=== PATIENT | female | born 1970 | race Caucasian/White ===

== ENCOUNTER → 2016-09-20 | Outpatient (CLI) | payer OTHER ==
[~2016-09-20] MED LIST: ALEV220T26 PO; MULTTAB24 PO; TYLE167L PO
--- NOTE | 2016-10-01 | ECWPNPC ---
PATIENT NAME: KEESHA OROURKE : 1970 GENDER: FEMALE VISIT DATE: 09/20/2016 DISCHARGE DATE: 09/20/16 1055 VISIT LOCKED DATE TIME: PHYSICIAN: YASIR COX RESOURCE: YASIR COX REASON FOR APPOINTMENT 1. FOLLOW UP HISTORY OF PRESENT ILLNESS HISTORY OF PRESENT ILLNESS: HERE FOR F/U.HAD TPI ON 05-12-16 TO BILAT. UPPER THORACIC PARASPINALS.WAS HAVING NO PAIN UNTIL 2 WEEKS AGO AND PAIN RETURNED ABRUPTLY.USING TENS UNIT PERIODICALLY WITH RELIEF.PAIN AGGREVATED BY LIFTING.RATING PAIN VAS 10/10. PAIN THE PATIENT DESCRIBES THE PAIN... THE PATIENT DESCRIBES THE PAIN... FALL RISK SCREENING: SCREENING :NO FALLS IN THE PAST YEAR CURRENT MEDICATIONS TAKING MULTIVITAMIN 1 TABLET 1 TAB(S) ORALLY DAILY, NOTES: 05-11-16 0800 TAKING ACETAMINOPHEN 500 MG CAPSULE 1 CAPSULE NEEDED ORALLY EVERY 6 HRS TAKING ALEVE 220 MG TABLET 1 TABLET NEEDED ORALLY EVERY 12 HRS, NOTES: NONE MEDICATION LIST REVIEWED AND RECONCILED WITH THE PATIENT PAST MEDICAL HISTORY SLEEP APNEA, USES CPAP ALLERGIES PREDNISONE: SHORT OF BREATH: ALLERGY SOCIAL HISTORY GENERAL: TOBACCO USE ARE YOU A:NONSMOKER LEARNING BARRIERS / SPECIAL NEEDS ORIENTED TO PLAN OF CARE: PATIENT, PAIN MANAGEMENT PATIENT, ORIENTED TO PLAN OF CARE: PATIENT, PAIN MANAGEMENT PATIENT. NEW PATIENT PAIN DIARY TODAY'S VISITNOTES FROM 0-10, WHAT LEVEL IS YOUR PAIN TODAY?0 PAIN CLINIC PFS, CLERGY, PUBLIC HEALTH REFERRALS PFS REFERRAL NEEDED?NO CLERGY REFERRAL NEEDED?NO PUBLIC HEALTH REFERRAL NEEDED?NO WAS THE PROVIDER NOTIFIED OF ANY PERTINENT INFO?NO PFS REFERRAL NEEDED?NO CLERGY REFERRAL NEEDED?NO PUBLIC HEALTH REFERRAL NEEDED?NO WAS THE PROVIDER NOTIFIED OF ANY PERTINENT INFO?NO REVIEW OF SYSTEMS CONSTITUTIONAL: ANY CHANGE IN YOUR MEDICAL CONDITION? NO . CHILLS NO . FEVER NO . INFECTION: DO YOU HAVE NEW INFECTIONS? NO . DO YOU HAVE HISTORY OF MRSA? NO . MUSCULOSKELETAL: ANY NEW PATTERNS OF PAIN OR NUMBNESS? YES PT HAD TPI 05/12/16, WHICH GAVE GOOD RELIEF UP UNTIL A FEW WEEKS AGO, NOW REPORTS PAIN IN CENTER OF BACK . GASTROENTEROLOGY: ANY NEW CHANGE IN BOWEL CONTROL? NO . GENITOURINARY: ANY NEW CHANGE IN BLADDER CONTROL? NO . IS THERE A CHANCE YOU COULD BE ? NO . HEMATOLOGY/LYMPH: DO YOU TAKE ANY BLOOD THINNERS? (FOR EXAMPLE- COUMADIN, PLAVIX, AGGRENOX, PLATEL, PRADAXA, OR XARELTO) NO . WHEN WAS YOUR LAST DOSE? DATE: TIME: . NEUROLOGY: HAVE YOU FALLEN IN THE PAST 6 MONTHS? YES PT REPORTS SHE SLIPPED ON ICE AND FELL ONTO KNEES. DENIES ANY INJURY FROM FALL, NO ED VISIT. . ANY NEW EXTREMITY NUMBNESS OR WEAKNESS? NO . CARDIOLOGY: DO YOU HAVE A PACEMAKER OR DEFIBRILLATOR? NO . RESPIRATORY: HAVE YOU BEEN SICK IN THE PAST WEEK? NO . FEVER NO . FLU LIKE SYMPTOMS? NO . COUGH NO . INTEGUMENTARY: DO YOU HAVE ANY RASHES OR OPEN SORES? NO . ALLERGIC/IMMUNO: ARE YOU ALLERGIC TO SHELLFISH OR IV DYE? NO . ANY NEW ALLERGIES? NO . PSYCHIATRIC: DO YOU HAVE THOUGHTS OF HURTING YOURSELF OR SOMEONE ELSE? NO . ARE YOU ABUSED, NEGLECTED, OR IN AN UNSAFE ENVIRONMENT? NO . ENDOCRINOLOGY: ARE YOU DIABETIC? NO . OTHER: DO YOU NEED ANY PRESCRIPTIONS? NO . IF YES, PLEASE LIST: ____ . ANY NEW PROBLEMS WITH YOUR MEDICATIONS? NO . WHEN DID YOU LAST EAT? ____ . WHEN DID YOU LAST DRINK? ____ . WHAT DID YOU LAST DRINK? ____ . NAME OF PERSON DRIVING YOU HOME? ____ . DO YOU HAVE ANY OTHER QUESTIONS OR CONCERNS NO . REVIEWED BY: PROVIDER: YASIR PETTY . VITAL SIGNS WT 165 LBS, HT 67", BMI 25.84 INDEX, BP 136/85 MM HG, HR 67 /MIN, RR 18 /MIN, TEMP 97.0 F, OXYGEN SAT % 99%, SAFE IN ENV? (Y/N) YES, REVIEWED BY: MYNOR. EXAMINATION GENERAL EXAMINATION: LUNGS:LUNG SOUNDS ARE CLEAR. HEART:HEART RATE REGULAR. MUSCULOSKELETAL:*, MUSCLE STRENGTH TESTING 5/5 BILATERAL UPPER EXTREMITIES., TRIGGER POINTS:, ELICITED WITH PALPATION OVER MID THORACIC MUSCLES WITH AGGREVATION OF PAIN IN THIS AREA W ROJM OF UPPER EXTREMITIES.. ASSESSMENTS CHRONIC BILATERAL THORACIC BACK PAIN - M54.6 (PRIMARY) MYOFASCIAL PAIN - M79.1 MYALGIA - M79.1 TREATMENT CHRONIC BILATERAL THORACIC BACK PAIN TRIGGER POINT 1-2 AREAS MYOFASCIAL PAIN TRIGGER POINT 1-2 AREAS PREVENTIVE MEDICINE PAIN CLINIC TEACHING: PROCEDURE TEACHING REVIEWED TEACHING FOR TRIGGER POINT INJECTIONS. PROCEDURE CODES FA211 ESTABILISHED PATIENT [facility] CHARGE FOLLOW UP 2WK POST (REASON: TPIMID THORACIC) ELECTRONICALLY SIGNED BY MALINDA MICHEL ON 09/30/2016 AT 09:16 AM EST DISCLAIMER : THIS IS A VISIT SUMMARY EXTRACTED FROM THE [employer] CHART. IT IS NOT A COPY OF THE [employer] PROGRESS NOTE. PATEL
== END ==
LOC: M PAIN 10:00
PROVIDERS: ATTEND Nurse Practitioner Family
DX: Z09 Encounter for follow-up examination after completed treatment for conditions other than malignant neoplasm (principal); G89.29 Other chronic pain; M54.6 Pain in thoracic spine; M79.1 Myalgia; G47.30 Sleep apnea, unspecified; Z79.1 Long term (current) use of non-steroidal anti-inflammatories (NSAID); Z79.899 Other long term (current) drug therapy

== ENCOUNTER → 2016-09-23 | Outpatient (CLI) | payer OTHER ==
[~2016-09-23] MED LIST changes: +BUPIVACAINE HCL 0.25% 10 ML VIAL As Ordered ONE; +BUPIVACAINE HCL 0.25% 30 ML VIAL As Ordered ONE; +TRIAMCINOLONE ACETONIDE SUSP 40 MG/ML VIAL (J3301) As Ordered ONE
--- NOTE | 2016-09-23 23:36 | ECWPNPC ---
PATIENT NAME: KEESHA OROURKE : 1970 GENDER: FEMALE VISIT DATE: 09/23/2016 DISCHARGE DATE: 09/23/16 0954 VISIT LOCKED DATE TIME: PHYSICIAN: FABIAN AGUIRRE RESOURCE: FABIAN AGUIRRE REASON FOR APPOINTMENT 1. TPI HISTORY OF PRESENT ILLNESS HISTORY OF PRESENT ILLNESS: PAIN THE PATIENT DESCRIBES THE PAIN... 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 NEW PATIENT PAIN DIARY TODAY'S VISITNOTES FROM 0-10, WHAT LEVEL IS YOUR PAIN TODAY?0 PAIN CLINIC PFS, CLERGY, PUBLIC HEALTH REFERRALS PFS REFERRAL NEEDED?NO CLERGY REFERRAL NEEDED?NO PUBLIC HEALTH REFERRAL NEEDED?NO WAS THE PROVIDER NOTIFIED OF ANY PERTINENT INFO?NO PFS REFERRAL NEEDED?NO CLERGY REFERRAL NEEDED?NO PUBLIC HEALTH REFERRAL NEEDED?NO WAS THE PROVIDER NOTIFIED OF ANY PERTINENT INFO?NO REVIEW OF SYSTEMS CONSTITUTIONAL: ANY CHANGE IN YOUR MEDICAL CONDITION? NO . CHILLS NO . FEVER NO . INFECTION: DO YOU HAVE NEW INFECTIONS? NO . DO YOU HAVE HISTORY OF MRSA? NO . MUSCULOSKELETAL: ANY NEW PATTERNS OF PAIN OR NUMBNESS? NO . GASTROENTEROLOGY: ANY NEW CHANGE IN BOWEL CONTROL? NO . GENITOURINARY: ANY NEW CHANGE IN BLADDER CONTROL? NO . IS THERE A CHANCE YOU COULD BE ? NO . HEMATOLOGY/LYMPH: DO YOU TAKE ANY BLOOD THINNERS? (FOR EXAMPLE- COUMADIN, PLAVIX, AGGRENOX, PLATEL, PRADAXA, OR XARELTO) NO . WHEN WAS YOUR LAST DOSE? DATE: TIME: . NEUROLOGY: HAVE YOU FALLEN IN THE PAST 6 MONTHS? NO . ANY NEW EXTREMITY NUMBNESS OR WEAKNESS? NO . CARDIOLOGY: DO YOU HAVE A PACEMAKER OR DEFIBRILLATOR? NO . RESPIRATORY: HAVE YOU BEEN SICK IN THE PAST WEEK? NO . FEVER NO . FLU LIKE SYMPTOMS? NO . COUGH NO . INTEGUMENTARY: DO YOU HAVE ANY RASHES OR OPEN SORES? NO . ALLERGIC/IMMUNO: ARE YOU ALLERGIC TO SHELLFISH OR IV DYE? NO . ANY NEW ALLERGIES? NO . PSYCHIATRIC: DO YOU HAVE THOUGHTS OF HURTING YOURSELF OR SOMEONE ELSE? NO . ARE YOU ABUSED, NEGLECTED, OR IN AN UNSAFE ENVIRONMENT? NO . ENDOCRINOLOGY: ARE YOU DIABETIC? NO . OTHER: DO YOU NEED ANY PRESCRIPTIONS? NO . IF YES, PLEASE LIST: ____ . ANY NEW PROBLEMS WITH YOUR MEDICATIONS? NO . WHEN DID YOU LAST EAT? [id number] . WHEN DID YOU LAST DRINK? [id number] . WHAT DID YOU LAST DRINK? JUICE . NAME OF PERSON DRIVING YOU HOME? TONYA . DO YOU HAVE ANY OTHER QUESTIONS OR CONCERNS NO . REVIEWED BY: PROVIDER: . VITAL SIGNS WT 165 LBS, HT 67", BMI 25.84 INDEX, BP 151/90 MM HG, HR 89 /MIN, RR 16 /MIN, TEMP 98.0 F, OXYGEN SAT % 98, NA INITIALS TL 0909, REVIEWED BY: CM. ASSESSMENTS MYALGIA - M79.1 (PRIMARY) PROCEDURES PN TRIGGER POINT INJECTION WITH STEROIDS PRE PROCEDURE DIAGNOSIS 1. MYALGIA 2. PAIN AT BILATERAL THORACIC AREA POST PROCEDURE DIAGNOSIS 1. MYALGIA 2. PAIN AT BILATERAL THORACIC AREA PROCEDURE TRIGGER POINT INJECTION AT BILATERAL THORACIC AREA SURGEON DR. FABIAN AGUIRRE ELECTRICIAN OUTSIDE NONE ANESTHESIA LOCAL PRE PROCEDURE NOTE THE PATIENT HAS A HISTORY OF CHRONIC PAIN AT THE RIGHT AND LEFT THORACIC AREA. I EVALUATE THE PATIENT AND REVIEWED THE CHART. THERE IS EVIDENCE OF BANDS OF TISSUE WITH RESTRICTION OF MOVEMENT AND PRESENCE OF TRIGGER POINT AT THE AFFECTED AREA. I WENT OVER THE RISKS, ALTERNATIVES, AND BENEFITS ASSOCIATED WITH THIS PROCEDURE. THE PATIENT WOULD LIKE TO PROCEED AND GIVE CONSENT TO PERFORMED THE PROCEDURE. THE PATIENT DENIES UNEXPLAINABLE WEIGHT LOSS, FEVER, CHILLS, OR NEW CHANGES IN URINARY OR BOWEL CONTROL DESCRIPTION OF PROCEDURE THE PATIENT WAS BROUGHT TO THE PROCEDURE ROOM AND PLACED IN THE SITTING POSITION. THE AREA WAS CLEANED WITH ALCOHOL. THE PROCEDURE WAS DONE USING ASEPTIC STERILE TECHNIQUE. I CHECKED LATERALITY AND THE LEVEL WHERE THE PROCEDURE WAS GOING TO BE PERFORMED WITH THE PATIENT AND THE SUPPORTING STAFF AT THE MOMENT OF THE TIME OUT IN THE PROCEDURE ROOM. USING A 25-GAUGE NEEDLE, TRIGGER POINTS WERE INJECTED AT THE RIGHT AND LEFT THORACIC AREA WITH A TOTAL OF 40 ML OF BUPIVACAINE 0.25% AND KENALOG 40 MG. THERE WAS NO EVIDENCE OF BLOOD, PARESTHESIA OR CEREBROSPINAL FLUID DURING THE PROCEDURE. THE PATIENT WAS SENT TO THE RECOVERY ROOM. THE PATIENT WAS MOVING THE EXTREMITIES AND DOING WELL. THERE WAS NO COMPLICATION DURING THE PROCEDURE POST PROCEDURE NOTE THE PATIENT WILL BE SEEN IN A FOLLOW UP IN THE NEXT FEW WEEKS. INSTRUCTIONS WERE GIVEN, QUESTIONS WERE ANSWERED, AND THE PATIENT EXPRESSED UNDERSTANDING AND AGREES WITH THE PLAN. I, MEGGAN DAWKINS, DOCUMENTED THE ABOVE INFORMATION ACTING A SCRIBE FOR DR. AGUIRRE. I, DR. AGUIRRE, HAVE REVIEWED THE ABOVE DOCUMENT, SCRIBED BY MEGGAN DAWKINS, AND I VERIFY THAT IT IS ACCURATE PROCEDURE CODES 81103 INJ TRIGGER POINT /2 [facility] [place] 3 WEEKS ELECTRONICALLY SIGNED BY FABIAN AGUIRER MD ON 09/23/2016 AT 06:12 PM EST DISCLAIMER : THIS IS A VISIT SUMMARY EXTRACTED FROM THE [employer] CHART. IT IS NOT A COPY OF THE [employer] PROGRESS NOTE. MTDLuann
== END ==
LOC: M PAIN 09:20
PROVIDERS: ATTEND Anesthesiology
DX: G89.29 Other chronic pain (principal); M79.1 Myalgia; M54.6 Pain in thoracic spine; G47.30 Sleep apnea, unspecified; Z88.8 Allergy status to other drugs, medicaments and biological substances; Z79.1 Long term (current) use of non-steroidal anti-inflammatories (NSAID)
CPT/HCPCS: 20552; J3301

== ENCOUNTER → 2016-10-14 | Outpatient (CLI) | payer OTHER ==
[~2016-10-14] MED LIST changes: -BUPIVACAINE HCL 0.25% 10 ML VIAL As Ordered ONE; -BUPIVACAINE HCL 0.25% 30 ML VIAL As Ordered ONE; -TRIAMCINOLONE ACETONIDE SUSP 40 MG/ML VIAL (J3301) As Ordered ONE
--- NOTE | 2016-10-15 00:46 | ECWPNPC ---
PATIENT NAME: KEESHA OROURKE : 1970 GENDER: FEMALE VISIT DATE: 10/14/2016 DISCHARGE DATE: 10/14/16 0000 VISIT LOCKED DATE TIME: PHYSICIAN: YASIR COX RESOURCE: YASIR COX REASON FOR APPOINTMENT 1. POST PROCEDURE, THORACIC HISTORY OF PRESENT ILLNESS HISTORY OF PRESENT ILLNESS: HERE FOR F/U.HAD TPI ON 09-23-16 TO BILAT. UPPER THORACIC PARASPINALS.REPORTS SIGNIFICANT REDUCTION IN PAIN.RATING PAIN VAS 1/10. USING TENS UNIT PERIODICALLY WITH RELIEF.PAIN AGGREVATED BY LIFTING. PAIN THE PATIENT DESCRIBES THE PAIN... THE PATIENT DESCRIBES THE PAIN... THE PATIENT DESCRIBES THE PAIN... FALL RISK SCREENING: SCREENING :NO FALLS IN THE PAST YEAR CURRENT MEDICATIONS TAKING MULTIVITAMIN 1 TABLET 1 TAB(S) ORALLY DAILY, NOTES: 09-22-16 TAKING ALEVE 220 MG TABLET 1 TABLET NEEDED ORALLY EVERY 12 HRS, NOTES: 2 DAYS AGO NOT-TAKING ACETAMINOPHEN 500 MG CAPSULE 1 CAPSULE NEEDED ORALLY EVERY 6 HRS, NOTES: NONE MEDICATION LIST REVIEWED AND RECONCILED WITH THE PATIENT PAST MEDICAL HISTORY SLEEP APNEA, USES CPAP ALLERGIES PREDNISONE: SHORT OF BREATH: ALLERGY SOCIAL HISTORY GENERAL: TOBACCO USE ARE YOU A:NONSMOKER LEARNING BARRIERS / SPECIAL NEEDS ORIENTED TO PLAN OF CARE: PATIENT, PAIN MANAGEMENT PATIENT, ORIENTED TO PLAN OF CARE: PATIENT, PAIN MANAGEMENT PATIENT. NEW PATIENT PAIN DIARY TODAY'S VISITNOTES FROM 0-10, WHAT LEVEL IS YOUR PAIN TODAY?0 PAIN CLINIC PFS, CLERGY, PUBLIC HEALTH REFERRALS PFS REFERRAL NEEDED?NO CLERGY REFERRAL NEEDED?NO PUBLIC HEALTH REFERRAL NEEDED?NO WAS THE PROVIDER NOTIFIED OF ANY PERTINENT INFO?NO PFS REFERRAL NEEDED?NO CLERGY REFERRAL NEEDED?NO PUBLIC HEALTH REFERRAL NEEDED?NO WAS THE PROVIDER NOTIFIED OF ANY PERTINENT INFO?NO REVIEW OF SYSTEMS CONSTITUTIONAL: ANY CHANGE IN YOUR MEDICAL CONDITION? NO . CHILLS NO . FEVER NO . INFECTION: DO YOU HAVE NEW INFECTIONS? NO . DO YOU HAVE HISTORY OF MRSA? NO . MUSCULOSKELETAL: ANY NEW PATTERNS OF PAIN OR NUMBNESS? NO . GASTROENTEROLOGY: ANY NEW CHANGE IN BOWEL CONTROL? NO . GENITOURINARY: ANY NEW CHANGE IN BLADDER CONTROL? NO . IS THERE A CHANCE YOU COULD BE ? NO . HEMATOLOGY/LYMPH: DO YOU TAKE ANY BLOOD THINNERS? (FOR EXAMPLE- COUMADIN, PLAVIX, AGGRENOX, PLATEL, PRADAXA, OR XARELTO) NO . WHEN WAS YOUR LAST DOSE? DATE: TIME: . NEUROLOGY: HAVE YOU FALLEN IN THE PAST 6 MONTHS? NO . ANY NEW EXTREMITY NUMBNESS OR WEAKNESS? NO . CARDIOLOGY: DO YOU HAVE A PACEMAKER OR DEFIBRILLATOR? NO . RESPIRATORY: HAVE YOU BEEN SICK IN THE PAST WEEK? NO . FEVER NO . FLU LIKE SYMPTOMS? NO . COUGH NO . INTEGUMENTARY: DO YOU HAVE ANY RASHES OR OPEN SORES? NO . ALLERGIC/IMMUNO: ARE YOU ALLERGIC TO SHELLFISH OR IV DYE? NO . ANY NEW ALLERGIES? NO . PSYCHIATRIC: DO YOU HAVE THOUGHTS OF HURTING YOURSELF OR SOMEONE ELSE? NO . ARE YOU ABUSED, NEGLECTED, OR IN AN UNSAFE ENVIRONMENT? NO . ENDOCRINOLOGY: ARE YOU DIABETIC? NO . OTHER: DO YOU NEED ANY PRESCRIPTIONS? NO . IF YES, PLEASE LIST: ____ . ANY NEW PROBLEMS WITH YOUR MEDICATIONS? NO . WHEN DID YOU LAST EAT? ____ . WHEN DID YOU LAST DRINK? ____ . WHAT DID YOU LAST DRINK? ____ . NAME OF PERSON DRIVING YOU HOME? ____ . DO YOU HAVE ANY OTHER QUESTIONS OR CONCERNS NO . REVIEWED BY: PROVIDER: YASIR PETTY . VITAL SIGNS WT 176 LBS, HT 67", BMI 27.56 INDEX, BP 140/85 MM HG, HR 92 /MIN, RR 16 /MIN, TEMP 97.8 F, OXYGEN SAT % 98%, NA INITIALS SC14:28, REVIEWED BY: MLF. EXAMINATION GENERAL EXAMINATION: LUNGS:LUNG SOUNDS ARE CLEAR. HEART:HEART RATE REGULAR. MUSCULOSKELETAL:*, MUSCLE STRENGTH TESTING 5/5 BILATERAL UPPER EXTREMITIES., TRIGGER POINTS:, ELICITED WITH PALPATION OVER MID THORACIC MUSCLES WITH AGGREVATION OF PAIN IN THIS AREA W ROJM OF UPPER EXTREMITIES.. ASSESSMENTS CHRONIC BILATERAL THORACIC BACK PAIN - M54.6 (PRIMARY) MYOFASCIAL PAIN - M79.1 MYALGIA - M79.1 TREATMENT CHRONIC BILATERAL THORACIC BACK PAIN REFERRAL TO:PHYSICAL THERAPY INNOVATIVEPHYSICAL THERAPIST REASON:MYOFASCIAL PAIN UPPER/MID THORACIC-MYOFASCIAL RELEASE PROCEDURE CODES FA211 ESTABILISHED PATIENT [facility] CHARGE FOLLOW UP 2 MONTHS ELECTRONICALLY SIGNED BY MALINDA IMCHEL ON 10/14/2016 AT 04:34 PM EST DISCLAIMER : THIS IS A VISIT SUMMARY EXTRACTED FROM THE [employer] CHART. IT IS NOT A COPY OF THE [employer] PROGRESS NOTE. PATEL
== END ==
LOC: M PAIN 14:40
PROVIDERS: ATTEND Nurse Practitioner Family
DX: Z09 Encounter for follow-up examination after completed treatment for conditions other than malignant neoplasm (principal); G89.29 Other chronic pain; M54.6 Pain in thoracic spine; M79.1 Myalgia; G47.30 Sleep apnea, unspecified; Z88.8 Allergy status to other drugs, medicaments and biological substances; Z79.1 Long term (current) use of non-steroidal anti-inflammatories (NSAID); Z79.899 Other long term (current) drug therapy

== ENCOUNTER → 2017-01-27 | Outpatient (CLI) | payer OTHER ==
--- NOTE | 2017-01-27 15:29 | ECGEPIP ---
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
== END ==
LOC: M EKG 14:39
PROVIDERS: ATTEND Anesthesiology
DX: E04.1 Nontoxic single thyroid nodule (principal)

== ENCOUNTER → 2017-02-02 | Day surgery (SDC) | payer OTHER ==
[~2017-02-02] VITALS: Ht 170.2 cm; Wt 77.1 kg
[~2017-02-02] MED LIST changes: +GLYCOPYRROLATE INJ 0.2 MG/ML 2 ML VIAL As Ordered ONE; +IBUPROFEN 600 MG TAB PO PRN; +KETOROLAC 60 MG/2 ML VIAL (J1885) As Ordered ONE; +LR 1,000 ML IV SCH; +MIDAZOLAM INJ 2 MG/2 ML VIAL (J2250) As Ordered ONE; +NEOSTIGMINE 1MG/ML 5 ML SYRINGE (J2710) As Ordered ONE; +NORCO, ANEXSIA 5/325MG TABLET (HYDROcodone/ACETAMINOPHEN) PO PRN; +ONDANSETRON 4MG/2ML VIAL (J2405) As Ordered ONE; +ONDANSETRON 4MG/2ML VIAL (J2405) IV PRN; +PERCOCET 5MG/325MG TAB PO PRN; +ROCURONIUM BROMIDE 50 MG/5 ML VIAL As Ordered ONE; +dexameTHASONE 4 MG/ML 1ML VIAL (J1100) As Ordered ONE; +fentaNYL 100 MCG/2 ML INJECTION (J3010) As Ordered ONE; +fentaNYL 100 MCG/2 ML INJECTION (J3010) IV PRN
[2017-02-02 12:23] LABS: CONTROL LINE UCG INT CTR LINE PRESENT
[2017-02-02 18:55] VITALS: BP 160/87
--- NOTE | 2017-02-03 11:42 | RO ---
DATE OF PROCEDURE: 02/02/2017 PREOPERATIVE DIAGNOSIS: Desire for permanent sterilization. POSTOPERATIVE DIAGNOSIS: Desire for permanent sterilization. OPERATIVE PROCEDURE: Awake intubation with effort for the intubation as expected based on the patient's history and subsequent laparoscopy with lyses of adhesions necessary to get to the uterus and tubes and then bilateral tubal ligation by bipolar cautery. SURGEON: Vanessa Francis MD WELDER PIPE MAKING: none ANESTHESIOLOGIST: Dr. Duffy. BRIEF DESCRIPTION OF PROCEDURE AND FINDINGS: Crys was brought to the operating room where sufficient general endotracheal anesthesia was induced as already noted and as noted in the anesthesia record, this patient has a difficult intubation. She had an awake intubation because of her airway findings and with effort though the intubation did go smoothly. Following intubation she was prepped, draped and positioned in the usual sterile fashion with the uterine manipulator placed after the uterus had been sounded to 9. The bladder was also empty. Attention was then turned to the abdomen. Transverse semilunar incision was made below the umbilicus and sharp blunt dissection were continued to the subcutaneous tissues to the level of the rectus fascia which was grasped with Matthew clamps, secured with #0 Vicryl tension suture and of course transected using the scalpel. The peritoneum was then entered under direct visualization in an open laparoscopic technique and using the S-retractors we were able to visualize our progress and subsequently place the Alonzo cannula which was secured in place with #0 Vicryl retention sutures. CO2 insufflation was then begun. After adequate CO2 insufflation the peritoneal cavity was visualized. Superiorly , there was a normal appearing liver and normal appearing diaphragm and you could see normally the pulsatile activity of the heart and the normal stomach, but inferiorly, there were omental adhesions that were obscuring the view entirely in the midline and along the patient's right side and some adhesions of the bowel to the anterior abdominal wall. Some of these were filmy and avascular and using the scissors through the operative port, we were able to bring some of these down so we could more readily visualize. We then used the 45 EndSeal to take down the omental mid anterior abdominal adhesions using care not to injure the bowel or the bladder which is tacked up a little bit anteriorly against the abdominal wall and we did not take down all of the adhesions under the patient's previous appendectomy scar. These were bowel direct to anterior abdominal wall and the risk of injury was beyond the expected benefit since the patient requested a tubal and did not have chronic bowel symptoms from those adhesions nor was there any risk of volvulus due to the dense nature of the adhesions. Therefore, after taking down the omentum which did post some volvulus risk and obscure access. We were able to use the uterine manipulator to elevate the uterus and visualize the tubes to the fimbriated ends and then using the bipolar cautery through the operative scope port, we cauterized the tubes in three separate locations on each tube. We were able to keep the tubes well away from the bowel during this. There are some minor adhesions, certainly less aggressive than the ones on the right side, of the descending colon to the left lateral abdomen and since these were not distorting the bowel, these two were left in place. Then, after completing the bipolar cauterization of both tubes, photographed both the cauterization and the normal ovaries and a general view of the abdomen, and then a final view of those intestinal adhesions that were left in place. That ended the procedure with the instruments removed. The CO2 was allowed to escape the abdomen. The #0 Vicryl retention sutures used to close the fascial wound at the umbilicus and then the skin closed with a #3-0 subcuticular stitch of Vicryl. Dry sterile dressing then applied. Estimated blood loss for the procedure about 5 mL. Fluids replaced was crystalloid. COMPLICATIONS: None. CONDITION AND DISPOSITION: Fortunately, Crys tolerated the procedure well and was recovering in the recovery room in good condition. PATEL
== END | disposition home or self-care (01) ==
LOC: M SDC 11:00
PROVIDERS: ATTEND Obstetrics & Gynecology
DX: Z30.2 Encounter for sterilization (principal); G47.33 Obstructive sleep apnea (adult) (pediatric); E04.1 Nontoxic single thyroid nodule; T88.4XXD Failed or difficult intubation, subsequent encounter; F17.210 Nicotine dependence, cigarettes, uncomplicated; Z88.8 Allergy status to other drugs, medicaments and biological substances
CPT/HCPCS: 58670; 84703; J1100; J1885; J2250; J2405; J2710; J3010

== ENCOUNTER 2019-06-20 08:23 | Emergency (ER) | payer OTHER ==
[~2019-06-20] VITALS: Ht 170.2 cm; Wt 76.1 kg
[~2019-06-20 08:23] MED LIST changes: -GLYCOPYRROLATE INJ 0.2 MG/ML 2 ML VIAL As Ordered ONE; -IBUPROFEN 600 MG TAB PO PRN; -KETOROLAC 60 MG/2 ML VIAL (J1885) As Ordered ONE; -LR 1,000 ML IV SCH; -MIDAZOLAM INJ 2 MG/2 ML VIAL (J2250) As Ordered ONE; -NEOSTIGMINE 1MG/ML 5 ML SYRINGE (J2710) As Ordered ONE; -NORCO, ANEXSIA 5/325MG TABLET (HYDROcodone/ACETAMINOPHEN) PO PRN; -ONDANSETRON 4MG/2ML VIAL (J2405) As Ordered ONE; -ONDANSETRON 4MG/2ML VIAL (J2405) IV PRN; -PERCOCET 5MG/325MG TAB PO PRN; -ROCURONIUM BROMIDE 50 MG/5 ML VIAL As Ordered ONE; -dexameTHASONE 4 MG/ML 1ML VIAL (J1100) As Ordered ONE; -fentaNYL 100 MCG/2 ML INJECTION (J3010) As Ordered ONE; -fentaNYL 100 MCG/2 ML INJECTION (J3010) IV PRN
[2019-06-20] MEDS ORDERED: POLY2.5S (08:36)
[2019-06-20] MEDS ORDERED: AMOX875T2 (08:36)
[2019-06-20] MEDS ORDERED: CLINDAMYCIN 900 MG in IV 1 EA IV ONE (09:45)
[2019-06-20 10:11] LABS: BASO # 0.1 10^3/uL (0.0-0.2); BASO % 0.5 % (0.0-1.0); EOS # 0.3 10^3/uL (0.0-0.5); EOS % 2.7 % (0.0-3.0); HEMATOCRIT 42.9 % (36.0-47.0); HEMOGLOBIN 14.3 g/dl (12.0-15.5); LYMPH # 3.7 10^3/uL (1.5-5.0); LYMPH % 31.7 % (24.0-44.0); MEAN CORPUSCULAR HEMOGLOBIN 32.1 pg (27.0-33.0); MEAN CORPUSCULAR HGB CONC 33.3 g/dl (32.0-36.5); MEAN CORPUSCULAR VOLUME 96.4 fl (80.0-96.0); MONO # 0.8 10^3/uL (0.0-0.8); MONO % 7.1 % (0.0-5.0); NEUTROPHILS # 6.6 10^3/uL (1.5-8.5); NEUTROPHILS % 57.6 % (36.0-66.0); PLATELET COUNT, AUTOMATED 281 10^3/uL (150-450); RED BLOOD COUNT 4.45 10^6/uL (4.00-5.40); WHITE BLOOD COUNT 11.5 10^3/uL (4.0-10.0)
[2019-06-20] MEDS ORDERED: NS 1,000 ML IV ONE (10:15)
[2019-06-20 10:34] LABS: BLOOD UREA NITROGEN 8 MG/DL (7-18); C REACTIVE PROTEIN QUANTITATIV 1.57 MG/DL (0.00-0.30); CALCIUM LEVEL 9.5 MG/DL (8.5-10.1); CARBON DIOXIDE LEVEL 28 MEQ/L (21-32); CHLORIDE LEVEL 109 MEQ/L (98-107); CREATININE FOR GFR 0.73 MG/DL (0.55-1.30); GLOMERULAR FILTRATION RATE > 60.0 (>51); GLUCOSE, FASTING 87 MG/DL (70-100); POTASSIUM SERUM 3.9 MEQ/L (3.5-5.1); SODIUM LEVEL 142 MEQ/L (136-145)
[2019-06-20 10:46] LABS: ERYTHROCYTE SEDIMENTATION RATE 27 mm/hr (0-30)
[2019-06-20] MEDS ORDERED: ISOVUE-370 76% 100ML VIAL (Q9967) As Ordered ONE (10:56)
[2019-06-20] MEDS ORDERED: KETOROLAC 30 MG/ML VIAL (J1885) IV ONE (11:30)
--- NOTE | 2019-06-20 11:33 | REP ---
ORBITAL CT STUDY WITH IV CONTRAST: HISTORY: Left eye redness and swelling. Pre-orbital versus orbital cellulitis. CT CONTRAST DOSE: 75 mL of intravenous Isovue [address] FINDINGS: The right parotid gland appears to be surgically absent although the parotid beds are not completely included in the imaging field of view. The left parotid gland is normal as visualized. There is no intraorbital mass, edema, or fluid collection. There is preseptal soft tissue edema about the left orbit. No abscess is seen. There is partial opacification of ethmoid sinuses bilaterally, left more so than right. Frontal sinuses are clear. Sphenoid aeration is normal. Mastoid aeration is normal. There is a small air-fluid level in the left maxillary sinus. A mucous retention cyst is noted in the right maxillary sinus measuring 2.1 cm in greatest diameter. There is minimal maxillary sinus mucosal thickening bilaterally. Ostiomeatal complexes shows some mild mucosal thickening as well. The bony nasal septum deviates somewhat to the right with a tiny peak. Nasal turbinate and soft tissues are unremarkable. IMPRESSION: 1. Small air fluid level left maxillary sinus. Mucous retention cyst right maxillary sinus. 2. Mucosal thickening and partial opacification bilateral ethmoid sinuses. 3. Preseptal periorbital edema on the left. No abscess seen. No intra orbital abnormality. Electronically Signed by Wm Herzog MD 06/20/2019 12:16 P
[2019-06-20 11:34] VITALS: BP 143/85
[2019-06-20] MEDS ORDERED: CLEO300C2 PO (11:35)
== END 2019-06-20 12:06 | disposition home or self-care (01) ==
LOC: M ED 08:23
DX: H05.012 Cellulitis of left orbit (principal); G47.30 Sleep apnea, unspecified; F17.200 Nicotine dependence, unspecified, uncomplicated; Z79.899 Other long term (current) drug therapy; Z88.8 Allergy status to other drugs, medicaments and biological substances
CPT/HCPCS: 70481; 80048; 85025; 85652; 86140; 87040; 87070; 87077; 87186; 87205; 96365; 96375; 99284; J1885; Q9967

== ENCOUNTER 2020-10-12 05:42 | Emergency (ER) | payer OTHER ==
[~2020-10-12] VITALS: Ht 170.2 cm; Wt 83.1 kg
[~2020-10-12 05:42] MED LIST changes: +AMOX875T2; +CLEO300C2 PO; +POLY2.5S
--- OUTSIDE RECORDS SUMMARY | 2020-10-12 05:49 | CCD | Continuity of Care Document ---
Author Author Crys INTERIANO M.D. Organization Unknown Address [address] [place] [address] Phone [phone] Care Team Providers Care Facility Operations Manager Name Role Phone Chinmay Interiano M.D. AUTM [phone] [facility] Nurse Practitioners AUTM [phone] [facility] Rheumatology AUTM [phone] [facility] AUTM [phone] [facility] AUTM [phone] Problems Active Problems Provider Date Gastroesophageal reflux disease Onset: 0 Obstructive sleep apnea of adult Nelda Mast M.D. Onset: 08/08/2017 Parotidectomy Onset: Radial styloid tenosynovitis LILIA Francois Onse t: 2017 Essential hypertension Onset: 04/23/2020 Social History Type Date Description Comments Sex Unknown Tobacco Use Start: Unknown Light tobacco smoker (10 or fewe r cigarettes/day) Tobacco Use Start: Unknown Never Smoked Cigars Tobacco Use Start: Unknown Never Smoked A Pipe Tobacco Use Start: Unknown Never Used Smokeless Tobacco ETOH Use Occasionally consumes alcohol Tobacco Use Start: Unknown Patient is a current smoker, smo kes every day less than 1/2 PPD, "trying to quit" Recreational Drug Use Denies Drug Use Allergies, Adverse Reactions, Alerts Active Allergies Reaction Severity Comments Date Prednisone LABORED BREATHING 2017 NKFA 09/12/2017 NKEA 06/17/2019 Medications Active Medications SIG Qnty Indications Ordering Provide r Date Atorvastatin Calcium 40mg Tablets 1 tab by mouth every day 90tabs E78.5 Chinmay Interiano MD 09/28/2020 Melatonin 5mg Capsules 1 cap by mouth every night Unknown Aleve 220mg Capsules 2 by mouth twice a day as needed or as needed Unknown History Medications No Active Medications Unknown - 08/05/2020 Atorvastatin Calcium 10mg Tablets 1 tab by mouth every day 90tabs E78.5 Chinmay Interiano MD 08/05/2020 - 09/28/[address] see preprocedure instructions 4tabs Daljit Maravilla MD 04/23/2020 - Miralax 17GM/Scoop Powder see preprocedure instructions. 238gm Daljit Maravilla MD 04/23/2020 - Medications Administered in Office Medication SIG Qnty Indications Ordering Provider Date Dexamethasone SDV 10MG/ML Injection LILIA Francois 2017 Inject Tendon/Ligament Injection LILIA Francois 2017 Immunizations Description No Information Available Vital Signs Date Vital Result Comment 09/28/2020 1:27pm BP Systolic 116 mmHg BP Diastolic 76 mmHg Heart Rate 76 /min Body Temperature 97.4 F Respiratory Rate 18 /min O2 % BldC Oximetry 97 % Weight 178.00 lb Weight 80.741 kg Height 67 inches 5'7" BMI (Body Mass Index) 27.9 kg/m2 BSA (Body Surface Area) 1.92 m2 08/05/2020 1:16pm BP Systolic 136 mmHg BP Diastolic 76 mmHg Body Temperature 97.6 F Respiratory Rate 18 /min O2 % BldC Oximetry 18 % Weight 171.00 lb Weight 77.566 kg Height 67 inches 5'7" BMI (Body Mass Index) 26.8 kg/m2 BSA (Body Surface Area) 1.89 m2 Results Test Acquired Date Facility Test Result H/L Range Note Comprehensive Metabolic Panel 08/28/2020 [facility] Comprehensive Metabo (SEE NOTE) 1, 2 Sodium 137 mEq/L 134 - 153 Potassium 3.9 mEq/L 3.6 - 5.0 Chloride 101 mEq/L 98 - 107 Co2 27 mEq/L 22 - 30 Glucose 94 mg/dL 65 - 110 BUN 7 mg/dL 7 - 21 Creatinine 0.7 mg/dL 0.7 - 1.5 BUN/Creat 10 8 - 27 Total Protein 7.0 g/dL 6.3 - 8.2 Albumin 4.5 g/dL 3.9 - 5.0 Globulin 2.5 GM/DL 2.4 - 3.2 A/G Ratio 1.8 0.8 - 2.0 Calcium 9.8 mg/dL 8.4 - 10.2 Total Bili <0.7 mg/dL 0.2 - 1.3 Alkaline Phos 93 U/L 38 - 126 Sgot/Ast 19 U/L 5 - 40 SGPT/Alt 22 U/L 7 - 56 Anion Gap 9.0 mmol/L 8.0 - 16.0 Age 50 yrs Non-Aa GFR >60 mL/min Afr Amer GFR >60 mL/min 3 Laboratory test finding 08/28/2020 [facility] CRP (High Sensitivity) 10.57 mg/L High 1.00 - 3.00 4 Sedimentation Rate 08/28/2020 [facility] Sed Rate 17 mm/hr 0 - 30 Sed Rate Reenter 17 Laboratory test finding 08/28/2020 [facility] T4 - Free 0.91 ng/dL Low 0.93 - 1.70 TSH Highly Sensitive 1.77 uIU/mL 0.47 - 5.01 CBC W/Automated Diff 08/28/2020 [facility] CBC W/Automated Diff (SEE NOTE) 5 WBC 8.2 10^3/uL 4.2 - 11.0 RBC 4.10 10^6/uL Low 4.20 - 5.40 Hemoglobin 13.0 g/dL 12.0 - 16.0 Hematocrit 38.7 % 37.0 - 47.0 MCV 94.4 fL 81.0 - 101 MCH 31.7 pg 27.0 - 34.0 MCHC 33.6 g/dL 31.0 - 36.0 RDW 12.3 % 11.5 - 14.5 Platelets 296 10^3/uL 150 - 450 MPV 9.8 fL 7.4 - 10.4 Neut 51.3 % 37.0 - 80.0 Lymph 37.8 % 25.0 - 40.0 Raw[place]ins 6.6 % 3.0 - 8.0 Eos 3.3 % 0.0 - 7.0 Baso 0.6 % 0.0 - 2.5 %Ig 0.4 % High 0.0 - 0.0 %NRBC 0.0 % 0.0 - 0.0 #Neut 4.18 10^3/uL 2.00 - 6.90 #Lymph 3.08 10^3/uL 0.60 - 3.40 #Rawlins 0.54 10^3/uL 0.00 - 0.90 #Eos 0.27 10^3/uL 0.00 - 0.70 #Baso 0.05 10^3/uL 0.00 - 0.20 #Ig 0.03 10^3/uL 0.00 - 0.10 #NRBC 0.00 10^3/uL 0.00 - 0.00 Manual Diff NOT INDICATED RBC Morph NOT INDICATED Cve Panel 08/28/2020 [facility] Cve Panel (SEE NOTE) 6 Cholesterol 262 mg/dL High 131 - 200 Triglycerides 362 mg/dL High 35 - 160 HDL 43 mg/dL 29 - 86 LDL 173 mg/dL 65 - 175 Risk Factor 6.1 High 3.2 - 4.4 LDL/HDL 4.02 High 1.47 - 3.22 7 Urinalysis 08/28/2020 [facility] Urinalysis (SEE NOTE) 8 Source R Color yellow Normal: Yellow Clarity clear Normal: Clear Spec [place] 1.030 1.001 - 1.030 pH 5 5 - 9 Glucose NORM Normal: Negative Bilirubin NEG Normal: Negative Ketone NEG Normal: Negative Protein NEG Normal: Negative Nitrite NEG Normal: Negative Blood NEG Normal: Negative Leuk Est NEG Normal: Negative Urobilinogen NOR less than 1.0 mg/dL Microscopic Not Indicate Laboratory test finding 08/28/2020 [facility] Hgba1c 5.5 % 4.4 - 6.1 9 Xray 08/05/2020 [facility] [address] [facility] [address] [place], [place] [id number] [phone] Mammo Diagnostic CAD Bilateral <pending> Influenza A And B Rna Probe 07/25/2020 [facility] pital Influenza A NEGATIVE Normal: Negative Influenza B NEGATIVE Normal: Negative Influenza A Reenter NEGATIVE Normal: Negative Influenza B [place]enter NEGATIVE Normal: Negative 10 Laboratory test finding 07/25/2020 [facility] Coronavirus Covid-19 Not Detected Not Detected 11 Strep A Dna Probe 07/25/2020 [facility] Rapid Strep NEGATIVE Normal: Negative Rapid Strep [place]enter NEGATIVE Normal: Negative 12 Laboratory test finding 07/23/2020 [facility] Coronavirus Covid-19 Not Detected Not Detected 13, 14 Laboratory test finding 05/15/2020 [facility] Coronavirus Covid-19 Not Detected Not Detected 15 Laboratory test finding 05/01/2020 [facility] Coronavirus Covid-19 Not Detected Not Detected 16 Laboratory test finding 04/16/2020 [facility] Troponin T <0.01 NG/ML 0.00 - 0.10 17 Urinalysis 04/16/2020 [facility] Urinalysis (SEE NOTE) 18, 19 Source R Color yellow Normal: Yellow Clarity clear Normal: Clear Spec [place] 1.025 1.001 - 1.030 pH 5 5 - 9 Glucose NORM Normal: Negative Bilirubin NEG Normal: Negative Ketone NEG Normal: Negative Protein NEG Normal: Negative Nitrite NEG Normal: Negative Blood NEG Normal: Negative Leuk Est NEG Normal: Negative Urobilinogen NOR less than 1.0 mg/dL Microscopic Not Indicate CBC W/Automated Diff 04/16/2020 [facility] CBC W/Automated Diff (SEE NOTE) 20 WBC 8.2 10^3/uL 4.2 - 11.0 RBC 3.97 10^6/uL Low 4.20 - 5.40 Hemoglobin 12.5 g/dL 12.0 - 16.0 Hematocrit 37.6 % 37.0 - 47.0 MCV 94.7 fL 81.0 - 101 MCH 31.5 pg 27.0 - 34.0 MCHC 33.2 g/dL 31.0 - 36.0 RDW 12.6 % 11.5 - 14.5 Platelets 274 10^3/uL 150 - 450 MPV 10.2 fL 7.4 - 10.4 Neut 52.1 % 37.0 - 80.0 Lymph 37.6 % 25.0 - 40.0 Raw[place]ins 6.1 % 3.0 - 8.0 Eos 3.3 % 0.0 - 7.0 Baso 0.5 % 0.0 - 2.5 %Ig 0.4 % High 0.0 - 0.0 %NRBC 0.0 % 0.0 - 0.0 #Neut 4.25 10^3/uL 2.00 - 6.90 #Lymph 3.07 10^3/uL 0.60 - 3.40 #[place] 0.50 10^3/uL 0.00 - 0.90 #Eos 0.27 10^3/uL 0.00 - 0.70 #Baso 0.04 10^3/uL 0.00 - 0.20 #Ig 0.03 10^3/uL 0.00 - 0.10 #NRBC 0.00 10^3/uL 0.00 - 0.00 Manual Diff NOT INDICATED RBC Morph NOT INDICATED Laboratory test finding 04/16/2020 [facility] D-Dimer <0.27 ug/mL 0.27 - 0.50 Troponin T <0.01 NG/ML 0.00 - 0.10 21 TSH Highly Sensitive 1.26 uIU/mL 0.47 - 5.01 Lipase Serum 37 U/L 13 - 60 Pro-BNP 53 pg/mL 0 - 125 Comprehensive Metabolic Panel 04/16/2020 [facility] Comprehensive Metabo (SEE NOTE) 22 Sodium 140 mEq/L 134 - 153 Potassium 4.3 mEq/L 3.6 - 5.0 Chloride 107 mEq/L 98 - 107 Co2 26 mEq/L 22 - 30 Glucose 102 mg/dL 65 - 110 BUN 10 mg/dL 7 - 21 Creatinine 0.6 mg/dL Low 0.7 - 1.5 BUN/Creat 17 8 - 27 Total Protein 6.8 g/dL 6.3 - 8.2 Albumin 4.5 g/dL 3.9 - 5.0 Globulin 2.3 GM/DL Low 2.4 - 3.2 A/G Ratio 2.0 0.8 - 2.0 Calcium 9.5 mg/dL 8.4 - 10.2 Total Bili <0.7 mg/dL 0.2 - 1.3 Alkaline Phos 83 U/L 38 - 126 Sgot/Ast 23 U/L 5 - 40 SGPT/Alt 25 U/L 7 - 56 Anion Gap 7.0 mmol/L Low 8.0 - 16.0 Age 49 yrs Non-Aa GFR >60 mL/min Afr Amer GFR >60 mL/min 23 Laboratory test finding 04/16/2020 [facility] T4 5.7 g/dL 4.5 - 12.5 1 FASTING~.~.~<DG1.3.1>R03.0</DG1.3.1><DG1.3.1>R21</DG1.3.1><DG1.3.1>R21</DG1.3.1> <DG1.3.1>R21 2 COMPREHENSIVE METABOLIC PANE L 3 Male GFR Interprentation 20-49 yrs >60 mL/min Normal 50-59 yrs >56 mL/min Normal 60-69 yrs >49 mL/min Normal 70-79yrs >42 mL/min Normal 80 and above >35 mL/min Normal Female GFR Interpretation 20-39 yrs >60 mL/min Normal 40-49 yrs >58 mL/min Normal 50-59 yrs >51 mL/min Normal 60-69 yrs >45 mL/min Normal 70-79 yrs >39 mL/min Normal 80 and above >32 mL/min Normal 4 CDC/S HS-CRP CUT-OFF: RELATIVE RISK: <1.0 mg/L Low 1.0 - 3.0 mg/L A verage >3.0 mg/L High Optimally, the average of HS-CRP results repeated two weeks apart should be used for risk assessment. 5 COMPLETE BLOOD COUNT 6 LIPID PANEL 7 CVE RISK CHOL/HDL LDL/HDL MEN: 1/2 AVERAGE 3.43 1.00 AVERAGE 4.97 3.55 2X AVERAGE 9.55 6.25 3X AVERAGE 23.99 7.99 WOMEN: 1/2 AVERAGE 3.27 1.47 AVERAGE 4.44 3.22 2X AVERAGE 7.05 5.03 3X AVERAGE 11.04 6.14 8 URINALYSIS 9 {A1] {HB] 10 PROCEDURAL CONTROL VALID KIT LOT # [id number] 07/25/20. . KIT EXP DATE _11.27.20 07/25/20. . The Influenza A & B assay is a rapid molecular in vitro diagnostic test utilizing an isothermal nucleic acid amplification technology for the qualitative detection of influenza A and B viral RNA. Negative results do not preclude influenza virus infection and should not be used as the sole basis for diagnosis, treatment or other patient management decisions. 11 This nucleic acid amplificat ion test was developed and its performance characteristics determined by [employer]. Nucleic acid amplification tests include PCR and TMA. This test has not been FDA cleared or approved. This test has been authorized by FDA under an Emergency Use Authorization (EUA). This test is only authorized for the duration of time the declaration that circumstances exist justifying the authorization of the emergency use of in vitro diagnostic tests for detection of SARS-CoV-2 virus and/or diagnosis of COVID-19 infection under section 564(b)(1) of the Act, 21 U.S.C. 360bbb-3(b) (1), unless the authorizatio n is terminated or revoked sooner. When diagnostic testing is negative, the possibility of a false negative result should be considered in the context of a patient's recent exposures and the presence of clinical signs and symptoms consistent with COVID-19. An individual without symptoms of COVID-19 and who is not shedding SARS-CoV-2 virus would expect to have a negative (not detected) result in this assay. 12 { PROCEDURAL CONTROL VALID ) { KIT LOT # [id number] ) { KIT EXP DATE 12.13.21 ) The Strep A 2 assay utilizes isothermal nucleic acid amplification technology fo the qualitative detection of Group A Strep bacterial nucleic acid in throat swab specimens. All negative test results no longer need to be confirmed with a culture. Follow- up testing requiring a culture is necessary if clinical symptoms persist, or in the event of an acute rheumatic fever outbreak. A culture will need to be ordered by the Qualified Medical Provider. Negative results do not preclude infection with Group A Strep and should not be used as the sole basis for treatment. 13 .~.~Z11.59 14 This nucleic acid amplificat ion test was developed and its performance characteristics determined by [employer]. Nucleic acid amplification tests include PCR and TMA. This test has not been FDA cleared or approved. This test has been authorized by FDA under an Emergency Use Authorization (EUA). This test is only authorized for the duration of time the declaration that circumstances exist justifying the authorization of the emergency use of in vitro diagnostic tests for detection of SARS-CoV-2 virus and/or diagnosis of COVID-19 infection under section 564(b)(1) of the Act, 21 U.S.C. 360bbb-3(b) (1), unless the authorizatio n is terminated or revoked sooner. When diagnostic testing is negative, the possibility of a false negative result should be considered in the context of a patient's recent exposures and the presence of clinical signs and symptoms consistent with COVID-19. An individual without symptoms of COVID-19 and who is not shedding SARS-CoV-2 virus would expect to have a negative (not detected) result in this assay. 15 This nucleic acid amplificat ion test was developed and its performance characteristics determined by [employer]. Nucleic acid amplification tests include PCR and TMA. This test has not been FDA cleared or approved. This test has been authorized by FDA under an Emergency Use Authorization (EUA). This test is only authorized for the duration of time the declaration that circumstances exist justifying the authorization of the emergency use of in vitro diagnostic tests for detection of SARS-CoV-2 virus and/or diagnosis of COVID-19 infection under section 564(b)(1) of the Act, 21 U.S.C. 360bbb-3(b) (1), unless the authorizatio n is terminated or revoked sooner. When diagnostic testing is negative, the possibility of a false negative result should be considered in the context of a patient's recent exposures and the presence of clinical signs and symptoms consistent with COVID-19. An individual without symptoms of COVID-19 and who is not shedding SARS-CoV-2 virus would expect to have a negative (not detected) result in this assay. 16 This test was developed and its performance characteristics determined by [employer]. This test has not been FDA cleared or approved. This test has been authorized by FDA under an Emergency Use Authorization (EUA). This test is only authorized for the duration of time the declaration that circumstances exist justifying the authorization of the emergency use of in vitro diagnostic tests for detection of SARS-CoV-2 virus and/or diagnosis of COVID-19 infection under section 564(b)(1) of the Act, 21 U.S.C. 360bbb-3(b)(1), unless the authorization is terminated or revoked sooner. When diagnostic testing is negative, the possibility of a false negative result should be considered in the context of a patient's recent exposures and the presence of clinical signs and symptoms consistent with COVID-19. An individual without symptoms of COVID-19 and who is not shedding SARS-CoV-2 virus would expect to have a negative (not detected) result in this assay. 17 TROPONIN T 0.1 ng/ml Recommended as the clinical th reshold value for Troponin T. 18 SOURCE: Clean Catch 19 URINALYSIS 20 COMPLETE BLOOD COUNT 21 TROPONIN T 0.1 ng/ml Recommended as the clinical th reshold value for Troponin T. 22 COMPREHENSIVE METABOLIC PANE L 23 Male GFR Interprentation 20-49 yrs >60 mL/min Normal 50-59 yrs >56 mL/min Normal 60-69 yrs >49 mL/min Normal 70-79yrs >42 mL/min Normal 80 and above >35 mL/min Normal Female GFR Interpretation 20-39 yrs >60 mL/min Normal 40-49 yrs >58 mL/min Normal 50-59 yrs >51 mL/min Normal 60-69 yrs >45 mL/min Normal 70-79 yrs >39 mL/min Normal 80 and above >32 mL/min Normal Procedures Description No Information Available Medical Devices Description No Information Available Encounters Type Date Location Provider Dx Diagnosis Office Visit 09/28/2020 1:20p [facility] Chinmay Interiano MD R1 0.10 Upper abdominal pain, unspecified E78.5 Hyperlipidemia, unspecified Assessments Date Code Description Provider 09/28/2020 R10.10 Upper abdominal pain, unspecifie d Chinmay Interiano MD 09/28/2020 E78.5 Hyperlipidemia, unspecified Madan Interiano MD 08/05/2020 E78.5 Hyperlipidemia, unspecified Madan Interiano MD 08/05/2020 D12.2 Benign neoplasm of ascending col on Chinmay Interiano MD 05/13/2020 B07.8 Other viral warts Daljit Maravilla MD 05/13/2020 K62.0 Anal polyp Daljit Maravlila MD 05/13/2020 D12.2 Benign neoplasm of ascending col on Daljit Maravilla MD 04/23/2020 Z12.11 Encounter for screening for morgan gnant neoplasm of colon Daljit Maravilla MD Plan of Treatment 09/28/2020 - Chinmay Interiano MD* R10.10 Upper abdominal pain, unspecified* New Xrays:* CT Abd & Pelv W/O Oral W/O IV, Ordered: 09/28/20 * Follow up:* 3 months * E78.5 Hyperlipidemia, unspecified* New Medication:* Atorvastatin Calcium 40 mg - 1 tab by mouth every day Functional Status Functional Condition Comment Date Status Glasses Active Mental Status Description No Information Available Referrals Refer to Reason for Referral Status Appt Date [facility] 49 y/o F referred for shonda chavez [employer] care and Pap smear. Sent [address] [place] [address] [phone] Daljit Maravilla MD 49 y/o female who never had screening colonoscopy, opted to have Cologuard which came back positive. Need screening/diagnostic colonoscopy. Eval and treat. 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 ESR normal. Eval and treat. Sent [address] [address] [phone]
--- OUTSIDE RECORDS SUMMARY | 2020-10-12 05:49 | CCD ---
Author Author [facility] Organization [facility] Address Unknown Phone Unavailable Care Team Providers Care Favor Maker Name Role Phone Yanna Jasso Unavailable PROBLEMS Type Condition ICD9-CM Code [id number] Code Onset Dates Condition S tatus SNOMED Code Notes Problem Myofascial pain M79.1 Active 699374023 Problem Myalgia M79.1 Active 27312110 Problem Chronic bilateral thoracic back pain M54.6 Act aster [id number] ALLERGIES Allergen (clinical drug ingredient) Drug/Non Drug Allergy do cumented on EMR Reaction Allergy Type Onset Date Status prednisone Prednisone short of breath Drug Allergy Active ENCOUNTERS from 1968 to 2020-08-26 Encounter Location Date Provider Diagnosis [address] [address] Aug, Yanna Jasso IMMUNIZATIONS No Information SOCIAL HISTORY Sex Assigned At : Social History Observation Description Sex Assigned At Unknown REASON FOR REFERRAL No Information VITAL SIGNS No information MEDICATIONS Medication SIG (Take, Route, Frequency, Duration) Notes Start Da te End Date Status Aleve 220 MG 1 tablet as needed Orally every 12 hrs Active Acetaminophen 500 MG 1 capsule as needed Orally every 6 hrs Not-Taking Multivitamin 1 1 tab(s) Orally daily Active PROCEDURES No Information RESULTS No Results REASON FOR VISIT PA hydroxychloroquine 200mg tab MEDICAL (GENERAL) HISTORY Type Description Date Medical History sleep apnea, uses CPAP Surgical History Cervical Discectomy Surgical History Parotidectomy Goals Section No Information Health Concerns No Information MEDICAL EQUIPMENT No Information MENTAL STATUS No Information FUNCTIONAL STATUS No Information ASSESSMENTS No Information PLAN OF TREATMENT No Information Insurance Providers Payer Name Payer Address Payer Phone Insured Name Patient Relati onship to Insured Coverage Start Date Coverage End Date [employer] [address] [facility] [address] [facility] [id number] [place] self
--- OUTSIDE RECORDS SUMMARY | 2020-10-12 05:49 | CCD | Continuity of Care Document ---
Author Author Crys INETRIANO M.D. Organization Unknown Address [address] [place] [id number] Phone [phone] Care Team Providers Care Electrolog Operator Name Role Phone Juju Randall SENIOR SUPPORT ANALYST AUTM [phone] Chinmay Interiano M.D. AUTM [phone] [facility] Nurse Practitioners AUTM [facility] Rheumatology AUTM [phone] [facility] AUTM [phone] Problems Active Problems Provider Date Gastroesophageal reflux [...] Indications Ordering Provide r Date Atorvastatin Calcium 10mg Tablets 1 tab by mouth every day 90tabs E78.5 Chinmay Interiano MD 08/05/2020 History Medications No Active Medications Unknown - 08/05/[address] see preprocedure instructions 4tabs Daljit Maravilla MD 04/23/2020 - Miralax 17GM/Scoop Powder see preprocedure instructions. 238gm Daljit Maravilla MD 04/23/2020 - Gabapentin 100mg Capsules 1 tab by mouth up to three times a day for pain 90caps Chinmay Interiano MD 03/16/2020 - 08/05/2020 Atorvastatin Calcium 10mg Tablets 1 tab by mouth every day 90tabs E78.5 Chinmay Interiano MD 03/10/2020 - 08/05/2020 Lisinopril 10mg Tablets 1 tab by mouth every day 90tabs I10 Chinmay Interiano MD 03/10/2020 - 08/05/2020 Medications Administered in Office Medication SIG Qnty Indications Ordering Provider Date Dexamethasone SDV 10MG/ML Injection LILIA Francois 2017 Inject Tendon/Ligament Injection LILIA Francois 2017 Immunizations Description No Information Available Vital Signs Date Vital Result Comment 08/05/2020 1:16pm BP Systolic 136 mmHg BP Diastolic 76 mmHg Body Temperature 97.6 F Respiratory Rate 18 /min O2 % BldC Oximetry 18 % Weight 171.00 lb Weight 77.566 kg Height 67 inches 5'7" BMI (Body Mass Index) 26.8 kg/m2 BSA (Body Surface Area) 1.89 m2 07/23/2020 10:50am Heart Rate 96 /min Body Temperature 97.4 F O2 % BldC Oximetry 96 % Results Test Acquired Date Facility Test Result H/L Range Note Xray 08/05/2020 [facility] [address] [place] [address] [phone] Mammo Diagnostic CAD Bilateral <pending> Laboratory test finding 07/25/2020 [facility] Coronavirus Covid-19 Not Detected Not Detected 1 Strep A Dna Probe 07/25/2020 [facility] Rapid Strep NEGATIVE Normal: Negative Rapid Strep Reenter NEGATIVE Normal: Negative 2 Influenza A And B Rna Probe 07/25/2020 [facility] Influenza A NEGATIVE Normal: Negative Influenza B NEGATIVE Normal: Negative Influenza A Reenter NEGATIVE Normal: Negative Influenza B Reenter NEGATIVE Normal: Negative 3 Laboratory test finding 07/23/2020 [facility] Coronavirus Covid-19 Not Detected Not Detected 4, 5 Laboratory test finding 05/15/2020 [facility] Coronavirus Covid-19 Not Detected Not Detected 6 Laboratory test finding 05/01/2020 [facility] Coronavirus Covid-19 Not Detected Not Detected 7 Laboratory test finding 04/16/2020 [facility] T4 5.7 g/dL 4.5 - 12.5 Comprehensive Metabolic Panel 04/16/2020 [facility] ospital Comprehensive Metabo (SEE NOTE) 8 Sodium 140 mEq/L 134 - 153 Potassium [...] >60 mL/min Afr Amer GFR >60 mL/min 9 Laboratory test finding 04/16/2020 [facility] Troponin T <0.01 NG/ML 0.00 - 0.10 10 Urinalysis 04/16/2020 [facility] Urinalysis (SEE NOTE) 11, 12 Source R Color yellow Normal: Yellow Clarity clear Normal: Clear Spec [place] 1.025 1.001 - 1.030 pH 5 5 - 9 Glucose NORM Normal: Negative Bilirubin NEG Normal: Negative Ketone NEG Normal: Negative Protein NEG Normal: Negative Nitrite NEG Normal: Negative Blood NEG Normal: Negative Leuk Est NEG Normal: Negative Urobilinogen NOR less than 1.0 mg/dL Microscopic Not Indicate CBC W/Automated Diff 04/16/2020 [facility] CBC W/Automated Diff (SEE NOTE) 13 WBC 8.2 10^3/uL 4.2 - 11.0 RBC [...] 80.0 Lymph 37.6 % 25.0 - 40.0 [place] 6.1 % 3.0 - 8.0 Eos 3.3 % 0.0 - 7.0 Baso 0.5 % 0.0 - 2.5 %Ig 0.4 % High 0.0 - 0.0 %NRBC 0.0 % 0.0 - 0.0 #Neut 4.25 10^3/uL 2.00 - 6.90 #Lymph 3.07 10^3/uL 0.60 - 3.40 #[place] 0.50 10^3/uL 0.00 - 0.90 #Eos 0.27 10^3/uL 0.00 - 0.70 #Baso 0.04 10^3/uL 0.00 - 0.20 #Ig 0.03 10^3/uL 0.00 - 0.10 #NRBC 0.00 10^3/uL 0.00 - 0.00 Manual Diff NOT INDICATED RBC Morph NOT INDICATED Laboratory test finding 04/16/2020 [facility] l D-Dimer <0.27 ug/mL 0.27 - 0.50 Troponin T <0.01 NG/ML 0.00 - 0.10 14 TSH Highly Sensitive 1.26 uIU/mL 0.47 - 5.01 Lipase Serum 37 U/L 13 - 60 Pro-BNP 53 pg/mL 0 - 125 Laboratory test finding 03/23/2020 [facility] Cyclic Citrullinate Peptide Ig 21 units High 0-19 15 Laboratory test finding 03/10/2020 [facility] CRP (High Sensitivity) 12.51 mg/L High 1.00 - 3.00 16 Sedimentation Rate 03/10/2020 [facility] Sed Rate 23 mm/hr 0 - 30 Sed Rate Reenter 23 Lyme Disease Antibodies 03/10/2020 [facility] Lyme IgG/IgM Ab <0.91 ISR 0.00-0.90 17 Lyme Disease Ab, Quant,IgM <0.80 index 0.00-0.79 1 8 SLE Profile C 03/10/2020 [facility] Sjogren's Anti-SS-A <0.2 AI 0.0-0.9 Sjogren's Anti-SS-B <0.2 AI 0.0-0.9 SCREEN ROOM OPERATOR Antibodies 0.3 AI 0.0-0.9 Frank Antibodies <0.2 AI 0.0-0.9 Anti-Dna (DS) Ab Qn 1 IU/mL 0-9 19 Laboratory test finding 03/10/2020 [facility] Ra Quant 12 IU/mL 0 - 14 Uric Acid 3.8 mg/dL 2.5 - 8.5 Vitamin D (25-Hydroxy) 31 NG/ML 20 TSH Highly Sensitive 1.23 uIU/mL 0.47 - 5.01 Aracelis Ifa Negative 21 Comprehensive Metabolic Panel 02/26/2020 [facility] Comprehensive Metabo (SEE NOTE) 22, 23 Sodium 137 mEq/L 134 - 153 Potassium 4.5 mEq/L 3.6 - 5.0 Chloride 102 mEq/L 98 - 107 Co2 25 mEq/L 22 - 30 Glucose 89 mg/dL 65 - 110 BUN 12 mg/dL 7 - 21 Creatinine 0.7 mg/dL 0.7 - 1.5 BUN/Creat 17 8 - 27 Total Protein 7.3 g/dL 6.3 - 8.2 Albumin 4.3 g/dL 3.9 - 5.0 Globulin 3.0 GM/DL 2.4 - 3.2 A/G Ratio 1.4 0.8 - 2.0 Calcium 10.4 mg/dL High 8.4 - 10.2 Total Bili <0.7 mg/dL 0.2 - 1.3 Alkaline Phos 98 U/L 38 - 126 Sgot/Ast 26 U/L 5 - 40 SGPT/Alt 31 U/L 7 - 56 Anion Gap 10.0 mmol/L 8.0 - 16.0 Age 49 yrs Non-Aa GFR >60 mL/min Afr Amer GFR >60 mL/min 24 Laboratory test finding 02/26/2020 [facility] CRP (High Sensitivity) 13.64 mg/L High 1.00 - 3.00 25 Sedimentation Rate 02/26/2020 [facility] Sed Rate 22 mm/hr 0 - 30 Sed Rate Reenter 22 Laboratory test finding 02/26/2020 [facility] T4 - Free 0.92 ng/dL Low 0.93 - 1.70 TSH Highly Sensitive 2.10 uIU/mL 0.47 - 5.01 CBC W/Automated Diff 02/26/2020 [facility] CBC W/Automated Diff (SEE NOTE) 26 WBC 8.6 10^3/uL 4.2 - 11.0 RBC 4.24 10^6/uL 4.20 - 5.40 Hemoglobin 13.3 g/dL 12.0 - 16.0 Hematocrit 39.6 % 37.0 - 47.0 MCV 93.4 fL 81.0 - 101 MCH 31.4 pg 27.0 - 34.0 MCHC 33.6 g/dL 31.0 - 36.0 RDW 12.4 % 11.5 - 14.5 Platelets 287 10^3/uL 150 - 450 MPV 9.4 fL 7.4 - 10.4 Neut 53.5 % 37.0 - 80.0 Lymph 33.7 % 25.0 - 40.0 [place]by 8.1 % High 3.0 - 8.0 Eos 3.4 % 0.0 - 7.0 Baso 1.0 % 0.0 - 2.5 %Ig 0.3 % High 0.0 - 0.0 %NRBC 0.0 % 0.0 - 0.0 #Neut 4.60 10^3/uL 2.00 - 6.90 #Lymph 2.90 10^3/uL 0.60 - 3.40 #[place] 0.70 10^3/uL 0.00 - 0.90 #Eos 0.29 10^3/uL 0.00 - 0.70 #Baso 0.09 10^3/uL 0.00 - 0.20 #Ig 0.03 10^3/uL 0.00 - 0.10 #NRBC 0.00 10^3/uL 0.00 - 0.00 Manual Diff NOT INDICATED RBC Morph NOT INDICATED Cve Panel 02/26/2020 [facility] Cve Panel (SEE NOTE) 27 Cholesterol 266 mg/dL High 131 - 200 Triglycerides 525 mg/dL High 35 - 160 HDL 41 mg/dL 29 - 86 LDL 168 mg/dL 65 - 175 Risk Factor 6.5 High 3.2 - 4.4 LDL/HDL 4.10 High 1.47 - 3.22 28 Urinalysis 02/26/2020 [facility] Urinalysis (SEE NOTE) 29 Source R Color Yellow Normal: Yellow Clarity Clear Normal: Clear Spec [place] 1.015 1.001 - 1.030 pH 8 5 - 9 Glucose Negative Normal: Negative Bilirubin Negative Normal: Negative Ketone Negative Normal: Negative Protein Negative Normal: Negative Nitrite Negative Normal: Negative Blood Negative Normal: Negative Leuk Est Negative Normal: Negative Urobilinogen NOR less than 1.0 mg/dL Microscopic Not Indicate Laboratory test finding 02/26/2020 [facility] l Hgba1c (SEE NOTE) 30 1 This nucleic acid amplificat ion test was developed and its performance characteristics determined by [employer]. Nucleic acid amplification tests include PCR and [...] negative (not detected) result in this assay. 2 { PROCEDURAL CONTROL VALID ) { KIT LOT # [id number] ) { KIT EXP DATE 12.13.21 ) [...] used as the sole basis for treatment. 3 PROCEDURAL CONTROL VALID KIT LOT # [id number] 07/25/20.MD . KIT EXP DATE _11.27.20 07/25/20.MD . The Influenza A & B assay is a rapid molecular in vitro diagnostic test utilizing an isothermal nucleic acid amplification technology for the qualitative detection of influenza A and B viral RNA. Negative results do not preclude influenza virus infection and should not be used as the sole basis for diagnosis, treatment or other patient management decisions. 4 .~.~Z11.59 5 This nucleic acid amplificat ion test was developed and its performance characteristics determined by [employer]. Nucleic acid amplification tests include PCR and [...] negative (not detected) result in this assay. 6 This nucleic acid amplificat ion test was developed and its performance characteristics determined by [employer]. Nucleic acid amplification tests include PCR and [...] negative (not detected) result in this assay. 7 This test was developed and its performance characteristics determined by [employer]. This test has not been FDA cleared [...] negative (not detected) result in this assay. 8 COMPREHENSIVE METABOLIC PANE L 9 Male GFR Interprentation 20-49 yrs >60 mL/min Normal 50-59 yrs >56 mL/min Normal 60-69 yrs >49 mL/min Normal 70-79yrs >42 mL/min Normal 80 and above >35 mL/min Normal Female GFR Interpretation 20-39 yrs >60 mL/min Normal 40-49 yrs >58 mL/min Normal 50-59 yrs >51 mL/min Normal 60-69 yrs >45 mL/min Normal 70-79 yrs >39 mL/min Normal 80 and above >32 mL/min Normal 10 TROPONIN T 0.1 ng/ml Recommended as the clinical th reshold value for Troponin T. 11 SOURCE: Clean Catch 12 URINALYSIS 13 COMPLETE BLOOD COUNT 14 TROPONIN T 0.1 ng/ml Recommended as the clinical th reshold value for Troponin T. 15 Negative <20 Weak positive 20 - 39 Moderate positive 40 - 59 Strong positive >59 16 CDC/AHS HS-CRP CUT-OFF: RELATIVE RISK: <1.0 mg/L Low 1.0 - 3.0 mg/L A verage >3.0 mg/L High Optimally, the average of HS-CRP results repeated two weeks apart should be used for risk assessment. 17 Negative <0.91 Equivocal 0.91 - 1.09 Positive >1.09 18 Negative <0.80 Equivocal 0.80 - 1.19 Positive >1.19 IgM levels may peak at 3-6 weeks post infection, then gradually decline. 19 Negative <5 Equivocal 5 - 9 Positive >9 20 VITAMIN-D(25HYDROXY) Deficiency: <=20 ng/ml Insufficiency: 21-29 ng/ml Preferred level: => 30 ng/ml 21 Negative <1:80 Borderline 1:80 Positive >1:80 22 FASTING~.~.~<DG1.3.1>R03.0</DG1.3.1><DG1.3.1>R21</DG1.3.1><DG1.3.1>R21</DG1.3.1> <DG1.3.1>R21 23 COMPREHENSIVE METABOLIC PANE L 24 Male GFR Interprentation 20-49 yrs >60 mL/min Normal 50-59 yrs >56 mL/min Normal 60-69 yrs >49 mL/min Normal 70-79yrs >42 mL/min Normal 80 and above >35 mL/min Normal Female GFR Interpretation 20-39 yrs >60 mL/min Normal 40-49 yrs >58 mL/min Normal 50-59 yrs >51 mL/min Normal 60-69 yrs >45 mL/min Normal 70-79 yrs >39 mL/min Normal 80 and above >32 mL/min Normal 25 CDC/AHS HS-CRP CUT-OFF: RELATIVE RISK: <1.0 mg/L Low 1.0 - 3.0 mg/L A verage >3.0 mg/L High Optimally, the average of HS-CRP results repeated two weeks apart should be used for risk assessment. 26 COMPLETE BLOOD COUNT 27 LIPID PANEL 28 CVE RISK CHOL/HDL LDL/HDL MEN: 1/2 AVERAGE 3.43 1.00 AVERAGE 4.97 3.55 2X AVERAGE 9.55 6.25 3X AVERAGE 23.99 7.99 WOMEN: 1/2 AVERAGE 3.27 1.47 AVERAGE 4.44 3.22 2X AVERAGE 7.05 5.03 3X AVERAGE 11.04 6.14 29 URINALYSIS 30 {A1] {HB] Procedures Description No Information Available Medical Devices Description No Information Available Encounters Type Date Location Provider Dx Diagnosis Office Visit 08/05/2020 1:20p [facility] Chinmay Interiano MD E7 8.5 Hyperlipidemia, unspecified D12.2 Benign neoplasm of ascending colon Assessments Date Code Description Provider 08/05/2020 E78.5 Hyperlipidemia, unspecified Madan Interiano MD 08/05/2020 D12.2 Benign neoplasm of ascending col on Chinmay Interiano MD 05/13/2020 B07.8 Other viral warts Daljit Maravilla MD 05/13/2020 K62.0 Anal polyp Daljit Maravilla MD 05/13/2020 D12.2 Benign neoplasm of ascending col on Daljit Maravilla MD 04/23/2020 Z12.11 Encounter for screening for morgan gnant neoplasm of colon Daljit Maravilla MD 03/23/2020 I10 Essential (primary) hypertension Chinmay Interiano MD 03/23/2020 M13.0 Polyarthritis, unspecified Tesfaye Interiano MD 03/23/2020 B02.9 Zoster without complications Jc negin Interiano MD 03/16/2020 B02.9 Zoster without complications Ирина Paz PA-C 03/16/2020 R51 Headache LILIA Mari 03/10/2020 I10 Essential (primary) hypertension Chinmay Interiano MD 03/10/2020 E78.5 Hyperlipidemia, unspecified Madan Interiano MD 03/10/2020 M13.0 Polyarthritis, unspecified Tesfaye Interiano MD 03/10/2020 F17.210 Nicotine dependence, cigarettes, uncomplicated Chinmay Interiano MD 03/10/2020 R91.1 Solitary pulmonary nodule Chinmay Interiano MD 03/10/2020 G47.33 Obstructive sleep apnea (adult) (pediatric) Chinmay Interiano MD Plan of Treatment 08/05/2020 - Chinmay Interiano MD* E78.5 Hyperlipidemia, unspecified* New Medication:* Atorvastatin Calcium 10 mg - 1 tab by mouth every day * D12.2 Benign neoplasm of ascending colon * All * Follow up:* 3 months Functional Status Functional Condition Comment Date Status Glasses Active Mental Status Description No Information Available Referrals Refer to Dr Reason for Referral Status Appt Date Daljit Maravilla MD 49 y/o female who never had screening colonoscopy, opted to have Cologuard which came back positive. Need screening/diagnostic colonoscopy. Eval and treat. Closed [address] [place] [address] [phone] [facility] Rheumatology 49 y/o female with multi-gilma nt arthritis with elevated CRP and mild elevated anti-CCP. ESR normal. Eval and treat. Sent [address] [facility] [place] [address] [place] [address] [phone]
--- OUTSIDE RECORDS SUMMARY | 2020-10-12 05:49 | CCD | Continuity of Care Document ---
Author Author Crys INTERIANO M.D. Organization Unknown Address [address] [place] [address] Phone [phone] Care Team Providers Care Military Technology Specialist Name Role Phone Chinmay Interiano M.D. AUTM [phone] [facility] Nurse Practitioners [facility] Rheumatology AUTM [phone] [facility] AUTM [phone] [facility] [facility] AUTM Problems Active Problems Provider Date Gastroesophageal reflux [...] H/L Range Note Comprehensive Metabolic Panel 08/28/2020 [facility] Comprehensive Metabo (SEE NOTE) 1, [...] >60 mL/min 3 Laboratory test finding 08/28/2020 [facility] CRP (High Sensitivity) 10.57 mg/L High 1.00 - 3.00 4 Sedimentation Rate 08/28/2020 [facility] Sed Rate 17 mm/hr 0 - 30 Sed Rate Reenter 17 Laboratory test finding 08/28/2020 [facility] T4 - Free 0.91 ng/dL Low 0.93 - 1.70 TSH Highly Sensitive 1.77 uIU/mL 0.47 - 5.01 CBC W/Automated Diff 08/28/2020 [facility] CBC W/Automated Diff (SEE NOTE) 5 WBC [...] 80.0 Lymph 37.8 % 25.0 - 40.0 [place] 6.6 % 3.0 - 8.0 Eos 3.3 % 0.0 - 7.0 Baso 0.6 % 0.0 - 2.5 %Ig 0.4 % High 0.0 - 0.0 %NRBC 0.0 % 0.0 - 0.0 #Neut 4.18 10^3/uL 2.00 - 6.90 #Lymph 3.08 10^3/uL 0.60 - 3.40 #[place] 0.54 10^3/uL 0.00 - 0.90 #Eos 0.27 10^3/uL 0.00 - 0.70 #Baso 0.05 10^3/uL 0.00 - 0.20 #Ig 0.03 10^3/uL 0.00 - 0.10 #NRBC 0.00 10^3/uL 0.00 - 0.00 Manual Diff NOT INDICATED RBC Morph NOT INDICATED Cve Panel 08/28/2020 [facility] Cve Panel (SEE NOTE) 6 Cholesterol 262 mg/dL High 131 - 200 Triglycerides 362 mg/dL High 35 - 160 HDL 43 mg/dL 29 - 86 LDL 173 mg/dL 65 - 175 Risk Factor 6.1 High 3.2 - 4.4 LDL/HDL 4.02 High 1.47 - 3.22 7 Urinalysis 08/28/2020 [facility] Urinalysis (SEE NOTE) 8 Source R Color yellow Normal: Yellow Clarity clear Normal: Clear Spec [place] 1.030 1.001 - 1.030 pH 5 5 - 9 Glucose NORM Normal: Negative Bilirubin NEG Normal: Negative Ketone NEG Normal: Negative Protein NEG Normal: Negative Nitrite NEG Normal: Negative Blood NEG Normal: Negative Leuk Est NEG Normal: Negative Urobilinogen NOR less than 1.0 mg/dL Microscopic Not Indicate Laboratory test finding 08/28/2020 [facility] Hgba1c 5.5 % 4.4 - 6.1 9 Xray 08/05/2020 [place] [id number] [phone] Mammo Diagnostic CAD Bilateral <pending> Strep A Dna Probe 07/25/2020 [facility] Rapid Strep NEGATIVE Normal: Negative Rapid Strep Reenter NEGATIVE Normal: Negative 10 Influenza A And B Rna Probe 07/25/2020 [facility] pital Influenza A NEGATIVE Normal: Negative Influenza B NEGATIVE Normal: Negative Influenza A Reenter NEGATIVE Normal: Negative Influenza B Reenter NEGATIVE Normal: Negative 11 Laboratory test finding 07/25/2020 [facility] Coronavirus Covid-19 Not Detected Not Detected 12 Laboratory test finding 07/23/2020 [facility] Coronavirus Covid-19 Not Detected Not Detected 13, 14 Laboratory test finding 05/15/2020 [facility] Coronavirus Covid-19 Not Detected Not Detected 15 Laboratory test finding 05/01/2020 [facility] Coronavirus Covid-19 Not Detected Not Detected 16 Laboratory test finding 04/16/2020 [facility] Troponin T <0.01 NG/ML 0.00 - 0.10 17 Urinalysis 04/16/2020 [facility] Urinalysis (SEE NOTE) 18, 19 Source R Color yellow Normal: Yellow Clarity clear Normal: Clear Spec [place] 1.025 1.001 - 1.030 pH 5 5 - 9 Glucose NORM Normal: Negative Bilirubin NEG Normal: Negative Ketone NEG Normal: Negative Protein NEG Normal: Negative Nitrite NEG Normal: Negative Blood NEG Normal: Negative Leuk Est NEG Normal: Negative Urobilinogen NOR less than 1.0 mg/dL Microscopic Not Indicate CBC W/Automated Diff 04/16/2020 [facility] CBC W/Automated Diff (SEE NOTE) 20 WBC [...] 80.0 Lymph 37.6 % 25.0 - 40.0 [place] 6.1 % 3.0 - 8.0 Eos 3.3 % 0.0 - 7.0 Baso 0.5 % 0.0 - 2.5 %Ig 0.4 % High 0.0 - 0.0 %NRBC 0.0 % 0.0 - 0.0 #Neut 4.25 10^3/uL 2.00 - 6.90 #Lymph 3.07 10^3/uL 0.60 - 3.40 #[place] 0.50 10^3/uL 0.00 - 0.90 #Eos 0.27 10^3/uL 0.00 - 0.70 #Baso 0.04 10^3/uL 0.00 - 0.20 #Ig 0.03 10^3/uL 0.00 - 0.10 #NRBC 0.00 10^3/uL 0.00 - 0.00 Manual Diff NOT INDICATED RBC Morph NOT INDICATED Laboratory test finding 04/16/2020 [facility] D-Dimer <0.27 ug/mL 0.27 - 0.50 Troponin T <0.01 NG/ML 0.00 - 0.10 21 TSH Highly Sensitive 1.26 uIU/mL 0.47 - 5.01 Lipase Serum 37 U/L 13 - 60 Pro-BNP 53 pg/mL 0 - 125 Comprehensive Metabolic Panel 04/16/2020 [facility] Comprehensive Metabo (SEE NOTE) 22 Sodium [...] >60 mL/min 23 Laboratory test finding 04/16/2020 [facility] T4 5.7 g/dL 4.5 - 12.5 Laboratory test finding 03/23/2020 [facility] Cyclic Citrullinate Peptide Ig 21 units High 0-19 24 Laboratory test finding 03/10/2020 [facility] CRP (High Sensitivity) 12.51 mg/L High 1.00 - 3.00 25 Sedimentation Rate 03/10/2020 [facility] Sed Rate 23 mm/hr 0 - 30 Sed Rate Reenter 23 Lyme Disease Antibodies 03/10/2020 [facility] Lyme IgG/IgM Ab <0.91 ISR 0.00-0.90 26 Lyme Disease Ab, Quant,IgM <0.80 index 0.00-0.79 2 7 SLE Profile C 03/10/2020 [facility] Sjogren's Anti-SS-A <0.2 AI 0.0-0.9 Sjogren's Anti-SS-B <0.2 AI 0.0-0.9 DIVERSITY INTERN Antibodies 0.3 AI 0.0-0.9 Frank Antibodies <0.2 AI 0.0-0.9 Anti-Dna (DS) Ab Qn 1 IU/mL 0-9 28 Laboratory test finding 03/10/2020 [facility] Ra Quant 12 IU/mL 0 - 14 Uric Acid 3.8 mg/dL 2.5 - 8.5 Vitamin D (25-Hydroxy) 31 NG/ML 29 TSH Highly Sensitive 1.23 uIU/mL 0.47 - 5.01 Aracelis Ifa Negative 30 1 FASTING~.~.~<DG1.3.1>R03.0</DG1.3.1><DG1.3.1>R21</DG1.3.1><DG1.3.1>R21</DG1.3.1> <DG1.3.1>R21 2 COMPREHENSIVE METABOLIC PANE [...] 6.14 8 URINALYSIS 9 {A1] {HB] 10 { PROCEDURAL CONTROL VALID ) { KIT LOT # [id number] ) { KIT EXP DATE 12.13.21 ) [...] used as the sole basis for treatment. 11 PROCEDURAL CONTROL VALID KIT LOT # [id number] 07/25/201548.MD . KIT EXP DATE _11.27.20 07/25/20. . [...] diagnosis, treatment or other patient management decisions. 12 This nucleic acid amplificat ion test was developed and its performance characteristics determined by [employer]. Nucleic acid amplification tests include PCR and [...] negative (not detected) result in this assay. 13 .~.~Z11.59 14 This nucleic acid amplificat ion test was developed and its performance characteristics determined by [employer]. Nucleic acid amplification tests include PCR and [...] developed and its performance characteristics determined by [employer]. Nucleic acid amplification tests include PCR and [...] developed and its performance characteristics determined by [employer]. This test has not been FDA cleared [...] Normal 80 and above >32 mL/min Normal 24 Negative <20 Weak positive 20 - 39 Moderate positive 40 - 59 Strong positive >59 25 CDC/S HS-CRP CUT-OFF: RELATIVE RISK: <1.0 mg/L Low 1.0 - 3.0 mg/L A verage >3.0 mg/L High Optimally, the average of HS-CRP results repeated two weeks apart should be used for risk assessment. 26 Negative <0.91 Equivocal 0.91 - 1.09 Positive >1.09 27 Negative <0.80 Equivocal 0.80 - 1.19 Positive >1.19 IgM levels may peak at 3-6 weeks post infection, then gradually decline. 28 Negative <5 Equivocal 5 - 9 Positive >9 29 VITAMIN-D(25HYDROXY) Deficiency: <=20 ng/ml Insufficiency: 21-29 ng/ml Preferred level: => 30 ng/ml 30 Negative <1:80 Borderline 1:80 Positive >1:80 Procedures Description No Information Available Medical Devices Description No Information Available Encounters Description No Information Available Assessments Date Code Description Provider 08/05/2020 E78.5 [...] (pediatric) Chinmay Interiano MD Plan of Treatment Future Appointment(s):* 11/05/2020 2:00 pm - Chinmay Interiano MD at [facility] 08/05/2020 - Chinmay Interiano MD* E78.5 Hyperlipidemia, unspecified* New Medication:* Atorvastatin Calcium 10 mg - 1 tab by mouth every day * Comments:* Restart Atorvastatin 10 mg once daily. Recheck her cholesterol in 3 months. She was encouraged to maintain a low-cholesterol diet. Include more whole grains, fruits and vegetables in diet. Avoid red meat and include lean meat in diet. Advised the patient about the importance of regular exercise regimen to help control her cholesterol. She is aware of the cardiac risks associated with elevated cholesterol. We will continue to monitor * D12.2 Benign neoplasm of ascending colon* Comments:* Repeat colonoscopy in 3 years recommended. * All * Comments:* She was advised to watch her blood pressure. 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 Sent [address] [place] [address] [phone] Daljit Maravilla MD 49 y/o female who never had screening colonoscopy, opted to have Cologuard which came back positive. Need screening/diagnostic colonoscopy. Eval and treat. 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 ESR normal. Eval and treat. Sent [address] [address] [phone]
[2020-10-12] MEDS ORDERED: ATOR1TAB19 (05:51)
--- OUTSIDE RECORDS SUMMARY | 2020-10-12 05:51 | CCD ---
Author Author [facility] Organization [facility] Address Unknown Phone Unavailable Care Team Providers Care Insurance Special Agent Name Role Phone Rick HOBBS MD Unavailable Unavailable Rick HOBBS MD Unavailable Unavailable Rick HOBBS MD Unavailable Unavailable Rick HOBBS MD Unavailable Unavailable Rick HOBBS MD Unavailable Unavailable Rick HOBBS MD Unavailable Unavailable Rick HOBBS MD Unavailable Unavailable Rick HOBBS MD Unavailable Unavailable Rick HOBBS MD Unavailable Unavailable Rick HOBBS MD Unavailable Unavailable Rick HOBBS MD Unavailable Unavailable Rick HOBBS MD Unavailable Unavailable Rick HOBBS MD Unavailable Unavailable RAHEL ORELLANA MD Unavailable Unavailable RAHEL ORELLANA MD Unavailable Unavailable PREETI, MAQBOOL CHACORTA MD Unavailable Unavailable PREETI, MAQBOOL CHACORTA MD Unavailable Unavailable PREETI, MAQBOOL CHACORTA MD Unavailable Unavailable PREETI, MAQBOOL CHACORTA MD Unavailable Unavailable PREETI, MAQBOOL CHACORTA MD Unavailable Unavailable PREETI, MAQBOOL CHACORTA MD Unavailable Unavailable PREETI, MAQBOOL CHACORTA MD Unavailable Unavailable PREETI, MAQBOOL CHACORTA MD Unavailable Unavailable PREETI, MAQBOOL CHACORTA MD Unavailable Unavailable PREETI, MAQBOOL CHACORTA MD Unavailable Unavailable PREETI, MAQBOOL CHACORTA MD Unavailable Unavailable PREETI, MAQBOOL CHACORTA MD Unavailable Unavailable PREETI, MAQBOOL CHACORTA MD Unavailable Unavailable PREETI, MAQBOOL CHACORTA MD Unavailable Unavailable PREETI, MAQBOOL CHACORTA MD Unavailable Unavailable PREETI, MAQBOOL CHACORTA MD Unavailable Unavailable PREETI, MAQBOOL CHACORTA MD Unavailable Unavailable PREETI, MAQBOOL CHACORTA MD Unavailable Unavailable PREETI, MAQBOOL CHACORTA MD Unavailable Unavailable PREETI, MAQBOOL CHACORTA MD Unavailable Unavailable PREETI, MAQBOOL CHACORTA MD Unavailable Unavailable PREETI, MAQBOOL CHACORTA MD Unavailable Unavailable PREETI, MAQBOOL CHACORTA MD Unavailable Unavailable PREETI, MAQBOOL CHACORTA MD Unavailable Unavailable PREETI, MAQBOOL CHACORTA MD Unavailable Unavailable PREETI, MAQBOOL CHACORTA MD Unavailable Unavailable PREETI, MAQBOOL CHACORTA MD Unavailable Unavailable PREETI, MAQBOOL CHACORTA MD Unavailable Unavailable PREETI, MAQBOOL CHACORTA MD Unavailable Unavailable PREETI, MAQBOOL CHACORTA MD Unavailable Unavailable PREETI, MAQBOOL CHACORTA MD Unavailable Unavailable PREETI, MAQBOOL CHACORTA MD Unavailable Unavailable PREETI, MAQBOOL CHACORTA MD Unavailable Unavailable PREETI, MAQBOOL CHACORTA MD Unavailable Unavailable PREETI, MAQBOOL CHACORTA MD Unavailable Unavailable PREETI, MAQBOOL CHACORTA MD Unavailable Unavailable PREETI, MAQBOOL CHACORTA MD Unavailable Unavailable PREETI, MAQBOOL CHACORTA MD Unavailable Unavailable PREETI, MAQBOOL CHACORTA MD Unavailable Unavailable PREETI, MAQBOOL CHACORTA MD Unavailable Unavailable PREETI, MAQBOOL CHACORTA MD Unavailable Unavailable PREETI, MAQBOOL CHACORTA MD Unavailable Unavailable PREETI, MAQBOOL CHACORTA MD Unavailable Unavailable PREETI, MAQBOOL CHACORTA MD Unavailable Unavailable PREETI, MAQBOOL CHACORTA MD Unavailable Unavailable PREETI, MAQBOOL CHACORTA MD Unavailable Unavailable PREETI, MAQBOOL CHACORTA MD Unavailable Unavailable PREETI, MAQBOOL CHACORTA MD Unavailable Unavailable PREETI, MAQBOOL CHACORTA MD Unavailable Unavailable PREETI, MAQBOOL CHACORTA MD Unavailable Unavailable PREETI, MAQBOOL CHACORTA MD Unavailable Unavailable PREETI, MAQBOOL CHACORTA MD Unavailable Unavailable PREETI, MAQBOOL CHACORTA MD Unavailable Unavailable PREETI, MAQBOOL CHACORTA MD Unavailable Unavailable PREETI, MAQBOOL CHACORTA MD Unavailable Unavailable PREETI, MAQBOOL CHACORTA MD Unavailable Unavailable PREETI, MAQBOOL CHACORTA MD Unavailable Unavailable PREETI, MAQBOOL CHACORTA MD Unavailable Unavailable PREETI, MAQBOOL CHACORTA MD Unavailable Unavailable PREETI, MAQBOOL CHACORTA MD Unavailable Unavailable PREETI, MAQBOOL CHACORTA MD Unavailable Unavailable PREETI, MAQBOOL CHACORTA MD Unavailable Unavailable PREETI, MAQBOOL CHACORTA MD Unavailable Unavailable PREETI, MAQBOOL CHACORTA MD Unavailable Unavailable PREETI, MAQBOOL CHACORTA MD Unavailable Unavailable PREETI, MAQBOOL CHACORTA MD Unavailable Unavailable PREETI, MAQBOOL CHACORTA MD Unavailable Unavailable PREETI, MAQBOOL CHACORTA MD Unavailable Unavailable PREETI, MAQBOOL CHACORTA MD Unavailable Unavailable PREETI, MAQBOOL CHACORTA MD Unavailable Unavailable PREETI, MAQBOOL CHACORTA MD Unavailable Unavailable PREETI, MAQBOOL CHACORTA MD Unavailable Unavailable PREETI, MAQBOOL CHACORTA MD Unavailable Unavailable CARPENTER, R ABBY CONSOLE OPERATOR Unavailable Unavailable CARPENTER, R ABBY CONSOLE OPERATOR Unavailable Unavailable CARPENTER, R ABBY CONSOLE OPERATOR Unavailable Unavailable CARPENTER, R ABBY CONSOLE OPERATOR Unavailable Unavailable CARPENTER, R ABBY CONSOLE OPERATOR Unavailable Unavailable CARPENTER, R ABBY CONSOLE OPERATOR Unavailable Unavailable CARPENTER, R ABBY CONSOLE OPERATOR Unavailable Unavailable CARPENTER, R ABBY CONSOLE OPERATOR Unavailable Unavailable CARPENTER, R ABBY CONSOLE OPERATOR Unavailable Unavailable CARPENTER, R ABBY CONSOLE OPERATOR Unavailable Unavailable CARPENTER, R ABBY CONSOLE OPERATOR Unavailable Unavailable CARPENTER, R ABBY CONSOLE OPERATOR Unavailable Unavailable CARPENTER, R ABBY CONSOLE OPERATOR Unavailable Unavailable CARPENTER, R ABBY CONSOLE OPERATOR Unavailable Unavailable CARPENTER, R ABBY CONSOLE OPERATOR Unavailable Unavailable CARPENTER, R ABBY CONSOLE OPERATOR Unavailable Unavailable CARPENTER, R ABBY CONSOLE OPERATOR Unavailable Unavailable CARPENTER, R ABBY CONSOLE OPERATOR Unavailable Unavailable CARPENTER, R ABBY CONSOLE OPERATOR Unavailable Unavailable CARPENTER, R ABBY CONSOLE OPERATOR Unavailable Unavailable CARPENTER, R ABBY CONSOLE OPERATOR Unavailable Unavailable CARPENTER, R ABBY CONSOLE OPERATOR Unavailable Unavailable CARPENTER, R ABBY CONSOLE OPERATOR Unavailable Unavailable CARPENTER, R ABBY CONSOLE OPERATOR Unavailable Unavailable CARPENTER, R ABBY CONSOLE OPERATOR Unavailable Unavailable CARPENTER, R ABBY CONSOLE OPERATOR Unavailable Unavailable CARPENTER, R ABBY CONSOLE OPERATOR Unavailable Unavailable CARPENTER, R ABBY CONSOLE OPERATOR Unavailable Unavailable CARPENTER, R ABBY CONSOLE OPERATOR Unavailable Unavailable CARPENTER, R ABBY CONSOLE OPERATOR Unavailable Unavailable CARPENTER, R ABBY CONSOLE OPERATOR Unavailable Unavailable CARPENTER, R ABBY CONSOLE OPERATOR Unavailable Unavailable CARPENTER, R ABBY CONSOLE OPERATOR Unavailable Unavailable CARPENTER, R ABBY CONSOLE OPERATOR Unavailable Unavailable CARPENTER, R ABBY CONSOLE OPERATOR Unavailable Unavailable CARPENTER, R ABBY CONSOLE OPERATOR Unavailable Unavailable CARPENTER, R ABBY CONSOLE OPERATOR Unavailable Unavailable CARPENTER, R ABBY CONSOLE OPERATOR Unavailable Unavailable CARPENTER, R ABBY CONSOLE OPERATOR Unavailable Unavailable CARPENTER, R ABBY CONSOLE OPERATOR Unavailable Unavailable CARPENTER, R ABBY CONSOLE OPERATOR Unavailable Unavailable Shen Galindo MD Unavailable Unavailable Shen Galindo MD Unavailable Unavailable Shen Galindo MD Unavailable Unavailable Shen Galindo MD Unavailable Unavailable Shen Galindo MD Unavailable Unavailable Shen Galindo MD Unavailable Unavailable Shen Galindo MD Unavailable Unavailable Shen Galindo MD Unavailable Unavailable Shen Galindo MD Unavailable Unavailable Shen Galindo MD Unavailable Unavailable Shen Galindo MD Unavailable Unavailable Shen Galindo MD Unavailable Unavailable Shen Galindo MD Unavailable Unavailable Shen Galindo MD Unavailable Unavailable Shen Galindo MD Unavailable Unavailable Shen Galindo MD Unavailable Unavailable Shen Galindo MD Unavailable Unavailable Shen aGlindo MD Unavailable Unavailable Shen Galindo MD Unavailable Unavailable Shen Galindo MD Unavailable Unavailable Mateo, A Ly GORDON Unavailable Unavailable Mateo, A Ly GORDON Unavailable Unavailable Mateo, A Ly GORDON Unavailable Unavailable Mateo, A Ly GORDON Unavailable Unavailable Mateo, A Ly GORDON Unavailable Unavailable Mateo, A Ly GORDON Unavailable Unavailable Mateo, A Ly GORDON Unavailable Unavailable Mateo, A Ly GORDON Unavailable Unavailable Mateo, A Ly GORDON Unavailable Unavailable Mateo, A Ly GORDON Unavailable Unavailable Mateo, A Ly GORDON Unavailable Unavailable Mateo, A Ly GORDON Unavailable Unavailable Mateo, A Ly GORDON Unavailable Unavailable Mateo, A Ly GORDON Unavailable Unavailable Mateo, A Ly GORDON Unavailable Unavailable Mateo, A Ly GORDON Unavailable Unavailable Mateo, A Ly GORDON Unavailable Unavailable Mateo, A Ly GORDON Unavailable Unavailable Mateo, A Ly GORDON Unavailable Unavailable Mateo, A Ly GORDON Unavailable Unavailable Mateo, A Ly GORDON Unavailable Unavailable Mateo, A Ly GORDON Unavailable Unavailable Mateo, A Ly GORDON Unavailable Unavailable Mateo, A Ly GORDON Unavailable Unavailable Mateo, A Ly GORDON Unavailable Unavailable Mateo, A Ly GORDON Unavailable Unavailable Mateo, A Ly GORDON Unavailable Unavailable Mateo, A Ly GORDON Unavailable Unavailable Mateo, A Ly GORDON Unavailable Unavailable Mateo, A Ly GORDON Unavailable Unavailable Mateo, A Ly GORDON Unavailable Unavailable Mateo, A Ly GORDON Unavailable Unavailable Mateo, A Ly GORDON Unavailable Unavailable Mateo, A Ly GORDON Unavailable Unavailable Mateo, A Ly GORDON Unavailable Unavailable Mateo, A Ly GORDON Unavailable Unavailable Mateo, A Ly GORDON Unavailable Unavailable Mateo, A Ly GORDON Unavailable Unavailable Mateo, A Ly GORDON Unavailable Unavailable Mateo, A Ly GORDON Unavailable Unavailable Mateo, A Ly GORDON Unavailable Unavailable Mateo, A Ly GORDON Unavailable Unavailable Mateo, A Ly GORDON Unavailable Unavailable Mateo, A Ly GORDON Unavailable Unavailable Mateo, A Ly GORDON Unavailable Unavailable Mateo, A Ly GORDON Unavailable Unavailable Mateo, A Ly GORDON Unavailable Unavailable Mateo, A Ly GORDON Unavailable Unavailable Mateo, A Ly GORDON Unavailable Unavailable Mateo, A Ly GORDON Unavailable Unavailable Mateo, A Ly GORDON Unavailable Unavailable Mateo, A Ly GORDON Unavailable Unavailable Mateo, A Ly GORDON Unavailable Unavailable Mateo, A Ly GORDON Unavailable Unavailable Mateo, A Ly GORDON Unavailable Unavailable DANNIE, ANJA WAREDRESSER-C Unavailable Unavailable DANNIE, ANJA WAREDRESSER-C Unavailable Unavailable DANNIE, ANJA WAREDRESSER-C Unavailable Unavailable DANNIE, ANJA WAREDRESSER-C Unavailable Unavailable DANNIE, ANJA WAREDRESSER-C Unavailable Unavailable DANNIE, ANJA WAREDRESSER-C Unavailable Unavailable DANNIE, ANJA WAREDRESSER-C Unavailable Unavailable DANNIE, ANJA WAREDRESSER-C Unavailable Unavailable DANNIE, ANJA WAREDRESSER-C Unavailable Unavailable DANNIE, ANJA WAREDRESSER-C Unavailable Unavailable DANNIE, ANJA WAREDRESSER-C Unavailable Unavailable Devin, Tuluksak WAREDRESSER Unavailable Unavailable Devin, Tuluksak WAREDRESSER Unavailable Unavailable Devin, Tuluksak WAREDRESSER Unavailable Unavailable Devin, Tuluksak WAREDRESSER Unavailable Unavailable Devin, Tuluksak WAREDRESSER Unavailable Unavailable Mis THEODORE Unavailable Unavailable Mis THEODORE Unavailable Unavailable Mis THEODORE Unavailable Unavailable ARBENMis Unavailable Unavailable KIRSCHMAN, L NACHO CONSOLE OPERATOR Unavailable Unavailable KIRSCHMAN, L NACHO CONSOLE OPERATOR Unavailable Unavailable KIRSCHMAN, L NACHO CONSOLE OPERATOR Unavailable Unavailable KIRSCHMAN, L NACHO CONSOLE OPERATOR Unavailable Unavailable KIRSCHMAN, L NACHO CONSOLE OPERATOR Unavailable Unavailable KIRSCHMAN, L NACHO CONSOLE OPERATOR Unavailable Unavailable KIRSCHMAN, L NACHO CONSOLE OPERATOR Unavailable Unavailable KIRSCHMAN, L NACHO CONSOLE OPERATOR Unavailable Unavailable KIRSCHMAN, L NACHO CONSOLE OPERATOR Unavailable Unavailable KIRSCHMAN, L NACHO CONSOLE OPERATOR Unavailable Unavailable KIRSCHMAN, L NACHO CONSOLE OPERATOR Unavailable Unavailable KIRSCHMAN, L NACHO CONSOLE OPERATOR Unavailable Unavailable KIRSCHMAN, L NACHO CONSOLE OPERATOR Unavailable Unavailable KIRSCHMAN, L NACHO CONSOLE OPERATOR Unavailable Unavailable KIRSCHMAN, L NACHO CONSOLE OPERATOR Unavailable Unavailable KIRSCHMAN, L NACHO CONSOLE OPERATOR Unavailable Unavailable KIRSCHMAN, L NACHO CONSOLE OPERATOR Unavailable Unavailable KIRSCHMAN, L NACHO CONSOLE OPERATOR Unavailable Unavailable KIRSCHMAN, L NACHO CONSOLE OPERATOR Unavailable Unavailable KIRSCHMAN, L NACHO CONSOLE OPERATOR Unavailable Unavailable KIRSCHMAN, L NACHO CONSOLE OPERATOR Unavailable Unavailable KIRSCHMAN, L NACHO CONSOLE OPERATOR Unavailable Unavailable KIRSCHMAN, L NACHO CONSOLE OPERATOR Unavailable Unavailable KIRSCHMAN, L NACHO CONSOLE OPERATOR Unavailable Unavailable KIRSCHMAN, L NACHO CONSOLE OPERATOR Unavailable Unavailable KIRSCHMAN, L NACHO CONSOLE OPERATOR Unavailable Unavailable KIRSCHMAN, L NACHO CONSOLE OPERATOR Unavailable Unavailable KIRSCHMAN, L NACHO CONSOLE OPERATOR Unavailable Unavailable KIRSCHMAN, L NACHO CONSOLE OPERATOR Unavailable Unavailable KIRSCHMAN, L NACHO CONSOLE OPERATOR Unavailable Unavailable KIRSCHMAN, L NACHO CONSOLE OPERATOR Unavailable Unavailable KIRSCHMAN, L NACHO CONSOLE OPERATOR Unavailable Unavailable KIRSCHMAN, L NACHO CONSOLE OPERATOR Unavailable Unavailable KIRSCHMAN, L NACHO CONSOLE OPERATOR Unavailable Unavailable KIRSCHMAN, L NACHO CONSOLE OPERATOR Unavailable Unavailable KIRSCHMAN, L NACHO CONSOLE OPERATOR Unavailable Unavailable KIRSCHMAN, L NACHO CONSOLE OPERATOR Unavailable Unavailable KIRSCHMAN, L NACHO CONSOLE OPERATOR Unavailable Unavailable KIRSCHMAN, L NACHO CONSOLE OPERATOR Unavailable Unavailable KIRSCHMAN, L NACHO CONSOLE OPERATOR Unavailable Unavailable KIRSCHMAN, L NACHO CONSOLE OPERATOR Unavailable Unavailable KIRSCHMAN, L NACHO CONSOLE OPERATOR Unavailable Unavailable KIRSCHMAN, L NACHO CONSOLE OPERATOR Unavailable Unavailable KIRSCHMAN, L NACHO CONSOLE OPERATOR Unavailable Unavailable KIRSCHMAN, L NACHO CONSOLE OPERATOR Unavailable Unavailable KIRSCHMAN, L NACHO CONSOLE OPERATOR Unavailable Unavailable KIRSCHMAN, L NACHO CONSOLE OPERATOR Unavailable Unavailable KIRSCHMAN, L NACHO CONSOLE OPERATOR Unavailable Unavailable KIRSCHMAN, L NACHO CONSOLE OPERATOR Unavailable Unavailable KIRSCHMAN, L NACHO CONSOLE OPERATOR Unavailable Unavailable KIRSCHMAN, L NACHO CONSOLE OPERATOR Unavailable Unavailable Mis THEODORE [id number] Unavailable Unavailable TURRIN, WALTER Unavailable Unavailable TURRIN, WALTER Unavailable Unavailable TURRIN, WALTER Unavailable Unavailable TURRIN, WALTER Unavailable Unavailable Kristen, J Luis PA-C Unavailable Unavailable Kristen, J Luis PA-C Unavailable Unavailable Kristen, J Luis PA-C Unavailable Unavailable Kristen, J Luis PA-C Unavailable Unavailable Kristen, J Luis PA-C Unavailable Unavailable Kristen, J Luis PA-C Unavailable Unavailable Kristen, J Luis PA-C Unavailable Unavailable Kristen, J Luis PA-C Unavailable Unavailable Kristen, J Luis PA-C Unavailable Unavailable Kristen, J Luis PA-C Unavailable Unavailable Kristen, J Luis PA-C Unavailable Unavailable MYESHA MARRERO MD Unavailable Unavailable MYESHA MARRERO MD Unavailable Unavailable MYESHA MARRERO MD Unavailable Unavailable MYESHA MARRERO MD Unavailable Unavailable MYESHA MARRERO MD Unavailable Unavailable MYESHA MARRERO MD Unavailable Unavailable MYESHA MARRERO MD Unavailable Unavailable MYESHA MARRERO MD Unavailable Unavailable MYESHA MARRERO MD Unavailable Unavailable MYESHA MARRERO MD Unavailable Unavailable MYESHA MARRERO MD Unavailable Unavailable MYESHA MARRERO MD Unavailable Unavailable MYESHA MARRERO MD Unavailable Unavailable MYESHA MARRERO MD Unavailable Unavailable MYESHA MARRERO MD Unavailable Unavailable MYESHA MARRERO MD Unavailable Unavailable MYESHA MARRERO MD Unavailable Unavailable MYESHA MARRERO MD Unavailable Unavailable MYESHA MARRERO MD Unavailable Unavailable MARRERO, MYESHA MD Unavailable Unavailable MARRERO, MYESHA MD Unavailable Unavailable MARRERO, MYESHA MD Unavailable Unavailable MARRERO, MYESHA MD Unavailable Unavailable MARRERO, MYESHA MD Unavailable Unavailable MARRERO, MYESHA MD Unavailable Unavailable MARRERO, MYESHA MD Unavailable Unavailable MARRERO, MYESHA MD Unavailable Unavailable MARRERO, MYESHA MD Unavailable Unavailable MARRERO, MYESHA MD Unavailable Unavailable MARRERO, MYESHA MD Unavailable Unavailable MARRERO, MYESHA MD Unavailable Unavailable MARRERO, MYESHA MD Unavailable Unavailable MARRERO, MYESHA MD Unavailable Unavailable MARRERO, MYESHA MD Unavailable Unavailable MARRERO, MYESHA MD Unavailable Unavailable MARRERO, MYESHA MD Unavailable Unavailable MARRERO, MYESHA MD Unavailable Unavailable MARRERO, MYESHA MD Unavailable Unavailable MARRERO, MYESHA MD Unavailable Unavailable MARRERO, MYESHA MD Unavailable Unavailable MARRERO, MYESHA MD Unavailable Unavailable MARRERO, MYESHA MD Unavailable Unavailable MARRERO, MYESHA MD Unavailable Unavailable MARRERO, MYESHA MD Unavailable Unavailable MARRERO, MYESHA MD Unavailable Unavailable MARRERO, MYESHA MD Unavailable Unavailable MARRERO, MYESHA MD Unavailable Unavailable MARRERO, MYESHA MD Unavailable Unavailable MARRERO, MYESHA MD Unavailable Unavailable MARRERO, MYESHA MD Unavailable Unavailable MARRERO, MYESHA MD Unavailable Unavailable MARRERO, MYESHA MD Unavailable Unavailable MARRERO, MYESHA MD Unavailable Unavailable MARRERO, MYESHA MD Unavailable Unavailable MARRERO, MYESHA MD Unavailable Unavailable MARRERO, MYESHA MD Unavailable Unavailable MARRERO, MYESHA MD Unavailable Unavailable MARRERO, MYESHA MD Unavailable Unavailable MARRERO, MYESHA MD Unavailable Unavailable MRARERO, MYESHA MD Unavailable Unavailable MARRERO, MYESHA MD Unavailable Unavailable MARRERO, MYESHA MD Unavailable Unavailable MARRERO, MYESHA MD Unavailable Unavailable MARRERO, MYESHA MD Unavailable Unavailable MARRERO, MYESHA MD Unavailable Unavailable MARRERO, MYESHA MD Unavailable Unavailable MARRERO, MYESHA MD Unavailable Unavailable MARRERO, MYESHA MD Unavailable Unavailable MARRERO, MYESHA MD Unavailable Unavailable Paz, M Alesia PA-C Unavailable Unavailable Paz, M Alesia PA-C Unavailable Unavailable Paz, M Alesia PA-C Unavailable Unavailable Paz, M Alesia PA-C Unavailable Unavailable Paz, M Alesia PA-C Unavailable Unavailable Paz, M Alesia PA-C Unavailable Unavailable Paz, M Alesia PA-C Unavailable Unavailable Paz, M Alesia PA-C Unavailable Unavailable Paz, M Alesia PA-C Unavailable Unavailable Paz, M Alesia PA-C Unavailable Unavailable Paz, M Alesia PA-C Unavailable Unavailable Paz, M Alesia PA-C Unavailable Unavailable Paz, M Alesia PA-C Unavailable Unavailable Paz, M Alesia PA-C Unavailable Unavailable Paz, M Alesia PA-C Unavailable Unavailable Paz, M Alesia PA-C Unavailable Unavailable Paz, M Alesia PA-C Unavailable Unavailable Paz, M Alesia PA-C Unavailable Unavailable Paz, M Alesia PA-C Unavailable Unavailable Paz, M Alesia PA-C Unavailable Unavailable Paz, M Alesia PA-C Unavailable Unavailable Paz, M Alesia PA-C Unavailable Unavailable Paz, M Alesia PA-C Unavailable Unavailable Paz, M Alesia PA-C Unavailable Unavailable Paz, M Alesia PA-C Unavailable Unavailable Paz, M Alesia PA-C Unavailable Unavailable Paz, M Alesia PA-C Unavailable Unavailable Paz, M Alesia PA-C Unavailable Unavailable Paz, M Alesia PA-C Unavailable Unavailable Paz, M Alesia PA-C Unavailable Unavailable Paz, M Alesia PA-C Unavailable Unavailable Paz, M Alesia PA-C Unavailable Unavailable DYLAN, Nader TENORIO MD Unavailable Unavailable DYLAN, Nader TENORIO MD Unavailable Unavailable DYLAN, Nader TENORIO MD Unavailable Unavailable DYLAN, Nader TENORIO MD Unavailable Unavailable DYLAN, Nader TENORIO MD Unavailable Unavailable DYLAN, Nader TENORIO MD Unavailable Unavailable DYLAN, Nader TENORIO MD Unavailable Unavailable DYLAN, Nader TENORIO MD Unavailable Unavailable DYLAN, Nader TENORIO MD Unavailable Unavailable DYLAN, Nader TENORIO MD Unavailable Unavailable DYLAN, Nader TENORIO MD Unavailable Unavailable DYLAN, Nader TENORIO MD Unavailable Unavailable DYLANNader ANDERSON MD Unavailable Unavailable DYLANNader ANDERSON MD Unavailable Unavailable DYLAN, Nader TENORIO MD Unavailable Unavailable DYLANNader ANDERSON MD Unavailable Unavailable DYLANNader ANDERSON MD Unavailable Unavailable DYLAN, aNder TENORIO MD Unavailable Unavailable DYLAN, Nader TENORIO MD Unavailable Unavailable DYLAN, Nader TENORIO MD Unavailable Unavailable DYLAN, Nader TENORIO MD Unavailable Unavailable DYLAN, Nader TENORIO MD Unavailable Unavailable DYLAN, Nader TENORIO MD Unavailable Unavailable DYLAN, Nader TENORIO MD Unavailable Unavailable DYLAN, Nader TENORIO MD Unavailable Unavailable DYLAN, Nader TENORIO MD Unavailable Unavailable DYLAN, Nader TENORIO MD Unavailable Unavailable DYLAN, Nader TENORIO MD Unavailable Unavailable DYLAN, Nader TENORIO MD Unavailable Unavailable DYLAN, Nader TENORIO MD Unavailable Unavailable DYLAN, Nader TENORIO MD Unavailable Unavailable DYLAN, Nader TENORIO MD Unavailable Unavailable DYLAN, Nader TENORIO MD Unavailable Unavailable DYLAN, E ROB GORDON Unavailable Unavailable DYLAN, Nader TENORIO MD Unavailable Unavailable DYLAN, E ROB GORDON Unavailable Unavailable DYLAN, Nader TENORIO MD Unavailable Unavailable DYLAN, Nader TENORIO MD Unavailable Unavailable DYLAN, Nader TENORIO MD Unavailable Unavailable DYLAN, E ROB GORDON Unavailable Unavailable DYLAN, E ROB GORDON Unavailable Unavailable DYLAN, E ROB GORDON Unavailable Unavailable DYLAN, Nader TENORIO MD Unavailable Unavailable DYLAN, Nader TENORIO MD Unavailable Unavailable DYLAN, Nader TENORIO MD Unavailable Unavailable DYLAN, Nader TENORIO MD Unavailable Unavailable DYLAN, Nader TENORIO MD Unavailable Unavailable DYLAN, Nader TENORIO MD Unavailable Unavailable DYLAN, Nader TENORIO MD Unavailable Unavailable DYLAN, Nader TENORIO MD Unavailable Unavailable DYLAN, Nader TENORIO MD Unavailable Unavailable DYLAN, Nader TENORIO MD Unavailable Unavailable DYLAN, Nader TENORIO MD Unavailable Unavailable DYLAN, Nader TENORIO MD Unavailable Unavailable DYLAN, Nader TENORIO MD Unavailable Unavailable DYLAN, Nader TENORIO MD Unavailable Unavailable DYLAN, Nader TENORIO MD Unavailable Unavailable DYLAN, Nader TENORIO MD Unavailable Unavailable DYLAN, Nader TENORIO MD Unavailable Unavailable DYLAN, Nader TENORIO MD Unavailable Unavailable DYLAN, Nader TENORIO MD Unavailable Unavailable DYLAN, Nader TENORIO MD Unavailable Unavailable DYLAN, Nader TENORIO MD Unavailable Unavailable DYLAN, Nader TENORIO MD Unavailable Unavailable DYLAN, Nader TENORIO MD Unavailable Unavailable DYLAN, Nader TENORIO MD Unavailable Unavailable DYLAN, Nader TENORIO MD Unavailable Unavailable DYLAN, Nader TENORIO MD Unavailable Unavailable DYLAN, Nader TENORIO MD Unavailable Unavailable DYLAN, Nader TENORIO MD Unavailable Unavailable DYLAN, Nader TENORIO MD Unavailable Unavailable DYLAN, Nader TENORIO MD Unavailable Unavailable DYLAN, Nader TENORIO MD Unavailable Unavailable DYLAN, Nader TENORIO MD Unavailable Unavailable DYLAN, Nader TENORIO MD Unavailable Unavailable DYLAN, Nader HANDEN MD Unavailable Unavailable Nader RICHARDSON MD Unavailable Unavailable Nader RICHARDSON MD Unavailable Unavailable Nader RICHARDSON MD Unavailable Unavailable Nader RICHARDSON MD Unavailable Unavailable Nader RICHARDSON MD Unavailable Unavailable Nader RICHARDSON MD Unavailable Unavailable Nader RICHARDSON MD Unavailable Unavailable Nader RICHARDSON MD Unavailable Unavailable Nader RICHARDSON MD Unavailable Unavailable Nader RICHARDSON MD Unavailable Unavailable Nader RICHARDSON MD Unavailable Unavailable Nader RICHARDSON MD Unavailable Unavailable Nader RICHARDSON MD Unavailable Unavailable Nader RICHARDSON MD Unavailable Unavailable Nader RICHARDSON MD Unavailable Unavailable Nader RICHARDSON MD Unavailable Unavailable Nader RICHARDSON MD Unavailable Unavailable Nader RICHARDSON MD Unavailable Unavailable Nader RICHARDSON MD Unavailable Unavailable Michell GRANDE MD Unavailable Unavailable Michell GRANDE MD Unavailable Unavailable Michell GRANDE MD Unavailable Unavailable Michell GRANDE MD Unavailable Unavailable Michell GRANDE MD Unavailable Unavailable CHRISTIANEMichell LIMA MD Unavailable Unavailable Michell GRANDE MD Unavailable Unavailable Michell GRANDE MD Unavailable Unavailable Michell GRANDE MD Unavailable Unavailable Michell GRANDE MD Unavailable Unavailable Michell GRANDE MD Unavailable Unavailable Michell GRANDE MD Unavailable Unavailable CHRISTIANEMichell LIMA MD Unavailable Unavailable Michell GRANDE MD Unavailable Unavailable Michell GRANDE MD Unavailable Unavailable Michell GRANDE MD Unavailable Unavailable Michell GRANDE MD Unavailable Unavailable Michell GRANDE MD Unavailable Unavailable Michell GRANDE MD Unavailable Unavailable CHRISTIANEMichell LIMA MD Unavailable Unavailable Michell GRANDE MD Unavailable Unavailable Michell GRANDE MD Unavailable Unavailable Michell GRANDE MD Unavailable Unavailable Michelle Camacho MD Unavailable Unavailable Michelle Camacho MD Unavailable Unavailable Michelle Camacho MD Unavailable Unavailable Michelle Camacho MD Unavailable Unavailable Michelle Camacho MD Unavailable Unavailable Michelle Camacho MD Unavailable Unavailable Michelle Camacho MD Unavailable Unavailable Michelle Camacho MD Unavailable Unavailable Michelle Camacho MD Unavailable Unavailable Michelle Camacho MD Unavailable Unavailable Camacho, Michelle GORDON Unavailable Unavailable Camacho, Michelle GORDON Unavailable Unavailable Camacho, Michelle GORDON Unavailable Unavailable Camacho, Michelle GORDON Unavailable Unavailable Camacho, Michelle GORDON Unavailable Unavailable Camacho, Michelle GORDON Unavailable Unavailable Camacho, Michelle GORDON Unavailable Unavailable Camacho, Michelle GORDON Unavailable Unavailable Camacho, Michelle GORDON Unavailable Unavailable Camacho, Michelle GORDON Unavailable Unavailable Camacho, Michelle GORDON Unavailable Unavailable Camacho, Michelle GORDON Unavailable Unavailable Camacho, Michelle GORDON Unavailable Unavailable Camacho, Michelle GORDON Unavailable Unavailable Camacho, Michelle GORDON Unavailable Unavailable Camacho, Michelle GORDON Unavailable Unavailable Camacho, Michelle GORDON Unavailable Unavailable Camacho, Michelle GORDON Unavailable Unavailable Camacho, Michelle GORDON Unavailable Unavailable Camacho, Michelle GORDON Unavailable Unavailable Camacho, Michelle GORDON Unavailable Unavailable Camacho, Michelle GORDON Unavailable Unavailable Camacho, Michelle GORDON Unavailable Unavailable Camacho, Michelle GORDON Unavailable Unavailable Camacho, Michelle GORDON Unavailable Unavailable Camacho, Michelle GORDON Unavailable Unavailable Camacho, Michelle GORDON Unavailable Unavailable Camacho, Michelle GORDON Unavailable Unavailable Camacho, Michelle GORDON Unavailable Unavailable Camacho, Michelle GORDON Unavailable Unavailable Camacho, Michelle GORDON Unavailable Unavailable Camacho, Michelle GORDON Unavailable Unavailable Camacho, Michelle GORDON Unavailable Unavailable Camacho, Michelle GORDON Unavailable Unavailable Camacho, Michelle GORDON Unavailable Unavailable Camacho, Michelle GORDON Unavailable Unavailable Camacho, Michelle GORDON Unavailable Unavailable Camacho, Michelle GORDON Unavailable Unavailable Camacho, Michelle GORDON Unavailable Unavailable Camacho, Michelle GORDON Unavailable Unavailable Camacho, Michelle GORDON Unavailable Unavailable Camacho, Michelle GORDON Unavailable Unavailable Camacho, Michelle GORDON Unavailable Unavailable Camacho, Michelle GORDON Unavailable Unavailable Camacho, Michelle GORDON Unavailable Unavailable Camacho, Michelle GORDON Unavailable Unavailable Camacho, Michelle GORDON Unavailable Unavailable Mis GRAHAM MD Unavailable Unavailable Mis GRAHAM MD Unavailable Unavailable Mis GRAHAM MD Unavailable Unavailable VENERUS, Mis SANCHEZ MD Unavailable Unavailable VENERUS, Mis SANCHEZ MD Unavailable Unavailable VENERUS, Mis SANCHEZ MD Unavailable Unavailable VENERUS, Mis SANCHEZ MD Unavailable Unavailable VENERUS, Mis SANCHEZ MD Unavailable Unavailable VENERUS, Mis SANCHEZ MD Unavailable Unavailable Re-disclosure Warning The records that you are about to access may contain information from federally-assisted alcohol or drug abuse programs. If such information is present, then the following federally mandated warning applies: This information has been disclosed to you from records protected by federal confidentiality rules (42 CFR part 2). The federal rules prohibit you from making any further disclosure of this information unless further disclosure is expressly permitted by the written consent of the person to whom it pertains or as otherwise permitted by 42 CFR part 2. A general authorization for the release of medical or other information is NOT sufficient for this purpose. The Federal rules restrict any use of the information to criminally investigate or prosecute any alcohol or drug abuse patient.The records that you are about to access may contain highly sensitive health information, the redisclosure of which is protected by Article 27-F of the [facility] Public Health law. If you continue you may have access to information: Regarding HIV / AIDS; Provided by facilities licensed or operated by the [facility] Office of Mental Health; or Provided by the [facility] Office for People With Developmental Disabilities. If such information is present, then the following [facility] mandated warning applies: This information has been disclosed to you from confidential records which are protected by state law. State law prohibits you from making any further disclosure of this information without the specific written consent of the person to whom it pertains, or as otherwise permitted by law. Any unauthorized further disclosure in violation of state law may result in a fine or mcc sentence or both. A general authorization for the release of medical or other information is NOT sufficient authorization for further disc losure. Allergies and Adverse Reactions Type Description Substance Reaction Status Data Source(s ) No Known Environmental Allergies No Known Environmental Al lergies [facility] No Known Food Allergies No Known Food Allergies [facility] BRANDNAME CIPRO CIPRO ANAPHYLAXIS [facility] CLASS SULFA (sulfonamide) SULFA (sulfonamide) DYSPNEA [facility] Drug Class NO KNOWN ALLERGIES NO KNOWN ALLERGIES [facility] Family History Family Member Name Family Member Gender Family Member Status Date o f Status Description Data Source(s) Unknown Unknown Problem [facility] ([facility]) Unknown Unknown Problem [facility] ([facility]) Unknown Male Problem [facility] ([facility]) Unknown Female Encounters Encounter Providers Location Date Indications Data Source(s ) Emergency Attender: Luis STEELECConsultant: MYESHA HERNANDEZ MD 10/08/2020 02:18:00 PM EST - 10/08/2020 03:28:00 PM [facility] Patient discharged. Outpatient Attender: MYESHA MARRERO MDConsultant: MYESHA Galarza MD 10/02/2020 10:59:00 AM EST - 10/02/2020 11:59:00 AM EST [facility] Patient discharged. Outpatient Attender: MYESHA MARRERO MDConsultant: MYESHA Galarza MD 09/28/2020 01:05:00 PM EST - 09/28/2020 01:05:00 PM [facility] Outpatient Attender: MYESHA MARRERO MD Family Practice 09/28/2020 1 2:20:00 PM EST [facility] ([facility]) Outpatient Attender: MYESHA MARRERO MDConsultant: MYESHA Galarza MD 08/28/2020 12:24:00 PM EST - 08/28/2020 01:24:00 PM [facility] Patient discharged. Unknown [id number] [facility] [facility] [place] [address] 08/25/2020 12:00:00 AM EST eCW1 ([facility]) Outpatient Attender: MYESHA MARRERO MDConsultant: MYESHA Galarza MD 08/18/2020 02:12:00 PM EST - 08/18/2020 03:12:00 PM [facility] Patient discharged. Outpatient Attender: MYESHA MARRERO MDConsultant: MYESHA Galarza MD 08/05/2020 01:00:00 PM EST - 08/05/2020 01:00:00 PM [facility] Outpatient Attender: MYESHA MARRERO MD Family Practice 08/05/2020 1 2:20:00 PM EST [facility] ([facility]) Emergency Attender: GABRIELLA GRANDE MDConsultant: MYESHA Galarza MD 07/25/2020 02:23:00 PM EST - 07/25/2020 04:23:00 PM [facility] Patient discharged. Outpatient Attender: Kun Beltran FNPConsultant: MYESHA MARRERO MD 07/23/2020 10:09:00 AM EST - 07/23/2020 10:09:00 AM [facility] Outpatient Attender: SOPHIE HOBBS MDConsultant: MYESHA Galarza MD 05/15/2020 09:15:00 AM EDT - 05/15/2020 09:25:00 AM EDT [facility] Outpatient Attender: SOPHIE HOBBS MDConsultant: MYESHA Galarza MD 05/15/2020 07:54:02 AM EDT - 05/19/2020 12:18:00 PM EDT [facility] Patient discharged. Outpatient Attender: SOPHIE HOBBS MDConsultant: MYESHA Galarza MD 05/04/2020 07:22:43 AM EDT - 05/05/2020 08:24:00 AM EDT [facility] Patient discharged. Outpatient Attender: SOPHIE HOBBS MDConsultant: MYESHA Galarza MD 05/01/2020 11:57:00 AM EDT - 05/01/2020 12:57:00 PM EDT [facility] Patient discharged. Outpatient Attender: SOPHIE HOBBS MDConsultant: MYESHA Galarza MD 04/28/2020 07:35:10 AM EDT - 04/29/2020 04:00:00 PM EDT [facility] Patient discharged. Outpatient Attender: SOPHIE HOBBS MDConsultant: MYESHA Galarza MD 04/23/2020 10:06:00 AM EDT - 04/23/2020 10:06:00 AM EDT [facility] Emergency Attender: WIN GRAHAM MDConsultant: MYESHA TORRES MD 04/16/2020 08:54:00 AM EDT - 04/16/2020 12:47:00 PM EDT [facility] Patient discharged. Outpatient Attender: MYESHA MARRERO MD Family [facility] 03/23/2020 1 1:00:00 AM EDT [facility] ([facility]) Outpatient Attender: MYESHA MARRERO MDConsultant: MYESHA Galarza MD 03/23/2020 10:35:00 AM EDT - 03/23/2020 10:35:00 AM EDT [facility] Outpatient Attender: MYESHA MARRERO MDConsultant: MYESHA Galarza MD 03/19/2020 06:42:00 AM EDT - 03/19/2020 07:42:00 AM EDT [facility] Outpatient Attender: Alesia STEELECConsultant: MYESHA BUTLER MD 03/16/2020 01:41:00 PM EDT - 03/16/2020 01:41:00 PM EDT [facility] Emergency Attender: GABRIELLA GRANDE MDConsultant: MYESHA Galarza MD 03/12/2020 07:30:00 AM EDT - 03/12/2020 08:31:00 AM EDT [facility] Patient discharged. Outpatient Attender: MYESHA MARRERO MD Family Practice 03/10/2020 0 2:00:00 PM EDT [facility] ([facility]) Outpatient Attender: MYESHA MARRERO MDConsultant: MYESHA Galarza MD 03/10/2020 01:34:00 PM EDT - 03/10/2020 01:34:00 PM EDT [facility] Outpatient Attender: MYESHA MARRERO MDConsultant: MYESHA Galarza MD 02/26/2020 08:34:00 AM EDT - 02/26/2020 09:34:00 AM EDT [facility] [address] [place] [id number] 02/10/2020 12:00:00 AM EDT eCW1 ([facility]) Emergency Attender: SUSANNA PANDEY WAREDRESSER-C Attender: Ly Galindo MDConsultant: NACHO GOLD NP 12/16/2019 04:32:00 PM EDT - 12/16/2019 05:55 :00 PM EDT [facility] Patient discharged. Outpatient Attender: MYESHA MARRERO MD Family Practice 12/09/2019 0 2:00:00 PM EDT [facility] ([facility]) Outpatient Attender: MYESHA PECKonsultant: NACHO SOLORZANO CONSOLE OPERATOR 12/09/2019 01:32:00 PM EDT - 12/09/2019 01:32:00 PM EDT [facility] Outpatient Attender: SIRI THEODORE [id number] 11/05/2019 12:00:00 AM EST Radial styloid tenosynovitis (de quervain) [facility] Radial styloid tenosynovitis (de quervai n) Outpatient Attender: SIRI THEODORE [id number] : SIRI THEODORE [id number] [facility] 10/21/2019 12:00:00 AM EST - 10/21/2019 12:30:00 PM ES T De Quervain's tenosynovitis [M65.4] [facility] De Quervain's tenosynovitis [M65.4] Patient discharged. Outpatient Attender: SIRI STONEonsultant: NACHO SOLORZAON NP 10/07/2019 02:07:00 PM EST - 10/07/2019 03:07:00 PM EST [facility] Outpatient Attender: SIRI THEODORE [id number] : CHACORAT ORELLANA MD [id number] 10/02/2019 12:00:00 AM EST Radial styloid tenosynovitis (de quervain) [facility] Radial styloid tenosynovitis (de quervai n) Recurring Patient Attender: ROB RICHARDSON MDReferrer: ROB Tahpa MD 09/13/2019 08:26:07 AM EST [facility] Outpatient Attender: ROB RICHARDSON MDReferrer: ROB RICHARDSON MD 08/27/2019 02:20:58 PM EST [facility] Recurring Patient Attender: ROB RICHARDSON MDReferrer: ROB Thapa MD 08/27/2019 01:53:18 PM EST [facility] Recurring Patient Attender: ROB RICHARDSON MDReferrer: ROB Thapa MD 08/27/2019 01:51:39 PM EST [facility] Recurring Patient Attender: ROB RICHARDSON MDReferrer: ROB Thapa MD 08/23/2019 12:18:03 PM EST [facility] Outpatient Attender: ABBY CARPENTER CONSOLE OPERATOR [id number] 08/22/2019 1 2:00:00 AM EST Radial styloid tenosynovitis (de quervain) [facility] Radial styloid tenosynovitis (de quervai n) Outpatient Attender: Michelle Camacho MDReferrer: Naomy BURGESSRECK [id number] 08/22/2019 12:00:00 AM EST - 08/22/2019 09:19:17 AM ES T Anesthesia of skin [facility] Anesthesia of skin Outpatient 08/22/2019 12:00:00 AM EST [facility] Emergency Attender: WALTER MAIConsultant: NACHO SOLORZANO NP 08/21/2019 06:42:00 AM EST - 08/21/2019 07:28:00 AM EST [facility] Patient discharged. Medications Medication Brand Name Start Date Product Form Dose Route Admi nistrative Instructions Pharmacy Instructions Status Indications Reaction Description Data Source(s) atorvastatin 40 MG Oral Tablet Atorvastatin Calcium 09/28/2020 1 2:00:00 AM EST ORAL active [facility] ( [facility]) atorvastatin 10 MG Oral Tablet ATORVASTATIN CALCIUM 08/07/2020 1 2:00:00 AM EST tablet 90 TAKE ONE TABLET BY MOUTH EVERY D AY TAKE ONE TABLET BY MOUTH EVERY DAY SOLD: 08/11/2020 [facility] atorvastatin 10 MG Oral Tablet Atorvastatin Calcium 08/05/2020 1 2:00:00 AM EST ORAL completed [facility] ([facility]) No Active Medications 08/05/2020 12:00:00 AM EST completed [facility] ([facility]) 600 mg 07/25/2020 12:00:00 AM EST tablet extended release 12hr 14 TAKE ONE TABLET BY MOUTH TWICE A DAY TAKE ONE TABLET BY MOUTH TWICE A DAY SOLD: 07/26/2020 [facility] 875-125 mg 07/25/2020 12:00:00 AM EST tablet 14 TAKE ONE TABLET BY MOUTH TWICE A DAY TAKE ONE TABLET BY MOUTH TWICE A DAY SOLD: 07/26/2020 [facility] Hydroxychloroquine Sulfate 200 MG Oral Tablet HYDROXYCHLOROQ UINE SULFATE 05/20/2020 12:00:00 AM EDT tablet 60 TAKE ONE TABLET BY MOUTH TWICE A DAY FOR RHEUMATOID ARTHRITIS TAKE ONE TABLET BY MOUTH TWICE A DAY FOR RHEUMATOID ARTHRITIS SOLD: 05/23/2020 [facility] Bisacodyl 5 MG Delayed Release Oral Tablet [Dulcolax] Dulcol ax 04/23/2020 12:00:00 AM EDT completed [facility] ([facility]) POLYETHYLENE GLYCOL 3350 142 MG/ML Oral Solution [Miralax] M iralax 04/23/2020 12:00:00 AM EDT completed [facility] ([facility]) 5 mg 04/23/2020 12:00:00 AM EDT tablet,delayed release (DR/EC) 4 SEE PREPROCEDURE INSTRUCTIONS SEE PREPROCEDURE INSTRUCTIONS SOLD: 04/26/2020 [facility] 17 gram/dose 04/23/2020 12:00:00 AM EDT powder 238 SEE PRE PROCEDURE INSTRUCTIONS SEE PRE PROCEDURE INSTRUCTIONS SOLD: 04/26/2020 [facility] 100 mg 03/16/2020 12:00:00 AM EDT capsule 90 TAKE ONE CAPSULE BY MOUTH THREE TIMES A DAY NEEDED FOR PAIN TAKE ONE CAPSULE BY MOUTH THREE TIMES A DAY NEEDED FOR PAIN SOLD: 03/17/2020 [facility] gabapentin 100 MG Oral Capsule Gabapentin 03/16/2020 12:00:00 AM EDT ORAL completed [facility] ([facility]) 800 mg 03/12/2020 12:00:00 AM EDT tablet 50 TAKE ONE TABLET BY MOUTH FIVE TIMES DAILY FOR 10 DAYS TAKE ONE TABLET BY MOUTH FIVE TIMES DAILY FOR 10 DAYS SOLD: 03/12/2020 [facility] atorvastatin 10 MG Oral Tablet Atorvastatin Calcium 03/10/2020 1 2:00:00 AM EDT ORAL completed [facility] ([facility]) Lisinopril 10 MG Oral Tablet Lisinopril 03/10/2020 12:00:00 AM EDT ORAL completed [facility] ([facility]) 10 mg 03/10/2020 12:00:00 AM EDT tablet 90 TAKE ONE TABLET BY MOUTH EVERY DAY TAKE ONE TABLET BY MOUTH EVERY DAY SOLD: 03/12/2020 [facility] 10 mg 03/10/2020 12:00:00 AM EDT tablet 90 TAKE ONE TABLET BY MOUTH EVERY DAY TAKE ONE TABLET BY MOUTH EVERY DAY SOLD: 03/12/2020 [facility] 3 mg 12/26/2019 12:00:00 AM EDT tablet 4 TAKE FOUR TABLETS BY MOUTH TODAY TAKE FOUR TABLETS BY MOUTH TODAY SOLD: 12/26/2019 [facility] 0.1 % 12/25/2019 12:00:00 AM EDT cream 80 APPLY TO EXTREMITIES SPARINGLY TWO TIMES A DAY FOR 2 WEEKS THEN NEEDED APPLY TO EXTREMITIES SPARINGLY TWO TIMES A DAY FOR 2 WEEKS THEN NEEDED SOLD: 12/25/2019 [facility] 10 mg 12/25/2019 12:00:00 AM EDT tablet 30 TAKE 1-2 TABLETS BY MOUTH PRIOR TO BED TAKE 1-2 TABLETS BY MOUTH PRIOR TO BED SOLD: 12/25/2019 [facility] 2 % 12/09/2019 12:00:00 AM EDT ointment 22 APPLY A THIN LAYER TWO TIMES A DAY FOR 4 WEEKS APPLY A THIN LAYER TWO TIMES A DAY FOR 4 WEEKS SOLD: [facility] Diphenhydramine Hydrochloride 0.02 MG/MG Topical Gel [ Benadryl] Benadryl Itch Stopping 12/09/2019 12:00:00 AM EDT completed [facility] ([facility]) Mupirocin 0.02 MG/MG Topical Ointment Mupirocin 12/09/2019 12:00:00 AM EDT completed [facility] ([facility]) 2 % 12/09/2019 12:00:00 AM EDT ointment 22 APPLY A THIN LAYER TWO TIMES A DAY FOR 4 WEEKS APPLY A THIN LAYER TWO TIMES A DAY FOR 4 WEEKS SOLD: [facility] HYDROmorphone (DILAUDID) injection 0.5 mg [id number] 10/21/2019 11:11:11 AM EST 0.5 mg Intravenous active 0.5 mg, Intravenous, Every 5 min PRN, Severe Pain (Pain Scale Score 7-10), Starting Mon10/21/19 at 1111, For 4 doses, [facility] Medication administered onsite ondansetron (ZOFRAN) injection 4 mg [id number] 10/21/2019 11:11:1 1 AM EST 4 mg Intravenous active 4 mg, In travenous, Once PRN, Nausea, Vomiting, Starting Mon10/21/19 at 1111, For 1 dose, [facility] Medication administered onsite fentaNYL (SUBLIMAZE) (PF) injection 25 mcg [id number] 10/21/2019 11:11:11 AM EST 25 ug Intravenous active 25 m cg, Intravenous, Every 5 min PRN, Moderate Pain (Pain Scale Score 4-6), Starting Mon10/21/19 at 1111, For 10 doses, [facility] Medication administered onsite oxyCODONE (ROXICODONE) immediate release tablet 5 mg 10/21/2019 10:09:12 AM EST 5 mg Oral active [Order 1 Start] Name: oxyCODONE (ROXICODONE) immediate release tablet 5 mg Signed Summary: 5 mg, Oral, Every 4 hours PRN, Moderate Pain (Pain Scale Score 4-6), Starting Mon10/21/19 at 1009, For 3 d ays
Oxycodone immediate release is limited to 10 mg per dose. Higher doses ([facility] only) require Pain Service consultation and approval.
[Order 1 End] [Order 2 Start] Name: oxyCODONE (ROXICODONE) immediate release tablet 10 mg Signed Summary: 10 mg, Oral, Every 4 hours PRN, Severe Pain (Pain Scale Score 7-10), Starting Mon10/21/19 at 1009, For 3 days
Oxycodone immediate release is limited to 10 mg per dose. Higher doses ([facility] only) require Pain Service consultation and approval.
[Order 2 End] [facility] Medication administered onsite Calcium Chloride 0.0014 MEQ/ML / Potassi um Chloride 0.004 MEQ/ML / Sodium Chloride 0.103 MEQ/ML / Sodium Lactate 0.028 MEQ/ML Injectable Solution lactated ringers infusion lactated ringers infusion 10/21/2019 08:15:00 AM EST Intravenous active at 100 mL/hr, Intravenous, Continuous, Starting Mon10/21/19 at 0815, For 30 days
Keep Vein Open. Use Wide Tubing.
Pre-op [facility] Medication administered onsite lidocaine (XYLOCAINE) 1 % injection 1 mL [id number] 10/21/2019 08:11:37 AM EST 1 mL Infiltration active 1 m L, Infiltration, Once PRN, Patient request, Starting Mon10/21/19 at 0811, For 1 dose, Pre-op
For IV Insertion.
[facility] Medication administered onsite Ondansetron 8 MG Oral Tablet Ondansetron HCl 8 MG Oral Tablet (ZOFRAN) Ondansetron HCl 8 MG Oral Tablet (ZOFRAN) 10/21/2019 12:00:00 AM EST 8 mg Oral active Take 1 tablet by mouth every 8 (eight) hours as needed for Nausea or Vomiting for up to 7 days [facility] Ibuprofen 600 MG Oral Tablet Ibuprofen 600 MG Oral Tab let (ADVIL,MOTRIN) Ibuprofen 600 MG Oral Tablet (ADVIL,MOTRIN) 10/21/2019 12:00:00 AM EST 600 mg Oral active Take 1 tablet by mouth every 6 (six) hours as needed for Pain for up to 10 days [facility] 8 HR Acetaminophen 650 MG Extended Relea se Oral Tablet Acetaminophen ER 650 MG Oral Tablet Extended Release (TYLENOL 8 HOUR) Acetaminophen ER 650 MG Oral Tablet Extended Release (TYLENOL 8 HOUR) 10/21/2019 12:00:00 AM EST 650 mg Oral active Take 1 tablet by mouth every 8 (eight) hours as needed for Pain for up to 10 days [facility] Oxycodone Hydrochloride 5 MG Oral Tablet oxyCODONE HCl 5 MG Oral Tablet (ROXICODONE) oxyCODONE HCl 5 MG Oral Tablet (ROXICODONE) 10/21/2019 12:00:00 AM EST 5 mg Oral active Take 1 t ablet by mouth every 4 (four) hours as needed for up to 3 days, Max Daily Dose: 30 mg [facility] 5 mg/gram (0.5 %) 09/13/2019 12:00:00 AM EST ointment 3 APPLY SMALL AMOUNT TOPICALLY TO EYELID TWO TIMES A DAY DIRECTED FOR 14 DAYS APPLY SMALL AMOUNT TOPICALLY TO EYELID TWO TIMES A DAY DIRECTED FOR 14 DAYS SOLD: 09/14/2019 [facility] methylPREDNISolone acetate (DEPO-MEDROL) injection 40 mg [id number] 08/22/2019 01:00:00 PM EST 40 mg Intra-articular completed 40 mg, Intra- articular, Once, Tiffanie 08/22/19 at 1300, For 1 dose
Depo-medrol 1 cc - [id number]
[facility] Medication administered onsite 50 mg 08/21/2019 12:00:00 AM EST tablet 5 TAKE ONE TABLET BY MOUTH EVERY DAY TAKE ONE TABLET BY MOUTH EVERY DAY SOLD: 08/23/2019 [facility] 3.5 mg/g-10,000 unit/g-0.1 % 08/14/2019 12:00:00 AM EST oint ment 3 APPLY SMALL AMOUNT TOPICALLY ON UPPER AND LOWER EYELID TWO TIMES A DAY OF BOTH EYES DIRECTED APPLY SMALL AMOUNT TOPICALLY ON UPPER AN D LOWER EYELID TWO TIMES A DAY OF BOTH EYES DIRECTED SOLD: 08/16/2019 [facility] No Active Medications 06/22/2019 12:00:00 AM EDT completed [facility] ([facility]) Insurance Providers Payer name Policy type / Coverage type Policy ID Covered republican ID Covered republican's relationship to mares Policy Mares Plan Information [facility] [id number] [id number] UMR -O/P [id number] 01 [id number] UMR CO [id number] 01 [id number] UMR CO [id number] 01 [id number] UMR -PHYSICIAN [id number] UMR CO [id number] 01 [id number] UMR CO [id number] 01 [id number] UMR U [id number] Spouse [id number] UMR F [id number] SPOUSE [id number] UMR F [id number] SPOUSE [id number] UMR F [id number] SPOUSE [id number] UMR F [id number] SPOUSE [id number] UMR O [id number] S [id number] POMCO [id number] HU2 [id number] [place] Medigap Part B [id number] Family Dependent [id number] [place] Medigap Part B [id number] Family Dependent [id number] Umr Commercial [id number] Family Dependent [id number] UMR -O/P [id number] 01 [id number] POMCO U [id number] Self [id number] POM[employer]-RECURRING [id number] 01 [id number] POMCO U [id number] Self [id number] POMCO BC [id number] 01 [id number] [employer] Commercial [id number] Family Dependent [id number] [employer] Commercial [id number] Family Dependent [id number] POMCO-O/P [id number] 01 [id number] [employer] (pr) Commercial [id number] Family Dependent [id number] [place] (pr) Commercial [id number] Family Dependent [id number] [place] (pr) Commercial [id number] Family Dependent 8 [id number] POMCO [id number] SP [id number] POMCO [id number] SP [id number] [place] F [id number] SPOUSE [id number] [place] Pos Commercial Family Dependent [place] Pos Commercial Family Dependent POMCO [id number] Spo [id number] POM[employer]-CLINIC [id number] 01 [id number] [employer] PPO P [id number] P [id number] Problems, Conditions, and Diagnoses Code Display Name Description Problem Type Effective Dates Data Source(s) 71985500 Essential hypertension Essential hypertension Problem 04/23/2020 12:00:00 AM EDT [facility] ([facility]) R1010 Upper abdominal pain, unspecified Upper abdomina l pain, unspecified Diagnosis 10/02/2020 10:59:00 AM [facility] E785 Hyperlipidemia, unspecified Hyperlipidemia, unspecifie d Diagnosis 09/28/2020 01:05:00 PM [facility] R911 Solitary pulmonary nodule Solitary pulmonary nodule Di agnosis 08/28/2020 12:24:00 PM [facility] R0789 Other chest pain Other chest pain Diagnosis 08/18/2020 02 :12:00 PM [facility] R05 Cough Cough Diagnosis 08/18/2020 02:12:00 PM [facility] 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 Benign neopla sm of ascending colon Diagnosis 08/05/2020 01:00:00 PM [facility] [id number] Contact with and (suspected) exposure to other viral communicable diseases Contact with and (suspected) exposure to other viral communicable diseases Diagnosis 07/25/2020 02:23:00 PM [facility] [id number] Nicotine dependence, cigarettes, uncompl icated Nicotine dependence, cigarettes, uncomplicated Diagnosis 07/25/2020 02:23:00 PM [facility] I10 Essential (primary) hypertension Essential (primary) h ypertension Diagnosis 07/25/2020 02:23:00 PM [facility] J0110 Acute frontal sinusitis, unspecified Acute front al sinusitis, unspecified Diagnosis 07/25/2020 02:23:00 PM [facility] J0100 Acute maxillary sinusitis, unspecified A cute maxillary sinusitis, unspecified Diagnosis 07/25/2020 02:23:00 PM [facility] R509 Fever, unspecified Fever, unspecified Diagnosis 0 02:23:00 PM [facility] Z1159 Encounter for screening for other viral diseases Encounter for screening for other viral diseases Diagnosis 07/23/2020 10:09:00 AM [facility] A630 Anogenital (venereal) warts Anogenital (venereal) wart s Diagnosis 05/19/2020 10:00:00 AM EDT [facility] [id number] Encounter for other preprocedural examin ation Encounter for other preprocedural examination Diagnosis 05/15/2020 09:15:00 AM EDT [facility] 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 Diagnosis 05/05/2020 06:30:00 AM EDT [facility] R194 Change in bowel habit Change in bowel habit Diagnosis 05/05/2020 06:30:00 AM EDT [facility] Z1211 Encounter for screening for malignant ne oplasm of colon Encounter for screening for malignant neoplasm of colon Diagnosis 04/23/2020 10:06:0 0 AM EDT [facility] R072 Precordial pain Precordial pain Diagnosis 04/16/2020 08:5 4:00 AM EDT [facility] B029 Zoster without complications Zoster without complicati ons Diagnosis 03/23/2020 10:35:00 AM EDT [facility] M130 Polyarthritis, unspecified Polyarthritis, unspecified Diagnosis 03/23/2020 10:35:00 AM EDT [facility] R936 Abnormal findings on diagnostic imaging of limbs Abnormal findings on diagnostic imaging of limbs Diagnosis 03/19/2020 06:42:00 AM EDT [facility] R51 Headache Headache Diagnosis 03/16/2020 01:41:00 PM ED T [facility] R21 Rash and other nonspecific skin eruption Rash and other nonspecific skin eruption Diagnosis 03/12/2020 07:30:00 AM EDT [facility] G4733 Obstructive sleep apnea (adult) (pediatr ic) Obstructive sleep apnea (adult) (pediatric) Diagnosis 03/10/2020 01:34:00 PM EDT [facility] R030 Elevated blood-pressure reading, without diagnosis of hypertension Elevated blood-pressure reading, without diagnosis of hypertension Diagnosis 02/26/2020 08:34:00 AM EDT [facility] B349 Viral infection, unspecified Viral infection, unspecif ied Diagnosis 12/16/2019 04:32:00 PM EDT [facility] J069 Acute upper respiratory infection, unspe cified Acute upper respiratory infection, unspecified Diagnosis 12/16/2019 04:32:00 PM EDT [facility] Z1331 Encounter for screening for depression E ncounter for screening for depression Diagnosis 12/09/2019 01:32:00 PM EDT [facility] R300 Dysuria Dysuria Diagnosis 12/09/2019 01:32:00 PM ED T [facility] M65.4 Radial styloid tenosynovitis [de Quervai n] Radial styloid tenosynovitis (de quervain) Diagnosis 10/21/2019 10:02:59 AM [facility] De Quervain's tenosynovitis [M65.4] De Quervain' s tenosynovitis [M65.4] Diagnosis 10/21/2019 07:44:00 AM [facility] M654 Radial styloid tenosynovitis [de Quervai n] Radial styloid tenosynovitis [de Quervain] Diagnosis 10/07/2019 02:07:00 PM [facility] R20.2 Paresthesia of skin Paresthesia of skin Diagnosis 1 10/23/2018 09:39:40 AM [facility] R20.0 Anesthesia of skin Anesthesia of skin Diagnosis 08/2019 09:39:40 AM [facility] Surgeries/Procedures Procedure Description Date Indications Data Source(s) Brief Emotional/Behav Assessment W/ Scoring Doc Per Standard Inst 12/09/2019 12:00:00 AM EDT [facility] BETA HCG, QUANT BETA HCG, QUANT STAT 10/21/2019 8:12 AM EST 10/21/2019 01:12:00 PM EST [facility] SURGERY CASE REQUEST OUTSIDE FACILITY ONLY SURGERY CA SE REQUEST OUTSIDE FACILITY ONLY Routine 10/02/2019 10:59 AM EST De Quervain's Disease (Radial Styloid Tenosynovitis) 0 10/02/2019 03:59:55 PM EST De Quervain's Disease (Radial Styloid Tenosynovitis) [facility] De Quervain's Disease (Radial Styloid Te nosynovitis) Results ID Date Data Source [id number] 10/08/2020 02:18:00 PM [place] [address] Medication Reconciliation Report [facility] Emergency Department [address] [place] [address] Phone #: ext- [phone] 10/08/2020 13:19 Patient: CRYS FRANK Sex: F : 1970 Age: 50yWeight: 77.5 kgHeight/Length: 67 in.BMI: 26.8ALLERGIES: Cipro, predniSONEThe patient's Home Medications are listed below:THE FOLLOWING MEDICATIONS NEED TO BE RECONCILED: Atorvastatin Calcium Oral (10 mg), daily Lisinopril Oral (10 mg) 1 tablet, dailyThe source(s) of the original Home Medication information:patientThe following Medications were given to the patient in the Emergency Department:None.The following Medications were prescribed to the patient:None. Name Value Range Interpretation Code Description Data Esthela rce(s) Supporting Document(s) ID Date Data Source [id number] 10/08/2020 02:18:00 PM [place] [address] Medication Administration Record [facility] Emergency Department [address] [place] [address] Phone #: ext- [phone] 10/08/2020 13:19 Patient: CRYS FRANK Sex: F : 1970 Age: 50yWeight: 77.5 kgHeight/Length: 67 inBMI: 26.8ALLERGIES: Cipro, predniSONEDate/Time Medication Administered Medication Ordered Name Value Range Interpretation Code Description Data Esthela rce(s) Supporting Document(s) ID Date Data Source [id number] 10/08/2020 02:18:00 PM EST [facility] 1 Clinical Report - Nurses [facility] Emergency Department [address] [place] [address] Phone #: ext- [phone] 10/08/2020 13:19 Patient: CRYS FRANK Sex: F : 1970 Age: 50yTRIAGEArrived by private vehicle. Historian: patient. ( presents with lower right abdominal pain).Triage time: 14:09 10/08/2020. Acuity: LEVEL 3.Chief Complaint: ABDOMINAL PAIN.Alert. No acute distress.Onset. (2.5 months). The patient has had abdominal pain. The pain is described as located in the RLQ.Treatment [employer]:Seen within the last 30 days in a medical facility; seen for similar symptoms; CT done. (brenda).SEPSIS SCREEN: SEPSIS SCREEN NEGATIVE. No suspected or confirmed signs of infection present.--14:16 10/08/20 Reuben Bello R.N.14:08 10/08/20. BP: 120/70 (regular adult cuff) taken on the right arm, manually, while sitting. MAP: 86.HR: 94. RR: 16. O2 saturation: 97%. Temp: 98.3 F. Pain level now: 05/21. --14:16 10/08/20 Reuben Bello R.N.Weight: 77.5 kg. Height/Length: 67 inches. BMI: 26.8. --14:08 10/08/20 Reuben Bello R.N.MedicationsAtorvastatin Calcium Oral (Tablet 10 mg), daily. Lisinopril Oral (Tablet 10 mg) 1 tablet, daily. --14:30 10/08/20 Reuben Bello R.N.AllergiesCipro.predniSONE. (breathing problem) --14:30 10/08/20 Reuben Bello R.N.The following entry was struck by Reuben Bello R.N., 14:30 (10/08/20) Reason - other. None. --14:11 10/08/20 Reuben Bello R.N.The following entry was struck by Reuben Bello R.N., 14:30 (10/08/20) Reason - wrong value. No Known Drug Allergy. --14:11 10/08/20 Reuben Bello R.N. .PROBLEMS:Chest Pain.Carpal Tunnel Syndrome.Arthritis.Anxiety Reaction.COVID-19. 2 Clinical Report - Nurses [facility] Emergency Department [address] [place] [address] Phone #: ext- [phone] 10/08/2020 13:19 Patient: CRYS [facility] [id number] Sex: F : 1970 Age: 50ySinusitis.Hypertension.Myofascial Strain. --14:31 10/08/20 Reuben Bello R.N.Herpes Zoster: Resolved. --14:31 10/08/20 Reuben Bello R. N.Medication/allergy information source: the patient. --14:16 10/08/20 Reuben Bello R.N.ADDITIONAL SURGERIES:Neck Surgery.Parotidectomy.Tubal Ligation.Wrist surgery LEFT. --14:31 10/08/20 Reuben Bello R.N.HistorySOCIAL HX: Current every day light tobacco smoker (cigarette)- less than 1/2 a pack per day. No alcoholuse or drug use. No recent travel. No known contact with a sick individual. The patient was offered HIVtesting but declined and hepatitis C testing but declined. The patient has not traveled outside the [place]Infectious disease exposure: No infectious disease exposure. The patient was not exposed to Coronavirus.Patient is not a known carrier of tuberculosis, hepatitis, HIV, MRSA or VRE. Patient is not a known carrierof CRE.SELF HARM ASSESSMENT: Self harm assessment was performed. The patient answered "no" to thequestion(s) "Have you recently felt down, depressed, or hopeless?", "Do you have thoughts of harming orkilling yourself?", "Do you have a plan for harming or killing yourself?" and "Have you recently had thoughtsabout harming or killing others?".ABUSE ASSESSMENT: No report of abuse.NUTRITIONAL RISK ASSESSMENT: The nutritional risk assessment revealed no deficiencies.FUNCTIONAL ASSESSMENT: Functional assessment: no impairments noted.LEARNING NEEDS ASSESSMENT: The learning needs assessment revealed no barriers.FALL RISK ASSESSMENT: Fall risk assessment completed. No risk factors identified. --14:16 10/08/20Reuben Bello R.N.AssessmentThe patient states feels the same. --14:16 10/08/20 Reuben Bello R.N.InterventionsIdentification band on patient. To treatment room. --14:16 10/08/20 Reuben Bello R.N.DISPOSITION / DISCHARGE 3 Clinical Report - Nurses [facility] Emergency Department [address] [place] [address] Phone #: ext- [phone] 10/08/2020 13:19 Patient: CRYS FRANK Sex: F : 1970 Age: 50y 15:27 10/08/20. Departure time: 15:27 10/08/2020. The patient left the Emergency Department without being seen by a physician; patient was unaccompanied. (did not see patient leave). --15:38 10/08/20 Reuben Bello R.N.Locked/Released at 10/08/2020 15:38 by Reuben Bello R.N. Name Value Range Interpretation Code Description Data Esthela rce(s) Supporting Document(s) ID Date Data Source [id number] 10/05/2020 12:47:00 [place] [address] PHONE: [phone] FAX: [phone] Name .................. : HAVEN Galarza Acct Number.................. : [id number] ROOM. ................. : Number ................... : [id number] Stay type ............. : O/P Discharge Date......... ... : 10/02/20 Admit Date .... ..... : 10/02/20 Admit Phys .................... : [employer] [facility] Date of ....... : 1970 Family Phys ................... : [employer] Phone .................. : [phone] Age ................................ : 50 Film# .................. .:[id number] Sex ................................. : F Unsigned transcriptions are preliminary reports and do not represent a medical or legal document CT ABD & PELV W/O ORAL W/[place] [id number] COMPLETE:10/02/20 14:55 RLB 2718 (REASON FOR ABDOMEN: ABDOMINAL PAIN CT OF THE ABDOMEN AND PELVIS WITHOUT CONTRAST: INDICATION: Abdominal pain. TECHNIQUE: Axial, coronal and sagittal images are evaluated. FINDINGS: The visualized lower lungs are clear. Nonenhanced images of the liver are unremarkable. The gallbladder, pancreas and spleen are within normal limits. The bilateral adrenal glands are unremarkable. No renal stones or hydronephrosis. The ureters are unremarkable. No aneurysmal dilatation to the aorta. No retroperitoneal adenopathy. Normal appendix. The bowels are unremarkable. No obstruction. The visualized reproductive organs are unrema rkable. No adnexal mass. The urinary bladder is within normal limits. No free air or free fluid. The osseous structures are unremarkable. IMPRESSION: No acute abdominal or pelvic findings. No obstruction. Normal appendix. The bowels are unremarkable. No free air or free fluid. Page 1 of 2 [place] [address] PHONE: [phone] FAX: [phone] Name .................. : HAVEN Galarza Acct Number.................. : [id number] ROOM. ................. : MR Number ................... : [id number] Stay type ............. : O/P Discharge Date......... ... : 10/02/20 Admit Date ......... : 10/02/20 Admit Phys .................... : [facility] HARD Date of ....... : 1970 Family Phys ................... : [employer] HARD Phone .................. : [phone] Age ................................ : 50 Film# .................. .:[id number] Sex ................................. : F Unsigned transcriptions are preliminary reports and do not represent a medical or legal document CT ABD & PELV W/[place] ORAL W/[place] [id number] COMPLETE:10/02/20 14:55 RLB 2718 (REASON FOR ABDOMEN: ABDOMINAL PAIN While performing the above CT examination, radiation dose reduction was accomplished utilizing automated exposure control, adjusting of the mA and kV based on the patient's body size and/or the use of imperative reconstructive techniques. CT dose: 730 mGycm Electronically Reviewed and Signed By Ralf Fleming MD , 10/05/20 12:47, FROY Transcribe Initials: DZ , Transcribe Date: 10/03/20 01:34, Dictation Date: Copy for: [address] [place] [address] Page 2 of 2 Name Value Range Interpretation Code Description Data Esthela rce(s) Supporting Document(s) ID Date Data Source [id number] 08/31/2020 10:07:00 AM [facility] [address] [place] [address] PHONE: [phone] FAX: [phone] Name .................. : HAVEN Galarza Acct Number.................. : [id number] ROOM. ................. : MR Number ................... : [id number] Stay type ............. : O/P Discharge Date......... ... : 08/28/20 Admit Date .... ..... : 08/28/20 Admit Phys .................... : [facility] Date of ....... : 1970 Family Phys ................... : [facility] HARD Phone .................. : [phone] Age ................................ : 50 Film# .................. .:[id number] Sex ................................. : F Unsigned transcriptions are preliminary reports and do not represent a medical or legal document CT THORAX W/CONTRAST [id number] COMPLETE:08/28/20 13:53 FRANKLIN 488 (REASON FOR CHEST: SINGLE PULMONARY NODULE CT OF THE CHEST WITH CONTRAST: CLINICAL HISTORY: Single pulmonary nodule. FINDINGS: The visualized portions of the thoracic inlet appear unremarkable. Atherosclerotic disease is identified in the aorta. The heart appears unremarkable. The liver, spleen, adrenal glands, pancreas, gallbladder and bilateral kidneys all appear unremarkable in their visualized portions. Lung langston demonstrate calcified and noncalcified nodules bilaterally. These do not appear significantly changed in size. The largest measures approximately 4 mm. A repeat examination in one year is recommended. IMPRESSION: Bilateral calcified and noncalcified nodules. These remain stable as compared to the previous study. The largest measures 4 mm. Repeat examination in one year is recommended. Atherosclerosis. While performing the above CT examination, radiation dose reduction was accomplished utilizing automated exposure control, adjusting of the mA and kV based on the patient's body size and/or the use of imperative reconstructive techniques. CT dose: 385.8 mGycm Contrast agent in mL: 75 Isovue 370 Method of administration: Intravenous Examination dictated by LILIA Marcus. Examination was reviewed with Bartolome Escalante MD, radiologist at the time of this dictation. Page 1 of 2 [facility] [address] [place] [address] PHONE: [phone] FAX: [phone] Name .................. : HAVEN Galarza Acct Number.................. : [id number] ROOM. ................. : MR Number ................... : [id number] Stay type ............. : O/P Discharge Date......... ... : 08/28/20 Admit Date ......... : 08/28/20 Admit Phys .................... : [facility] Date of ....... : 1970 Family Phys ................... : [employer] Phone .................. : [phone] Age ................................ : 50 Film# .................. .:[id number] Sex ................................. : F Unsigned transcriptions are preliminary reports and do not represent a medical or legal document CT THORAX W/CONTRAST [id number] COMPLETE:08/28/20 13:53 FRANKLIN 488 (REASON FOR CHEST: SINGLE PULMONARY NODULE Electronically Reviewed and Signed By Bartolome Escalante MD , 08/31/20 10:07, APM Transcribe Initials: HERMES , Transcribe Date: 08/29/20 02:46, Dictation Date: Copy for: [address] [place] [address] REC Page 2 of 2 Name Value Range Interpretation Code Description Data Esthela rce(s) Supporting Document(s) ID Date Data Source [id number] 08/28/2020 11:44:00 AM EST [facility] ([facility]) Name Value Range Interpretation Code Description Data Esthela rce(s) Supporting Document(s) Hemoglobin A1c/Hemoglobin.total in Blood 5.5 % 4.4-6.1 [facility] ([facility] FASTING~.~.~<DG1.3.1>R03.0</DG1.3.1><DG1.3.1>R21</DG1.3.1><DG1.3.1>R21</DG1.3.1> <DG1.3.1>R21 ID Date Data Source [id number] 08/28/2020 11:44:00 AM EST [facility] ([facility]) Name Value Range Interpretation Code Description Data Esthela rce(s) Supporting Document(s) Urinalysis Laboratory test result [facility] ([facility]) FASTING~.~.~<DG1.3.1>R03.0</DG1.3.1><DG1.3.1>R21</DG1.3.1><DG1.3.1>R21</DG1.3.1> <DG1.3.1>R21 Source Laboratory test result [facility] ([facility]) FASTING~.~.~<DG1.3.1>R03.0</DG1.3.1><DG1.3.1>R21</DG1.3.1><DG1.3.1>R21</DG1.3.1> <DG1.3.1>R21 Color Laboratory test result [facility] ([facility]) FASTING~.~.~<DG1.3.1>R03.0</DG1.3.1><DG1.3.1>R21</DG1.3.1><DG1.3.1>R21</DG1.3.1> <DG1.3.1>R21 Clarity Laboratory test result [facility] ([facility]) FASTING~.~.~<DG1.3.1>R03.0</DG1.3.1><DG1.3.1>R21</DG1.3.1><DG1.3.1>R21</DG1.3.1> <DG1.3.1>R21 Spec Jena 1.030 1.001-1.030 [facility] ([facility]) FASTING~.~.~<DG1.3.1>R03.0</DG1.3.1><DG1.3.1>R21</DG1.3.1><DG1.3.1>R21</DG1.3.1> <DG1.3.1>R21 pH 5 5-9 [facility] ([facility]) FASTING~.~.~<DG1.3.1>R03.0</DG1.3.1><DG1.3.1>R21</DG1.3.1><DG1.3.1>R21</DG1.3.1> <DG1.3.1>R21 Bilirubin Laboratory test result [facility] ([facility]) FASTING~.~.~<DG1.3.1>R03.0</DG1.3.1><DG1.3.1>R21</DG1.3.1><DG1.3.1>R21</DG1.3.1> <DG1.3.1>R21 Glucose Laboratory test result [facility] ([facility]) FASTING~.~.~<DG1.3.1>R03.0</DG1.3.1><DG1.3.1>R21</DG1.3.1><DG1.3.1>R21</DG1.3.1> <DG1.3.1>R21 Ketone Laboratory test result [facility] ([facility]) FASTING~.~.~<DG1.3.1>R03.0</DG1.3.1><DG1.3.1>R21</DG1.3.1><DG1.3.1>R21</DG1.3.1> <DG1.3.1>R21 Protein Laboratory test result [facility] ([facility]) FASTING~.~.~<DG1.3.1>R03.0</DG1.3.1><DG1.3.1>R21</DG1.3.1><DG1.3.1>R21</DG1.3.1> <DG1.3.1>R21 Nitrite Laboratory test result [facility] ([facility]) FASTING~.~.~<DG1.3.1>R03.0</DG1.3.1><DG1.3.1>R21</DG1.3.1><DG1.3.1>R21</DG1.3.1> <DG1.3.1>R21 Blood Laboratory test result [facility] ([facility]) FASTING~.~.~<DG1.3.1>R03.0</DG1.3.1><DG1.3.1>R21</DG1.3.1><DG1.3.1>R21</DG1.3.1> <DG1.3.1>R21 Leuk Est Laboratory test result [facility] ([facility]) FASTING~.~.~<DG1.3.1>R03.0</DG1.3.1><DG1.3.1>R21</DG1.3.1><DG1.3.1>R21</DG1.3.1> <DG1.3.1>R21 Microscopic Laboratory test result [facility] ([facility]) FASTING~.~.~<DG1.3.1>R03.0</DG1.3.1><DG1.3.1>R21</DG1.3.1><DG1.3.1>R21</DG1.3.1> <DG1.3.1>R21 Urobilinogen Laboratory test result [facility] ([facility]) FASTING~.~.~<DG1.3.1>R03.0</DG1.3.1><DG1.3.1>R21</DG1.3.1><DG1.3.1>R21</DG1.3.1> <DG1.3.1>R21 ID Date Data Source [id number] 08/28/2020 11:44:00 AM EST [facility] ([facility]) Name Value Range Interpretation Code Description Data Esthela rce(s) Supporting Document(s) Cve Panel Laboratory test result [facility] ([facility]) FASTING~.~.~<DG1.3.1>R03.0</DG1.3.1><DG1.3.1>R21</DG1.3.1><DG1.3.1>R21</DG1.3.1> <DG1.3.1>R21 Triglycerides 362 mg/dL 35-160 Above high normal [facility] ([facility]) FASTING~.~.~<DG1.3.1>R03.0</DG1.3.1><DG1.3.1>R21</DG1.3.1><DG1.3.1>R21</DG1.3.1> <DG1.3.1>R21 Cholesterol 262 mg/dL 131-200 Above high normal [facility] ([facility]) FASTING~.~.~<DG1.3.1>R03.0</DG1.3.1><DG1.3.1>R21</DG1.3.1><DG1.3.1>R21</DG1.3.1> <DG1.3.1>R21 Risk Factor 6.1 3.2-4.4 Above high normal [facility] ([facility]) FASTING~.~.~<DG1.3.1>R03.0</DG1.3.1><DG1.3.1>R21</DG1.3.1><DG1.3.1>R21</DG1.3.1> <DG1.3.1>R21 LDL 173 mg/dL 65-175 [facility] ([facility]) FASTING~.~.~<DG1.3.1>R03.0</DG1.3.1><DG1.3.1>R21</DG1.3.1><DG1.3.1>R21</DG1.3.1> <DG1.3.1>R21 HDL 43 mg/dL 29-86 [facility] ([facility]) FASTING~.~.~<DG1.3.1>R03.0</DG1.3.1><DG1.3.1>R21</DG1.3.1><DG1.3.1>R21</DG1.3.1> <DG1.3.1>R21 LDL/HDL 4.02 1.47-3.22 Above high normal [facility] ([facility]) FASTING~.~.~<DG1.3.1>R03.0</DG1.3.1><DG1.3.1>R21</DG1.3.1><DG1.3.1>R21</DG1.3.1> <DG1.3.1>R21 ID Date Data Source [id number] 08/28/2020 11:44:00 AM EST [facility] ([facility]) Name Value Range Interpretation Code Description Data Esthela rce(s) Supporting Document(s) CBC W/Automated Diff Laboratory test result [facility] ([facility]) FASTING~.~.~<DG1.3.1>R03.0</DG1.3.1><DG1.3.1>R21</DG1.3.1><DG1.3.1>R21</DG1.3.1> <DG1.3.1>R21 RBC 4.10 10^6/uL 4.20-5.40 Below low normal [facility] ([facility]) FASTING~.~.~<DG1.3.1>R03.0</DG1.3.1><DG1.3.1>R21</DG1.3.1><DG1.3.1>R21</DG1.3.1> <DG1.3.1>R21 WBC 8.2 10^3/uL 4.2-11.0 [facility] ([facility]) FASTING~.~.~<DG1.3.1>R03.0</DG1.3.1><DG1.3.1>R21</DG1.3.1><DG1.3.1>R21</DG1.3.1> <DG1.3.1>R21 Hematocrit 38.7 % 37.0-47.0 [facility] ([facility]) FASTING~.~.~<DG1.3.1>R03.0</DG1.3.1><DG1.3.1>R21</DG1.3.1><DG1.3.1>R21</DG1.3.1> <DG1.3.1>R21 Hemoglobin 13.0 g/dL 12.0-16.0 [facility] ([facility]) FASTING~.~.~<DG1.3.1>R03.0</DG1.3.1><DG1.3.1>R21</DG1.3.1><DG1.3.1>R21</DG1.3.1> <DG1.3.1>R21 MCV 94.4 fL 81.0-101 [facility] ([facility]) FASTING~.~.~<DG1.3.1>R03.0</DG1.3.1><DG1.3.1>R21</DG1.3.1><DG1.3.1>R21</DG1.3.1> <DG1.3.1>R21 MCHC 33.6 g/dL 31.0-36.0 [facility] ([facility]) FASTING~.~.~<DG1.3.1>R03.0</DG1.3.1><DG1.3.1>R21</DG1.3.1><DG1.3.1>R21</DG1.3.1> <DG1.3.1>R21 MCH 31.7 pg 27.0-34.0 [facility] ([facility]) FASTING~.~.~<DG1.3.1>R03.0</DG1.3.1><DG1.3.1>R21</DG1.3.1><DG1.3.1>R21</DG1.3.1> <DG1.3.1>R21 RDW 12.3 % 11.5-14.5 [facility] ([facility]) FASTING~.~.~<DG1.3.1>R03.0</DG1.3.1><DG1.3.1>R21</DG1.3.1><DG1.3.1>R21</DG1.3.1> <DG1.3.1>R21 Platelets 296 10^3/uL 150-450 [facility] ([facility]) FASTING~.~.~<DG1.3.1>R03.0</DG1.3.1><DG1.3.1>R21</DG1.3.1><DG1.3.1>R21</DG1.3.1> <DG1.3.1>R21 MPV 9.8 fL 7.4-10.4 [facility] ([facility]) FASTING~.~.~<DG1.3.1>R03.0</DG1.3.1><DG1.3.1>R21</DG1.3.1><DG1.3.1>R21</DG1.3.1> <DG1.3.1>R21 Neut 51.3 % 37.0-80.0 [facility] ([facility]) FASTING~.~.~<DG1.3.1>R03.0</DG1.3.1><DG1.3.1>R21</DG1.3.1><DG1.3.1>R21</DG1.3.1> <DG1.3.1>R21 [place] 6.6 % 3.0-8.0 [facility] ([facility]) FASTING~.~.~<DG1.3.1>R03.0</DG1.3.1><DG1.3.1>R21</DG1.3.1><DG1.3.1>R21</DG1.3.1> <DG1.3.1>R21 Lymph 37.8 % 25.0-40.0 [facility] ([facility]) FASTING~.~.~<DG1.3.1>R03.0</DG1.3.1><DG1.3.1>R21</DG1.3.1><DG1.3.1>R21</DG1.3.1> <DG1.3.1>R21 Eos 3.3 % 0.0-7.0 [facility] ([facility]) FASTING~.~.~<DG1.3.1>R03.0</DG1.3.1><DG1.3.1>R21</DG1.3.1><DG1.3.1>R21</DG1.3.1> <DG1.3.1>R21 Baso 0.6 % 0.0-2.5 [facility] ([facility]) FASTING~.~.~<DG1.3.1>R03.0</DG1.3.1><DG1.3.1>R21</DG1.3.1><DG1.3.1>R21</DG1.3.1> <DG1.3.1>R21 %Ig 0.4 % 0.0-0.0 Above high normal [facility] ([facility]) FASTING~.~.~<DG1.3.1>R03.0</DG1.3.1><DG1.3.1>R21</DG1.3.1><DG1.3.1>R21</DG1.3.1> <DG1.3.1>R21 %NRBC 0.0 % 0.0-0.0 [facility] ([facility]) FASTING~.~.~<DG1.3.1>R03.0</DG1.3.1><DG1.3.1>R21</DG1.3.1><DG1.3.1>R21</DG1.3.1> <DG1.3.1>R21 #Neut 4.18 10^3/uL 2.00-6.90 [facility] ([facility]) FASTING~.~.~<DG1.3.1>R03.0</DG1.3.1><DG1.3.1>R21</DG1.3.1><DG1.3.1>R21</DG1.3.1> <DG1.3.1>R21 #Lymph 3.08 10^3/uL 0.60-3.40 [facility] ([facility]) FASTING~.~.~<DG1.3.1>R03.0</DG1.3.1><DG1.3.1>R21</DG1.3.1><DG1.3.1>R21</DG1.3.1> <DG1.3.1>R21 #Eos 0.27 10^3/uL 0.00-0.70 [facility] ([facility]) FASTING~.~.~<DG1.3.1>R03.0</DG1.3.1><DG1.3.1>R21</DG1.3.1><DG1.3.1>R21</DG1.3.1> <DG1.3.1>R21 #[place] 0.54 10^3/uL 0.00-0.90 [facility] ([facility]) FASTING~.~.~<DG1.3.1>R03.0</DG1.3.1><DG1.3.1>R21</DG1.3.1><DG1.3.1>R21</DG1.3.1> <DG1.3.1>R21 #Baso 0.05 10^3/uL 0.00-0.20 [facility] ([facility]) FASTING~.~.~<DG1.3.1>R03.0</DG1.3.1><DG1.3.1>R21</DG1.3.1><DG1.3.1>R21</DG1.3.1> <DG1.3.1>R21 #Ig 0.03 10^3/uL 0.00-0.10 [facility] ([facility]) FASTING~.~.~<DG1.3.1>R03.0</DG1.3.1><DG1.3.1>R21</DG1.3.1><DG1.3.1>R21</DG1.3.1> <DG1.3.1>R21 RBC Morph Laboratory test result [facility] ([facility]) FASTING~.~.~<DG1.3.1>R03.0</DG1.3.1><DG1.3.1>R21</DG1.3.1><DG1.3.1>R21</DG1.3.1> <DG1.3.1>R21 #NRBC 0.00 10^3/uL 0.00-0.00 [facility] ([facility]) FASTING~.~.~<DG1.3.1>R03.0</DG1.3.1><DG1.3.1>R21</DG1.3.1><DG1.3.1>R21</DG1.3.1> <DG1.3.1>R21 Manual Diff Laboratory [facility] FASTING~.~.~<DG1.3.1>R03.0</DG1.3.1><DG1.3.1>R21</DG1.3.1><DG1.3.1>R21</DG1.3.1> <DG1.3.1>R21 ID Date Data Source [id number] 08/28/2020 11:44:00 AM EST [facility] ([facility]) Name Value Range Interpretation Code Description Data Esthela rce(s) Supporting Document(s) Thyroxine (T4) free [Mass/volume] in Serum or Plasma 0.91 ng/dL 0.93-1.70 Below low normal [facility] ([facility]) FASTING~.~.~<DG1.3.1>R03.0</DG1.3.1><DG1.3.1>R21</DG1.3.1><DG1.3.1>R21</DG1.3.1> <DG1.3.1>R21 Thyrotropin [Units/volume] in Serum or Plasma 1.77 uIU/mL 0.47-5.01 [facility] ([facility]) FASTING~.~.~<DG1.3.1>R03.0</DG1.3.1><DG1.3.1>R21</DG1.3.1><DG1.3.1>R21</DG1.3.1> <DG1.3.1>R21 ID Date Data Source [id number] 08/28/2020 11:44:00 AM EST [facility] ([facility]) Name Value Range Interpretation Code Description Data Esthela rce(s) Supporting Document(s) Sed Rate 17 mm/hr 0-30 [facility] ([facility]) FASTING~.~.~<DG1.3.1>R03.0</DG1.3.1><DG1.3.1>R21</DG1.3.1><DG1.3.1>R21</DG1.3.1> <DG1.3.1>R21 Sed Rate Reenter 17 [facility] ([facility]) FASTING~.~.~<DG1.3.1>R03.0</DG1.3.1><DG1.3.1>R21</DG1.3.1><DG1.3.1>R21</DG1.3.1> <DG1.3.1>R21 ID Date Data Source [id number] 08/28/2020 11:44:00 AM EST [facility] ([facility]) Name Value Range Interpretation Code Description Data Esthela rce(s) Supporting Document(s) C reactive protein [Mass/volume] in Serum or Plasma by High sensitivity method 10.57 mg/L 1.00-3.00 Above high normal [facility] ([facility]) FASTING~.~.~<DG1.3.1>R03.0</DG1.3.1><DG1.3.1>R21</DG1.3.1><DG1.3.1>R21</DG1.3.1> <DG1.3.1>R21 ID Date Data Source [id number] 08/28/2020 11:44:00 AM EST [facility] ([facility]) Name Value Range Interpretation Code Description Data Esthela rce(s) Supporting Document(s) Sodium 137 meq/L 134-153 [facility] ([facility]) FASTING~.~.~<DG1.3.1>R03.0</DG1.3.1><DG1.3.1>R21</DG1.3.1><DG1.3.1>R21</DG1.3.1> <DG1.3.1>R21 [facility] [employer] Laboratory test result [facility] ([facility]) FASTING~.~.~<DG1.3.1>R03.0</DG1.3.1><DG1.3.1>R21</DG1.3.1><DG1.3.1>R21</DG1.3.1> <DG1.3.1>R21 Co2 27 meq/L 22-30 [facility] ([facility]) FASTING~.~.~<DG1.3.1>R03.0</DG1.3.1><DG1.3.1>R21</DG1.3.1><DG1.3.1>R21</DG1.3.1> <DG1.3.1>R21 Chloride 101 meq/L 98-107 [facility] ([facility]) FASTING~.~.~<DG1.3.1>R03.0</DG1.3.1><DG1.3.1>R21</DG1.3.1><DG1.3.1>R21</DG1.3.1> <DG1.3.1>R21 Potassium 3.9 meq/L 3.6-5.0 [facility] ([facility]) FASTING~.~.~<DG1.3.1>R03.0</DG1.3.1><DG1.3.1>R21</DG1.3.1><DG1.3.1>R21</DG1.3.1> <DG1.3.1>R21 Glucose 94 mg/dL 65-110 [facility] ([facility]) FASTING~.~.~<DG1.3.1>R03.0</DG1.3.1><DG1.3.1>R21</DG1.3.1><DG1.3.1>R21</DG1.3.1> <DG1.3.1>R21 BUN 7 mg/dL 7-21 [facility] ([facility]) FASTING~.~.~<DG1.3.1>R03.0</DG1.3.1><DG1.3.1>R21</DG1.3.1><DG1.3.1>R21</DG1.3.1> <DG1.3.1>R21 Creatinine 0.7 mg/dL 0.7-1.5 [facility] ([facility]) FASTING~.~.~<DG1.3.1>R03.0</DG1.3.1><DG1.3.1>R21</DG1.3.1><DG1.3.1>R21</DG1.3.1> <DG1.3.1>R21 BUN/Creat 10 8-27 [facility] ([facility]) FASTING~.~.~<DG1.3.1>R03.0</DG1.3.1><DG1.3.1>R21</DG1.3.1><DG1.3.1>R21</DG1.3.1> <DG1.3.1>R21 Total Protein 7.0 g/dL 6.3-8.2 [facility] ([facility]) FASTING~.~.~<DG1.3.1>R03.0</DG1.3.1><DG1.3.1>R21</DG1.3.1><DG1.3.1>R21</DG1.3.1> <DG1.3.1>R21 Globulin 2.5 GM/DL 2.4-3.2 [facility] ([facility]) FASTING~.~.~<DG1.3.1>R03.0</DG1.3.1><DG1.3.1>R21</DG1.3.1><DG1.3.1>R21</DG1.3.1> <DG1.3.1>R21 Albumin 4.5 g/dL 3.9-5.0 [facility] ([facility]) FASTING~.~.~<DG1.3.1>R03.0</DG1.3.1><DG1.3.1>R21</DG1.3.1><DG1.3.1>R21</DG1.3.1> <DG1.3.1>R21 A/G Ratio 1.8 0.8-2.0 [facility] ([facility]) FASTING~.~.~<DG1.3.1>R03.0</DG1.3.1><DG1.3.1>R21</DG1.3.1><DG1.3.1>R21</DG1.3.1> <DG1.3.1>R21 Calcium 9.8 mg/dL 8.4-10.2 [facility] ([facility]) FASTING~.~.~<DG1.3.1>R03.0</DG1.3.1><DG1.3.1>R21</DG1.3.1><DG1.3.1>R21</DG1.3.1> <DG1.3.1>R21 Total Bili Laboratory test result 0.2-1.3 [facility] ([facility]) FASTING~.~.~<DG1.3.1>R03.0</DG1.3.1><DG1.3.1>R21</DG1.3.1><DG1.3.1>R21</DG1.3.1> <DG1.3.1>R21 Alkaline Phos 93 U/L 38-126 [facility] ([facility]) FASTING~.~.~<DG1.3.1>R03.0</DG1.3.1><DG1.3.1>R21</DG1.3.1><DG1.3.1>R21</DG1.3.1> <DG1.3.1>R21 Sgot/Ast 19 U/L 5-40 [facility] ([facility]) FASTING~.~.~<DG1.3.1>R03.0</DG1.3.1><DG1.3.1>R21</DG1.3.1><DG1.3.1>R21</DG1.3.1> <DG1.3.1>R21 SGPT/Alt 22 U/L 7-56 [facility] ([facility]) FASTING~.~.~<DG1.3.1>R03.0</DG1.3.1><DG1.3.1>R21</DG1.3.1><DG1.3.1>R21</DG1.3.1> <DG1.3.1>R21 Anion Gap 9.0 mmol/L 8.0-16.0 [facility] ([facility]) FASTING~.~.~<DG1.3.1>R03.0</DG1.3.1><DG1.3.1>R21</DG1.3.1><DG1.3.1>R21</DG1.3.1> <DG1.3.1>R21 Age 50 yrs [facility] ([facility]) FASTING~.~.~<DG1.3.1>R03.0</DG1.3.1><DG1.3.1>R21</DG1.3.1><DG1.3.1>R21</DG1.3.1> <DG1.3.1>R21 Non-Aa GFR Laboratory test result [facility] ([facility]) FASTING~.~.~<DG1.3.1>R03.0</DG1.3.1><DG1.3.1>R21</DG1.3.1><DG1.3.1>R21</DG1.3.1> <DG1.3.1>R21 Afr Amer GFR Laboratory test result [facility] ([facility]) FASTING~.~.~<DG1.3.1>R03.0</DG1.3.1><DG1.3.1>R21</DG1.3.1><DG1.3.1>R21</DG1.3.1> <DG1.3.1>R21 ID Date Data Source [id number] 08/28/2020 03:49:00 PM [facility] Value Range Interpretation Code Description Data Esthela rce(s) Supporting Document(s) Thyrotropin [Units/volume] in Serum or Plasma by Detec tion limit <= 0.05 mIU/L 1.77 uIU/mL 0.47 - 5.01 [facility] ID Date Data Source [id number] 08/28/2020 03:49:00 PM [facility] Value Range Interpretation Code Description Data Esthela rce(s) Supporting Document(s) Thyroxine (T4) free index in Serum or Plasma by calculation 0.91 NG/DL 0.93 - 1.70 L [facility] ID Date Data Source [id number] 08/28/2020 03:38:00 PM [facility] Name Value Range Interpretation Code Description Data Esthela rce(s) Supporting Document(s) [facility] Cholesterol [Mass/volume] in Serum or Plasma 262 MG/DL 131 - 200 [facility] Deprecated Triglyceride [Mass/volume] in Serum or Plasma 362 MG/DL 3 5 - 160 [facility] HDL 43 MG/DL 29 - 86 [facility] Cholesterol in LDL [Mass/volume] in Serum or Plasma by Direc t assay 173 mg/dL 65 - 175 [facility] Cholesterol.total/Cholesterol in HDL [Mass Ratio] in Serum o r Plasma 6.1 3.2 - 4.4 H [facility] LDL/HDL 4.02 1.47 - 3.22 H [facility] CVE RISK CHOL/HDL LDL/HDLMEN: 1/2 AVERAGE 3.43 1.00 AVERAGE 4.97 3.55 2X AVERAGE 9.55 6.25 3X AVERAGE 23.99 7.99WOMEN: 1/2 AVERAGE 3.27 1.47 AVERAGE 4.44 3.22 2X AVERAGE 7.05 5.03 3X AVERAGE 11.04 6.14 ID Date Data Source [id number] 08/28/2020 03:38:00 PM [facility] Name Value Range Interpretation Code Description Data Esthela rce(s) Supporting Document(s) C reactive protein [Mass/volume] in Serum or Plasma by High sensitivity method 10.57 MG/L 1.00 - 3.00 H [facility] CDC/S HS-CRP CUT-OFF: RELATIVE RISK: <1.0 mg/L Low 1.0 - 3.0 mg/L Average >3.0 mg/L High Optimally, the average of HS-CRP results repeated two weeks apart should be used for risk assessment. ID Date Data Source [id number] 08/28/2020 01:49:00 PM [facility] Name Value Range Interpretation Code Description Data Esthela rce(s) Supporting Document(s) COMPREHENSIVE METABOLIC PANEL [facility] COMPREHENSIVE METABOLIC PANEL Sodium [Moles/volume] in Serum or Plasma 137 mEq/L 134 - 153 [facility] Potassium [Moles/volume] in Serum or Plasma 3.9 mEq/L 3.6 - 5.0 [facility] Chloride [Moles/volume] in Serum or Plasma 101 mEq/L 98 - 107 [facility] Carbon dioxide, total [Moles/volume] in Serum or Plasma 27 MEQ/L 22 - 30 [facility] Glucose [Mass/volume] in Serum or Plasma 94 MG/DL 65 - 110 [facility] BUN 7 MG/DL 7 - 21 [facility] Creatinine [Mass/volume] in Serum or Plasma 0.7 MG/DL 0.7 - 1.5 [facility] BUN/CREAT 10 8 - 27 [facility] Protein [Mass/volume] in Serum or Plasma 7.0 G/DL 6.3 - 8.2 [facility] Albumin [Mass/volume] in Serum or Plasma 4.5 G/DL 3.9 - 5.0 [facility] Globulin [Mass/volume] in Serum by calculation 2.5 GM/DL 2.4 - 3.2 [facility] A/G RATIO 1.8 0.8 - 2.0 [facility] Calcium [Mass/volume] in Serum or Plasma 9.8 MG/DL 8.4 - 10.2 [facility] Bilirubin.total [Mass/volume] in Serum or Plasma <0.7 MG/DL 0.2 - 1.3 [facility] Alkaline phosphatase [Enzymatic activity/volume] in Serum or Plasma 93 U/L 38 - 126 [facility] Aspartate aminotransferase [Enzymatic activity/volume] in Serum or Plasma 19 U/L 5 - 40 [facility] Alanine aminotransferase [Enzymatic activity/volume] in Seru m or Plasma 22 U/L 7 - 56 [facility] Anion gap 3 in Serum or Plasma 9.0 mmol/L 8.0 - 16.0 [facility]GE 50 [facility] G[facility] >60 mL/min [facility] AFR AMER GFR >60 mL/min [facility] Male GFR In terprentation 20-49 yrs >60 mL/min Normal 50-59 yrs >56 mL/min Normal 60-69 yrs >49 mL/min Normal 70-79yrs >42 mL/min Normal 80 and above >35 mL/min Normal Female GFR Interpretation 20-39 yrs >60 mL/min Normal 40-49 yrs >58 mL/min Normal 50-59 yrs >51 mL/min Normal 60-69 yrs >45 mL/min Normal 70-79 yrs >39 mL/min Normal 80 and above >32 mL/min Normal ID Date Data Source [id number] 08/28/2020 12:58:00 PM [facility] Name Value Range Interpretation Code Description Data Esthela rce(s) Supporting Document(s) Hemoglobin A1c/Hemoglobin.total in Blood 5.5 % 4.4 - 6.1 [facility] {A1]{HB] ID Date Data Source [id number] 08/28/2020 12:25:00 PM [facility] Name Value Range Interpretation Code Description Data Esthela rce(s) Supporting Document(s) Erythrocyte sedimentation rate by Westergren method 17 mm/hr 0 - 30 [facility] SED RATE REENTER 17 [facility] ID Date Data Source [id number] 08/28/2020 12:20:00 PM [facility] Name Value Range Interpretation Code Description Data Esthela rce(s) Supporting Document(s) [facility] R [facility] COLOR yellow NORMAL: Yellow [facility] CLARITY clear NORMAL: Clear [facility] Specific gravity of Urine by Test strip 1.030 1.001 - 1.030 [facility] pH 5 5 - 9 [facility] Glucose [Mass/volume] in Urine by Test strip NORM NORMAL: Negat [facility] Bilirubin.total [Presence] in Urine by Test strip NEG NORMAL: Negative [facility] Ketones [Presence] in Urine by Test strip NEG NORMAL: Negative [facility] Protein [Mass/volume] in Urine by Test strip NEG NORMAL: Negat [facility] Nitrite [Presence] in Urine by Test strip NEG NORMAL: Negative [facility] BLOOD NEG NORMAL: Negative [facility] Leukocyte esterase [Presence] in Urine by Test strip NEG GABRIELLA L: Negative [facility] Urobilinogen [Mass/volume] in Urine by Test strip NOR less fermín n 1.0 mg/dL [facility] MICROSCOPIC Not Indicate [facility] ID Date Data Source [id number] 08/28/2020 12:09:00 PM EST [facility] Name Value Range Interpretation Code Description Data Esthela rce(s) Supporting Document(s) CBC W/AUTOMATED DIFF [facility] COMPLETE BLOOD COUNT Leukocytes [#/volume] in Blood by Automated count 8.2 10^3/uL 4.2 - 1 1.0 [facility] Erythrocytes [#/volume] in Blood by Automated count 4.10 10^6/uL 4. 20 - 5.40 L [facility] Hemoglobin [Mass/volume] in Blood 13.0 g/dL 12.0 - 16.0 [facility] Hematocrit [Volume Fraction] of Blood by Automated count 38.7 % 3 7.0 - 47.0 [facility] Erythrocyte mean corpuscular volume [Entitic volume] by Auto mated count 94.4 fL 81.0 - 101 [facility] Erythrocyte mean corpuscular hemoglobin [Entitic mass] by Automated count 31.7 pg 27.0 - 34.0 [facility] Erythrocyte mean corpuscular hemoglobin concentration [Mass/volume] by Automated count 33.6 g/dL 31.0 - 36.0 [facility] Erythrocyte distribution width [Ratio] by Automated count 12.3 % 11.5 - 14.5 [facility] Platelets [#/volume] in Blood by Automated count 296 10^3/uL 150 - 45 0 [facility] Platelet mean volume [Entitic volume] in Blood by Automated count 9.8 fL 7.4 - 10.4 [facility] Neutrophils/100 leukocytes in Blood by Automated count 51.3 % 37. 0 - 80.0 [facility] Lymphocytes/100 leukocytes in Blood by Manual count 37.8 % 25.0 - 40.0 [facility] Monocytes/100 leukocytes in Blood by Automated count 6.6 % 3.0 - 8.0 [facility] Eosinophils/100 leukocytes in Blood by Automated count 3.3 % 0.0 - 7.0 [facility] Basophils/100 leukocytes in Blood by Automated count 0.6 % 0.0 - 2.5 [facility] %IG 0.4 % 0.0 - 0.0 H [facility] %NRBC 0.0 % 0.0 - 0.0 [facility] Neutrophils [#/volume] in Blood by Automated count 4.18 10^3/uL 2.00 - 6.90 [facility] Lymphocytes [#/volume] in Blood by Automated count 3.08 10^3/uL 0.60 - 3.40 [facility] Monocytes [#/volume] in Blood by Automated count 0.54 10^3/uL 0.00 - 0.90 [facility] Eosinophils [#/volume] in Blood by Automated count 0.27 10^3/uL 0.00 - 0.70 [facility] Basophils [#/volume] in Blood by Automated count 0.05 10^3/uL 0.00 - 0.20 [facility] #IG 0.03 10^3/uL 0.00 - 0.10 [facility] #NRBC 0.00 10^3/uL 0.00 - 0.00 [facility] MANUAL DIFF NOT INDICATED [facility] RBC MORPH NOT INDICATED [facility] spital ID Date Data Source [id number] 08/19/2020 12:40:00 PM EST [facility] [address] [place] [address] PHONE: [phone] FAX: [phone] Name .................. : HAVEN Galarza Acct Number.................. : [id number] ROOM. ................. : Number ................... : [id number] Stay type ............. : O/P Discharge Date......... ... : 12/08/20 Admit Date ......... : 08/18/20 Admit Phys .................... : MARRERO HARD Date of ....... : 1970 Family Phys ................... : MARRERO HARD Phone .................. : [phone] Age ................................ : 50 Film# .................. .:[id number] Sex ................................. : F Unsigned transcriptions are preliminary reports and do not represent a medical or legal document CHEST 2 VIEWS [id number] COMPLETE:08/18/20 14:17 [facility] [id number] (REASON F OR CHEST: cough CHEST X-RAY: 2-VIEWS INDICATION: Cough. COMPARISON: Previous examination from 07/25/20. FINDINGS: Lung langston are clear. There is no focal infiltrate or consolidation identified. The cardiac silhouette appears unremarkable. The osseous structures show degenerative changes. IMPRESSION: No acute pulmonary findings and no significant change. Examination dictated by LILIA Marcus. Examination was reviewed with Gwyn Mar MD, radiologist at the time of this dictation. Electronically Reviewed and Signed By Gwyn Mar MD , 08/19/20 12:40, KGG Transcribe Initials: HERMES , Transcribe Date: 08/19/20 00:55, Dictation Date: Copy for: 710 MED REC Page 1 of 1 Name Value Range Interpretation Code Description Data Esthela rce(s) Supporting Document(s) ID Date Data Source [id number] 08/05/2020 01:43:00 PM EST [facility] ([facility]) Name Value Range Interpretation Code Description Data Esthela rce(s) Supporting Document(s) Mammo Diagnostic CAD Bilateral Laboratory test result [facility] ([facility]) ID Date Data Source [id number] 07/25/2020 02:23:00 PM EST [facility] 1 OrderSheet [facility] Emergency Department [address] [place] [address] Phone #: [phone]- [phone] 07/25/2020 14:08 Patient: CRYS FRANK Sex: F : 1970 Age: 49yWEIGHT:77.1 kg (S)ALLERGIES: Cipro, predniSONECHIEF COMPLAINT: fever, sore throat, possible, COVID-19 exposure:DIAGNOSIS: Severe acute respiratory syndrome coronavirus, SinusitisLAB ORDERSOrder Description Priority Entered Acknowledged InitialedRapid Strep Screen STAT 15:08 07/25/2020 15:21 Lee Bello.N. P.A.-C;Influenza Nasal A B STAT 15:08 07/25/2020 15:21 Lee Bello.N. P.A.-C;CORONAVIRUS STAT 15:08 07/25/2020 15:21 Eugenia,COVID-19 Lee Davidson.N. P.A.-C;DIAGNOSTIC STUDY ORDERSOrder Description Priority Entered Acknowledged InitialedChest 2 View STAT 15:08 07/25/2020 15:13 Eugenia,(Oxygen?(No)) Lee Davidson.N. P.A.-C; Reason for Study: cough congestionMEDICATION/IV/DRIP/FLUID ORDERSOrder Description Priority Entered Acknowledged InitialedGENERAL ORDERSOrder Description Priority Entered Acknowledged Initialed[Electronically signed by Reuben Bello R.N. (17:36 07/25/2020)][Electronically signed by Lee MachucaA.-C (21:42 07/25/2020)][Electronically locked by Reuben Bello R.N. (17:36 07/25/2020)] Name Value Range Interpretation Code Description Data Esthela rce(s) Supporting Document(s) ID Date Data Source [id number] 07/25/2020 02:23:00 PM EST [facility] 1 Medication Reconciliation Report [facility] Emergency Department [address] [place] [address] Phone #: [phone] 07/25/2020 14:08 Patient: CRYS FRANK Sex: F : 1970 Age: 49yWeight: 77.1 kgHeight/Length: 67 in.BMI: 26.6ALLERGIES: Cipro, predniSONEThe patient's Home Medications are listed below:THE FOLLOWING MEDICATIONS NEED TO BE RECONCILED: Atorvastatin Calcium Oral (10 mg), daily Lisinopril Oral (10 mg) 1 tablet, dailyThe source(s) of the original Home Medication information:patientThe following Medications were given to the patient in the Emergency Department:None.The following Medications were prescribed to the patient:Augmentin 875 mg-125 mg tablet Take 1 tablet twice a day for 7 days -- Dispense 14 tablet. Refills: 0.Substitution permitted.[facility] [address] [place] [phone]. .Mucinex 600 mg tablet, extended release Take 1 tablet twice a day for 7 days -- Dispense 14 tablet.Refills: 0. Substitution permitted.[facility] [address] [place] [address] [phone]. . -- Lee Machuca P.A.-C Name Value Range Interpretation Code Description Data Esthela rce(s) Supporting Document(s) ID Date Data Source [id number] 07/25/2020 02:23:00 PM [facility] 1 Medication Administration Record [facility] Emergency Department [address] [place] [address] Phone #: ext- [phone] 07/25/2020 14:08 Patient: CRYS FRANK Sex: F : 1970 Age: 49yWeight: 77.1 kgHeight/Length: 67 inBMI: 26.6ALLERGIES: Cipro, predniSONEDate/Time Medication Administered Medication Ordered Name Value Range Interpretation Code Description Data Estehla rce(s) Supporting Document(s) ID Date Data Source [id number] 07/25/2020 02:23:00 PM [facility] 1 General Instructions [facility] Emergency Department [address] [place] [address] Phone #: ext- [phone] 07/25/2020 14:08 Patient: CRYS FRANK Sex: F : 1970 Age: 49y Coronavirus COVID-19 presumed (confirmatory testing pending) with upper respiratory infection. Acute maxillary and frontal sinusitis.INSTRUCTIONS Take Tylenol (Acetaminophen) or Motrin (Ibuprofen) as needed for fever control. Take medication according to label instructions. Rest at home for one weeks (You are on a self quarantine x 1 week. This may be extended or decreased by [facility].). Drink plenty of fluids. No dietary restrictions. ([facility]: [phone]. Please contact them in approx 3-4 days if you have not heard from them. You are on a self quarantine x 1 week. This may be extended or decreased by [facility]. I recommend to purchase a small finger pulse oximeter to monitor your O2 saturation at home. If becomes too low (<90%), please contact your PCP or return to the ER.). Warnings: Further evaluation is necessary. GENERAL WARNINGS: Return or contact your physician immediately if your condition worsens or changes unexpectedly, if not improving as expected, or if other problems arise. Prescription Medications: Augmentin 875 mg-125 mg tablet Take 1 tablet twice a day for 7 days -- Dispense 14 tablet. Refills: 0. Substitution permitted. [facility] [address] [place] [address] [phone]. . Mucinex 600 mg tablet, extended release Take 1 tablet twice a day for 7 days -- Dispense 14 tablet. Refills: 0. Substitution permitted. [facility] [address] [place] [address] [phone]. . Follow-up: Return to the emergency department as needed. Follow up with your healthcare provider in about two days if not better. Call for an appointment. Understanding of the discharge instructions verbalized by patient. 2 General Instructions [facility] Emergency Department [address] [place] [address] Phone #: ext- [phone] 07/25/2020 14:08 Patient: CRYS FRANK Sex: F : 1970 Age: 49y ADDITIONAL INFORMATIONSinusitis (Antibiotic Treatment)The sinuses are air-filled spaces within the bones of the face. They connect to the inside of thenose. Sinusitis is an inflammation of the tissue that lines the sinuses. Sinusitis can occur during acold. It can also happen due to allergies to pollens and other particles in the air. Sinusitis can causesymptoms of sinus congestion and a feeling of fullness. A sinus infection causes fever, headache,and facial pain. There is often green or yellow fluid draining from the nose or into the back of thethroat (post-nasal drip). You have been given antibiotics to treat this condition.Home care Take the full course of antibiotics as instructed. Do not stop taking them, even when you feel better. Drink plenty of water, hot tea, and other liquids. This may help thin nasal mucus. It also may help your sinuses drain fluids. Hea t may help soothe painful areas of your face. Use a towel soaked in hot water. Or, supervisor rose grading the shower and direct the warm spray onto your face. Using a vaporizer along with a menthol rub at night may also help soothe symptoms. An expectorant with guaifenesin may help thin nasal mucus and help your sinuses drain fluids. 3 General Instructions [facility] Emergency Department [address] [place] [address] Phone #: ext- [phone] 07/25/2020 14:08 Patient: CRYS FRANK Sex: F : 1970 Age: 49y You can use an fxhb-uhf-dsotdqm decongestant, unless a similar medicine was prescribed to you. Nasal sprays work the fastest. Use one that contains phenylephrine or oxymetazoline. First blow your nose gently. Then use the spray. Do not use these medicines more often than directed on the label. If you do, your symptoms may get worse. You may also take pills that contain pseudoephedrine. Don't use products that combine multiple medicines. This is because side effects may be increased. Read labels. You can also ask the pharmacist for help. (People with high blood pressure should not use decongestants. They can raise blood pressure.) Plqn-aog-khldjze antihistamines may help if allergies contributed to your sinusitis. Do not use nasal rinses or irrigation during an acute sinus infection, unless your healthcare provider tells you to. Rinsing may spread the infection to other areas in your sinuses. Use acetaminophen or ibuprofen to control pain, unless another pain medicine was prescribed to you. If you have chronic liver or kidney disease or ever had a stomach ulcer, talk with your healthcare provider before using these medicines. (Aspirin should never be taken by anyone under age 18 who is ill with a fever. It may cause severe liver damage.) Don't smoke. This can make symptoms worse.Follow-up careFollow up with your healthcare provider or our staff if you are not better in 1 week.When to seek medical adviceCall your healthcare provider if any of these occur: Facial pain or headache that gets worse Stiff neck Unusual drowsiness or confusion Swelling of your forehead or eyelids Vision problems, such as blurred or double vision Fever of 100.4F (38C) or higher, or as directed by your healthcare provider Seizure Breathing problems Symptoms don't go away in 10 days 4 General Instructions [facility] Emergency Department [address] [place] [address] Phone #: ext- [phone] 07/25/2020 14:08 Patient: CRYS FRANK Sex: F : 1970 Age: 49yPreventionHere are steps you can take to help prevent an infection: Keep good hand washing habits. Don't have close contact with people who have sore throats, colds, or other upper respiratory infections. Don't smoke, and stay away from secondhand smoke. Stay up to date with of your vaccines. 0018-1529 [employer]. [address] [place] [address], [place] [address]. All rights reserved. This information is not intended as asubstitute for professional medical care. Always follow your healthcare professional's instructions. Prevention steps for People with confirmed or suspected COVID-19 (including persons under investigation) who do not need to be hospitalized And People with confirmed COVID-19 who were hospitalized and determined to be medically stable to go home Your healthcare provider and public health staff will evaluate whether you can be cared for at home. If it isdetermined that you do not need to be hospitalized and can be isolated at home, you will be monitored by staff fromyo local or state health department. You should follow the prevention steps below until a healthcare provider or[facility] or [facility] department says you can return to your normal activities. Stay home except to get medical care People who are mildly ill with COVID-19 are able to isolate at home during their illness. You should restrict activities outside yourhome, except for getting med ical care. Do not go to work, school, or public areas. Avoid using public transportation, ride-sharing, ortaxis. Separate yourself from other people and animals in your home People: As much as possible, you should stay in a specificroom and away from other people in your home. Also, you should use a separate bathroom, if available.Animals: You should restrict contact with pets and other animals while you are sick with COVID-19, just like you would around otherpeople. Although there have not been reports of pets or other animals becoming sick with COVID-19, it is still recommended thatpeople sick with COVID- 19 limit contact with animals until more information is known about the virus. When possible, have anothermember of your household care for your animals while you are sick. If you are sick with COVID-19, avoid contact with your pet,including petting, snuggling, being kissed or licked, and sharing food. If you must care for your pet or be around animals while you aresick, wash your hands before and after you interact with pets and wear a facemask. See https://www.cdc.gov/coronavirus/2019-ncov/faq.html#1046-jTkW-tjw-animals for more information. Call ahead before visiting your doctor If you have a medical appointment, call the healthcare provider and tell them that you have or may have COVID-19. This will helpthe healthcare provider's office take steps to keep other people from getting infected or exposed. Wear a facemask 5 General Instructions [facility] Emergency Department [address] [place] [address] Phone #: ext- [phone] 07/25/2020 14:08 Patient: CRYS FRANK Sex: F : 1970 Age: 49yYou should wear a facemask when you are around other people {e.g., sharing a room or vehicle} or pets and before you enter self regional healthcare provider's office. If you are not able to wear a facemask {for example, because it causes trouble breathing}, thenpeople who live with you should not stay in the same room with you, or they should wear a facemask if they enter your room.Cover your coughs and sneezesCover your mouth and nose with a tissue when you cough or sneeze. Throw used tissues in a lined trash can. Immediately washyour hands with soap and water for at least 20 seconds or, if soap and water are not available, clean your hands with analcohol-based hand floor care specialist that contains at least 60% alcohol.Clean your hands oftenWash your frausto ds often with soap and water for at least 20 seconds, especially after blowing your nose, coughing, or sneezing;going to the bathroom; and before eating or preparing food. If soap and water are not readily available, use an alcohol- based handsanitizer with at least 60% alcohol, covering all surfaces of your hands and rubbing them together until they feel dry.Soap and water are the best option if hands are visibly dirty. Avoid touching your eyes, nose, and mouth with unwashedhands.Flu Like Symptoms / Coronavirus Exposure - 30a Page 1 of 2Avoid sharing personal household itemsYou should not share dishes, drinking glasses, cups, eating utensils, towels, or bedding with other people or pets in yourhome. After using these items, they should be washed thoroughly with soap and water.Clean all "high-touch" surfaces everydayHigh touch surfaces include counters, tabletops, doorknobs, bathroom fixtures, toilets, phones, keyboards, tablets, and bedsidetables. Also, clean any surfaces that may have blood, stool, or body fluids on them. Use a household cleaning spray or wipe,according to the label instructions.Labels contain instructions for safe and effective use of the cleaning product including precautions you should take when applyingthe product, such as wearing gloves and making sure you have good ventilation during use of the product.Monitor your symptomshttps://www.Ringystem.com/index.php Seek prompt medical attention if your illness is worsening {e.g., difficulty breathing}. Before seeking care, call your healthcareprovider and tell them that you have, or are being evaluated for, COVID-19. Put on a facemask before you enter the facility.These steps will help the healthcare provider's office to keep other people in the office or waiting room from getting infected orexposed. Ask your healthcare provider to call the local or state health department. Persons who are placed under activemonitoring or facilitated self- monitoring should follow instructions provided by their local health department or occupational healthprofessionals, as appropriate. When working with your local health department check their available hours.If you have a medical emergency and need to call 911, notify the dispatch personnel that you have, or are being evaluated forCOVID-19. If possible, put on a facemask before emergency medical services arrive.Discontinuing home isolationPatients with confirmed COVID-19 should remain under home isolation precautions until the risk of secondary transmission toothers is thought to be low. The decision to discontinue home isolation precautions should be made on a eodx-xx-pncs basis, inconsultation with healthcareproviders and state and local health departments.Contacts 2020 [employer], [employer].Online informationhttps://www.cdc.gov/coronavirus/2019-ncov/about/index.html 6 General Instructions [facility] Emergency Department [address] [place] [address] Phone #: ext- [phone] 07/25/2020 14:08 Patient: CRYS FRANK Sex: F : 1970 Age: 49y Content source: National Center for Immunization and Respiratory Diseases (NCIRD), Division of Viral Diseases Recommended precautions for household members, intimate partners, and caregivers in a nonhealthcare setting1 of A patient with symptomatic laboratory-confirmed COVID-19 or A patient under investigationHousehold members, intimate partners, and caregivers in a nonhealthcare setting may have close contact2 with aperson with symptomatic, laboratory-confirmed COVID-19 or a person under investigation. Close contacts shouldmonitor their health; they should call their healthcare provider right away if they develop symptoms suggestive of COVID-19 {e.g., fever, cough, shortness of breath} {see Interim [place] Guidance for Risk Assessment and Public Health Management of Persons with Potential Coronavirus Disease 2019 {COVID-19} Exposure in Travel-associated or Community Settings.}Close contacts should also follow these recommendations: Make sure that you understand and can help the patient follow their healthcare provider's instructions for medication{s} and care. You should help the patient with basic needs in the home and provide support for getting groceries, prescriptions, and other personal needs. Monitor the patient's symptoms. If the patient is getting sicker, call his or her healthcare provider and tell them that the patient has laboratory-confirmed COVID-19. This will help the healthcare provider's office take steps to keep other people in the office or waiting room from getting infected. Ask the healthcare provider to call the local or state health department for additional guidance. If the patient has a medical emergency and you need to call 911, notify the dispatch personnel that the patient has, or is being evaluated for COVID-19. Household members should stay in another room or be from the patient as much as possible. Household members should use a separate bedroom and bathroom, if available. Prohibit visitors who do not have an essential need to be in the home. Household members should care for any pets in the home. Do not handle pets or other animals while sick. For more information, see COVID-19 and Animals. Make sure that shared spaces in the home have good air flow, such as by an air conditioner or an opened window, weather 7 General Instructions [facility] Emergency Department [address] [place] [address] Phone #: ext- [phone] 07/25/2020 14:08 [id number] Sex[facility] F : 1970 Age: 49y permitting. Perform hand hygiene frequently. Wash your hands often with soap and water for at least 20 seconds or use an alcohol-based hand floor care specialist that contains 60 to 95% alcohol, covering all surfaces of your hands and rubbing them together until they feel dry. Soap and water should be used preferentially if hands are visibly dirty. Avoid touching your eyes, nose, and mouth with unwashed hands. The patient should wear a facemask when around other people, except when unable {for example, because it causes trouble breathing}. You, as the caregiver should always wear a mask, regardless if the patient has one on or not whenever you are in the same room as the patient. Wear a disposable facemask and gloves when you touch or have contact with the patient's blood, stool, or body fluids, such as saliva, sputum, nasal mucus, vomit, urine. Throw out disposable facemasks and gloves after using them. Do not reuse. When removing personal protective equipment, first remove and dispose of gloves. Then, immediately clean your hands with soap and water or alcohol-based hand floor care specialist. Next, remove and dispose of facemask, and immediately clean your hands again with soap and water or alcohol-based hand floor care specialist. Avoid sharing household items with the patient. You should not share dishes, drinking glasses, cups, eating utensils, towels, bedding, or other items. After the patient uses these items, you should wash them thoroughly {see below "Wash laundry thoroughly"}. Flu Like Symptoms / Coronavirus Exposure - 30a Page 2 of 2 Clean all "high-touch" surfaces, such as counters, tabletops, doorknobs, bathroom fixtures, toilets, phones, keyboards, tablets, and bedside tables, every day. Also, clean any surfaces that may have blood, stool, or body fluids on them. Use a household cleaning spray or wipe, according to the label instructions. Labels contain instructions for safe and effective use of the cleaning product including precautions you should take when applying the product, such as wearing gloves and making sure you have good ventilation during use of the product. Wash laundry thoroughly. Immediately remove and wash clothes or bedding that have blood, stool, or body fluids on them. Wear disposable gloves while handling soiled items and keep soiled items away from your body. Clean your hands {with soap and water or an alcohol-based hand floor care specialist} immediately after removing your gloves. https://www.[employer]/index.php Read and follow directions on labels of laundry or clothing items and detergent. In general, using a normal laundry detergent according to washing machine instructions and dry thoroughly using the warmest temperatures recommended on the clothing label. Place all used disposable gloves, facemasks, and other contaminated items in a lined container before disposing of them with other household waste. Clean your hands {with soap and water or an alcohol-based hand floor care specialist} immediately after babcock ndling these items. Soap and water should be used preferentially if hands are visibly dirty. Discuss any additional questions with your state or local health department or healthcare provider. Check available hours when contacting your local health department.Contacts [employer] informationhttps://www.cdc.gov/coronavirus/2019-ncov/about/index.html 8 General Instructions [facility] Emergency Department [address] [place] [address] Phone #: ext- [phone] 07/25/2020 14:08 Patient: CRYS FRANK Sex: F : 1970 Age: 49yContent source: National Center for Immunization and Respiratory Diseases (NCIRD), Division of Viral DiseasesFootnotes 1Home healthcare personnel should refer to I eri Infection Prevention and Control Recommendations for Patients with Known or Patients Under Investigationfor Coronavirus Disease 2019 (COVID-19) in a Healthcare Setting. 2Close contact is defined as-1. being within approximately 6 feet (2 meters) of a COVID-19 case for a prolonged period of time; close contact can occur while caring for, living with, visiting, or sharing a health care waiting area or room with a COVID-19 case - or -2. having direct contact with infectious secretions of a COVID-19 case (e.g., being coughed on You have been given the following additional information: Sinusitis (Antibiotic Treatment) COVID-19 Rest at home for one weeks (You are on a self quarantine x 1 week. This may be extended or decreased by [facility].).(Electronically signed by Lee Machuca P.A.-C 07/25/2020 21:42) Name Value Range Interpretation Code Description Data Esthela rce(s) Supporting Document(s) ID Date Data Source [id number] 07/25/2020 02:23:00 PM EST [facility] 1 Clinical Report - Nurses [facility] Emergency Department [address] [place] [address] Phone #: ext- [phone] 07/25/2020 14:08 Patient: CRYS FRANK Sex: F : 1970 Age: 49yTRIAGEArrived by private vehicle. Historian: patient. ( c/o cough sore throat).Triage time: 14:11 07/25/2020. Acuity: LEVEL 4.Chief Complaint: COUGH and SORE THROAT.14:11 07/25/20. Alert. No acute distress.Onset. (6 days ago). ( fever at first, now has gone away). 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 No suspected or confirmed signs of infection present. --14: Reuben Bello R.N.14:11 07/25/20. BP: 154/93. MAP: 113. HR: 105. RR: 16. O2 saturation: 98%. Temp: 97.2 F. Pain levelnow: 0/10. --14:16 07/25/20 Reuben Bello R.N.Weight: 77.1 kg stated. Height/Length: 67 inches Per Patient. BMI: 26.6. --14:10 07/25/20 Reuben Bello R.N.MedicationsAtorvastatin Calcium Oral (Tablet 10 mg), daily. Lisinopril Oral (Tablet 10 mg) 1 tablet, daily. --15:42 07/25/20 Lee Machuca P.A.-C.AllergiesCipro.predniSONE. (breathing problem) --15:42 07/25/20 Bhaskar Levine-CThe following entry was struck by Lee Machuca P.A.-C, 15:42 (07/25/20) Reason - other. No Known Drug Allergy. --14:12 07/25/20 Reuben Bello R.N. .PROBLEMS:Carpal Tunnel Syndrome.Anxiety Reaction.Arthritis.Chest Pain.Other Disease.Myofascial Strain.Hypertension. --16:40 07/25/20 Reuben Bello R.N.Herpes Zoster: Resolved. --16:40 07/25/20 Reuben Bello R.N. 2 Clinical Report - Nurses [facility] Emergency Department [address] [place] [address] Phone #: ext- [phone] 07/25/2020 14:08 Patient: CRYS [facility] [id number] Sex: F : 1970 Age: 49y 14:11 07/25/20. Medication/allergy information source: the patient. --14:16 07/25/20 Reuben Bello R.N. ADDITIONAL SURGERIES: Neck Surgery. Parotidectomy. Tubal Ligation. Wrist surgery LEFT. --16:40 07/25/20 Reuben Bello R.N. His tory 14:11 07/25/20. PAST MEDICAL HX: No known contact with a sick individual. No recent travel. SOCIAL HX: Light tobacco smoker (cigarette)- less than 1/2 a pack per day. Occasional alcohol use. No drug use. She was offered HIV testing but declined and hepatitis C testing but declined. She has not traveled outside the [place] Infectious disease exposure: No infectious disease exposure. The patient may have been exposed to Coronavirus. Patient is not a known carrier of tuberculosis, hepatitis, HIV, MRSA or VRE. Patient is not a known carrier of CRE. SELF HARM ASSESSMENT: Self harm assessment was performed. The patient answered "no" to the question(s) "Have you recently felt down, depressed, or hopeless?", "Do you have thoughts of harming or killing yourself?", "Do you have a plan for harming or killing yourself?" and "Have you recently had thoughts about harming or killing others?". ABUSE ASSESSMENT: No report of abuse. --14:16 07/25/20 Reuben Bello R.N. Infectious disease exposure: Patient taken to isolation room. --14:19 07/25/20 Reuben Bello R.N. Assessment 14:11 07/25/20. She states feels the same. --14:16 07/25/20 Reuben Bello R.N. Interventions 14:11 07/25/20. Identification band on patient. To treatment room. --14:16 07/25/20 Reuben Bello R.N.PHYSICAL NZKSUEVCOQ75:16 07/25/20. Ambulatory to room.GENERAL / NEURO / PSYCH: Alert. Oriented X 4. Appears in no acute distress.HEENT: Pharynx within normal limits. Voice within normal limits. Mucous membranes are pink.RESPIRATORY: Respirations not labored. Breath sounds within normal limits.CVS: Capillary refill less than 2 seconds.SKIN: Skin is warm and dry. Normal skin turgor. --14:17 07/25/20 Reuben Bello R.N. 3 Clinical Report - Nurses [facility] Emergency Department [address] [place] [address] Phone #: ext- [phone] 07/25/2020 14:08 Patient: CRYS FRANK Sex: F : 1970 Age: 49yNURSING PROGRESS NOTES14:16 07/25/20. Patient gowned. Reassurance given. Two patient identifiers checked. Call lightplaced in reach. Bed placed in lowest position. Brakes of bed on. Patient ready for evaluation- EDphysician notified. --14:16 07/25/20 Reuben Bello R.N. 15:22 07/25/20. Reassessment acuity: LEVEL 4. The patient has had no adverse reaction. Overall patient status is the same- she states feels the same. RESPIRATORY: No respiratory distress. Breath sounds normal. SKIN: Skin is warm and dry. Skin color is within normal limits for race. Two patient identifiers checked. Call light placed in reach. Bed placed in lowest position. Brakes of bed on. --15:22 07/25/20 Reuben Bello R.N. 15:21 07/25/20. BP: 141/88. MAP: 105. HR: 88. RR: 16. O2 saturation: 96%. Pain level now: 0/10. --15:22 07/25/20 Reuben Bello R.N.DISPOSITION / DISCHARGE 16:17 07/25/20. Departure time: 16:23 07/25/2020. Condition at departure: improved and stable. The goals identified in the patient's plan of care were met. Fall risk assessment completed. No risk factors identified. No learning barriers present. Discharge instructions provided and reviewed with the patient. Reviewed warnings. Reviewed medication(s) side effects, precautions, dosing and course information. Prescription(s) sent electronically to pharmacy. Treatments reviewed. Reviewed referral to a primary care physician. Work note given. Patient verbalized understanding. Written instructions provided in British. The patient was discharged by the physician psychological assistant. She was discharged home. She left ambulatory and via private vehicle. Patient driving. --16:23 07/25/20 Reuben Bello R.N. 16:22 07/25/20. BP: 130/90. MAP: 103. HR: 88. RR: 16. O2 saturation: 99%. Temp: 97.2 F. Pain level now: 0/10. --16:23 07/25/20 Reuben Bello R.N.Locked/Released at 07/25/2020 17:36 by Reuben Bello R.N. Name Value Range Interpretation Code Description Data Esthela rce(s) Supporting Document(s) ID Date Data Source [id number] 07/25/2020 02:23:00 PM EST [facility] 1 Clinical Report - Physicians/Mid Levels [facility] Emergency Department [address] [place] [address] Phone #: ext- [phone] 07/25/2020 14:08 Patient: CRYS FRANK Sex: F : 1970 Age: 49y Time Seen: 14:40 07/25/2020; initial patient contact. Arrived- By private vehicle. Historian- patient. Disposition decision: 16:11 07/25/2020.HISTORY OF PRESENT ILLNESS Chief Complaint: FEVER and SORE THROAT and possible COVID-19 EXPOSURE. This started about 1 weeks ago and is still present. The patient has had sinus drainage, nasal congestion, a sore throat, fever and muscle aches. She has had a nasal discharge but not been confused. No skin rash, headache, chills, cough or difficulty breathing. No chest discomfort or chest pain, nausea, vomiting or diarrhea. No loss of appetite or sputum production. No known contact with a sick individual. (Pt sts she noted s/s abut a week ago and has progressively gotten worse since then. Sts was tested for COVID on Monday, but does not have results yet. No other complaints other than flucuating fever, cough, and general malaise.). Similar symptoms previously. None. Recent medical care: The patient was seen recently at another facility in a clinic.REVIEW OF SYSTEMSNo fatigue, weight loss, photophobia, sinus pain or toothache. No weakness, dizziness, palpitations, calfpain or abdominal pain. No joint pain, enlarged lymph nodes, tick bite or back pain. All other systemsreviewed and are negative.PAST HISTORYSee nurses notes. Problems: Carpal Tunnel Syndrome. Anxiety Reaction. Arthritis. Chest Pain. Other Disease. Myofascial Strain. Hypertension. Herpes Zoster [Resolved]. Additional Surgeries: Neck Surgery. Parotidectomy. Tubal Ligation. Wrist surgery LEFT. 2 Clinical Report - Physicians/Mid Levels [facility] Emergency Department [address] [place] [address] Phone #: ext- [phone] 07/25/2020 14:08 Patient: CRYS FRANK Sex: F : 1970 Age: 49y Immunizations: Immunization status is up-to-date. Medications: Atorvastatin Calcium Oral (Tablet 10 mg), daily. Lisinopril Oral (Tablet 10 mg) 1 tablet, daily. Allergies: Cipro. predniSONE. (breathing problem).SOCIAL HISTORYHeavy tobacco smoker- less than 1 pack per day. No alcohol use or drug use.ADDITIONAL NOTESThe nursing notes have been reviewed.PHYSICAL EXAMVital Signs: 07/25/2020 14:11 BP: 154/93. MAP: 113. HR: 105. RR: 16. O2 saturation: 98%. Temp: 97.2F. Pain level now: 0/10. Have been reviewed. Heart rate: Repeat: 88 bpm regular. Oxygen saturationnormal.Appearance: Alert. No acute distress.Eyes: Eyelids appear normal to inspection. Conjunctivae and sclerae appear normal to inspection.Corneas appear normal to inspection. Pupils equal, round and reactive to light. EOMs intact. Periorbitalareas appear normal to inspection. Anterior chambers clear.ENT: Airway intact. Tenderness present to percussion/palpation of the sinuses: mild right and left frontaltenderness, maxillary tenderness. Rhinorrhea present. Nose normal. Nares normal. Pharyngealerythema. Moist mucous membranes. Uvula midline. Voice normal.Ear (right): There is dullness of the tympanic membrane and a TM tube present. No tenderness of theauricle, pain with movement of the auricle, lymphadenopathy, erythema of the external canal or swelling ofthe external canal. No material in the external canal. Right ear normal. Normal mastoid. No hearingdeficit.Ear (left): There is dullness of the tympanic membrane and abnormal insufflation. No tenderness of theauricle, pain with movement of the auricle, lymphadenopathy, erythema of the external canal or swelling ofthe external canal. No material in the external canal. Left ear normal. Normal mastoid. No hearingdeficit.Neck: Normal inspection. Neck supple.CVS: Normal heart rate and rhythm. No JVD present. Pulses normal. Capillary refill normal. Strongperipheral pulses. Heart sounds normal. Pulses: right radial 2+; left radial 2+.Respiratory: Chest normal on inspection. No respiratory distress. Unlabored respirations. Lungs clear.Good chest movement. Breath sounds normal and equal.Skin: Skin warm and dry.Neuro: Awake. Alert. Mood/affect normal. Speech normal. No motor deficit. No sensory deficit.Psych: Cognition normal. Thought process and content normal. Insight and judgement normal. 3 Clinical Report - Physicians/Mid Levels [facility] [place] [address] Phone #: ext- [phone] 07/25/2020 14:08 Patient: CRYS FRANK Sex: F : 1970 Age: 49yLABS, X-RAYS, AND EKGChest X-ray: (Isabela collins Kirwin - 07/25/2020 3:29:32 PM No acute disease). The X-rays were interpreted by the radiologist. Laboratory Tests: Rapid Strep Screen: (PRASANTH: 07/25/2020 15:15) ( [facility] 07/25/[facility] 15:47) Final results Test Result Flag Units (Reference) RAPID STREP NEGATIVE (NORMAL: NEGAT RAPID STREP REENTER NEGATIVE (NORMAL: NEGAT { PROCEDURAL CONTROL VALID ){ KIT LOT # [id number] ){ KIT EXP DATE 12.13.21 )The Strep A 2 assay utilizes isothermal nucleic acid amplification technology fothe qualitative detection of Group A Strep bacterial nucleic acid in throat swabspecimens.All negative test results no longer need to be confirmed with a culture. Follow-up testing requiring a culture is necessary if clinical symptoms persist, or inthe event of an acute rheumatic fever outbreak. A culture will need to beordered by the Qualified Medical Provider.Negative results do not preclude infection with Group A Strep and should not beused as the sole basis for treatment. Influenza Nasal A B: (PRASANTH: 07/25/2020 15:15) ( [facility] 07/25/2020 15:48) Final results Test Result Flag Units (Reference) INFLUENZA A NEGATIVE (NORMAL: NEGAT INFLUENZA B NEGATIVE (NORMAL: NEGAT INFLUENZA A REENTER NEGATIVE (NORMAL: NEGAT INFLUENZA B REENTER NEGATIVE (NORMAL: NEGAT PROCEDURAL CONTROL VALID KIT LOT # _[id number] 07/25/20.1548. . KIT EXP DATE _11.27.20 07/25/20.1548. .The Influenza A utilizing an isothermal nucleic acid amplification technology for thequalitative detection of influenza A and B viral RNA.Negative results do not preclude influenza virus infection and should not beused as the sole basis for diagnosis, treatment or other patient managementdecisions. Chest 2 View: (PRASANTH: 07/25/2020 15:08) ( [facility] 07/25/2020 16:01) In Progress Exam CHEST 2 VIEWS [facility] [address] [place] [address] PHONE: [phone] FAX: [phone] Name .................. : HAVEN Galarza Acct Number.................. : [id number] ROOM. ................. : TR-04 MR Number ................... : [id number] Stay type ............. : E/R Discharge Date......... ... : Admit Date ......... : 07/25/20 Admit Phys .................... : COONEYNORM Date of ....... : 1970 Family Phys ................... : [employer] Phone .................. : [phone] Age ................................ : 49 Film# .................. .:[id number] Sex ................................. : F Unsigned transcriptions are preliminary reports and do not represent a medical or legal document CHEST 2 VIEWS 74561 COMPLETE:07/25/20 15:08 [id number] Reason(s): cough congestion CHEST X-RAY: 2-VIEWS COMPARISON: 04/16/20 4 Clinical Report - Physicians/Mid Levels [facility] Emergency Department [address] [place] [address] Phone #: ext- [phone] 07/25/2020 14:08 Patient: CRYS FRANK Sex: F : 1970 Age: 49y FINDINGS: The cardiac and mediastinal silhouettes appear normal and the lungs are clear. The bones and soft tissues are normal. The upper abdomen is unremarkable. IMPRESSION: No acute disease identifiable. Electronically Reviewed and Signed By DCTNAME , SIGNDATE, TOROG Transcribe Initials: HERMES , Transcribe Date: 07/25/20 16:00, Dictation Date: <<REPDIST>> Page 1 of 1.PROGRESS AND PROCEDURESCourse of Care: VSS, NAD, AOx3, interacting well and appropriately, no use of accessory muscle, able tospeak full sentences, stable, non-toxic looking. Enter room and pt lying peacefully in bed in NAD. Patient stable. Denies any new issues, concerns, or complaints. PE dmeos [place] intact b/l UE. Noted s/s c/w sinusitits, but also noted erythema to post orhopharyx. Will obtina labs and imaigng for furhter eval. Pending resutls. REviewed results. Enter room and patient lying peacefully in bed in NAD. Patient stable. Denies any new issues, concerns, or complaints. Discussed results with pt. Discussed tx plan with pt. Discussed and counseled on stable condition. Discussed importance of a f/u with PCP. Discussed return to ER criteria. Answered their questions. Indicates and verbalizes that they understand, agree, and will comply with above. Denies any new questions or concerns. Patient has capacity to understand. Discharge decision based on the following: patient's condition is stable; patient's exam is stable; social support is adequate; transportation is available; follow-up is available. Discussed of OTC Motrin and Tylenol to control inflammation and pain management. Informed to follow directions on bottle that are appropriate for age and/or weight. 5 Clinical Report - Physicians/Mid Levels [facility] Emergency Department [address] [place] [address] Phone #: ext- [phone] 07/25/2020 14:08 [id number] Sex: [facility] : 1970 Age: 49y Disposition: Discharged home in good and improved condition. Condition: good and stable.CLINICAL IMPRESSION Coronavirus COVID-19 presumed (confirmatory testing pending) with upper respiratory infection. Acute maxillary and frontal sinusitis.INSTRUCTIONS Take Tylenol (Acetaminophen) or Motrin (Ibuprofen) as needed for fever control. Take medication according to label instructions. Rest at home for one weeks (You are on a self quarantine x 1 week. This may be ex tended or decreased by JC.). Drink plenty of fluids. No dietary restrictions. ([facility]: [phone]. Please contact them in approx 3-4 days if you have not heard from them. You are on a self quarantine x 1 week. This may be extended or decreased by JC. I recommend to purchase a small finger pulse oximeter to monitor your O2 saturation at home. If becomes too low (<90%), please contact your PCP or return to the ER.). Warnings: Further evaluation is necessary. GENERAL WARNINGS: Return or contact your physician immediately if your condition worsens or changes unexpectedly, if not improving as expected, or if other problems arise. Prescription Medications: Augmentin 875 mg-125 mg tablet Take 1 tablet twice a day for 7 days -- Dispense 14 tablet. Refills: 0. Substitution permitted. [employer] - [facility] [address] [place] [address] [phone]. FaxNumber: [phone]. Mucinex 600 mg tablet, extended release Take 1 tablet twice a day for 7 days -- Dispense 14 tablet. Refills: 0. Substitution permitted. [employer] [address] [phone]. . Follow-up: Return to the emergency department as needed. Follow up with your healthcare provider in about two days if not better. Call for an appointment. Understanding of the discharge instructions verbalized by patient. 6 Clinical Report - Physicians/Mid Levels [facility] Emergency Department [address] [place] [address] Phone #: ext- [phone] 07/25/2020 14:08 Patient: CRYS FRANK Sex: F : 1970 Age: 49y(Electronically signed by Lee Machuca P.A.-C 07/25/2020 21:42) Name Value Range Interpretation Code Description Data Esthela rce(s) Supporting Document(s) ID Date Data Source [id number] 07/25/2020 02:23:00 PM [facility] Addenda for CRYS FRANK VisitID: [id number] Date: 10:34Pt COVID test negtiave, called and made pt aware at 0949(Electronically signed by Marisabel Sinha R.N. - 07/29/2020 10:34) Name Value Range Interpretation Code Description Data Esthela rce(s) Supporting Document(s) ID Date Data Source [id number] 07/27/2020 10:54:00 [place] [address] PHONE: [phone] FAX: [phone] Name .................. : HAVEN Galarza Acct Number.................. : [id number] ROOM. ................. : TR-04 MR Number ................... : [id number] Stay type ............. : E/R Discharge Date......... ... : Admit Date ......... : 07/25/20 Admit Phys .................... : COONEYNORM Date of ....... : 1970 Family Phys ................... : MARRERO HARD Phone .................. : [phone] Age ................................ : 49 Film# .................. .:[id number] Sex ................................. : F Unsigned transcriptions are preliminary reports and do not represent a medical or legal document CHEST 2 VIEWS 55433 COMPLETE:07/25/20 15:08 [id number] Reason (s): cough congestion CHEST X-RAY: 2-VIEWS COMPARISON: 04/16/20 FINDINGS: The cardiac and mediastinal silhouettes appear normal and the lungs are clear. The bones and soft tissues are normal. The upper abdomen is unremarkable. IMPRESSION: No acute disease identifiable. Electronically Reviewed and Signed By Gwyn Mar MD , 07/27/20 10:54, KGG Transcribe Initials: HERMES , Transcribe Date: 07/25/20 16:00, Dictation Date: Copy for: YASMEEN MUÑOZ via fax Copy for: EMERGENCY DEPT via mode Copy for: 710 MED REC DISCHARGED Page 1 of 1 Name Value Range Interpretation Code Description Data Esthela rce(s) Supporting Document(s) ID Date Data Source [id number] 07/25/2020 03:15:00 PM EST [facility] ([facility]) Name Value Range Interpretation Code Description Data Esthela rce(s) Supporting Document(s) Rapid Strep Reenter Laboratory test result [facility] ([facility]) { PROCEDURAL CONTROL VALID ) { KIT LOT # [id number] ) { KIT EXP DATE 12.13.21 ) [...] used as the sole basis for treatment. Rapid Strep Laboratory test result M ED[facility] ([facility]) ID Date Data Source [id number] 07/25/2020 03:15:00 PM EST [facility] ([facility]) Name Value Range Interpretation Code Description Data Esthela rce(s) Supporting Document(s) Coronavirus Covid-19 Laboratory test result [facility] ([facility]) This nucleic acid amplification test was developed and its performance characteristics determined by [employer]. Nucleic acid amplification tests include PCR and [...] negative (not detected) result in this assay. ID Date Data Source [id number] 07/25/2020 03:15:00 PM EST [facility] ([facility]) Name Value Range Interpretation Code Description Data Esthela rce(s) Supporting Document(s) Influenza A Reenter Laboratory test result [facility] ([facility]) Influenza B Laboratory test result M [facility] ([facility]) Influenza A Laboratory test result M [facility] ([facility]) Influenza B Reenter Laboratory test result [facility] ([facility]) <content>PROCEDURAL CONTROL VALID</con tent>
<content>KIT LOT # _[id number] 07/25/20.1548. .</content>
<content>KIT EXP DATE _11.27.20 07/25/20.1548. .</content>
<content>The Influenza A & B assay is a rapid molecular in vitro diagnostic test</content>
<content> utilizing an isothermal nucleic acid amplification technology for the</content>
<content>qualitative detection of influenza A and B viral RNA.</content>
<content>Negative results do not preclude influenza virus infection and should not be</content>
<content>used as the sole basis for diagnosis, treatment or other patient management</content>
<content>d ecisions.</content>
<content></content> ID Date Data Source [id number] 07/25/2020 03:15:00 PM EST [facility] Name Value Range Interpretation Code Description Data Esthela rce(s) Supporting Document(s) SARS coronavirus 2 RNA [facility] This lab was ordered by [facility] agustina and reported by [facility]. ID Date Data Source [id number] 07/29/2020 06:13:00 AM EST [facility] Name Value Range Interpretation Code Description Data Esthela rce(s) Supporting Document(s) SARS-CoV-2, DARWIN Not Detected Not Detected [facility] This nucleic acid amplification test was developed and its performancecharacteristics determined by [facility]. Nucleic acidamplification tests include PCR and TMA. This test has not been FDAcleared or approved. This test has been authorized by FDA under anEmergency Use Authorization (EUA). This test is only authorized forthe duration of time the declaration that circumstances existjustifying the authorization of the emergency use of in vitrodiagnostic tests for detection of SARS-CoV-2 virus and/or diagnosisof COVID-19 infection under section 564(b)(1) of the Act, 21 U.S.C.360bbb-3(b) (1), unless the authorization is terminated or revokedsooner.When diagnostic testing is negative, the possibility of a falsenegative result should be considered in the context of a patient'srecent exposures and the presence of clinical signs and symptomsconsistent with COVID- 19. An individual without symptoms of COVID-19and who is not shedding SARS-CoV-2 virus would expect to have anegative (not detected) result in this assay. ID Date Data Source [id number] 07/25/2020 03:48:00 PM [facility] Name Value Range Interpretation Code Description Data Esthela rce(s) Supporting Document(s) Influenza virus A Ag [Presence] in Nasopharynx by [facility] y NEGATIVE NORMAL: NEGATIVE [facility] Influenza virus B Ag [Presence] in Nasopharynx by [facility] y NEGATIVE NORMAL: NEGATIVE [facility] NEGATIVENEGATIVE PROCEDURAL CO NTROL VALID KIT LOT # _[id number] 07/25/20.1548. . KIT EXP DATE _11.27.20 07/25/201548. .The Influenza A & B assay is a rapid molecular in vitro diagnostic testutilizing an isothermal nucleic acid amplification technology for thequalitative detection of influenza A and B viral RNA.Negative results do not preclude influenza virus infection and should not beused as the sole basis for diagnosis, treatment or other patient managementdecisions. ID Date Data Source [id number] 07/25/2020 03:47:00 PM [facility] Name Value Range Interpretation Code Description Data Esthela rce(s) Supporting Document(s) RAPID STREP NEGATIVE NORMAL: NEGATIVE [facility] RAPID STREP REENTER NEGATIVE NORMAL: NEGATIVE [facility] { PROCEDURAL CONTROL VALID ){ KIT LOT # [id number] ){ KIT EXP DATE 12.13.21 )The Strep A 2 assay utilizes isothermal nucleic acid amplification technology fothe qualitative detection of Group A Strep bacterial nucleic acid in throat swabspecimens.All negative test results no longer need to be confirmed with a culture. Follow-up testing requiring a culture is necessary if clinical symptoms persist, or inthe event of an acute rheumatic fever outbreak. A culture will need to beordered by the Qualified Medical Provider.Negative results do not preclude infection with Group A Strep and should not beused as the sole basis for treatment. ID Date Data Source [id number] 07/23/2020 10:22:00 AM EST [facility] ([facility]) Name Value Range Interpretation Code Description Data Esthela rce(s) Supporting Document(s) Coronavirus Covid-19 Laboratory test result [facility] ([facility]) .~.~Z11.59 ID Date Data Source [id number] 07/23/2020 10:14:00 AM EST [facility] Name Value Range Interpretation Code Description Data Esthela rce(s) Supporting Document(s) SARS coronavirus 2 RNA [facility] This lab was ordered by [facility] García berrios and reported by [facility]. ID Date Data Source [id number] 07/24/2020 09:06:00 PM EST [facility] Name Value Range Interpretation Code Description Data Esthela rce(s) Supporting Document(s) SARS-CoV-2, DARWIN Not Detected Not Detected [facility] This nucleic acid amplification test was developed and its performancecharacteristics determined by [facility]. Nucleic acidamplification tests include PCR and TMA. This test has not been FDAcleared or approved. This test has been authorized by FDA under anEmergency Use Authorization (EUA). This test is only authorized forthe duration of time the declaration that circumstances existjustifying the authorization of the emergency use of in vitrodiagnostic tests for detection of SARS-CoV-2 virus and/or diagnosisof COVID-19 infection under section 564(b)(1) of the Act, 21 U.S.C.360bbb-3(b) (1), unless the authorization is terminated or revokedsooner.When diagnostic testing is negative, the possibility of a falsenegative result should be considered in the context of a patient'srecent exposures and the presence of clinical signs and symptomsconsistent with COVID- 19. An individual without symptoms of COVID-19and who is not shedding SARS-CoV-2 virus would expect to have anegative (not detected) result in this assay. ID Date Data Source [id number] 05/15/2020 09:10:00 AM EDT [facility] ([facility]) Name Value Range Interpretation Code Description Data Esthela rce(s) Supporting Document(s) Coronavirus Covid-19 Laboratory test result [facility] ([facility]) This nucleic acid amplification test was developed and its performance characteristics determined by [facility]. Nucleic acid amplification tests include PCR and [...] negative (not detected) result in this assay. ID Date Data Source [id number] 05/15/2020 09:10:00 AM EDT [facility] Name Value Range Interpretation Code Description Data Esthela rce(s) Supporting Document(s) SARS coronavirus 2 RNA [facility] This lab was ordered by [facility] agustina and reported by [facility]. ID Date Data Source [id number] 05/17/2020 06:25:00 AM EDT [facility] Name Value Range Interpretation Code Description Data Esthela rce(s) Supporting Document(s) SARS-CoV-2, DARWIN Not Detected Not Detected [facility] This nucleic acid amplification test was developed and its performancecharacteristics determined by [facility]. Nucleic acidamplification tests include PCR and TMA. This test has not been FDAcleared or approved. This test has been authorized by FDA under anEmergency Use Authorization (EUA). This test is only authorized forthe duration of time the declaration that circumstances existjustifying the authorization of the emergency use of in vitrodiagnostic tests for detection of SARS-CoV-2 virus and/or diagnosisof COVID-19 infection under section 564(b)(1) of the Act, 21 U.S.C.360bbb-3(b) (1), unless the authorization is terminated or revokedsooner.When diagnostic testing is negative, the possibility of a falsenegative result should be considered in the context of a patient'srecent exposures and the presence of clinical signs and symptomsconsistent with COVID- 19. An individual without symptoms of COVID-19and who is not shedding SARS-CoV-2 virus would expect to have anegative (not detected) result in this assay. ID Date Data Source [id number] 05/01/2020 09:45:00 AM EDT [facility] ([facility]) Name Value Range Interpretation Code Description Data Esthela rce(s) Supporting Document(s) Coronavirus Covid-19 Laboratory test result [facility] ([facility]) This test was developed and its performa nce characteristics determined by [facility]. This test has not been FDA cleared [...] negative (not detected) result in this assay. ID Date Data Source [id number] 05/01/2020 09:45:00 AM EDT [facility] Name Value Range Interpretation Code Description Data Esthela rce(s) Supporting Document(s) SARS coronavirus 2 RNA [facility] This lab was ordered by [facility] García berrios and reported by [facility]. ID Date Data Source [id number] 05/02/2020 03:42:00 PM EDT [facility] Name Value Range Interpretation Code Description Data Esthela rce(s) Supporting Document(s) SARS-CoV-2, DARWIN Not Detected Not Detected [facility] This test was developed and its performa nce characteristics determinedby [facility]. This test has not been FDA cleared orapproved. This test has been authorized by FDA under an Emergency UseAuthorization (EUA). This test is only authorized for the duration oftime the declaration that circumstances exist justifying theauthorization of the emergency use of in vitro diagnostic tests fordetection of SARS-CoV-2 virus and/or diagnosis of COVID-19 infectionunder section 564(b)(1) of the Act, 21 U.S.C. 360bbb-3(b)(1), unlessthe authorization is terminated or revoked sooner.When diagnostic testing is negative, the possibility of a falsenegative result should be considered in the context of a patient'srecent exposures and the presence of clinical signs and symptomsconsistent with COVID-19. An individual without symptoms of COVID-19and who is not shedding SARS-CoV-2 virus would expect to have anegative (not detected) result in this assay. ID Date Data Source [id number] 04/17/2020 09:11:00 [place] [address] RESPIRATORY CARE REPORT ==== ---------NAME------- NUMBER SEX AGE ADMIT DISC. XRAY# F/C JESUS Galarza [id number] F 49 04/16/20 04/16/20 [id number] KBO E/R DATE OF : 1970 M/R# [id number] #: [id number] TR-07 LOCATION: EMERGENCY DEPT EKG 09229 COMP LETE:04/16/20 13:33 EWW [id number] PHYSICIAN: GLADYS LAND Name Value Range Interpretation Code Description Data Esthela rce(s) Supporting Document(s) ID Date Data Source [id number] 04/16/2020 08:54:00 AM EDT [facility] 1 OrderSheet [facility] Emergency Department [address] [place] [address] Phone #: ext- [phone] 04/16/2020 08:46 Patient: CRYS FRANK Sex: F : 1970 Age: 49yWEIGHT:77.1 kg (S) HEIGHT:67 inches (S) BMI:26.6ALLERGIES: Cipro, predniSONECHIEF COMPLAINT: chest painDIAGNOSIS: Chest painLAB ORDERSOrder Description Priority Entered Acknowledged InitialedUrinalysis (Clean STAT 09:04/16/2020 Ack'd: 09:47 09:52 Aly Banda) Marisabel He R.N. Physician; R.N.Troponin-T STAT 09:04/16/2020 09:19 Win Banda R.N. Physician;TSH STAT 09:04/16/2020 09:19 Win Banda R.N. Physician;T4 (Thyroxine) STAT 09:04/16/2020 09:19 Win Banda R.N. Physician;Lipase STAT 09:04/16/2020 09:19 Win Banda R.N. Physician;BNP STAT 09:17 04/16/2020 09:19 Win Banda R.N. Physician;CBC w Diff STAT 09:17 04/16/2020 09:19 Win Banda R.N. Physician;CMP STAT 09:17 04/16/2020 09:19 Win Banda R.N. Physician;D-Dimer STAT 09:17 04/16/2020 09:19 Win Banda R.N. Physician;Troponin-T STAT 11:44 04/16/2020 11:45 Anastacio Hall RN Physician; 2 OrderSheet [facility] Emergency Department [address] [place] [address] Phone #: ext- [phone] 04/16/2020 08:46 Patient: CRYS FRANK Sex: F : 1970 Age: 49yDIAGNOSTIC STUDY ORDERSOrder Description Priority Entered Acknowledged InitialedChest 2 View STAT 09:17 04/16/2020 Ack'd: 09:19 09:24 Henna(Oxygen?(No)) Misa Herman RN Physician; R.N. Reason for Study: Chest PainMEDICATION/IV/DRIP/FLUID ORDERSOrder Description Priority Entered Acknowledged InitialedNitroGLYCERIN 09:17 04/16/2020 09:23 DorisTopical Ointment Win Lopez RN1 in. Physician;Aspirin PO 09:43 04/16/2020 Ack'd: 09:47 09:52 Solo,Chewable 81 mg Marisabel He R.N.162 mg (NOW) Physician; R.N.GI Cocktail PO 50 10:12 04/16/2020 10:20 PetermL with Lidocaine Win Hall RNViscous Physician;Mouth/Throat 10mL, Maalox Oral 30mL, Oral10 mL Reason for ordering with alerts: Benefits outweigh risks -- 10:12 04/16/2020 Win EstevezGENERAL ORDERSOrder Description Priority Entered Acknowledged InitialedCardiac Monitor 09:04/16/2020 09:18 Solo(continuous) Win Bynum R.N. Physician;EKG 09:04/16/2020 09:19 Win Banda R.N. Physician;Pulse oximeter 09:04/16/2020 09:19 Solo(Continuous) Win Bynum R.N. Physician;Saline Lock 09:04/16/2020 09:19 Win Banda R.N. Physician; 3 OrderSheet [facility] Emergency Department [address] [place] [address] Phone #: ext- [phone] 04/16/2020 08:46 -- Patient: CRYS FRANK Sex: F : 1970 Age: 49y[Electronically signed by Anastacio Hall RN (12:43 04/16/2020)][Electronically signed by Win Graham (00:53 04/17/2020)][Electronically locked by Anastacio Hall RN (12:43 04/16/2020)] Name Value Range Interpretation Code Description Data Esthela rce(s) Supporting Document(s) ID Date Data Source [id number] 04/16/2020 08:54:00 AM EDT [facility] 1 Medication Reconciliation Report [facility] Emergency Department [address] [place] [address] Phone #: ext- [phone] 04/16/2020 08:46 Patient: CRYS FRANK Sex: F : 1970 Age: 49yWeight: 77.1 kgHeight/Length: 67 in.BMI: 26.6ALLERGIES: Cipro, predniSONEThe patient's Home Medications are listed below:THE FOLLOWING MEDICATIONS NEED TO BE RECONCILED: Atorvastatin Calcium Oral (10 mg), daily Lisinopril Oral (10 mg) 1 tablet, dailyThe source(s) of the original Home Medication information:Not obtained.The following Medications were given to the patient in the Emergency Department:NITROGLYCERIN [TOPICAL OINTMENT] Topical 1 in., administered: 04/16/2020 9:22:00 AMASPIRIN CHEWABLE 81 MG [PO] PO 162 mg, administered: 04/16/2020 9:52:00 AMGI Cocktail [PO] PO 50 mL, administered: 04/16/2020 10:20:00 AMThe following Medications were prescribed to the patient:N one. Name Value Range Interpretation Code Description Data Esthela rce(s) Supporting Document(s) ID Date Data Source [id number] 04/16/2020 08:54:00 AM EDT [facility] 1 Medication Administration Record [facility] Emergency Department [address] [place] [address] Phone #: [phone] 04/16/2020 08:46 Patient: CRYS FRANK Sex: F : 1970 Age: 49yWeight: 77.1 kgHeight/Length: 67 inBMI: 26.6ALLERGIES: Cipro, predniSONE Date/Time Medication Administered Medication OrderedGiven NITROGLYCERIN [TOPICAL OINTMENT] NitroGLYCERIN Yxpvmym31:22 04/16/2020 Dose: 1 in. Ointment Topical Ointment 1 in.Henna Lopez RNGiven ASPIRIN CHEWABLE 81 MG [PO] Aspirin PO Chewable 81 mg 08601:[id number] 04/16/2020 Dose: 162 mg Tablets PO mg (NOW)Misa Banda R.N.Given GI COCKTAIL [PO] (CALCIUM GI Cocktail PO 50 mL with10:20 04/16/2020 CARBONATE ANTACID) Latasha penningtonaine Viscous Mouth/ThroatPeter JOSE ALBERTO Hall Dose: 50 mL Oral Suspension PO 10 mL, Maalox Oral 30 mL, Oral 10 mL Name Value Range Interpretation Code Description Data Esthela rce(s) Supporting Document(s) ID Date Data Source [id number] 04/16/2020 08:54:00 AM EDT [facility] 1 General Instructions [facility] Emergency Department [address] [place] [address] Phone #: ext- [phone] 04/16/2020 08:46 Patient: CRYS FRANK Sex: F : 1970 Age: 49yPrecordial chest pain characterized as "discomfort", "pressure" and "tightness".INSTRUCTIONSDo not work today.Avoid stimulants (such as cigarettes, coffee, cold medicines, sinus medicines, street drugs).(Motrin / Tylenol for pain / fever).Warnings: Further evaluation is necessary.GENERAL WARNINGS: Return or contact your physician immediately if your condition worsens orchanges unexpectedly, if not improving as expected, or if other problems arise.Understanding of the discharge instructions verbalized by patient.Follow-up with: Chacorta Orellana MD, Cardiology, , [address] [place] [address], [facility] Follow up even if well. Call for the next available appointment. Reason for referral: evaluation, treatmentand Chest pain - Need ECHO / stress test - Need to call for apptmt. today. ADDITIONAL INFORMATIONUncertain Causes of Chest Pain 2 General Instructions [facility] Emergency Department [address] [place] [address] Phone #: ext- [phone] 04/16/2020 08:46 Patient: CRYS FRANK Sex: F : 1970 Age: 49yChest pain can happen for a number of reasons. Sometimes the cause can't be determined. Ifyour condition does not seem serious, and your pain does not appear to be coming from your heart,your healthcare provider may recommend watching it closely. Sometimes the signs of a seriousproblem take more time to appear. Many problems not related to your heart can cause chest pain.These include: Musculoskeletal. Costochondritis is an inflammation of the tissues around the ribs that can occur from trauma or overuse injuries, or a strain of the muscles of the chest wall Respiratory. Pneumonia, collapsed lung (pneumothorax), or inflammation of the lining of the chest and lungs (pleurisy) Gastrointestinal. Esophageal reflux, heartburn, ulcers, or gallbladder disease Anxiety and panic disorders Nerve compression and inflammation Rare miscellaneous problems such as aortic aneurysm (a swelling of the large artery coming out of the heart) or pulmonary embolism (a blood clot in the lungs)Home careAfter your visit, follow these recommendations: Rest today and avoid strenuous activity. 3 General Instructions [facility] Emergency Department [address] [place] [address] Phone #: ext- [phone] 04/16/2020 08:46 Patient: CRYS FRANK Sex: F : 1970 Age: 49y Take any prescribed medicine as directed. Be aware of any recurrent chest pain and notice any changesFollow-up careFollow up with your healthcare provider if you do not start to feel better within 24 hours, or as advised.Call [phone] if any of these occur: A change in the type of pain: if it feels different, becomes more severe, lasts longer, or begins to spread into your shoulder, arm, neck, jaw or back Shortness of breath or increased pain with breathing Weakness, dizziness, or fainting Rapid heart beat Crushing sensation in your chestWhen to seek medical adviceCall your healthcare provider right away if any of the following occur: Cough with dark colored sputum (phlegm) or blood Fever of 100.4F (38C) or higher, or as directed by your healthcare provider Swelling, pain or redness in one leg [phone] [employer]. [address] [place] [address]. All rights reserved. This information is not intended as asubstitute for professional medical care. Always follow your healthcare professional's instructions.Chest Wall Pain: Costochondritis 4 General Instructions [facility] Emergency Department [address] [place] [address] Phone #: ext- [phone] 04/16/2020 08:46 Patient: CRYS FRANK Sex: F : 1970 Age: 49yThe chest pain that you have had today is caused by costochondritis. This condition is caused by aninflammation of the cartilage joining your ribs to your breastbone. It is not caused by heart or lungproblems. Your healthcare team has made sure that the chest pain you feel is not from a lifethreatening cause of chest pain such as heart attack, collapsed lung, blood clot in the lung, tear in theaorta, or esophageal rupture. The inflammation may have been brought on by a blow to the chest,lifting heavy objects, intense exercise, or an illness that made you cough and sneeze a lot. It oftenoccurs during times of emotional stress. It can be painful, but it is not dangerous. It usually goes awayin 1 to 2 weeks. But it may happen again. Rarely, a more serious condition may cause symptomssimilar to costochondritis. That's why it's important to watch for the warning signs listed below.Home careFollow these guidelines when caring for yourself at home: If you feel that emotional stress is a cause of your condition, try to figure out the sources of that stress. It may not be obvious. Learn ways to deal with the stress in your life. This can include regular exercise, muscle relaxation, meditation, or simply taking time out for yourself. You may use acetaminophen, ibuprofen, or naproxen to control pain, unless another pain medicine was prescribed. If you have liver or kidney disease or ever had a stomach ulcer, talk with your healthcare provider before using these medicines. You can also help ease pain by using a hot, wet compress or heating pad. Use this with or without a medicated skin cream that helps relieves pain. Do stretching exercise as advised by your provider. Take any prescribed medicines as directed. 5 General Instructions [facility] Emergency Department [address] [place] [address] Phone #: ext- [phone] 04/16/2020 08:46 Patient: CRYS FRANK Sex: F : 1970 Age: 49yFollow-up careFollow up with your healthcare provider, or as advised, if you do not start to get better in the next 2days.When to seek medical adviceCall your healthcare provider right away if any of these occur: A change in the type of pain. Call if it feels different, becomes more serious, lasts longer, or spreads into your shoulder, arm, neck, jaw, or back. Shortness of breath or pain gets worse when you breathe Weakness, dizziness, or fainting Cough with dark-colored sputum (phlegm) or blood Abdominal pain Dark red or black stools Fever of 100.4F (38C) or higher, or as directed by your healthcare provider [phone] [employer]. [address] [place] [address]. All rights reserved. This information is not intended as asubstitute for professional medical care. Always follow your healthcare professional's instructions. You have been given the following additional information: Chest Pain, Uncertain Cause Chest Wall Pain, Costochondritis Do not work today.(Electronically signed by Win Graham, Physician 04/17/2020 00:53) Name Value Range Interpretation Code Description Data Esthela rce(s) Supporting Document(s) ID Date Data Source [id number] 04/16/2020 08:54:00 AM EDT [facility] 1 Clinical Report - Nurses [facility] Emergency Department [address] [place] [address] Phone #: ext- [phone] 04/16/2020 08:46 Patient: CRYS FRANK Sex: F : 1970 Age: 49yTRIAGEArrived by private vehicle. Historian: patient.Triage time: 08:49 04/16/2020. Acuity: LEVEL 3.Chief Complaint: CHEST PAIN.Alert. No acute distress.This started yesterday. Symptoms are intermittent (0600). ( 0300 Woke out of sleep with mid sternalchest pain constant since. History of Shingles in February, healed, has numbness posterior right shoulder,axilla where shingles were.). Reports experiencing sweating episodes (intermittent "hot flashes" "goingthrough menopause").SEPSIS SCREEN: SIRS Screen negative. Sepsis Screen negative. No suspected or confirmed signs ofinfection present. --08:57 04/16/20 Henna Lopez RN08:49 04/16/20. BP: 166/91. MAP: 116. HR: 93. RR: 20. O2 saturation: 100%. Temp: 97.8 F. Pain levelnow: 8/10. Describes the quality as sharp and burning. It has been constant. Pain level at maximum: 8/10.No radiation noted. No provoking / relieving factors. --08:57 04/16/20 Henna Lopez RN.Weight: 77.1 kg stated. Height/Length: 67 inches Per Patient. BMI: 26.6. --08:48 04/16/20 Henna Lopez RN.MedicationsAtorvastatin Calcium Oral (Tablet 10 mg), daily. Lisinopril Oral (Tablet 10 mg) 1 tablet, daily. --:04/16/20 Henna Lopez RN.AllergiesCipro.predniSONE. (breathing problem) --:04/16/20 Henna Lopez RN.PROBLEMS:Hypertension. --08:52 04/16/20 Henna Lopez, RNArthritis.Carpal Tunnel Syndrome.Anxiety Reaction.Myofascial Strain. --:04/16/20 Henna Lopez RNHerpes Zoster: Resolved. --:04/16/20 Henna Lopez RNThe following entry was modified by Henna Lopez RN, :04/16/20 Reason - duplicateSleep Apnea. --07:33 03/12/20 Henna Lopez RN. 2 Clinical Report - Nurses [facility] Emergency Department [address] [place] [address] Phone #: ext- [phone] 02/2020 08:46 Patient: CRYS RFANK Sex: F : 1970 Age: 49y ADDITIONAL SURGERIES: Neck Surgery. Parotidectomy. Tubal Ligation. Wrist surgery LEFT. --:04/16/20 Henna Lopez RN. History PAST MEDICAL HX: Immunizations: up-to-date. The patient is post-menopausal. SOCIAL HX: Heavy tobacco smoker (cigarette)- less than 1 pack per day. Occasional alcohol use. No drug use. She was offered HIV testing but declined. She has not traveled outside the [place] Infectious disease exposure: No infectious disease exposure. (Denies contact with PUI for COVID-19, denies symptoms of COVID-19). Patient is not a known carrier of tuberculosis, hepatitis, HIV, MRSA or VRE. Patient is not a known carrier of CRE. SELF HARM ASSESSMENT: Self harm assessment was performed. The patient answered "no" to the question(s) "Do you have thoughts of harming or killing yourself?" and "Have you recently had thoughts about harming or killing others?". ABUSE ASSESSMENT: Abuse assessment. The patient had positive responses to the question(s) "Do you feel safe in your home?" (yes). Abuse denied. No report of abuse. NUTRITIONAL RISK ASSESSMENT: The nutritional risk assessment revealed no deficiencies. FUNCTIONAL ASSESSMENT: Functional assessment: no impairments noted. LEARNING NEEDS ASSESSMENT: The learning needs assessment revealed no barriers. FALL RISK ASSESSMENT: Fall risk assessment completed. No risk factors identified. SKIN INTEGRITY ASSESSMENT: Skin integrity risk assessment completed. No skin integrity risk identified. --08:57 04/16/20 Henna Lopez RN.PHYSICAL ASSESSMENTAmbulatory to room.GENERAL / NEURO / PSYCH: Alert. Oriented X 4. Appears in no acute distress.HEENT: Mucous membranes are pink.RESPIRATORY: Respirations not labored. Chest pain reproducible. Lower sternal tenderness. Breathsounds within normal limits. ( Pt describes pain from mid back that circles to the right side of chest and tothe center; Pt states this is previously where she had shingles; No vesicles noted.).CVS: Normal sinus rhythm noted. Heart sounds within normal limits. Pulses within normal limits.Pulses: right brachial 2+; left brachial 2+. Capillary refill less than 2 seconds.GI / : Abdomen soft and nontender.SKIN: Skin is warm and dry. Normal skin turgor. --09:03 04/16/20 Marisabel Sinha R.N. 3 Clinical Report - Nurses [facility] Emergency Department [address] [place] [address] Phone #: ext- [phone] 04/16/2020 08:46 Patient: CRYS FRANK Sex: F : 1970 Age: 49yNURSING PROGRESS NOTES08:55 04/16/2020 Site #1 started via IV in the left antecubital space with an 20g angiocath, with aseptictechnique and good blood return; one attempt. Blood drawn: rainbow set. Labeled in the presence of thepatient and sent to the lab. Saline lock flushed with 10 mL saline. --09:04 04/16/20 Marisabel Sinha R.N. 08:57 04/16/20. 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 Patient gowned. Two patient identifiers checked. Call light placed in reach. Side rails up x 2. Bed placed in lowest position. Brakes of bed on. Patient ready for evaluation- ED physician notified. --08:57 04/16/20 Henna Lopez RN EKG time: (late entry - 08:52 04/16/2020). EKG was performed by a nurse and shown to the ED physician. --09:04 04/16/20 Marisabel Sinha R.N. 09:22 04/16/2020 NITROGLYCERIN Topical Ointment 1 inch given. Applied to the affected area. Allergies verified and confirmed 5 rights. Information reviewed with patient including reason for taking this medication, signs of allergic reaction and precautions. Verbalizes understanding. --09:23 04/16/20 Henna Lopez RN Patient transported to radiology by wheelchair with mask and radiology resident. --09:41 04/16/20 Misa Banda R.N. Patient returned from radiology by wheelchair with mask and radiology resident. --09:47 04/16/20 Misa Banda R.N. 09:52 04/16/2020 ASPIRIN CHEWABLE 81 MG PO Tablets 162 mg given. Allergies verified and confirmed 5 rights. Information reviewed with patient including reason for taking this medication, signs of allergic reaction and precautions. Verbalizes understanding. --09:52 04/16/20 Misa Banda R.N. 10:20 04/16/2020 GI Cocktail (Calcium Carbonate Antacid) PO Oral Suspension 50 mL given. Allergies verified and confirmed 5 rights. Information reviewed with patient including reason for taking this medication. Verbalizes understanding. --10:20 04/16/20 Anastacio Hall RN 10:22 04/16/20. BP: 115/83. MAP: 93. HR: 77. RR: 16. O2 saturation: 100%. Pain level now: 0/10. --10:22 04/16/20 Anastacio Hall RN ( assumed pt care, pt awake and alert, denies any chest pain at the present, waiting for final lab results). --10:04/16/20 Anastacio Hall RN 10:43 04/16/2020 GI Cocktail PO Response: pain is improving. Symptoms have improved the patient feels better. --10:43 04/16/20 Anastacio Hall RN.DISPOSITION / DISCHARGE 12:43 04/16/2020 Site #1 removed upon discharge. Manual pressure and bandaid applied. --12:43 04/16/20 [facility] 4 Clinical Report - Nurses [facility] Emergency Department [address] [place] [address] Phone #: ext- [phone] 04/16/2020 08:46 Patient: CRYS FRANK Sex: F : 1970 Age: 49y 12:42 04/16/20. BP: 113/70. HR: 68. RR: 17. O2 saturation: 99%. Temp: 98.1 F. Pain level now 110. --12:43 04/16/20 [facility] Condition at departure: improved and stable. Discharge instructions provided and reviewed with the patient. Reviewed referral to a credit risk review officer. Patient verbalized understanding. Written instructions provided in British. The patient was discharged by the physician. She was discharged home. She left ambulatory and via private vehicle. Patient driving. --12:43 04/16/20 Anastacio Hall RN.Locked/Released at 04/16/2020 12:43 by Anastacio Hall RN Name Value Range Interpretation Code Description Data Esthela rce(s) Supporting Document(s) ID Date Data Source [id number] 04/16/2020 08:54:00 AM EDT [facility] 1 Clinical Report - Physicians/Mid Levels [facility] Emergency Department [address] [place] [address] Phone #: ext- [phone] 04/16/2020 08:46 Patient: CRYS FRANK Sex: F : 1970 Age: 49y Time Seen: 09:06 04/16/2020. Arrived- By private vehicle. Historian- patient. RETURN VISIT: recently seen in this ED by another ED physician. Seen now for a new unrelated complaint. Disposition decision: 12:35 04/16/2020.HISTORY OF PRESENT ILLNESS Chief Complaint: CHEST PAIN. It is described as pressure, tightness, aching, "pain" and well localized and it is described as located in the central chest area. No radiation. This started yesterday Yesterday at 06:00 AM and is still present. It was abrupt in onset and has been waxing/waning. Onset during rest. When seen in the E.D., severity described as 8 / 10. Modifying factors- worsened by exertion, movement, walking, cough and deep breaths. No nausea, vomiting, difficulty breathing or diaphoresis. Similar symptoms previously. (since yesterday). Recent medical care: Not recently seen/assessed.REVIEW OF SYSTEMSNo fever, chills, pedal edema, calf pain or missed periods. No abnormal bleeding, vaginal discharge,fainting episodes, headache or sore throat. No blurred vision, abdominal pain, black stools, difficulty withurination or skin rash. No enlarged lymph nodes, joint pain or bloody stools. The patient has had a mildnonproductive cough.PAST HISTORYPast history not negative. See nurses notes. Hypertension. Other disease. ArthritisCarpal TunnelAnxietyMyofascial strainHerpes zoster. Surgeries: Tubal ligation. (Neck surgery Parotid surgery L wrist surgery).SOCIAL HISTORYHeavy tobacco smoker (cigarette)- less than 1 pack per day. Occasional alcohol use. No drug use. Norecent travel.ADDITIONAL NOTESThe nursing notes have been reviewed with agreement regarding the chief complaint, HPI, ROS, PMH andpatient medications and allergies.PHYSICAL EXAM 2 Clinical Report - Physicians/Mid Levels [facility] Emergency Department [address] [place] [address] Phone #: ext- [phone] 04/16/2020 08:46 Patient: CRYS FRANK Sex: F : [birth year] Age: 49y Vital Signs: 04/16/2020 08:49 BP: 166/91. MAP: 116. HR: 93. RR: 20. O2 saturation: 100%. Temp: 97.8 F. Pain level now: 810. Have been reviewed and appear to be correct. Hypertensive. Heart rate normal. Respiratory rate normal. Temperature normal. Oxygen saturation normal. Appearance: Alert. Oriented X3. Anxious. Appears to be in pain. Patient in mild distress. In distress. Eyes: Pupils equal, round and reactive to light. Eyes normal inspection. ENT: Nose normal. Pharynx normal. Neck: Normal inspection. Neck supple. CVS: Normal heart rate and rhythm. Heart sounds normal. Pulses normal. Respiratory: No respiratory distress. Chest tender. Chest pain reproducible with palpation of the costal cartilage, sternum and anterior chest wall. Painless inspiration. Breath sounds normal. Abdomen: Soft and nontender. Bowel sounds normal. No organomegaly. No mass. Back: Normal external inspection. Skin: Skin warm and dry. Normal skin color. No rash. Normal skin turgor. Extremities: Extremities exhibit normal ROM. No lower extremity edema. Neuro: Oriented X 3. No motor deficit. No sensory deficit.LABS, X-RAYS, AND EKGEKG: Normal EKG.Chest X-ray: Normal Chest X- Ray.Laboratory Tests: Laboratory tests have been ordered, with results reviewed and considered in themedical decision making process. Troponin-T: (PRASANTH: 04/16/2020 12:04) ( MsgRcvd 04/16/2020 12:34) Final results Test Result Flag Units (Reference) TROPONIN T <0.01 NG/ML (0.00 - 0.10) TROPONIN T0.1 ng/ml Recommended as the clinical threshold value forTroponin T. Urinalysis: (PRASANTH: 04/16/2020 09:45) ( [facility] 04/16/2020 09:59) Final results Test Result Flag Units (Reference) URINALYSIS URINALYSIS SOURCE R COLOR yellow (NORMAL: Yello CLARITY clear (NORMAL: Clear SPEC GRAVITY 1.025 (1.001 - 1.030 pH 5 (5 - 9) GLUCOSE NORM (NORMAL: Negat BILIRUBIN NEG (NORMAL: Negat KETONE NEG (NORMAL: Negat PROTEIN NEG (NORMAL: Negat NITRITE NEG (NORMAL: Negat BLOOD NEG (NORMAL: Negat LEUK EST NEG (NORMAL: Negat UROBILINOGEN NOR (less than 1.0 MICROSCOPIC Not Indicate Troponin-T: (PRASANTH: 04/16/2020 08:55) ( [facility] 04/16/2020 09:58) Final results Test Result Flag Units (Reference) TROPONIN T <0.01 NG/ML (0.00 - 0.10) 3 Clinical Report - Physicians/Mid Levels [facility] Emergency Department [address] [place] [address] Phone #: ext- [phone] 04/16/2020 08:46 Patient: CRYS FRANK Sex: F : 1970 Age: 49y TROPONIN T0.1 ng/ml Recommended as the clinical threshold value forTroponin T.TSH: (PRASANTH: 04/16/2020 08:55) ( [facility] 04/16/2020 10:06) Final results Test Result Flag Units (Reference) TSH 1.26 uIU/mL (0.47 - 5.01)T4 (Thyroxine): (PRASANTH: 0 04/16/2020 08:55) ( [facility] 04/16/2020 15:01) Final results Test Result Flag Units (Reference) T4 TOTAL 5.7 UG/DL (4.5 - 12.5)Lipase: (PRASANTH: 04/16/2020 08:55) ( [facility] 04/16/2020 10:06) Final results Test Result Flag Units (Reference) LIPASE 37 U/L (13 - 60)BNP: (PRASANTH: 04/16/2020 08:55) ( [facility] 04/16/2020 10:06) Final results Test Result Flag Units (Reference) BNP 53 PG/ML (0 - 125)CBC w Diff: (PRASANTH: 04/16/2020 08:55) ( [facility] 04/16/2020 09:37) Final results Test Result Flag Units (Reference) CBC W/AUTOMATED DIFF COMPLETE BLOOD COUNT WBC 8.2 10/uL (4.2 - 11.0) RBC 3.97 L 10/uL (4.20 - 5.40) HEMOGLOBIN 12.5 g/dL (12.0 - 16.0) HEMATOCRIT 37.6 % (37.0 - 47.0) MCV 94.7 fL (81.0 - 101) MCH 31.5 pg (27.0 - 34.0) MCHC 33.2 g/dL (31.0 - 36.0) RDW 12.6 % (11.5 - 14.5) PLATELETS 274 10/uL (150 - 450) MPV 10.2 fL (7.4 - 10.4) NEUT 52.1 % (37.0 - 80.0) LYMPH 37.6 % (25.0 - 40.0) MONO 6.1 % (3.0 - 8.0) EOS 3.3 % (0.0 - 7.0) BASO 0.5 % (0.0 - 2.5) %IG 0.4 H % (0.0 - 0.0) %NRBC 0.0 % (0.0 - 0.0) #NEUT 4.25 10/uL (2.00 - 6.90) #LYMPH 3.07 10/uL (0.60 - 3.40) #MONO 0.50 10/uL (0.00 - 0.90) #EOS 0.27 10/uL (0.00 - 0.70) #BASO 0.04 10/uL (0.00 - 0.20) #IG 0.03 10/uL (0.00 - 0.10) #NRBC 0.00 10/uL (0.00 - 0.00) MANUAL DIFF NOT INDICATED RBC MORPH NOT INDICATEDCMP: (PRASANTH: 04/16/2020 08:55) ( MsgRcvd 04/16/2020 10:06) Final results Test Result Flag Units (Reference) COMPREHENSIVE METABOLIC PANEL COMPREHENSIVE METABOLIC PANEL 4 Clinical Report - Physicians/Mid Levels [facility] Emergency Department [address] [place] [address] Phone #: ext- [phone] 04/16/2020 08:46 Patient: CRYS FRANK Sex: F : 1970 Age: 49y SODIUM 140 mEq/L (134 - 153) POTASSIUM 4.3 mEq/L (3.6 - 5.0) CHLORIDE 107 mEq/L (98 - 107) CO2 26 MEQ/L (22 - 30) GLUCOSE 102 MG/DL (65 - 110) BUN 10 MG/DL (7 - 21) CREATININE 0.6 L MG/DL (0.7 - 1.5) BUN/CREAT 17 (8 - 27) TOTAL PROTEIN 6.8 G/DL (6.3 - 8.2) ALBUMIN 4.5 G/DL (3.9 - 5.0) GLOBULIN 2.3 L GM/DL (2.4 - 3.2) A/G RATIO 2.0 (0.8 - 2.0) CALCIUM 9.5 MG/DL (8.4 - 10.2) TOTAL BILI <0.7 MG/DL (0.2 - 1.3) ALKALINE PHOS 83 U/L (38 - 126) SGOT/AST 23 U/L (5 - 40) SGPT/ALT 25 U/L (7 - 56) ANION GAP 7.0 L mmol/L (8.0 - 16.0) AGE 49 yrs NON-AA GFR >60 mL/min AFR AMER GFR >60 mL/min Male GFR Interprentation 20-49 yrs >60 mL/min Yjjebf62-22 yrs >56 mL/min Normal 60-69 yrs >49 mL/min Normal 70-79yrs>42 mL/min Normal 80 and above >35 mL/min Normal Female GFRInterpretation 20-39 yrs >60 mL/min Normal 40-49 yrs >58 mL/minNormal 50-59 yrs >51 mL/min Normal 60-69 yrs >45 mL/min Ufuvse46-98 yrs >39 mL/min Normal 80 and above >32 mL/min NormalD-Dimer: (PRASANTH: 04/16/2020 08:55) ( MsgRcvd 04/16/2020 09:48) Final results Test Result Flag Units (Reference) D-DIMER QUANT <0.27 ug/mL (0.27 - 0.50)EKG: (PRASANTH: 04/16/2020 09:17) ( MsgRcvd 04/16/2020 13:46) In ProgressChest 2 View: (PRASANTH: 04/16/2020 09:17) ( MsgRcvd 04/16/2020 14:00) Final results Exam CHEST 2 VIEWS [facility] [address] [place] [address] PHONE: FAX: [phone] Name .................. : HAVEN Galarza Acct Number.................. : [id number] ROOM. ................. : TR-07 MR Number ................... : [id number] Stay type ............. : E/R Discharge Date......... ... : Admit Date ......... : 04/16/20 Admit Phys .................... : GLADYS LAND Date of ....... : 1970 Family Phys ................... : [employer] Phone .................. : [phone] Age ................................ : 49 Film# .................. .:[id number] Sex ................................. : F Unsigned transcriptions are preliminary reports and do not represent a medical or legal document CHEST 2 VIEWS 60164 COMPLETE:04/16/20 09:17 [id number] Reason(s): Chest Pain CHEST TWO VIEWS, 04/16/20: 5 Clinical Report - Physicians/Mid Levels [facility] Emergency Department [address] [place] [address] Phone #: ext- [phone] 04/16/2020 08:46 Patient: CRYS FRANK Sex: F : 1970 Age: 49y INDICATION: Chest pain. FINDINGS: The cardiac and mediastinal silhouettes appear normal and the lungs are clear. The bones and soft tissues are normal. The upper abdomen is unremar kable. IMPRESSION: No acute disease identifiable. Examination dictated by LILIA Marcus. Examination was reviewed with Gary Bocanegra MD, radiologist at the time of this dictation. Electronically Reviewed and Signed By Gary Bocanegra MD , 04/16/20 13:59, AML Transcribe Initials: SSR, Transcribe Date: 04/16/20 10:37, Dictation Date: Copy for: EMERGENCY DEPT via modem Copy for: 710 MED REC DISCHARGED Page 1 of 1.PROGRESS AND PROCEDURESCourse of Care: 11:08 Apr 16 2020. Patient is stable. Symptoms better. 11:08 Apr 16 2020. Pt's first set of labs / EKG / CXR are unremarkable. Will do 2nd set in 3 hours. 12:34 Apr 16 2020. Repeat troponin in negative. Pt. likely has costochondritis. Pt. needs to follow-up with Dr. Orellana for ECHO / stress test. Critical care performed (130 minutes). Time is exclusive of separately billable procedures. Time includes: direct patient care, patient reassessment, interpretation of data (laboratory data, pulse oximetry and chest xrays), review of patient's medical records and documentation of patient care- see progress notes. Procedures included in critical care time: peripheral IV placement and phlebotomy- see progress notes. Disposition: Discharged home in good and improved condition (12:35 Apr 16 2020). Condition: good.CLINICAL IMPRESSION Precordial chest pain characterized as "discomfort", "pressure" and "tightness". 6 Cli nical Report - Physicians/Mid Levels [facility] Emergency Department [address] [place] [address] Phone #: ext- [phone] 04/16/2020 08:46 Patient: CRYS FRANK Sex: F : 1970 Age: 49yINSTRUCTIONS Do not work today. Avoid stimulants (such as cigarettes, coffee, cold medicines, sinus medicines, street drugs). (Motrin / Tylenol for pain / fever). Warnings: Further evaluation is necessary. GENERAL WARNINGS: Return or contact your physician immediately if your condition worsens or changes unexpectedly, if not improving as expected, or if other problems arise. Understanding of the discharge instructions verbalized by patient. Follow-up with: Chacorta Orellana MD, Cardiology, , [address] [place] [address], [facility] Follow up even if well. Call for the next available appointment. Reason for referral: evaluation, treatment and Chest pain - Need ECHO / stress test - Need to call for apptmt. today.(Electronically signed by Win Graham, Physician 04/17/2020 00:53) Name Value Range Interpretation Code Description Data Esthela rce(s) Supporting Document(s) ID Date Data Source [id number] 04/16/2020 01:59:00 [place] [address] PHONE: [phone] FAX: [phone] Name .................. : HAVEN Galarza Acct Number.................. : [id number] ROOM. ................. : TR-07 MR Number ................... : [id number] Stay type ............. : E/R Discharge Date......... ... : Admit Date ......... : 04/16/20 Admit Phys .................... : GLADYS LAND Date of ....... : 1970 Family Phys ................... : REJI HARD Phone .................. : [phone] Age ................................ : 49 Film# .................. .:[id number] Sex ................................. : F Unsigned transcriptions are preliminary reports and do not represent a medical or legal document CHEST 2 VIEWS 93135 COMPLETE:04/16/20 09:17 [id number] Reason(s): Chest Pain CHEST TWO VIEWS, 04/16/20: INDICATION: Chest pain. FINDINGS: The cardiac and mediastinal silhouettes appear normal and the lungs are clear. The bones and soft tissues are normal. The upper abdomen is unremarkable. IMPRESSION: No acute disease identifiable. Examination dictated by LILIA Marcus. Examination was reviewed with Gary Bocanegra MD, radiologist at the time of this dictation. Electronically Reviewed and Signed By Gary Bocanegra MD , 04/16/20 13:59, AML Transcribe Initials: SSR, Transcribe Date: 04/16/20 10:37, Dictation Date: Copy for: EMERGENCY DEPT via mode Copy for: 710 MED REC DISCHARGED Page 1 of 1 Name Value Range Interpretation Code Description Data Esthela rce(s) Supporting Document(s) ID Date Data Source [id number] 04/16/2020 12:04:00 PM EDT [facility] ([facility]) Name Value Range Interpretation Code Description Data Esthela rce(s) Supporting Document(s) Troponin T.cardiac [Mass/volume] in Serum or Plasma Laborato ry test result 0.00-0.10 [facility] ([facility]) TROPONIN T 0.1 ng/ml Recommended as the clinical th reshold value for Troponin T. ID Date Data Source [id number] 04/16/2020 12:33:00 PM EDT [facility] Name Value Range Interpretation Code Description Data Esthela rce(s) Supporting Document(s) TROPONIN T <0.01 NG/ML 0.00 - 0.10 [facility] ospital TROPONIN T0.1 ng/ml Recommended as the c linical threshold value forTroponin T. ID Date Data Source [id number] 04/16/2020 09:45:00 AM EDT [facility] ([facility]) Name Value Range Interpretation Code Description Data Esthela rce(s) Supporting Document(s) Urinalysis Laboratory test result [facility] ([facility]) SOURCE: Clean Catch Clarity Laboratory test result [facility] ([facility]) SOURCE: Clean Catch Color Laboratory test result [facility] ([facility]) SOURCE: Clean Catch Source Laboratory test result [facility] ([facility]) SOURCE: Clean Catch pH 5 5-9 [facility] ([facility]) SOURCE: Clean Catch Spec Jena 1.025 1.001-1.030 [facility] ([facility]) SOURCE: Clean Catch Bilirubin Laboratory test result [facility] ([facility]) SOURCE: Clean Catch Glucose Laboratory test result [facility] ([facility]) SOURCE: Clean Catch Protein Laboratory test result [facility] ([facility]) SOURCE: Clean Catch Ketone Laboratory test result [facility] ([facility]) SOURCE: Clean Catch Nitrite Laboratory test result [facility] ([facility]) SOURCE: Clean Catch Blood Laboratory test result [facility] ([facility]) SOURCE: Clean Catch Leuk Est Laboratory test result [facility] ([facility]) SOURCE: Clean Catch Urobilinogen Laboratory test result [facility] ([facility]) SOURCE: Clean Catch Microscopic Laboratory test result M [facility] ([facility]) SOURCE: Clean Catch ID Date Data Source [id number] 04/16/2020 09:59:00 AM EDT [facility] Name Value Range Interpretation Code Description Data Esthela rce(s) Supporting Document(s) URINALYSIS [facility] Hospi vianey URINALYSIS SOURCE R [facility] COLOR yellow NORMAL: Yellow [facility] CLARITY clear NORMAL: Clear [facility] spital Specific gravity of Urine by Test strip 1.025 1.001 - 1.030 [facility] pH 5 5 - 9 [facility] Glucose [Mass/volume] in Urine by Test strip NORM NORMAL: Negat [facility] Bilirubin.total [Presence] in Urine by Test strip NEG NORMAL: Negative [facility] Ketones [Presence] in Urine by Test strip NEG NORMAL: Negative [facility] Protein [Mass/volume] in Urine by Test strip NEG NORMAL: Negat [facility] Nitrite [Presence] in Urine by Test strip NEG NORMAL: Negative [facility] BLOOD NEG NORMAL: Negative [facility] Leukocyte esterase [Presence] in Urine by Test strip NEG GABRIELLA L: Negative [facility] Urobilinogen [Mass/volume] in Urine by Test strip NOR less fermín n 1.0 mg/dL [facility] MICROSCOPIC Not Indicate [facility] ID Date Data Source [id number] 04/16/2020 08:55:00 AM EDT [facility] ([facility]) Name Value Range Interpretation Code Description Data Esthela rce(s) Supporting Document(s) Thyroxine (T4) [Mass/volume] in Serum or Plasma 5.7 ug/dL 4.5-12.5 [facility] ([facility]) ID Date Data Source [id number] 04/16/2020 08:55:00 AM EDT [facility] ([facility]) Name Value Range Interpretation Code Description Data Esthela rce(s) Supporting Document(s) Sodium 140 meq/L 134-153 [facility] ([facility]) Comprehensive Metabo Laboratory test result [facility] ([facility]) COMPREHENSIVE METABOLIC PANEL Potassium 4.3 meq/L 3.6-5.0 [facility] ([facility]) Glucose 102 mg/dL 65-110 [facility] ([facility]) Co2 26 meq/L 22-30 [facility] ([facility]) Chloride 107 meq/L 98-107 [facility] ([facility]) Creatinine 0.6 mg/dL 0.7-1.5 Below low normal [facility] ( [facility]) BUN 10 mg/dL 7-21 [facility] ([facility]) BUN/Creat 17 8-27 [facility] ([facility]) Albumin 4.5 g/dL 3.9-5.0 [facility] ([facility]) Total Protein 6.8 g/dL 6.3-8.2 [facility] ([facility]) A/G Ratio 2.0 0.8-2.0 [facility] ([facility]) Globulin 2.3 GM/DL 2.4-3.2 Below low normal [facility] ( [facility]) Calcium 9.5 mg/dL 8.4-10.2 [facility] ([facility]) Sgot/Ast 23 U/L 5-40 [facility] ([facility]) SGPT/Alt 25 U/L 7-56 [facility] ([facility]) Total Bili Laboratory test result 0.2-1.3 [facility] ([facility]) Alkaline Phos 83 U/L 38-126 [facility] ([facility]) Anion Gap 7.0 mmol/L 8.0-16.0 Below low normal [facility] ( [facility]) Age 49 yrs [facility] ([facility]) Non-Aa GFR Laboratory test result [facility] ([facility]) Afr Amer GFR Laboratory test result [facility] ([facility]) Male GFR Interprentation 20-49 yrs >60 mL/min Normal 50-59 yrs >56 mL/min Normal 60-69 yrs >49 mL/min Normal 70-79yrs >42 mL/min Normal 80 and above >35 mL/min Normal Female GFR Interpretation 20-39 yrs >60 mL/min Normal 40-49 yrs >58 mL/min Normal 50-59 yrs >51 mL/min Normal 60-69 yrs >45 mL/min Normal 70-79 yrs >39 mL/min Normal 80 and above >32 mL/min Normal ID Date Data Source [id number] 04/16/2020 08:55:00 AM EDT [facility] ([facility]) Name Value Range Interpretation Code Description Data Esthela rce(s) Supporting Document(s) Fibrin D-dimer [Presence] in Platelet poor plasma Laboratory test result 0.27-0.50 [facility] ([facility]) Troponin T.cardiac [Mass/volume] in Serum or Plasma Laborato ry test result 0.00-0.10 [facility] ([facility]) TROPONIN T 0.1 ng/ml Recommended as the clinical th reshold value for Troponin T. Thyrotropin [Units/volume] in Serum or Plasma 1.26 uIU/mL 0.47-5.01 [facility] ([facility]) Lipase [Enzymatic activity/volume] in Serum or Plasma 37 U/L 13-6 0 [facility] ([facility]) Natriuretic peptide.B prohormone N-Terminal [Mass/volu me] in Serum or Plasma 53 pg/mL 0-125 [facility] ([facility]) ID Date Data Source [id number] 04/16/2020 08:55:00 AM EDT [facility] ([facility]) Name Value Range Interpretation Code Description Data Esthela rce(s) Supporting Document(s) WBC 8.2 10^3/uL 4.2-11.0 [facility] ([facility]) CBC W/Automated Diff Laboratory test result [facility] ([facility]) COMPLETE BLOOD COUNT Hematocrit 37.6 % 37.0-47.0 [facility] ([facility]) Hemoglobin 12.5 g/dL 12.0-16.0 [facility] ([facility]) MCV 94.7 fL 81.0-101 [facility] ([facility]) RBC 3.97 10^6/uL 4.20-5.40 Below low normal [facility] ([facility]) RDW 12.6 % 11.5-14.5 [facility] ([facility]) MCH 31.5 pg 27.0-34.0 [facility] ([facility]) MCHC 33.2 g/dL 31.0-36.0 [facility] ([facility]) Platelets 274 10^3/uL 150-450 [facility] ([facility]) MPV 10.2 fL 7.4-10.4 [facility] ([facility]) Neut 52.1 % 37.0-80.0 [facility] ([facility]) [place] 6.1 % 3.0-8.0 [facility] ([facility]) Lymph 37.6 % 25.0-40.0 [facility] ([facility]) Eos 3.3 % 0.0-7.0 [facility] ([facility]) Baso 0.5 % 0.0-2.5 [facility] ([facility]) %Ig 0.4 % 0.0-0.0 Above high normal [facility] ([facility]) %NRBC 0.0 % 0.0-0.0 [facility] ([facility]) #[place] 0.50 10^3/uL 0.00-0.90 [facility] ([facility]) #Lymph 3.07 10^3/uL 0.60-3.40 [facility] ([facility]) #Eos 0.27 10^3/uL 0.00-0.70 [facility] ([facility]) #Neut 4.25 10^3/uL 2.00-6.90 [facility] ([facility]) #Ig 0.03 10^3/uL 0.00-0.10 [facility] ([facility]) #NRBC 0.00 10^3/uL 0.00-0.00 [facility] ([facility]) #Baso 0.04 10^3/uL 0.00-0.20 [facility] ([facility]) Manual Diff Laboratory test result M [facility] ([facility]) RBC Morph Laboratory test result [facility] ([facility]) ID Date Data Source [id number] 04/16/2020 03:01:00 PM EDT [facility] Name Value Range Interpretation Code Description Data Esthela rce(s) Supporting Document(s) Thyroxine (T4) [Mass/volume] in Serum or Plasma 5.7 UG/DL 4.5 - 12.5 [facility] ID Date Data Source [id number] 04/16/2020 10:06:00 AM EDT [facility] Name Value Range Interpretation Code Description Data Esthela rce(s) Supporting Document(s) COMPREHENSIVE METABOLIC PANEL [facility] COMPREHENSIVE METABOLIC PANEL Sodium [Moles/volume] in Serum or Plasma 140 mEq/L 134 - 153 [facility] Potassium [Moles/volume] in Serum or Plasma 4.3 mEq/L 3.6 - 5.0 [facility] Chloride [Moles/volume] in Serum or Plasma 107 mEq/L 98 - 107 [facility] Carbon dioxide, total [Moles/volume] in Serum or Plasma 26 MEQ/L 22 - 30 [facility] Glucose [Mass/volume] in Serum or Plasma 102 MG/DL 65 - 110 [facility] BUN 10 [facility]DL 7 - [facility] Creat[facility] [Mass/volume] in Serum or Plasma 0.6 MG/DL 0.7 - 1.5 L [facility] BUN/CREAT 17 8 - 27 [facility] Protein [Mass/volume] in Serum or Plasma 6.8 G/DL 6.3 - 8.2 [facility] Albumin [Mass/volume] in Serum or Plasma 4.5 G/DL 3.9 - 5.0 [facility] Globulin [Mass/volume] in Serum by calculation 2.3 GM/DL 2.4 - 3.2 L [facility] A/G RATIO 2.0 0.8 - 2.0 [facility] Calcium [Mass/volume] in Serum or Plasma 9.5 MG/DL 8.4 - 10.2 [facility] Bilirubin.total [Mass/volume] in Serum or Plasma <0.7 MG/DL 0.2 - 1.3 [facility] Alkaline phosphatase [Enzymatic activity/volume] in Serum or Plasma 83 U/L 38 - 126 [facility] Aspartate aminotransferase [Enzymatic activity/volume] in Serum or Plasma 23 U/L 5 - 40 [facility] Alanine aminotransferase [Enzymatic activity/volume] in Seru m or Plasma 25 U/L 7 - 56 [facility] Anion gap 3 in Serum or Plasma 7.0 mmol/L 8.0 - 16.0 L [facility] AGE 49 yrs [facility] NON-AA GFR >60 mL/min [facility] AFR AMER GFR >60 mL/min [facility] Male GFR In terprentation 20-49 yrs >60 mL/min Normal 50-59 yrs >56 mL/min Normal 60-69 yrs >49 mL/min Normal 70-79yrs >42 mL/min Normal 80 and above >35 mL/min Normal Female GFR Interpretation 20-39 yrs >60 mL/min Normal 40-49 yrs >58 mL/min Normal 50-59 yrs >51 mL/min Normal 60-69 yrs >45 mL/min Normal 70-79 yrs >39 mL/min Normal 80 and above >32 mL/min Normal ID Date Data Source [id number] 04/16/2020 10:06:00 AM EDT [facility] Value Range Interpretation Code Description Data Esthela rce(s) Supporting Document(s) BNP 53 PG/ML 0 - 125 [facility] ID Date Data Source [id number] 04/16/2020 10:06:00 AM EDT [facility] Value Range Interpretation Code Description Data Esthela rce(s) Supporting Document(s) Lipase [Enzymatic activity/volume] in Serum or Plasma 37 U/L 13 - 60 [facility] ID Date Data Source [id number] 04/16/2020 10:06:00 AM EDT [facility] Value Range Interpretation Code Description Data Esthela rce(s) Supporting Document(s) Thyrotropin [Units/volume] in Serum or Plasma by Detec tion limit <= 0.05 mIU/L 1.26 uIU/mL 0.47 - 5.01 [facility] ID Date Data Source [id number] 04/16/2020 09:58:00 AM EDT [facility] Value Range Interpretation Code Description Data Esthela rce(s) Supporting Document(s) TROPONIN T <0.01 NG/ML 0.00 - 0.10 [facility]ital TROPONIN T0.1 ng/ml Recommended as the c linical threshold value forTroponin T. ID Date Data Source [id number] 04/16/2020 09:48:00 AM EDT [facility] Value Range Interpretation Code Description Data Esthela rce(s) Supporting Document(s) Fibrin D-dimer FEU [Mass/volume] in Platelet poor plasma <0. 27 ug/mL 0.27 - 0.50 [facility] ID Date Data Source [id number] 04/16/2020 09:37:00 AM EDT [facility] Name Value Range Interpretation Code Description Data Esthela rce(s) Supporting Document(s) CBC W/AUTOMATED DIFF [facility] COMPLETE BLOOD COUNT Leukocytes [#/volume] in Blood by Automated count 8.2 10^3/uL 4.2 - 1 1.0 [facility] Erythrocytes [#/volume] in Blood by Automated count 3.97 10^6/uL 4. 20 - 5.40 L [facility] Hemoglobin [Mass/volume] in Blood 12.5 g/dL 12.0 - 16.0 [facility] Hematocrit [Volume Fraction] of Blood by Automated count 37.6 % 3 7.0 - 47.0 [facility] Erythrocyte mean corpuscular volume [Entitic volume] by Auto mated count 94.7 fL 81.0 - 101 [facility] Erythrocyte mean corpuscular hemoglobin [Entitic mass] by Automated count 31.5 pg 27.0 - 34.0 [facility] Erythrocyte mean corpuscular hemoglobin concentration [Mass/volume] by Automated count 33.2 g/dL 31.0 - 36.0 [facility] Erythrocyte distribution width [Ratio] by Automated count 12.6 % 11.5 - 14.5 [facility] Platelets [#/volume] in Blood by Automated count 274 10^3/uL 150 - 45 0 [facility] Platelet mean volume [Entitic volume] in Blood by Automated count 10.2 fL 7.4 - 10.4 [facility] Neutrophils/100 leukocytes in Blood by Automated count 52.1 % 37. 0 - 80.0 [facility] Lymphocytes/100 leukocytes in Blood by Manual count 37.6 % 25.0 - 40.0 [facility] Monocytes/100 leukocytes in Blood by Automated count 6.1 % 3.0 - 8.0 [facility] Eosinophils/100 leukocytes in Blood by Automated count 3.3 % 0.0 - 7.0 [facility] Basophils/100 leukocytes in Blood by Automated count 0.5 % 0.0 - 2.5 [facility] %IG 0.4 % 0.0 - 0.0 [facility] %NR[facility] 0.0 % 0.0 - 0.0 [facility] al Neutrophils [#/volume] in Blood by Automated count 4.25 10^3/uL 2.00 - 6.90 [facility] Lymphocytes [#/volume] in Blood by Automated count 3.07 10^3/uL 0.60 - 3.40 [facility] Monocytes [#/volume] in Blood by Automated count 0.50 10^3/uL 0.00 - 0.90 [facility] Eosinophils [#/volume] in Blood by Automated count 0.27 10^3/uL 0.00 - 0.70 [facility] Basophils [#/volume] in Blood by Automated count 0.04 10^3/uL 0.00 - 0.20 [facility] #IG 0.03 10^3/uL 0.00 - 0.10 [facility] #NRBC 0.00 10^3/uL 0.00 - 0.00 [facility] MANUAL DIFF NOT INDICATED [facility] RBC MORPH NOT INDICATED [facility] ID Date Data Source [id number] 03/23/2020 11:18:00 AM EDT [facility] ([facility]) Name Value Range Interpretation Code Description Data Esthela rce(s) Supporting Document(s) Cyclic citrullinated peptide IgG Ab [Units/volume] in Serum or Plasma 21 units 0-19 Above high normal [facility] ([facility]) <content>Negative <20</con tent>
<content>Weak positive 20 - 39</content>
<content>Moderate positive 40 - 59</content>
<content>Strong positive >59</content>
<content></content> ID Date Data Source [id number] 03/26/2020 01:42:00 AM EDT [facility] Name Value Range Interpretation Code Description Data Esthela rce(s) Supporting Document(s) Cyclic citrullinated peptide IgA+IgG Ab [Units/volume] in Serum or Plasma by Immunoassay 21 units 0-19 H [facility] Negative <20 Weak positive 20 - 39 Moderate positive 40 - 59 Strong positive >59 ID Date Data Source [id number] 03/20/2020 09:38:00 AM EDT [facility] [address] [place] [address] PHONE: [phone] FAX: [phone] Name .................. : HAVEN Galarza Acct Number.................. : [id number] ROOM. ................. : Number ................... : [id number] Stay type ............. : O/P Discharge Date......... ... : 03/19/20 Admit Date ......... : 03/19/20 Admit Phys .................... : [facility] Date of ....... : 1970 Family Phys ................... : [facility] Phone .................. : [phone] Age ................................ : 49 Film# .................. .:[id number] Sex ................................. : F Unsigned transcriptions are preliminary reports and do not represent a medical or legal document HAND COMP - BILATERAL [id number] COMPLETE:03/19/20 07:18 [place] [id number] (REASON FOR PROCESS: polyarthritis BILATERAL HAND X-RAY: FINDINGS: 4-views of the right hand and 4-views of the left hand were performed. Symmetric bilateral periarticular osteopenia is seen most marked at the metacarpophalangeal joints raising concern for rheumatoid arthritis or rheumatoid variant. Fracture, subluxation, focal osseous lesion or periosteal reaction is not seen. The soft tissues are unremarkable. IMPRESSION: Symmetric bilateral periarticular osteopenia raising concern for rheumatoid arthritis or rheumatoid variant. Electronically Reviewed and Signed By Gwyn Mar MD , 03/20/20 09:38, MARISOL Transcribe Initials: HERMES , Transcribe Date: 03/19/20 15:51, Dictation Date: Copy for: [address] [place] [address] REC Page 1 of 1 Name Value Range Interpretation Code Description Data [facility] Supporting Document(s) ID Date Data Source [id number] 03/12/2020 07:30:00 AM EDT [facility] 1 Medication Reconciliation Report [facility] Emergency Department [address] [place] [address] Phone #: ext- [phone] 03/12/2020 07:19 Patient: CRYS FRANK Sex: F : 1970 Age: 49yWeight: 77.5 kgHeight/Length: 67 in.BMI: 26.8ALLERGIES: Cipro, predniSONEThe patient's Home Medications are listed below:CONTINUE TAKING THE FOLLOWING MEDICATIONS: Atorvastatin Calcium Oral (10 mg), daily Lisinopril Oral (10 mg) 1 tablet, dailyThe source(s) of the original Home Medication information:Not obtained.The following Medications were given to the patient in the Emergency Department:None.The following Medications were prescribed to the patient:Acyclovir 800 mg: five times a day for 10 days. No refill. -- Gabriella Grande MD Name Value Range Interpretation Code Description Data Estheal rce(s) Supporting Document(s) ID Date Data Source [id number] 03/12/2020 07:30:00 AM EDT [facility] 1 Medication Administration Record [facility] Emergency Department [address] [place] [address] Phone #: ext- [phone] 03/12/2020 07:19 Patient: CRYS FRANK Sex: F : 1970 Age: 49yWeight: 77.5 kgHeight/Length: 67 inBMI: 26.8ALLERGIES: predniSONE, CiproDate/Time Medication Administered Medication Ordered Name Value Range Interpretation Code Description Data Esthela rce(s) Supporting Document(s) ID Date Data Source [id number] 03/12/2020 07:30:00 AM EDT [facility] 1 General Instructions [facility] Emergency Department [address] [place] [address] Phone #: ext [phone] 03/12/2020 07:19 Patient: CRYS FRANK Sex: F : 1970 Age: 49yHerpes zoster without complications. No keratitis, otitis externa or postherpetic neuralgia.INSTRUCTIONSDo not work tomorrow.(Please follow up with your primary care physician on Monday for re- evaluation. If anything changes, youdevelop chest pain, shortness of breath or you are worried, please return for re-evaluation. You may taketylenol and motrin for pain.).Warnings: GENERAL WARNINGS: Return or contact your physician immediately if your conditionworsens or changes unexpectedly, if not improving as expected, or if other problems arise.Your Current Medications: Your current home medications have been reviewed.CONTINUE TAKING THE FOLLOWING MEDICATIONS:Atorvastatin Calcium Oral : Tablet 10 mg, daily.Lisinopril Oral : Tablet 10 mg, 1 tablet daily.Prescription Medications:Acyclovir 800 mg: five times a day for 10 days. No refill.Follow-up:Follow up with your doctor in four days even if well. Call for an appointment. Reason for referral:evaluation. Summary of care provided to patient and follow-up provider via paper.Understanding of the discharge instructions verbalized by patient. ADDITIONAL INFORMATIONShinglesShingles is a viral infection caused by the same virus that causes chicken pox. Anyone who has hadchicken pox may get shingles later in life. The virus stays in the body, but remains asleep (dormant).Shingles often occurs in older persons or persons with lowered immunity. But it can affect anyone atany age.Shingles starts as a tingling patch of skin on one side of the body. Small, painful blisters may thenappear. The rash rarely spreads to other parts of the body. 2 General Instructions [facility] Emergency Department [address] [place] [address] Phone #: ext- [phone] 03/12/2020 07:19 Patient: CRYS FRANK Sex: F : 1970 Age: 49yExposure to shingles can't cause shingles. However, it can cause chicken pox in anyone who has nothad chicken pox or has not been vaccinated. The contagious period ends when all blisters havecrusted over, generally 1 to 2 weeks after the illness starts.After the blisters heal, the affected skin may be sensitive or painful for weeks or months, graduallyresolving over time. But, sometimes this can last longer and be permanent (called postherpeticneuralgia.)Shingles vaccines are available. Vaccination can help prevent shingles or make it less painful. Itis generally recommended for adults older than 50, even if you've had singles in the past. Talk withyour healthcare provider about when to get vaccinated and which vaccine is best for you.Home care Medicines may be prescribed to help relieve pain. Take these medicines as directed. Ask your healthcare provider or pharmacist before using lvqg-ety-mxohqfa medicines for helping treat pain and itching. In certain cases, antiviral medicines may be prescribed to reduce pain, shorten the illness, and prevent neuralgia. Take these medicines as directed. Compresses made from a solution of cool water mixed with cornstarch or baking soda may help relieve pain and itching. Gently wash skin daily with soap and water to help prevent infection. Be certain to rinse off all of the soap, which can be irritating. Trim fingernails and try not to scratch. Scratching the sores may leave scars. Stay home from work or school until all blisters have formed a crust and you are no longer contagious.Follow-up careFollow up with your healthcare provider, or as directed.When to seek medical advice Fever of 100.4F (38C) or higher, or as directed by your healthcare provider Affected skin is on the face or neck and any of the following occur: o Headache o Eye pain o Changes in vision 3 General Instructions [facility] Emergency Department [address] [place] [address] Phone #: ext- [phone] 03/12/2020 07:19 Patient: CRYS FRANK Sex: F : 1970 Age: 49y o Sores near the eye o Weakness of facial muscles Blisters occurring on new areas of the body Pain, redness, or swelling of a joint Signs of skin infection: colored drainage from the sores, warmth, increasing redness, fever, or increasing pain [id number] [employer] [address] [place] [address]. All rights reserved. This information is not intended as asubstitute for professional medical care. Always follow your healthcare professional's instructions.Acyclovir tablets or capsulesWhat is this medicine?ACYCLOVIR (ay SYE kloe veada) is an antiviral medicine. It is used to treat or prevent infectionscaused by certain kinds of viruses. Examples of these infections include herpes and shingles. Thismedicine will not cure herpes.How should I use this medicine?Take this medicine by mouth with a glass of water. Follow the directions on the prescription label. Youcan take it with or without food. Take your medicine at regular intervals. Do not take your medicinemore often than directed. Take all of your medicine as directed even if you think your are better. Donot skip doses or stop your medicine early.Talk to your reconciliation machine operator regarding the use of this medicine in children. While this drug may beprescribed for selected conditions, precautions do apply.What side effects may I notice from receiving this medicine?Side effects that you should report to your doctor or health special needs child caregiver as soon as possible: allergic reactions like skin rash, itching or hives, swelling of the face, lips, or tongue chest pain confusion, hallucinations, tremor dark urine increased sensitivity to the sun redness, blistering, peeling or loosening of the skin, including inside the mouth 4 General Instructions [facility] Emergency Department [address] [place] [address] Phone #: ext- [phone] 03/12/2020 07:19 Patient: CRYS FRANK Sex: F : 1970 Age: 49y seizures trouble passing urine or change in the amount of urine unusual bleeding or bruising, or pinpoint red spots on the skin unusually weak or tired yellowing of the eyes or skinSide effects that usually do not require medical attention (report to your doctor or health careprofessional if they con tinue or are bothersome): diarrhea fever headache nausea, vomiting stomach upsetWhat may interact with this medicine? probenecidWhat if I miss a dose?If you miss a dose, take it as soon as you can. If it is almost time for your next dose, take only thatdose. Do not take double or extra doses.Where should I keep my medicine?Keep out of the reach of children.Store at room temperature between 15 and 25 degrees C (59 and 77 degrees F). Throw away anyunused medicine after the expiration date.What should I tell my health care provider before I take this medicine?They need to know if you have any of these conditions: kidney disease an unusual or allergic reaction to acyclovir, ganciclovir, valacyclovir, other medicines, foods, dyes, or preservatives or trying to get 5 General Instructions [facility] Emergency Department [address] [place] [address] Phone #: ext- [phone] 03/12/2020 07:19 Patient: CRYS FRANK Sex: F : 1970 Age: 49y breast-feedingWhat should I watch for while using this medicine?Tell your doctor or health special needs child caregiver if your symptoms do not improve. This medicine worksbest when started very early in the course of an infection. Begin treatment at the first signs ofinfection.Drink 6 to 8 glasses of water or fluids every day while you are taking this medicine. This will helpprevent side effects.You can still pass chickenpox, shingles, or herpes to another person even while you are taking thismedicine. Avoid contact with others as directed. Genital herpes is a sexually transmitted disease.Talk to your doctor about how to stop the spread of infection.NOTE:This sheet is a summary. It may not cover all possible inform ation. If you have questions about this medicine, talk to your doctor, pharmacist, orhealth care provider. Copyright 2019 [employer] You have been given the following additional information: Shingles (Herpes Zoster) Acyclovir tablets or capsules Do not work tomorrow.(Electronically signed by Gabriella Grande MD 03/12/2020 23:57) Name Value Range Interpretation Code Description Data Esthela rce(s) Supporting Document(s) ID Date Data Source [id number] 03/12/2020 07:30:00 AM EDT [facility] 1 Clinical Report - Nurses [facility] Emergency Department [address] [place] [address] Phone #: ext- [phone] 03/12/2020 07:19 Patient: CRYS FRANK Sex: F : 1970 Age: 49yTRIAGEArrived by private vehicle. Historian: patient. Accompanied by family. ( woke up yesterday with pain inright arm pit, was seen at dr marrero 2 days ago for joint achiness tested for Lyme disease. had some swellingin right hand).Acuity: LEVEL 4.Chief Complaint: RIGHT UPPER EXTREMITY PAIN and SWELLING.Alert. No acute distress.No injury occurred. 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 Sepsis Screen negative. No suspected or confirmed signs ofinfection present. --07:35 03/12/20 Mirna Eric R.N.07:26 03/12/20. BP: 143/80. MAP: 101. HR: 92. RR: 18. O2 saturation: 99%. Temp: 98.4 F (oral). Painlevel now: 06/20. --07:35 03/12/20 Mirna Eric R.N.Weight: 77.5 kg stated. Height/Length: 67 inches Per Patient. BMI: 26.8. --07:25 03/12/20 Mirna Eric R.N.MedicationsAtorvastatin Calcium Oral (Tablet 10 mg), daily. --07:30 03/12/20 Mirna Eric R.N. Lisinopril Oral (Tablet 10 mg) 1 tablet, daily. --07:30 03/12/20 Mirna Eric R.N.AllergiespredniSONE. (breathing problem) --07:29 03/12/20 Mirna Eric R.N.Cipro. --07:40 03/12/20 Kyle Cano RNThe following entry was struck by Kyle Cano RN, 07:40 (03/12/20) Reason - other. States allery to a antibiotic does not know name. --07:30 03/12/20 Mirna Eric R.N. .PROBLEMS:Plyarthritis.Sleep Apnea.Myofascial Strain.Periorbital Cellulitis.Anxiety Reaction.Carpal Tunnel Syndrome.Tendonitis. --07:33 03/12/20 Mirna Eric R.N. 2 Clinical Report - Nurses [facility] Emergency Department [address] [place] [address] Phone #: ext- [phone] 03/12/2020 07:19 Patient: CRYS FRANK Sex: F : 1970 Age: 49y ADDITIONAL SURGERIES: Neck Surgery. Parotidectomy. Tubal Ligation. Wrist surgery LEFT. --07:33 03/12/20 Mirna Eric R.N. History PAST MEDICAL HX: Tetanus status: up-to-date. Immunizations: up-to-date. No menstrual periods Last normal menstrual period- tubal. SOCIAL HX: Light tobacco smoker- less than 1/2 a pack per day. Occasional alcohol use. No drug use. She was offered HIV testing but declined and hepatitis C testing but declined. She has not traveled outside the [place] Infectious disease exposure: No infectious disease exposure. Patient is not a known carrier of tuberculosis, hepatitis, HIV, MRSA or VRE. Patient is not a known carrier of CRE. SELF HARM ASSESSMENT: Self harm assessment was performed. The patient answered "no" to the question(s) "Have you recently felt down, depressed, or hopeless?", "Do you have thoughts of harming or killing yourself?", "Do you have a plan for harming or killing yourself?", "Have you recently had thoughts about harming or killing others?", "Do you have any dangerous items in your possession?", "Have you noticed less interest or pleasure in doing things?", "Are you here because you tried to hurt yourself?" and "Have you ever tried to hurt yourself before today?". ABUSE ASSESSMENT: Abuse assessment. Abuse denied. No suspicion of abuse. No report of abuse. NUTRITIONAL RISK ASSESSMENT: The nutritional risk assessment revealed no deficiencies. FUNCTIONAL ASSESSMENT: Functional assessment: no impairments noted. LEARNING NEEDS ASSESSMENT: The learning needs assessment revealed no barriers. FALL RISK ASSESSMENT: Fall risk assessment completed. No risk factors identified. SKIN INTEGRITY ASSESSMENT: Skin integrity risk assessment completed. No skin integrity risk identified. --07:35 03/12/20 Mirna Eric R.N. Interventions Identification band on patient. To treatment room. --07:35 03/12/20 Mirna Eric R.N.PHYSICAL [id number] 03/12/20. Ambulatory to room.GENERAL / NEURO / PSYCH: Oriented X 4. Alert. Appears in no acute distress.EXTREMITIES: Extremities exhibit normal ROM. Right arm: tenderness (right axilla slight lump anterior).SKIN: Skin is warm and dry. --07:37 03/12/20 Kyle Cano RN. 3 Clinical Report - Nurses [facility] Emergency Department [address] [place] [address] Phone #: [phone] sdl- [phone] 03/12/2020 07:19 Patient: CRYS FRANK Sex: F : 1970 Age: 49yNURSING PROGRESS NOTESReassurance given. Patient identifiers checked. Call light placed in reach. Side rails up x 2. Bedplaced in lowest position. Brakes of bed on. Patient ready for evaluation- ED physician notified. --07: Mirna Eric R.N.DISPOSITION / DISCHARGE 08:03 03/12/20. BP: 122/86. MAP: 98. HR: 78. RR: 18. O2 saturation: 98% on room air. Temp: 98.8 F (oral). Pain level now: 05/21. --08:04 03/12/20 Mirna Eric R.N. 08:31 03/12/20. Departure time: 08:30 03/12/2020. Condition at departure: unchanged. No learning barriers present. Discharge instructions provided and reviewed with the issa schneider. Reviewed medication(s) side effects, precautions, dosing and course information. Prescription(s) given to the patient. Reviewed referrals. Provided to follow-up provider. Patient verbalized understanding. Written instructions provided in British. The patient was discharged by the physician. She was discharged home. She left ambulatory and via private vehicle. Patient driving. --08:31 03/12/20 Kyle Cano RN.Locked/Released at 03/13/2020 07:41 by Kyle Cano RN Name Value Range Interpretation Code Description Data Esthela rce(s) Supporting Document(s) ID Date Data Source [id number] 03/12/2020 07:30:00 AM EDT [facility] 1 Clinical Report - Physicians/Mid Levels [facility] Emergency Department [address] [place] [address] Phone #: ext- [phone] 03/12/2020 07:19 [id number] Sex[facility] F : 1970 Age: 49y Historian- patient. Disposition decision: 08:15 03/12/2020.HISTORY OF PRESENT ILLNESS Chief Complaint: SKIN RASH. This started yesterday and is still present. It is not gone now. Not itchy. It is described as painful and burning. It has been located in the right axilla (also to right lateral breast tissue). No rash to face. No recent medication, insect bite or food exposure. Was not recently exposed to poison [place] or poison oak. Similar symptoms previously. None. Recent medical care: Not recently seen/assessed.REVIEW OF SYSTEMSNo fever, chills, sore throat, cough or difficulty breathing. No hoarseness, lump in throat, headache, eyeirritation or chest pain. No abdominal pain, nausea, diarrhea, difficulty with urination or vomiting.PAST HISTORYSee nurses notes. Problems: Plyarthritis. Sleep Apnea. Myofascial Strain. Periorbital Cellulitis. Anxiety Reaction. Carpal Tunnel Syndrome. Tendonitis. Additional Surgeries: Neck Surgery. Parotidectomy. Tubal Ligation. Wrist surgery LEFT. Medications: Lisinopril Oral (Tablet 10 mg) 1 tablet, daily. Atorvastatin Calcium Oral (Tablet 10 mg), daily. Allergies: Cipro. predniSONE. (breathing problem). 2 Clinical Report - Physicians/Mid [facility] Emergency Department [address] [place] [address] Phone #: ext- [phone] 03/12/2020 07:19 Patient: CRYS FRANK Sex: F : 1970 Age: 49ySOCIAL HISTORYCurrent every day smoker.ADDITIONAL NOTESThe nursing notes have been reviewed.PHYSICAL EXAMVital Signs: 03/12/2020 08:03 BP: 122/86. MAP: 98. HR: 78. RR: 18. O2 saturation: 98% on room air.Temp: 98.8 F. Pain level now: 05/21.03/12/2020 07:26 BP: 143/80. MAP: 101. HR: 92. RR: 18. O2 saturation: 99%. Temp: 98.4 F. Pain levelnow: 06/20. Have been reviewed and appear to be correct. Blood pressure normal. Mean arterialpressure- normal. Heart rate normal. Respiratory rate normal. Temperature normal. Oxygensaturation normal.Appearance: Alert. Oriented X3. No acute distress.Eyes: Pupils equal, round and reactive to light. Conjunctivae and eyelids normal.ENT: Nose normal. Pharynx normal.Neck: Neck supple.CVS: Normal heart rate and rhythm. Heart sounds normal.Respiratory: No respiratory distress. Breath sounds normal. Chest nontender.Abdomen: Nontender.Skin: Skin warm and dry. No tender indurated area. No cellulitis. Mild, erythematous skin rash on theright breast- slightly tender to palpation. No tender or macular skin rash. No abscess.Extremities: Normal external inspection. Extremities nontender.Neuro: Oriented X 3. No motor deficit. No sens ory deficit.PROGRESS AND PROCEDURESCourse of Care: pt presents for evaluation of right axillary pain. on evaluation, i made the determinationthat this is actually early shingles. I discussed with pt. Pt was also concerned because breast cancerruns in the family. I performed a breast exam. I did not find any lumps. I encouraged pt to f/u with pcpand informed her that she does need her routine breast exams. pt was given a rx for prednisone andacyclovir. pt encouraged to return if worse or any new symptoms. Patient/family counseled. Disposition: Discharged. Condition: good and stable.CLINICAL IMPRESSION Herpes zoster without complications. No keratitis, otitis externa or postherpetic neuralgia.INSTRUCTIONS 3 Clinical Report - Physicians/Mid Levels [facility] Emergency Department [address] [place] [address] Phone #: ext- [phone] 03/12/2020 07:19 Patient: CRYS FRANK Sex: F : 1970 Age: 49y Do not work tomorrow. (Please follow up with your primary care physician on Monday for re-evaluation. If anything changes, you develop chest pain, shortness of breath or you are worried, please return for re-evaluation. You may take tylenol and motrin for pain.). Warnings: GENERAL WARNINGS: Return or contact your physician immediately if your condition worsens or changes unexpectedly, if not improving as expected, or if other problems arise. Your Current Medications: Your current home medications have been reviewed. CONTINUE TAKING THE FOLLOWING MEDICATIONS: Atorvastatin Calcium Oral : Tablet 10 mg, daily. Lisinopril Oral : Tablet 10 mg, 1 tablet daily. Prescription Medications: Acyclovir 800 mg: five times a day for 10 days. No refill. Follow-up: Follow up with your doctor in four days even if well. Call for an appointment. Reason for referral: evaluation. Summary of care provided to patient and follow-up provider via paper. Understanding of the discharge instructions verbalized by patient.(Electronically signed by Gabriella Grande MD 03/12/2020 23:57) Name Value Range Interpretation Code Description Data Esthela rce(s) Supporting Document(s) ID Date Data Source [id number] 03/10/2020 02:25:00 PM EDT [facility] ([facility]) Name Value Range Interpretation Code Description Data Esthela rce(s) Supporting Document(s) Rheumatoid factor [Units/volume] in Serum or Plasma 12 IU/ml 0-14 [facility] ([facility]) Urate [Mass/volume] in Serum or Plasma 3.8 mg/dL 2.5-8.5 [facility] ([facility]) Calcidiol [Mass/volume] in Serum or Plasma 31 ng/mL [facility] ([facility]) <content>VITAMIN-D(25HYDROXY)</content>< br/><content>Deficiency: <=20 ng/ml</content>
<content>Insufficiency: 21-29 ng/ml</content>
<content>Preferred level: => 30 ng/ml</content>
<conten t></content> Thyrotropin [Units/volume] in Serum or Plasma 1.23 uIU/mL 0.47-5.01 [facility] ([facility]) Nuclear Ab [Titer] in Serum by Immunofluorescence Laboratory test res ult [facility] ([facility]) <content>Negative <1:80</content>
<content>Borderline 1:80</content>
<content>Positive >1:80</content>
<content></content> ID Date Data Source [id number] 03/10/2020 02:25:00 PM EDT [facility] ([facility]) Name Value Range Interpretation Code Description Data Esthela rce(s) Supporting Document(s) Sjogren's Anti-SS-A Laboratory test result 0.0-0.9 [facility] ([facility]) Sjogren's Anti-SS-B Laboratory test result 0.0-0.9 [facility] ([facility]) Anti-Dna (DS) Ab Qn 1 IU/ml 0-9 [facility] ([facility]) <content>Negative <5</content>
<content>Equivocal 5 - 9</content>
<content>Positive >9</content>
<content></content> Frank Antibodies Laboratory test result 0.0-0.9 [facility] ([facility]) BLANKET CUTTER HAND Antibodies 0.3 AI 0.0-0.9 [facility] ([facility]) ID Date Data Source [id number] 03/10/2020 02:25:00 PM EDT [facility] ([facility]) Name Value Range Interpretation Code Description Data Esthela rce(s) Supporting Document(s) Lyme IgG/IgM Ab Laboratory test result 0.00-0.90 [facility] ([facility]) <content>Negative <0.91</content >
<content>Equivocal 0.91 - 1.09</content>
<content>Positive >1.09</content>
<content></content> Lyme Disease Ab, Quant,IgM Laboratory test result 0.00-0.79 [facility] ([facility]) <content>Negative <0.80</content >
<content>Equivocal 0.80 - 1.19</content>
<content>Positive >1.19</content>
<content>IgM levels may peak at 3-6 weeks post infection, then</content>
<content>gradually decline.</content>
<content></content> ID Date Data Source [id number] 03/10/2020 02:25:00 PM EDT [facility] ([facility]) Name Value Range Interpretation Code Description Data Esthela rce(s) Supporting Document(s) Sed Rate 23 mm/hr 0-30 [facility] ([facility]) Sed Rate Reenter 23 [facility] ([facility]) ID Date Data Source [id number] 03/10/2020 02:25:00 PM EDT [facility] ([facility]) Name Value Range Interpretation Code Description Data Esthela rce(s) Supporting Document(s) C reactive protein [Mass/volume] in Serum or Plasma by High sensitivity method 12.51 mg/L 1.00-3.00 Above high normal [facility] ([facility]) <content>CDC/S HS-CRP CUT-OFF: RELATIVE RISK:</content>
<content><1.0 mg/L Low</content>
<content>1.0 - 3.0 mg/L Average</rolanda nt>
<content>>3.0 mg/L High</content>
<content>Optimally, the average of HS-CRP results repeated</content>
<content>two weeks apart should be used for risk assessment.</content>
<content></content> ID Date Data Source [id number] 03/12/2020 06:38:00 PM EDT [facility] Name Value Range Interpretation Code Description Data Esthela rce(s) Supporting Document(s) Nuclear Ab [Titer] in Serum by Immunofluorescence Negative [facility] Negative <1:80 Borderline 1:80 Positive >1:80 ID Date Data Source [id number] 03/12/2020 06:38:00 PM EDT [facility] Name Value Range Interpretation Code Description Data Esthela rce(s) Supporting Document(s) Borrelia burgdorferi IgG+IgM Ab [Units/volume] in Serum <0.91 ISR 0. 00-0.90 [facility] Negative <0.91 Equivocal 0.91 - 1.09 Positive >1.09 Borrelia burgdorferi IgM Ab [Units/volume] in Serum by Immun oassay <0.80 index 0.00-0.79 [facility] Negative <0.80 Equivocal 0.80 - 1.19 Positive >1.19 IgM levels may peak at 3-6 weeks post infection, then gradually decline. ID Date Data Source [id number] 03/12/2020 01:23:00 PM EDT [facility] Name Value Range Interpretation Code Description Data Esthela rce(s) Supporting Document(s) Sjogrens syndrome-A extractable nuclear Ab [Units/volume] in Serum <0.2 AI 0.0-0.9 [facility] Sjogrens syndrome-B extractable nuclear Ab [Units/volume] in Serum <0.2 AI 0.0-0.9 [facility] Ribonucleoprotein extractable nuclear Ab [Units/volume] in Serum 0.3 AI 0.0-0.9 [facility] Frank extractable nuclear Ab [Units/volume] in Serum <0.2 AI 0.0-0 .9 [facility] DNA double strand Ab [Units/volume] in Serum 1 IU/mL 0-9 [facility] Negative <5 Equivocal 5 - 9 Positive >9 ID Date Data Source [id number] 03/10/2020 08:40:00 PM EDT [facility] Name Value Range Interpretation Code Description Data Esthela rce(s) Supporting Document(s) C reactive protein [Mass/volume] in Serum or Plasma by High sensitivity method 12.51 MG/L 1.00 - 3.00 H [facility] CDC/S HS-CRP CUT-OFF: RELATIVE RISK: <1.0 mg/L Low 1.0 - 3.0 mg/L Average >3.0 mg/L High Optimally, the average of HS-CRP results repeated two weeks apart should be used for risk assessment. ID Date Data Source [id number] 03/10/2020 02:25:00 PM EDT [facility] ([facility]) Name Value Range Interpretation Code Description Data Esthela rce(s) Supporting Document(s) Erythrocyte sedimentation rate by Westergren method Laboratory test result [facility] ([facility]) Nuclear Ab [Presence] in Serum Laboratory test result [facility] ([facility]) C reactive protein [Mass/volume] in Serum or Plasma by High sensitivity method Laboratory test result [facility] ([facility]) ID Date Data Source [id number] 03/10/2020 08:32:00 PM EDT [facility] Name Value Range Interpretation Code Description Data Esthela rce(s) Supporting Document(s) Thyrotropin [Units/volume] in Serum or Plasma by Detec tion limit <= 0.05 mIU/L 1.23 uIU/mL 0.47 - 5.01 [facility] ID Date Data Source [id number] 03/10/2020 08:32:00 PM EDT [facility] Name Value Range Interpretation Code Description Data Esthela rce(s) Supporting Document(s) Calcidiol [Moles/volume] in Serum or Plasma 31 NG/ML [facility] VITAMIN-D(2 5HYDROXY) Deficiency: <=20 ng/ml Insufficiency: 21-29 ng/ml Preferred level: => 30 ng/ml ID Date Data Source [id number] 03/10/2020 08:29:00 PM EDT [facility] Name Value Range Interpretation Code Description Data Esthela rce(s) Supporting Document(s) Erythrocyte sedimentation rate by Westergren method 23 mm/hr 0 - 30 [facility] SED RATE REENTER 23 [facility] ID Date Data Source [id number] 03/10/2020 08:21:00 PM EDT [facility] Name Value Range Interpretation Code Description Data Esthela rce(s) Supporting Document(s) Urate [Mass/volume] in Serum or Plasma 3.8 MG/DL 2.5 - 8.5 [facility] ID Date Data Source [id number] 03/10/2020 08:21:00 PM EDT [facility] Name Value Range Interpretation Code Description Data Esthela rce(s) Supporting Document(s) RA QUANT 12 IU/mL 0 - 14 [facility] ID Date Data Source [id number] 03/10/2020 02:24:00 PM EDT [facility] ([facility]) Name Value Range Interpretation Code Description Data Esthela rce(s) Supporting Document(s) Hand Comp - Bilateral Laboratory test result [facility] ([facility]) ID Date Data Source [id number] 02/26/2020 08:38:00 AM EDT [facility] ([facility]) Name Value Range Interpretation Code Description Data Esthela rce(s) Supporting Document(s) Hemoglobin A1c/Hemoglobin.total in Blood Laboratory test result [facility] ([facility]) FASTING~.~.~<DG1.3.1>R03.0</DG1.3.1><DG1.3.1>R21</DG1.3.1><DG1.3.1>R21</DG1.3.1> <DG1.3.1>R21 ID Date Data Source [id number] 02/26/2020 08:38:00 AM EDT [facility] ([facility]) Name Value Range Interpretation Code Description Data Esthela rce(s) Supporting Document(s) Source Laboratory test result [facility] ([facility]) FASTING~.~.~<DG1.3.1>R03.0</DG1.3.1><DG1.3.1>R21</DG1.3.1><DG1.3.1>R21</DG1.3.1> <DG1.3.1>R21 Urinalysis Laboratory test result [facility] ([facility]) FASTING~.~.~<DG1.3.1>R03.0</DG1.3.1><DG1.3.1>R21</DG1.3.1><DG1.3.1>R21</DG1.3.1> <DG1.3.1>R21 Clarity Laboratory test result [facility] ([facility]) FASTING~.~.~<DG1.3.1>R03.0</DG1.3.1><DG1.3.1>R21</DG1.3.1><DG1.3.1>R21</DG1.3.1> <DG1.3.1>R21 Color Laboratory test result [facility] ([facility]) FASTING~.~.~<DG1.3.1>R03.0</DG1.3.1><DG1.3.1>R21</DG1.3.1><DG1.3.1>R21</DG1.3.1> <DG1.3.1>R21 Spec [place] 1.015 1.001-1.030 [facility] ([facility]) FASTING~.~.~<DG1.3.1>R03.0</DG1.3.1><DG1.3.1>R21</DG1.3.1><DG1.3.1>R21</DG1.3.1> <DG1.3.1>R21 Glucose Laboratory test result [facility] ([facility]) FASTING~.~.~<DG1.3.1>R03.0</DG1.3.1><DG1.3.1>R21</DG1.3.1><DG1.3.1>R21</DG1.3.1> <DG1.3.1>R21 Bilirubin Laboratory test result [facility] ([facility]) FASTING~.~.~<DG1.3.1>R03.0</DG1.3.1><DG1.3.1>R21</DG1.3.1><DG1.3.1>R21</DG1.3.1> <DG1.3.1>R21 pH 8 5-9 [facility] ([facility]) FASTING~.~.~<DG1.3.1>R03.0</DG1.3.1><DG1.3.1>R21</DG1.3.1><DG1.3.1>R21</DG1.3.1> <DG1.3.1>R21 Protein Laboratory test result [facility] ([facility]) FASTING~.~.~<DG1.3.1>R03.0</DG1.3.1><DG1.3.1>R21</DG1.3.1><DG1.3.1>R21</DG1.3.1> <DG1.3.1>R21 Nitrite Laboratory test result [facility] ([facility]) FASTING~.~.~<DG1.3.1>R03.0</DG1.3.1><DG1.3.1>R21</DG1.3.1><DG1.3.1>R21</DG1.3.1> <DG1.3.1>R21 Ketone Laboratory test result [facility] ([facility]) FASTING~.~.~<DG1.3.1>R03.0</DG1.3.1><DG1.3.1>R21</DG1.3.1><DG1.3.1>R21</DG1.3.1> <DG1.3.1>R21 Urobilinogen Laboratory test result [facility] ([facility]) FASTING~.~.~<DG1.3.1>R03.0</DG1.3.1><DG1.3.1>R21</DG1.3.1><DG1.3.1>R21</DG1.3.1> <DG1.3.1>R21 Leuk Est Laboratory test result [facility] ([facility]) FASTING~.~.~<DG1.3.1>R03.0</DG1.3.1><DG1.3.1>R21</DG1.3.1><DG1.3.1>R21</DG1.3.1> <DG1.3.1>R21 Blood Laboratory test result [facility] ([facility]) FASTING~.~.~<DG1.3.1>R03.0</DG1.3.1><DG1.3.1>R21</DG1.3.1><DG1.3.1>R21</DG1.3.1> <DG1.3.1>R21 [facility]sc[facility]~.~<DG1.3.1>R03.0</DG1.3.1><DG1.3.1>R21</DG1.3.1><DG1.3.1>R21</DG1.3.1> <DG1.3.1>R21 ID Date Data Source [id number] 02/26/2020 08:38:00 AM EDT [facility] ([facility]) Name Value Range Interpretation Code Description Data Esthela rce(s) Supporting Document(s) Cve Panel Laboratory test result [facility] ([facility]) FASTING~.~.~<DG1.3.1>R03.0</DG1.3.1><DG1.3.1>R21</DG1.3.1><DG1.3.1>R21</DG1.3.1> <DG1.3.1>R21 Cholesterol 266 mg/dL 131-200 Above high normal [facility] ([facility]) FASTING~.~.~<DG1.3.1>R03.0</DG1.3.1><DG1.3.1>R21</DG1.3.1><DG1.3.1>R21</DG1.3.1> <DG1.3.1>R21 HDL 41 mg/dL 29-86 [facility] ([facility]) FASTING~.~.~<DG1.3.1>R03.0</DG1.3.1><DG1.3.1>R21</DG1.3.1><DG1.3.1>R21</DG1.3.1> <DG1.3.1>R21 Triglycerides 525 mg/dL 35-160 Above high normal [facility] ([facility]) FASTING~.~.~<DG1.3.1>R03.0</DG1.3.1><DG1.3.1>R21</DG1.3.1><DG1.3.1>R21</DG1.3.1> <DG1.3.1>R21 LDL 168 mg/dL 65-175 [facility] ([facility]) FASTING~.~.~<DG1.3.1>R03.0</DG1.3.1><DG1.3.1>R21</DG1.3.1><DG1.3.1>R21</DG1.3.1> <DG1.3.1>R21 Risk Factor 6.5 3.2-4.4 Above high normal [facility] ([facility]) FASTING~.~.~<DG1.3.1>R03.0</DG1.3.1><DG1.3.1>R21</DG1.3.1><DG1.3.1>R21</DG1.3.1> <DG1.3.1>R21 LDL/HDL 4.10 1.47-3.22 Above high normal [facility] ([facility]) FASTING~.~.~<DG1.3.1>R03.0</DG1.3.1><DG1.3.1>R21</DG1.3.1><DG1.3.1>R21</DG1.3.1> <DG1.3.1>R21 ID Date Data Source [id number] 02/26/2020 08:38:00 AM EDT [facility] ([facility]) Name Value Range Interpretation Code Description Data Esthela rce(s) Supporting Document(s) WBC 8.6 10^3/uL 4.2-11.0 [facility] ([facility]) FASTING~.~.~<DG1.3.1>R03.0</DG1.3.1><DG1.3.1>R21</DG1.3.1><DG1.3.1>R21</DG1.3.1> <DG1.3.1>R21 CBC W/Automated Diff Laboratory test result [facility] ([facility]) FASTING~.~.~<DG1.3.1>R03.0</DG1.3.1><DG1.3.1>R21</DG1.3.1><DG1.3.1>R21</DG1.3.1> <DG1.3.1>R21 RBC 4.24 10^6/uL 4.20-5.40 [facility] ([facility]) FASTING~.~.~<DG1.3.1>R03.0</DG1.3.1><DG1.3.1>R21</DG1.3.1><DG1.3.1>R21</DG1.3.1> <DG1.3.1>R21 Hemoglobin 13.3 g/dL 12.0-16.0 [facility] ([facility]) FASTING~.~.~<DG1.3.1>R03.0</DG1.3.1><DG1.3.1>R21</DG1.3.1><DG1.3.1>R21</DG1.3.1> <DG1.3.1>R21 Hematocrit 39.6 % 37.0-47.0 [facility] ([facility]) FASTING~.~.~<DG1.3.1>R03.0</DG1.3.1><DG1.3.1>R21</DG1.3.1><DG1.3.1>R21</DG1.3.1> <DG1.3.1>R21 MCV 93.4 fL 81.0-101 [facility] ([facility]) FASTING~.~.~<DG1.3.1>R03.0</DG1.3.1><DG1.3.1>R21</DG1.3.1><DG1.3.1>R21</DG1.3.1> <DG1.3.1>R21 MCHC 33.6 g/dL 31.0-36.0 [facility] ([facility]) FASTING~.~.~<DG1.3.1>R03.0</DG1.3.1><DG1.3.1>R21</DG1.3.1><DG1.3.1>R21</DG1.3.1> <DG1.3.1>R21 RDW 12.4 % 11.5-14.5 [facility] ([facility]) FASTING~.~.~<DG1.3.1>R03.0</DG1.3.1><DG1.3.1>R21</DG1.3.1><DG1.3.1>R21</DG1.3.1> <DG1.3.1>R21 MCH 31.4 pg 27.0-34.0 [facility] ([facility]) FASTING~.~.~<DG1.3.1>R03.0</DG1.3.1><DG1.3.1>R21</DG1.3.1><DG1.3.1>R21</DG1.3.1> <DG1.3.1>R21 Neut 53.5 % 37.0-80.0 [facility] ([facility]) FASTING~.~.~<DG1.3.1>R03.0</DG1.3.1><DG1.3.1>R21</DG1.3.1><DG1.3.1>R21</DG1.3.1> <DG1.3.1>R21 Platelets 287 10^3/uL 150-450 [facility] ([facility]) FASTING~.~.~<DG1.3.1>R03.0</DG1.3.1><DG1.3.1>R21</DG1.3.1><DG1.3.1>R21</DG1.3.1> <DG1.3.1>R21 MPV 9.4 fL 7.4-10.4 [facility] ([facility]) FASTING~.~.~<DG1.3.1>R03.0</DG1.3.1><DG1.3.1>R21</DG1.3.1><DG1.3.1>R21</DG1.3.1> <DG1.3.1>R21 Lymph 33.7 % 25.0-40.0 [facility] ([facility]) FASTING~.~.~<DG1.3.1>R03.0</DG1.3.1><DG1.3.1>R21</DG1.3.1><DG1.3.1>R21</DG1.3.1> <DG1.3.1>R21 [place] 8.1 % 3.0-8.0 Above high normal [facility] ([facility]) FASTING~.~.~<DG1.3.1>R03.0</DG1.3.1><DG1.3.1>R21</DG1.3.1><DG1.3.1>R21</DG1.3.1> <DG1.3.1>R21 Eos 3.4 % 0.0-7.0 [facility] ([facility]) FASTING~.~.~<DG1.3.1>R03.0</DG1.3.1><DG1.3.1>R21</DG1.3.1><DG1.3.1>R21</DG1.3.1> <DG1.3.1>R21 %Ig 0.3 % 0.0-0.0 Above high normal [facility] ([facility]) FASTING~.~.~<DG1.3.1>R03.0</DG1.3.1><DG1.3.1>R21</DG1.3.1><DG1.3.1>R21</DG1.3.1> <DG1.3.1>R21 Baso 1.0 % 0.0-2.5 [facility] ([facility]) FASTING~.~.~<DG1.3.1>R03.0</DG1.3.1><DG1.3.1>R21</DG1.3.1><DG1.3.1>R21</DG1.3.1> <DG1.3.1>R21 %NRBC 0.0 % 0.0-0.0 [facility] ([facility]) FASTING~.~.~<DG1.3.1>R03.0</DG1.3.1><DG1.3.1>R21</DG1.3.1><DG1.3.1>R21</DG1.3.1> <DG1.3.1>R21 #Lymph 2.90 10^3/uL 0.60-3.40 [facility] ([facility]) FASTING~.~.~<DG1.3.1>R03.0</DG1.3.1><DG1.3.1>R21</DG1.3.1><DG1.3.1>R21</DG1.3.1> <DG1.3.1>R21 #[place] 0.70 10^3/uL 0.00-0.90 [facility] ([facility]) FASTING~.~.~<DG1.3.1>R03.0</DG1.3.1><DG1.3.1>R21</DG1.3.1><DG1.3.1>R21</DG1.3.1> <DG1.3.1>R21 #Neut 4.60 10^3/uL 2.00-6.90 [facility] ([facility]) FASTING~.~.~<DG1.3.1>R03.0</DG1.3.1><DG1.3.1>R21</DG1.3.1><DG1.3.1>R21</DG1.3.1> <DG1.3.1>R21 #Eos 0.29 10^3/uL 0.00-0.70 [facility] ([facility]) FASTING~.~.~<DG1.3.1>R03.0</DG1.3.1><DG1.3.1>R21</DG1.3.1><DG1.3.1>R21</DG1.3.1> <DG1.3.1>R21 #Baso 0.09 10^3/uL 0.00-0.20 [facility] ([facility]) FASTING~.~.~<DG1.3.1>R03.0</DG1.3.1><DG1.3.1>R21</DG1.3.1><DG1.3.1>R21</DG1.3.1> <DG1.3.1>R21 #Ig 0.03 10^3/uL 0.00-0.10 [facility] ([facility]) FASTING~.~.~<DG1.3.1>R03.0</DG1.3.1><DG1.3.1>R21</DG1.3.1><DG1.3.1>R21</DG1.3.1> <DG1.3.1>R21 RBC Morph Laboratory test result [facility] ([facility]) FASTING~.~.~<DG1.3.1>R03.0</DG1.3.1><DG1.3.1>R21</DG1.3.1><DG1.3.1>R21</DG1.3.1> <DG1.3.1>R21 Manual Diff [facility] FASTING~.~.~<DG1.3.1>R03.0</DG1.3.1><DG1.3.1>R21</DG1.3.1><DG1.3.1>R21</DG1.3.1> <DG1.3.1>R21 #NRBC 0.00 10^3/uL 0.00-0.00 [facility] ([facility]) FASTING~.~.~<DG1.3.1>R03.0</DG1.3.1><DG1.3.1>R21</DG1.3.1><DG1.3.1>R21</DG1.3.1> <DG1.3.1>R21 ID Date Data Source [id number] 02/26/2020 08:38:00 AM EDT [facility] ([facility]) Name Value Range Interpretation Code Description Data Esthela rce(s) Supporting Document(s) Thyroxine (T4) free [Mass/volume] in Serum or Plasma 0.92 ng/dL 0.93-1.70 Below low normal [facility] ([facility]) FASTING~.~.~<DG1.3.1>R03.0</DG1.3.1><DG1.3.1>R21</DG1.3.1><DG1.3.1>R21</DG1.3.1> <DG1.3.1>R21 Thyrotropin [Units/volume] in Serum or Plasma 2.10 uIU/mL 0.47-5.01 [facility] ([facility]) FASTING~.~.~<DG1.3.1>R03.0</DG1.3.1><DG1.3.1>R21</DG1.3.1><DG1.3.1>R21</DG1.3.1> <DG1.3.1>R21 ID Date Data Source [id number] 02/26/2020 08:38:00 AM EDT [facility] ([facility]) Name Value Range Interpretation Code Description Data Esthela rce(s) Supporting Document(s) Sed Rate Reenter 22 [facility] ([facility]) FASTING~.~.~<DG1.3.1>R03.0</DG1.3.1><DG1.3.1>R21</DG1.3.1><DG1.3.1>R21</DG1.3.1> <DG1.3.1>R21 Sed Rate 22 mm/hr 0-30 [facility] ([facility]) FASTING~.~.~<DG1.3.1>R03.0</DG1.3.1><DG1.3.1>R21</DG1.3.1><DG1.3.1>R21</DG1.3.1> <DG1.3.1>R21 ID Date Data Source [id number] 02/26/2020 08:38:00 AM EDT [facility] ([facility]) Name Value Range Interpretation Code Description Data Esthela rce(s) Supporting Document(s) C reactive protein [Mass/volume] in Serum or Plasma by High sensitivity method 13.64 mg/L 1.00-3.00 Above high normal [facility] ([facility]) FASTING~.~.~<DG1.3.1>R03.0</DG1.3.1><DG1.3.1>R21</DG1.3.1><DG1.3.1>R21</DG1.3.1> <DG1.3.1>R21 ID Date Data Source [id number] 02/26/2020 08:38:00 AM EDT [facility] ([facility]) Name Value Range Interpretation Code Description Data Esthela rce(s) Supporting Document(s) Sodium 137 meq/L 134-153 [facility] ([facility]) FASTING~.~.~<DG1.3.1>R03.0</DG1.3.1><DG1.3.1>R21</DG1.3.1><DG1.3.1>R21</DG1.3.1> <DG1.3.1>R21 [employer] Laboratory test result [facility] ([facility]) FASTING~.~.~<DG1.3.1>R03.0</DG1.3.1><DG1.3.1>R21</DG1.3.1><DG1.3.1>R21</DG1.3.1> <DG1.3.1>R21 Potassium 4.5 meq/L 3.6-5.0 [facility] ([facility]) FASTING~.~.~<DG1.3.1>R03.0</DG1.3.1><DG1.3.1>R21</DG1.3.1><DG1.3.1>R21</DG1.3.1> <DG1.3.1>R21 Chloride 102 meq/L 98-107 [facility] ([facility]) FASTING~.~.~<DG1.3.1>R03.0</DG1.3.1><DG1.3.1>R21</DG1.3.1><DG1.3.1>R21</DG1.3.1> <DG1.3.1>R21 Co2 25 meq/L 22-30 [facility] ([facility]) FASTING~.~.~<DG1.3.1>R03.0</DG1.3.1><DG1.3.1>R21</DG1.3.1><DG1.3.1>R21</DG1.3.1> <DG1.3.1>R21 Creatinine 0.7 mg/dL 0.7-1.5 [facility] ([facility]) FASTING~.~.~<DG1.3.1>R03.0</DG1.3.1><DG1.3.1>R21</DG1.3.1><DG1.3.1>R21</DG1.3.1> <DG1.3.1>R21 Glucose 89 mg/dL 65-110 [facility] ([facility]) FASTING~.~.~<DG1.3.1>R03.0</DG1.3.1><DG1.3.1>R21</DG1.3.1><DG1.3.1>R21</DG1.3.1> <DG1.3.1>R21 BUN 12 mg/dL 7-21 [facility] ([facility]) FASTING~.~.~<DG1.3.1>R03.0</DG1.3.1><DG1.3.1>R21</DG1.3.1><DG1.3.1>R21</DG1.3.1> <DG1.3.1>R21 Total Protein 7.3 g/dL 6.3-8.2 [facility] ([facility]) FASTING~.~.~<DG1.3.1>R03.0</DG1.3.1><DG1.3.1>R21</DG1.3.1><DG1.3.1>R21</DG1.3.1> <DG1.3.1>R21 BUN/Creat 17 8-27 [facility] ([facility]) FASTING~.~.~<DG1.3.1>R03.0</DG1.3.1><DG1.3.1>R21</DG1.3.1><DG1.3.1>R21</DG1.3.1> <DG1.3.1>R21 Albumin 4.3 g/dL 3.9-5.0 [facility] ([facility]) FASTING~.~.~<DG1.3.1>R03.0</DG1.3.1><DG1.3.1>R21</DG1.3.1><DG1.3.1>R21</DG1.3.1> <DG1.3.1>R21 A/G Ratio 1.4 0.8-2.0 [facility] ([facility]) FASTING~.~.~<DG1.3.1>R03.0</DG1.3.1><DG1.3.1>R21</DG1.3.1><DG1.3.1>R21</DG1.3.1> <DG1.3.1>R21 Globulin 3.0 GM/DL 2.4-3.2 [facility] ([facility]) FASTING~.~.~<DG1.3.1>R03.0</DG1.3.1><DG1.3.1>R21</DG1.3.1><DG1.3.1>R21</DG1.3.1> <DG1.3.1>R21 Calcium 10.4 mg/dL 8.4-10.2 Above high normal [facility] ([facility]) FASTING~.~.~<DG1.3.1>R03.0</DG1.3.1><DG1.3.1>R21</DG1.3.1><DG1.3.1>R21</DG1.3.1> <DG1.3.1>R21 Alkaline Phos 98 U/L 38-126 [facility] ([facility]) FASTING~.~.~<DG1.3.1>R03.0</DG1.3.1><DG1.3.1>R21</DG1.3.1><DG1.3.1>R21</DG1.3.1> <DG1.3.1>R21 Sgot/Ast 26 U/L 5-40 [facility] ([facility]) FASTING~.~.~<DG1.3.1>R03.0</DG1.3.1><DG1.3.1>R21</DG1.3.1><DG1.3.1>R21</DG1.3.1> <DG1.3.1>R21 SGPT/Alt 31 U/L 7-56 [facility] ([facility]) FASTING~.~.~<DG1.3.1>R03.0</DG1.3.1><DG1.3.1>R21</DG1.3.1><DG1.3.1>R21</DG1.3.1> <DG1.3.1>R21 Total Bili Laboratory test result 0.2-1.3 [facility] ([facility]) FASTING~.~.~<DG1.3.1>R03.0</DG1.3.1><DG1.3.1>R21</DG1.3.1><DG1.3.1>R21</DG1.3.1> <DG1.3.1>R21 Age 49 yrs [facility] ([facility]) FASTING~.~.~<DG1.3.1>R03.0</DG1.3.1><DG1.3.1>R21</DG1.3.1><DG1.3.1>R21</DG1.3.1> <DG1.3.1>R21 Non-Aa GFR Laboratory test result [facility] ([facility]) FASTING~.~.~<DG1.3.1>R03.0</DG1.3.1><DG1.3.1>R21</DG1.3.1><DG1.3.1>R21</DG1.3.1> <DG1.3.1>R21 Anion Gap 10.0 mmol/L 8.0-16.0 [facility] ([facility]) FASTING~.~.~<DG1.3.1>R03.0</DG1.3.1><DG1.3.1>R21</DG1.3.1><DG1.3.1>R21</DG1.3.1> <DG1.3.1>R21 Afr Amer GFR Laboratory test result [facility] ([facility]) FASTING~.~.~<DG1.3.1>R03.0</DG1.3.1><DG1.3.1>R21</DG1.3.1><DG1.3.1>R21</DG1.3.1> <DG1.3.1>R21 ID Date Data Source [id number] 02/26/2020 01:57:00 PM EDT [facility] Name Value Range Interpretation Code Description Data Esthela rce(s) Supporting Document(s) URINALYSIS [facility] vianey [facility] NORMAL: Yellow [facility] CLARITY Clear NORMAL: Clear [facility] Specific gravity of Urine by Test strip 1.015 1.001 - 1.030 [facility] pH 8 5 - 9 [facility] Glucose [Mass/volume] in Urine by Test strip Negative NORMAL: Negat aster [facility] Bilirubin.total [Presence] in Urine by Test strip Negative NORMAL: Negative [facility] Ketones [Presence] in Urine by Test strip Negative NORMAL: Negative [facility] Protein [Mass/volume] in Urine by Test strip Negative NORMAL: Negat aster [facility] Nitrite [Presence] in Urine by Test strip Negative NORMAL: Negative [facility] BLOOD Negative NORMAL: Negative [facility] Leukocyte esterase [Presence] in Urine by Test strip Negative NORMAL: Negative [facility] Urobilinogen [Mass/volume] in Urine by Test strip NOR less fermín n 1.0 mg/dL [facility] MICROSCOPIC Not Indicate [facility] ID Date Data Source [id number] 02/26/2020 10:34:00 AM EDT [facility] Name Value Range Interpretation Code Description Data Esthela rce(s) Supporting Document(s) Thyroxine (T4) free index in Serum or Plasma by calculation 0.92 NG/DL 0.93 - 1.70 L [facility] ID Date Data Source [id number] 02/26/2020 10:33:00 AM EDT [facility] Name Value Range Interpretation Code Description Data Esthela rce(s) Supporting Document(s) Thyrotropin [Units/volume] in Serum or Plasma by Detec tion limit <= 0.05 mIU/L 2.10 uIU/mL 0.47 - 5.01 [facility] ID Date Data Source [id number] 02/26/2020 10:21:00 AM EDT [facility] Name Value Range Interpretation Code Description Data Esthela rce(s) Supporting Document(s) CVE PANEL [facility] al LIPID PANEL Cholesterol [Mass/volume] in Serum or Plasma 266 MG/DL 131 - 200 H [facility] Deprecated Triglyceride [Mass/volume] in Serum or Plasma 525 MG/DL 3 5 - 160 H [facility] HDL 41 MG/DL 29 - 86 [facility] Cholesterol in LDL [Mass/volume] in Serum or Plasma by Direc t assay 168 mg/dL 65 - 175 [facility] Cholesterol.total/Cholesterol in HDL [Mass Ratio] in Serum o r Plasma 6.5 3.2 - 4.4 H [facility] LDL/HDL 4.10 1.47 - 3.22 H [facility] ital CVE RISK CHOL/HDL LDL/HDLMEN: 1/2 AVERAGE 3.43 1.00 AVERAGE 4.97 3.55 2X AVERAGE 9.55 6.25 3X AVERAGE 23.99 7.99WOMEN: 1/2 AVERAGE 3.27 1.47 AVERAGE 4.44 3.22 2X AVERAGE 7.05 5.03 3X AVERAGE 11.04 6.14 ID Date Data Source [id number] 02/26/2020 10:21:00 AM EDT [facility] Name Value Range Interpretation Code Description Data Esthela rce(s) Supporting Document(s) C reactive protein [Mass/volume] in Serum or Plasma by High sensitivity method 13.64 MG/L 1.00 - 3.00 H [facility] CDC/S HS-CRP CUT-OFF: RELATIVE RISK: <1.0 mg/L Low 1.0 - 3.0 mg/L Average >3.0 mg/L High Optimally, the average of HS-CRP results repeated two weeks apart should be used for risk assessment. ID Date Data Source [id number] 02/26/2020 10:21:00 AM EDT [facility] Name Value Range Interpretation Code Description Data Esthela rce(s) Supporting Document(s) COMPREHENSIVE METABOLIC PANEL [facility] COMPREHENSIVE METABOLIC PANEL Sodium [Moles/volume] in Serum or Plasma 137 mEq/L 134 - 153 [facility] Potassium [Moles/volume] in Serum or Plasma 4.5 mEq/L 3.6 - 5.0 [facility] Chloride [Moles/volume] in Serum or Plasma 102 mEq/L 98 - 107 [facility] Carbon dioxide, total [Moles/volume] in Serum or Plasma 25 MEQ/L 22 - 30 [facility] Glucose [Mass/volume] in Serum or Plasma 89 MG/DL 65 - 110 [facility] BUN 12 MG/DL 7 - [facility] Creat[facility] [Mass/volume] in Serum or Plasma 0.7 MG/DL 0.7 - 1.5 [facility] BUN/CREAT 17 8 - 27 [facility] al Protein [Mass/volume] in Serum or Plasma 7.3 G/DL 6.3 - 8.2 [facility] Albumin [Mass/volume] in Serum or Plasma 4.3 G/DL 3.9 - 5.0 [facility] Globulin [Mass/volume] in Serum by calculation 3.0 GM/DL 2.4 - 3.2 [facility] A/G RATIO 1.4 0.8 - 2.0 [facility] al Calcium [Mass/volume] in Serum or Plasma 10.4 MG/DL 8.4 - 10.2 H [facility] Bilirubin.total [Mass/volume] in Serum or Plasma <0.7 MG/DL 0.2 - 1.3 [facility] Alkaline phosphatase [Enzymatic activity/volume] in Serum or Plasma 98 U/L 38 - 126 [facility] Aspartate aminotransferase [Enzymatic activity/volume] in Serum or Plasma 26 U/L 5 - 40 [facility] Alanine aminotransferase [Enzymatic activity/volume] in Seru m or Plasma 31 U/L 7 - 56 [facility] Anion gap 3 in Serum or Plasma 10.0 mmol/L 8.0 - 16.0 [facility] AGE 49 yrs [facility] al NON-AA GFR >60 mL/min [facility] ital AFR AMER GFR >60 mL/min [facility] Ho spital Male GFR In terprentation 20-49 yrs >60 mL/min Normal 50-59 yrs >56 mL/min Normal 60-69 yrs >49 mL/min Normal 70-79yrs >42 mL/min Normal 80 and above >35 mL/min Normal Female GFR Interpretation 20-39 yrs >60 mL/min Normal 40-49 yrs >58 mL/min Normal 50-59 yrs >51 mL/min Normal 60-69 yrs >45 mL/min Normal 70-79 yrs >39 mL/min Normal 80 and above >32 mL/min Normal ID Date Data Source [id number] 02/26/2020 09:26:00 AM EDT [facility] Name Value Range Interpretation Code Description Data Esthela rce(s) Supporting Document(s) Erythrocyte sedimentation rate by Westergren method 22 mm/hr 0 - 30 [facility] SED RATE REENTER 22 [facility] ID Date Data Source [id number] 02/26/2020 09:03:00 AM EDT [facility] Name Value Range Interpretation Code Description Data Esthela rce(s) Supporting Document(s) CBC W/AUTOMATED DIFF [facility] COMPLETE BLOOD COUNT Leukocytes [#/volume] in Blood by Automated count 8.6 10^3/uL 4.2 - 1 1.0 [facility] Erythrocytes [#/volume] in Blood by Automated count 4.24 10^6/uL 4. 20 - 5.40 [facility] Hemoglobin [Mass/volume] in Blood 13.3 g/dL 12.0 - 16.0 [facility] Hematocrit [Volume Fraction] of Blood by Automated count 39.6 % 3 7.0 - 47.0 [facility] Erythrocyte mean corpuscular volume [Entitic volume] by Auto mated count 93.4 fL 81.0 - 101 [facility] Erythrocyte mean corpuscular hemoglobin [Entitic mass] by Automated count 31.4 pg 27.0 - 34.0 [facility] Erythrocyte mean corpuscular hemoglobin concentration [Mass/volume] by Automated count 33.6 g/dL 31.0 - 36.0 [facility] Erythrocyte distribution width [Ratio] by Automated count 12.4 % 11.5 - 14.5 [facility] Platelets [#/volume] in Blood by Automated count 287 10^3/uL 150 - 45 0 [facility] Platelet mean volume [Entitic volume] in Blood by Automated count 9.4 fL 7.4 - 10.4 [facility] Neutrophils/100 leukocytes in Blood by Automated count 53.5 % 37. 0 - 80.0 [facility] Lymphocytes/100 leukocytes in Blood by Manual count 33.7 % 25.0 - 40.0 [facility] Monocytes/100 leukocytes in Blood by Automated count 8.1 % 3.0 - 8.0 H [facility] Eosinophils/100 leukocytes in Blood by Automated count 3.4 % 0.0 - 7.0 [facility] Basophils/100 leukocytes in Blood by Automated count 1.0 % 0.0 - 2.5 [facility] %IG 0.3 % 0.0 - 0.0 [facility] %NRBC 0.0 % 0.0 - 0.0 [facility] al Neutrophils [#/volume] in Blood by Automated count 4.60 10^3/uL 2.00 - 6.90 [facility] Lymphocytes [#/volume] in Blood by Automated count 2.90 10^3/uL 0.60 - 3.40 [facility] Monocytes [#/volume] in Blood by Automated count 0.70 10^3/uL 0.00 - 0.90 [facility] Eosinophils [#/volume] in Blood by Automated count 0.29 10^3/uL 0.00 - 0.70 [facility] Basophils [#/volume] in Blood by Automated count 0.09 10^3/uL 0.00 - 0.20 [facility] #IG 0.03 10^3/uL 0.00 - 0.10 [facility] H ospital #NRBC 0.00 10^3/uL 0.00 - 0.00 [facility] ospital MANUAL DIFF NOT INDICATED [facility] RBC MORPH NOT INDICATED [facility] ID Date Data Source [id number] 02/26/2020 09:02:00 AM EDT [facility] Name Value Range Interpretation Code Description Data Esthela rce(s) Supporting Document(s) HGBA1C [facility] {[facility]HB] ID Date Data Source [id number] 12/16/2019 05:50:00 PM EDT [facility] Name Value Range Interpretation Code Description Data Esthela rce(s) Supporting Document(s) SARS CORONAVIRUS 2 RNA [facility] This lab was ordered by [facility] and reported by [facility]. ID Date Data Source [id number] 12/18/2019 04:16:00 PM EDT [facility] Name Value Range Interpretation Code Description Data Esthela rce(s) Supporting Document(s) SARS-CoV-2, DARWIN Not Detected Not Detected [facility] Testing was performed using the danilo(R) SARS-CoV-2 test.This test was developed and its performance characteristics determinedby [employer]. This test has not been FDA cleared orapproved. This test has been authorized by FDA under an Emergency UseAuthorization (EUA). This test is only authorized for the duration oftime the declaration that circumstances exist justifying theauthorization of the emergency use of in vitro diagnostic tests fordetection of SARS-CoV-2 virus and/or diagnosis of COVID-19 infectionunder section 564(b)(1) of the Act, 21 U.S.C. 360bbb-3(b)(1), unlessthe authorization is terminated or revoked sooner. ID Date Data Source [id number] 12/16/2019 05:48:00 PM EDT [facility] Name Value Range Interpretation Code Description Data Esthela rce(s) Supporting Document(s) Influenza virus A Ag [Presence] in Nasopharynx by Immunoassa y NEGATIVE NORMAL: NEGATIVE [facility] Influenza virus B Ag [Presence] in Nasopharynx by Immunoassa y NEGATIVE NORMAL: NEGATIVE [facility] NEGATIVENEGATIVE PROCEDURAL CO NTROL VALID KIT LOT # _[id number] 12/16/191748.DC . . . KIT EXP DATE _10/30/20 12/16/191748.DC . . .The Influenza A & B assay is a rapid molecular in vitro diagnostic testutilizing an isothermal nucleic acid amplification technology for thequalitative detection of influenza A and B viral RNA.Negative results do not preclude influenza virus infection and should not beused as the sole basis for diagnosis, treatment or other patient managementdecisions. ID Date Data Source [id number] 12/16/2019 05:25:00 PM EDT [facility] Value Range Interpretation Code Description Data Esthela rce(s) Supporting Document(s) RAPID STREP NEGATIVE NORMAL: NEGATIVE [facility] RAPID STREP REENTER NEGATIVE NORMAL: NEGATIVE [facility] { PROCEDURAL CONTROL VALID ){ KIT LOT # [id number] ){ KIT EXP DATE 04/09/21 )The Strep A 2 assay utilizes isothermal nucleic acid amplification technology fothe qualitative detection of Group A Strep bacterial nucleic acid in throat swabspecimens.All negative test results no longer need to be confirmed with a culture. Follow-up testing requiring a culture is necessary if clinical symptoms persist, or inthe event of an acute rheumatic fever outbreak. A culture will need to beordered by the Qualified Medical Provider.Negative results do not preclude infection with Group A Strep and should not beused as the sole basis for treatment. ID Date Data Source [id number] 11/05/2019 12:37:[address] [facility] Name Value Range Interpretation Code Description Data Esthela rce(s) Supporting Document(s) Progress Note [facility] ECYQLa4iEdYVHqSh40/BFCcuORQon9SpFHfqZNw7WJpzPQDpR2YkYMO1eR6qODM7DIlLDaUmBcTqLeW6 lbm [file] A5eRNdNd5YBdYsShrHRcGxOD9TFOp= ID Date Data Source [id number] 10/22/2019 08:03:52 AM [facility] Name Value Range Interpretation Code Description Data Esthela rce(s) Supporting Document(s) Operative Note [facility] SMFSVb5gSvCDXcGc61/IISmbBWNfg4CpXNheLRw6QIukQCBoB7FiTMH2kC7fQNN8KJxQFbBiAhIjMlJe lbm [file] DQogICAgICAgICAgICAgICAgICAgICAgICAgICAgICAgICAgICAgICAgICAgICAgICAgICAgICAgICAg ICAgICAgICAgICAgICAgICAgICAgICAgICAgICAgIC AgICAgICAgICAgDQogICAgICAgICAgICAgICAgICAgICAgICAgICAgICAgICAgICAgICAgICAgICAgIC AgICAgICAgICAgICAgICAgICAgICAgICAgICAgICAgICAgICAgICAgICAgICAgICAgICAgDQogICAgIC AgICAgICAgICAgICAgICAgICAgICAgICAgICAgICAg ICAgICAgICAgICAgICAgICAgICAgICAgICAgICAgICAgICAgICAgICAgICAgICAgICAgICAgICAgICAg ICAgDQogICAgICAgICAgICAgICAgICAgICAgICAgICAgICAgICAgICAgICAgICAgICAgICAgICAgICAg ICAgICAgICAgICAgICAgICAgICAgICAgICAgICAgIC AgICAgICAgICAgICAgDQogICAgICAgICAgICAgICAgICAgICAgICAgICAgICAgICAgICAgICAgICAgIC AgICAgICAgICAgICAgICAgICAgICAgICAgICAgICAgICAgICAgICAgICAgICAgICAgICAgICAgDQogIC AgICAgICAgICAgICAgICAgICAgICAgICAgICAgICAg ICAgICAgICAgICAgICAgICAgICAgICAgICAgICAgICAgICAgICAgICAgICAgICAgICAgICAgICAgICAg ICAgICAgDQogICAgICAgICAgICAgICAgICAgICAgICAgICAgICAgICAgICAgICAgICAgICAgICAgICAg ICAgICAgICAgICAgICAgICAgICAgICAgICAgICAgIC AgICAgICAgICAgICAgICAgDQogICAgICAgICAgICAgICAgICAgICAgICAgICAgICAgICAgICAgICAgIC AgICAgICAgICAgICAgICAgICAgICAgICAgICAgICAgICAgICAgICAgICAgICAgICAgICAgICAgICAgDQ ogICAgICAgICAgICAgICAgICAgICAgICAgICAgICAg ICAgICAgICAgICAgICAgICAgICAgICAgICAgICAgICAgICAgICAgICAgICAgICAgICAgICAgICAgICAg ICAgICAgICAgDQogICAgICAgICAgICAgICAgICAgICAgICAgICAgICAgICAgICAgICAgICAgICAgICAg ICAgICAgICAgICAgICAgICAgICAgICAgICAgICAgIC UfTCEfVFQpSNZeYZKtKLJeVBVmYFw9Y7slFTMoEGNcRR0aJAt9Nh3+RKwDVjMyVGG8acVcaD7CEA9aj8 JqPWymEOFfx5ExLVq2IW4MHAJcBJzzRP4DXTjxfc7TJMToEMZhjQUWy4xsWuKwBCA1RBQfSotdCV9QNY JtH9ukdmEgTGZzCIQADYckIFVQVXfaGWHYEK6NXbOy D3HhoB34AIMOZp6+OAoxdjFxVxlNLuYdZVVbl3IiWOk9ZK5IVWGyDxbjr9QaGwUwNMMOBQtaVG0LGLD2 OKOsWFZlYi7SREKfX605zgDgQP3JYc4WWmZmQT2ats4CSrCuBWXnFhfUIan2LVwcBA7SyXBbYEqXtANv BKLlaqJeOw59COMnpVHZjXVsIVOuZFusZ7MdpnLquk dkWTFuUEEiJm4cII4eNMOsWHItDdLeWSLRUX1LLSJyWSSxlPNcTOJjIEOWYO2YRGlwORU6HUAqivLpyT UfYDmxZO6JWQHytsZlXuAbNAZVZRz+Ty0KOT6fv4QlLRidXeAkVT2ssm6VKYkWRwToH8Z7oHSsU5O6OG qoQq4SNZMzEVUqXLofKSRMOMkmUI1GGE4mubT3OB1J vGOvKQTcDXMzsWTwBOo7O20pfEJyUEqrPX8AEND+Prosper+Rk8TBZNrWLOyRPTdJrDnFNHWFmLaE0EcC3WL w6TgM4OpFA02eXaqexBaNMuoNE6CZV6mEGBfTXWABU2XoWMmxM5relSiKWJfSLJSIqJxQ08meRQtWCHv XYMjLPSwYg2CAPRbS4PyxyZqfPkgexSvWCOkFZCAAF 9KQMxkdqUyfYAwvWrdNF34bScnYB8QQn4NMaEwXN3csk4AuUSwJs2BVLScUM3PWDXfPWVvEYJkCKC2UW YlUqQxEOrySFCbMZRjVII6IYVtNPJcME7WNkRwTLTeQEFeYOGdYDXyMHWova2NXMZzSTZgQmDwTxNeLU BoLZRuEXldCMNlSIVnHKV2LGQlQABlVS3JBcOgUXPj AGDzTXsgXAKeNARrgo0NLZFfRLGqXsSaSeOeMGBpNAGzWJpfEYIiICD1DdGkHHNcXTPmEU8NDnGpTDFy LKO9EFGrMGAsXZEzjx8APMLjPZUqQxOwLlWsPSPiVECgMCinQMDmVQH7VqP4UMIrTWGsLT4DAuKrPCAc RBtbGTwpTOIaDHJpbj5RBHSgXJDqFgC6KKAwDWOoSG UpMYwiOWRcDKA4ZOW2TLDqKRAcHW6PCcImOZJmLNg0BhJrGDGzKFTicj6DZCKeEJEvSFfhLHHiYWFuPQ FcRZgwFLCxYBU2CGQ9EAKeWYFdOS9CAfGfBXVdKDv0TiRkLXXaZYGsrw8QQNKuCWGzIBO2RAXdYZUsHM LwZLjgZXKfDBSzMjC8LBJpTJFuEF1AOpExPTAsHUM3 SZQtMWHtBKOvnj6WOZEkBMXiEpU5JqSvIZOzKFSiDDhvTZGaTQUhEfYeHYBdRODbDW3QEwJyJPNpOJZu BhSiKBLxYYNfgu3MuPUftPdodo9GYQxKLy0GwQoqALK2DLpxTw9rkVGpJzSgEZJDHr5TiwDkVTDdZGDV QDxfRAHuGCXqIdY7ACH1LRKoSzU3F5OiGtJpD7C7XP GvHUYuFdU7WkI2M2CiRtw7Etl5ZVHlIRetHZEoRnEhWXG4LHS3YsAtENX+XK6pYPm+Xx0Ke6UvalP9vp CxGXdnKtOhTR4CPTRCQ4VCZe== ID Date Data Source [id number] 10/21/2019 10:04:19 AM EST [facility] Name Value Range Interpretation Code Description Data Esthela e(s) Supporting Document(s) History and Physical [facility] BVCXWr2kDjNGGpRm30/TVAicATIft4WiTZdpZNu0YWmwNPWfD7FaFND8aR5tQZJ1TCpUDsOkNiOsGoJg lbm [file] XfAkj3XaIgOU2oWGTUIk2+OAecgWZzgTnlMOQSExAqJlkhIIjyIDCXLh5I ID Date Data Source [id number] 10/21/2019 09:38:43 AM EST [facility] Name Value Range Interpretation Code Description Data Esthela rce(s) Supporting Document(s) Choriogonadotropin.beta subunit [Moles/volume] in Serum or Plasm a 2 m[IU]/mL <5 [facility] ID Date Data Source [id number] 10/08/2019 10:44:00 AM EST [facility] [address] [place] [address] PHONE: [phone] FAX: [phone] Name ..............: HAVEN Galarza Acct Number ...........................: [id number] ROOM. ............: Number ............................: [id number] Stay type.........: O/P Discharge Date...............:10/07/19 Admit Date .....: 10/07/19 Admit Phys .............................: [facility] Date of ..: 1970 Family Phys ...........................: [facility] Phone..............: [phone] Age.................................:49 Film# ...............:[id number] Sex.................................:F Unsigned transcriptions are preliminary reports and do not represent a medical or legal document EKG [id number] COMPLETE:10/07/19 14:20 [facility] [id number] Please See Scanned Results. Name Value Range Interpretation Code Description Data Esthela rce(s) Supporting Document(s) ID Date Data Source [id number] 10/02/2019 06:00:02 PM EST [facility] Name Value Range Interpretation Code Description Data Esthela rce(s) Supporting Document(s) Progress Note [facility] KVPJXs3mJnJDZoZe55/USNloUXNbc7FmFMbtZOr3ZJvcPGXwQ1NtISC8rN6uNYA8VWhCXrIiZeCnNKVf lbm [file] Z2ZNW4UjUrKjYtMG5WCq8DPpD7MLW6eIOlOo2NYaK8SlDHQcGuFT7TQPh= ID Date Data Source [id number] 08/27/2019 02:20:58 PM EST [facility], PCName: Crys TafoyaB: 1970Provider: Tj Richardson: 08/27/2019 History of Present IllnessShe is about 5 years out from a C6-7 anterior cervical discectomy and fusion. In the last few weeks she has been developing pain in the thoracic spine between her shoulder blades. She comes down today to have this checked out. No new neurological symptoms. She saw a chiropractor who was not able to help her Results/Data2 views cervical spine were ordered obtained and interpreted in the office today indication pain. Findings she status post C6-7 anterior cervical discectomy and fusion with a solid interbody fusion and no concern for adjacent level disease.2 views thoracic spine were ordered obtained and interpreted the office today indication pain. Findings minor degenerative changes no evidence of fracture or significant deformity Assessment 1. Pain, upper back (724.5) (M54.9) Plan X- Ray I Cervical Spine - 2 views (XRays were ordered, obtained and interpreted today inthe office. Indication: pain/dysfunction.); Status:Complete; Done: [id number] Perform:SOS14 (General); Due:12Xfh4875; Last Updated By:Mason Houston; 08/27/2019 2:08:03 PM;Ordered; For:Neck pain; Ordered By:Rob Richardson; X-Ray I Thoracic Spine - 2 views (XRays were ordered, obtained and interpreted today inthe office. Indication: pain/dysfunction.); Status:Complete; Done: [id number] Perform:SOS14 (General); Due:27Bix2033; Last Updated By:Mason Houston; 08/27/2019 2:08:03 PM;Ordered; For:Neck pain; Ordered By:Rob Richardson; Physical Therapy (SOS) - Spinal Physical Therapy Evaluation and Treatment Status:Complete Done: [id number] Ordered;For: Pain, upper back; Ordered By: Rob Richardson Performed: Order Comments: Please fax results to [phone] Due: 15Mli4981; Last Updated By: Dayanara Low; 08/27/2019 2:19:25 PMDuration: : Four WeeksPT Frequency : Two or three times a weekTraction Needed : NoSOS ROM and Strength : Range of motion and strengthening exercises.Heat Ultra and Mod alities : Heat Ultrasound and modalities as indicatedEvaluate and Treat: : Please evaluate and treat as indicated. I suspect this is related to some soft tissue disorder or inflammation. I don't see anything wrong with his skeleton and I don't suspect any neurological involvement. Physical therapy has been prescribed. I think modalities would be particularly helpful for her. Work / School NoteThe percentage of temporary impairment is 50%. The patient is working at this time. No lifting greater than 20 lbs. No repetitive bending, twisting. Sit, stand, walk as tolerated. No use of heavy machinery or equipment. Driving allowed only if not on medications that cause drowsiness. Signatures Electronically signed by : Rob Richardson M.D.; Aug 27 2019 2:20PM EST (Author) Name Value Range Interpretation Code Description Data Esthela rce(s) Supporting Document(s) ID Date Data Source [id number] 08/22/2019 12:47:51 PM EST [facility] Name Value Range Interpretation Code Description Data Esthela rce(s) Supporting Document(s) Progress Note [facility] OWPNXj5qWlMDXpPt72/SMGjkLMPqz2XlZBrmMOr1IViqGHTsB3VcTRR9lM4nFUG6IIpWNvKpRUwvSoBi m [file] AgICAgICAgICAgICAgICAgICAgICAgICAgICAgICAgICAgICAgICAgICAgICAgICAgICAgICAgICAgIC TgVZQxEMGgGWXzYUZqPCXvKNItJDDzDZ3OIQMaIBHgNNAbLOFuWQCuICZpJHShPHZxUKTvCTVgKYZoXM AgICAgICAgICAgICAgICAgICAgICAgICAgICAgICAg KZUrXLRgTKBiQANlXTGmCYVtXAUgOLTwSXHhUFTmBQLoXI8JHATlYJDuFYFiVXLeUKNmQWYpKNWoOALq ICAgICAgICAgICAgICAgICAgICAgICAgICAgICAgICAgICAgICAgICAgICAgICAgICAgICAgICAgICAg QLPnYUZuBEQlCGLcJCKrAP1UBJNsDAXmVHWeQUMpTV AgICAgICAgICAgICAgICAgICAgICAgICAgICAgICAgICAgICAgICAgICAgICAgICAgICAgICAgICAgIC FgFWIcCWThQVYrONAxKUZyYFRkQPVbIGGnEX5NRIVqHIFqLOZnPJIhNLKnWMBcJAGeJFByYZFbKXFfLE AgICAgICAgICAgICAgICAgICAgICAgICAgICAgICAg MNUrSSWrXLEkKDCaSJAnBFMtFEApYWZaODQkBBYnUCEqFNPiDQ4BQVWjWFTdHJIqIWVaMAKjJROvPNMq ICAgICAgICAgICAgICAgICAgICAgICAgICAgICAgICAgICAgICAgICAgICAgICAgICAgICAgICAgICAg JQBqYKZeDXSoTXEpRKGzFSYcRK0ZHVIwVBGuHUXxSK AgICAgICAgICAgICAgICAgICAgICAgICAgICAgICAgICAgICAgICAgICAgICAgICAgICAgICAgICAgIC NmKEZjPWLvPWOoQDThFXLfDZOmSUIwXQMkIIBoRO8XTYTjXZKwSLCrDTWfQPHxXFFbBWDhSLLjHZRrVL AgICAgICAgICAgICAgICAgICAgICAgICAgICAgICAg ISJdTXIqTYLqSASiFWZdNDJsFXEqLQBsTFFgARSxLWPoXWXhPOOoHU5IHMWuBBXdHULyHGTmHFJiEEZl ICAgICAgICAgICAgICAgICAgICAgICAgICAgICAgICAgICAgICAgICAgICAgICAgICAgICAgICAgICAg ECCwIFRmMAKaUTGfXOXkOIBpCSVxJG8WHMZuNICwYM AgICAgICAgICAgICAgICAgICAgICAgICAgICAgICAgICAgICAgICAgICAgICAgICAgICAgICAgICAgIC ZtVIWlONXeTUIbHVTmVISxWCZlDODxNDPmVMFqODGfVH2MCW16yGXtx8D3QSCkZM8fquf/Eb6HWCoqcj OquYQnIS2RBnIpDZ4nki4QVeDxTE8lco8ASHbOGgXm N1R4uFDfWWEcPBXTFhZpU11qWDctGf72CEizGTGqMwBtFXz3Hz0UYvDmL7ytHQIlBxU7JFKfPzW9SJYo ZmBsUFwiGW2Dr1JopKAfCSc+Zq6CDH1yb9WdBExwSOStSC7for9REThZFmUwI2CkwxL6CZE4ZULqFq8J UCWlDUHbaSMmLORwETIHLjWyR4MeyO89QQBCCb1+DQ kucgSuPdrPAbP8YXPcf8JqFGg0OA7IEJPrYMe9yJWxIWUsB5Mwc0EkUm87ZUQjPjrpC3DhwDVggJZqKX dmq8OvYAGNWFBzuJLdUj7dUu0cDMH7HZJhMrR0FXHARP8VMRAgGJQmtQUqPJQwDGVYVX9UQJnkTZA2UM MhdkIyxDWnYGwtNN8CGXWsxvFdDbQdTWVFMDt+Pg0K HN5mr6ZiAEeyBmHpRI9fjo4JZNcOMmZqD6Z7vYWsL5X0YHgyMu0SUNTbBJVjIpUkPIYOHOxgWI7KXL9d aoI3WF2SwUVdAWNiUMFanWHzKRo7Z07ujMEeXOynCM2GBQG+Prosper+Ow4HARQtXOIlIHPgEwHjLYIEJrRl R6BxV2CXq3AaK4QaKU34wLoetdHsLQknBN3OEL2zXG TaEXIISG6ClSFzsR3ekwXyHOWxPYXXJeGzX70kgQUlPRDdWNSoKEJaEe2JOTVnZ8ApidEncZfummKwPI ZsVYVFNZ4SITbuzpVlbZYmzYyuBD66uCrsOK4YZw4PScTkBJ0nhe2LwXIsCo9YJBCfHh1TMXJhZMWfXP RwJUT0VFMqDrZnBDadXJYyOEIxFNK6AMFsCPQnKG9T ZzRlCLLhWzI6OTKpTAMkTOCsuf6OKIFiHSGdQTIqOVCtYDUqXNFcDKepOYKjYDYvFLD0ZOLnSRUdFX9M RwBiWBWiGJK0JsUzLOKpIWAkda7BPDMcLBThRYlgUVWsEOUtTQXxZEecOHTxXNM8QLD0IMZeWAPiCE3H LsOgIQCjUYVzUcUmALOyOAMftr8PCQYeUZSgEwD3HA XhLTMcPYSrWXtaIPPxTVK3Log0ECYuFHLxLG6ODlMdKXHqKWo3OVvpAEXqOKNzhh0QUCZwKKYyXZKzAx RmSVYoZVTdJQewOHVcUDQ5WwI8MJBfCVEyDM7XPyBkGSIdGYw3UQRqKFNfVIGscb7DWYHfYMYvUAZ9PF SzEOAnXYCeIHcjMUAuXJVoTRu4ARVoNFHyIL3MWcEm DCUoHyZ9XJZuPXVnMXJmmz4WUXKxRPDxVGJfAhOjCPKbSVJfWAlwVPIrVXDmHGwgCGArSKYyFO5JUsCt SIKrDwCaJFRgFDVtLKPlto4CDFCaMHPcEnJ5IuJuTOBrMCAiOManZFEgZVCgRKB6UHArKJJwXX2HGlBy PQNqEhW2IWGrYPFiDLCwlv3COYQxHPVtRPYlZBRxUE LkEMEzHWjoIBLaIUF3AZOcJIDgSVGzPI1GBmFhSPElMvW4DYTyQMIsUSVpmv3YcDNehOfybb1JCRqHPg 4KqYmkBZI8LUorJh8qtIApUeOiMGSDUy8UzxZiDLRaPCJMWGboDQJuVXQ8F3LvB3ThMwH7Vtr2NoW3Zt ByWTTpPuBrEsG8WxkiWkJ3YdB4E0S7L1CgTOApHLvm OqeiNKP5YQC3XLLtATUvB6X+BT6xZRn+Es9Au6NemgO1vuAdYUcnTXl2TZ6BLPULL4GTJl== ID Date Data Source [id number] 08/22/2019 09:33:59 AM EST [facility] Name Value Range Interpretation Code Description Data Esthela rce(s) Supporting Document(s) Progress Note [facility] HIWFYt3pDxYJTrFp58/TZTqsTTXcf9EsBPqnRYs4KPphDNGeD6YlCIX4aP0lXYQ6IBzYZfQnVEhePpTz lbm [file] ID Date Data Source [id number] 08/21/2019 06:42:00 AM EST [facility] 1 Medication Reconciliation Report [facility] Emergency Department [address] [place] [address] Phone #: [phone] dlb- 0000 08/21/2019 06:42 Patient: CRYS FRANK Sex: F : 1970 Age: 49yWeight: 70.3 kgHeight/Length: 67 in.BMI: 24.3ALLERGIES: CiproThe patient's Home Medications are listed below:THE FOLLOWING MEDICATIONS NEED TO BE RECONCILED: Aleve Oral (220 mg) 1 tablet, last dose: 0500, prn Multivitamin Adults Oral, dailyThe source(s) of the orig inal Home Medication information:Not obtained.The following Medications were given to the patient in the Emergency Department:None.The following Medications were prescribed to the patient:prednisone 50 mg tablet Take 1 tablet once a day -- Dispense 5 tablet. Refills: 0. Substitutionpermitted.Pharmacy - [facility] - [phone] [facility] ; [place], [place] [phone]. . -- Lee Ibrahim M.D. Name Value Range Interpretation Code Description Data [facility](s) Supporting Document(s) ID Date Data Source [id number] 08/21/2019 06:42:00 AM [facility] 1 Medication Administration Record [facility] Emergency Department [address] [place] [address] Phone #: ext- [phone] 08/21/2019 06:42 Patient: CRYS FRANK Sex: F : 1970 Age: 49yWeight: 70.3 kgHeight/Length: 67 inBMI: 24.3ALLERGIES: CiproDate/Time Medication Administered Medication Ordered Name Value Range Interpretation Code Description Data [facility](s) Supporting Document(s) ID Date Data Source [id number] 08/21/2019 06:42:00 AM [facility] 1 General Instructions [facility] Emergency Department [address] [place] [address] Phone #: [phone]- [phone] 08/21/2019 06:42 Patient: CRYS FRANK Sex: F : 1970 Age: 49yMuscle strain of the upper back.INSTRUCTIONSDo not work today, tomorrow.(Heat and stretches. Massage. Take Aleve 2 tabs by mouth twice a day with food. Continue care withorthopedics, chiropractor and your primary care provider.).Prescription Medications:prednisone 50 mg tablet Take 1 tablet once a day -- Dispense 5 tablet. Refills: 0. Substitutionpermitted.Pharmacy - [facility] - [phone] [facility] ; [place], [place] [id number]. . ADDITIONAL INFORMATIONBack Pain (Acute or Chronic) 2 General Instructions [facility] Emergency Department [address] [place] [address] Phone #: [phone]- [phone] 08/21/2019 06:42 Patient: CRYS FRANK Sex: F : 1970 Age: 49yBack pain is one of the most common problems. The good news is that most people feel better in 1 to2 weeks, and most of the rest in 1 to 2 months. Most people can remain active.People who have pain describe it differently--not everyone is the same. The pain can be sharp, stabbing, shooting, aching, cramping or burning. Movement, standing, bending, lifting, sitting, or walking may worsen pain. It can be localized to one spot or area, or it can be more generalized. It can spread or radiate upwards, to the front, or go down your arms or legs (sciatica). It can cause muscle spasm.Most of the time, mechanical problems with the muscles or spine cause the pain. Mechanicalproblems are usually caused by an injury to the muscles or ligaments. While illness can cause backpain, it is usually not caused by a serious illness. Mechanical problems include: 3 General Instructions [facility] Emergency Department [address] [place] [address] Phone #: ext- [phone] 08/21/2019 06:42 [id number] Sex[facility] F : 1970 Age: 49y Physical activity such as sports, exercise, work, or normal activity Overexertion, lifting, pushing, pulling incorrectly or too aggressively Sudden twisting, bending, or stretching from an accident, or accidental movement Poor posture Stretching or moving wrong, without noticing pain at the time Poor coordination, lack of regular exercise (check with your doctor about this) Spinal disc disease or arthritis StressPain can also be related to , or illness like appendicitis, bladder or kidney infections, pelvicinfections, and many other things.Acute back pain usually gets better in 1 to 2 weeks. Back pain related to disk disease, arthritis in thespinal joints or spinal stenosis (narrowing of the spinal canal) can become chronic and last for monthsor years.Unless you had a physical injury (for example, a car accident or fall) X-rays are usually not needed forthe initial evaluation of back pain. If pain continues and does not respond to medical treatment,X-rays and other tests may be needed.Home careTry these home care recommendations: When in bed, try to find a position of comfort. A firm mattress is best. Try lying flat on your back with pillows under your knees. You can also try lying on your side with your knees bent up towards your chest and a pillow between your knees. At first, do not try to stretch out the sore spots. If there is a strain, it is not like the good soreness you get after exercising without an injury. In this case, stretching may make it worse. Don't sit for long periods, as in a long car ride or during other travel. This puts more stress on the lower back than standing or walking. During the first 24 to 72 hours after an acute injury or flare up of chronic back pain, apply an ice pack to the painful area for 20 minutes and then remove it for 20 minutes. Do this over a period of 60 to 90 minutes or several times a day. This will reduce swelling and pain. Wrap the ice pack in a thin towel or plastic to protect your skin. You can start with ice, then switch to heat. Heat (hot shower, hot bath, or heating pad) reduces pain and works well for muscle spasms. Heat can be applied to the painful area for 20 4 General Instructions [facility] Emergency Department [address] [place] [address] Phone #: ext- [phone] 08/21/2019 06:42 Patient: CRYS FRANK Sex: F : 1970 Age: 49y minutes then remove it for 20 minutes. Do this over a period of 60 to 90 minutes or several times a day. Do not sleep on a heating pad. It can lead to skin daily or tissue damage. You can alternate ice and heat therapy. Talk with your doctor about the best treatment for your back pain. Therapeutic massage can help relax the back muscles without stretching them. Be aware of safe lifting methods and do not lift anything without stretching first.MedicinesTalk to your doctor before using medicine, especially if you have other medical problems or are takingother medicines. You may use [id number] medicine as directed on the bottle to control pain, unless another pain medicine was prescribed. If you have chronic conditions like diabetes, liver or kidney disease, stomach ulcers, or gastrointestinal bleeding, or are taking blood thinners, talk to your doctor before taking any medicine. Be careful if you are given a prescription medicines, narcotics, or medicine for muscle spasms. They can cause drowsiness, affect your coordination, reflexes, and judgement. Do not drive or operate heavy RippleFunctiony.Follow-up careFollow up with your healthcare provider, or as advised.A radiologist will review any X-rays that were taken. Your provide will notify you of any new findingsthat may affect your care.Call [phone] if any of the following occur: Trouble breathing Confusion Very drowsy or trouble awakening Fainting or loss of consciousness Rapid or very slow heart rate Loss of bowel or bladder control 5 General Instructions [facility] Emergency Department [address] [place] [address] Phone #: ext- [phone] 08/21/2019 06:42 Patient: CRYS FRANK Sex: F : 1970 Age: 49yWhen to seek medical adviceCall your healthcare provider right away if any of these occur: Pain becomes worse or spreads to your legs Weakness or numbness in one or both legs Numbness in the groin or genital area [id number] [employer] [address] [place] [address]. All rights reserved. This information is not intended as asubstitute for professional medical care. Always follow your healthcare professional's instructions. You have been given the following additional information: Back Pain (Acute or Chronic) Do not work today, tomorrow.(Electronically signed by Lee Irbahim M.D. 08/21/2019 08:05) Name Value Range Interpretation Code Description Data Esthela rce(s) Supporting Document(s) ID Date Data Source [id number] 08/21/2019 06:42:00 AM EST [facility] 1 Clinical Report - Nurses [facility] Emergency Department [address] [place] [address] Phone #: ext- [phone] 08/21/2019 06:42 Patient: CRYS FRANK Sex: F : 1970 Age: 49yTRIAGEArrived by private vehicle. Historian: patient. ( Mid upper back pain x 1 week denies trauma).Acuity: LEVEL 4.Chief Complaint: BACK PAIN.No history of recent trauma.SEPSIS SCREEN: Negative (no infection suspected/documented). --06:46 08/21/19 Freeman Jay R.N.06:43 08/21/19. BP: 165/70. HR: 78. RR: 16. O2 saturation: 100%. Temp: 98.7 F. Pain level now 06/20.--06:46 08/21/19 Freeman Jay R.N.Weight: 70.3 kg. Height/Length: 67 inches. BMI: 24.3. --06:45 08/21/19 Freeman Jay R.N.MedicationsAleve Oral (Tablet 220 mg) 1 tablet, as needed, last dose 0500. --06:44 08/21/19 Freeman Jay R.N. Multivitamin Adults Oral, daily. --06:44 08/21/19 Freeman Jay R .N.AllergiesCipro.(rash) --06:44 08/21/19 Freeman Jay R.N.HistorySOCIAL HX: Current every day smoker. Occasional alcohol use. History of drug use. (denies). Shewas offered HIV testing but declined and hepatitis C testing but declined. She has not traveled outside the.[place].Infectious disease exposure: No infectious disease exposure.SELF HARM ASSESSMENT: Self harm assessment was performed. The patient answered "no" to thequestion(s) "Have you recently felt down, depressed, or hopeless?", "Do you have thoughts of harming orkilling yourself?", "Do you have a plan for harming or killing yourself?", "Have you recently had thoughtsabout harming or killing others?", "Do you have any dangerous items in your possession?", "Have younoticed less interest or pleasure in doing things?", "Are you here because you tried to hurt yourself?" and"Have you ever tried to hurt yourself before today?".ABUSE ASSESSMENT: Abuse as sessment. Abuse denied.NUTRITIONAL RISK ASSESSMENT: The nutritional risk assessment revealed no deficiencies.FUNCTIONAL ASSESSMENT: Functional assessment: no impairments noted. 2 Clinical Report - Nurses [facility] Emergency Department [address] [place] [address] Phone #: ext- [phone] 08/21/2019 06:42 [id number] Sex: F : 1970 Age: 49y LEARNING NEEDS ASSESSMENT: The learning needs assessment revealed no barriers. FALL RISK ASSESSMENT: Fall risk assessment completed. No risk factors identified. SKIN INTEGRITY ASSESSMENT: Skin integrity risk assessment completed. No skin integrity risk identified. --06:46 08/21/19 Freeman Jay R.N. Interventions Identification band on patient. To treatment room. --06:46 08/21/19 Freeman Jay R.N.PHYSICAL ASSESSMENTGENERAL / NEURO / PSYCH: Alert. Oriented X 4. Appears in no acute distress.RESPIRATORY: Respirations not labored. Chest nontender. Breath sounds within normal limits.CVS: Capillary refill less than 2 seconds.GI / : Abdomen soft. Bowel sounds within normal limits.EXTREMITIES: Sensation intact in extremities. ROM of extremities within normal limits.BACK: Normal inspection of the neck and back. ROM of neck and back within normal limits. --06: Freeman Jay R.N.NURSING PROGRESS NOTESPatient gowned. Reassurance given to the patient. Call light placed in reach. Patient placed in chair.Brakes of chair on. Patient ready for evaluation. Care transferred and report given. --06:46 08/21/19Freeman Jay R.N. ( Pt went to chiropractor 4 days ago, pain still there). --06:47 08/21/19 Freeman Jay R.N.DISPOSITION / DISCHARGE Departure time: late entry - 07:28 . Condition at departure: stable. No learning barriers present. Discharge instructions provided and reviewed with the patient. Reviewed warnings (pleas see paper copy). Reviewed medication(s) side effects, precautions, dosing and course information. Prescription(s) sent electronically to pharmacy (prednisone). Treatments reviewed (please see paper copy). Work note given. Patient verbalized understanding. Written instructions provided in British. The patient was discharged by the physician. She was discharged home and unaccompanied at time of discharge. She left ambulatory and via private vehicle. Patient driving. --07:30 08/21/19 Marisabel Sinha R.N. 07:25 08/21/19. BP: 146/79. MAP: 101. HR: 66. RR: 18. O2 saturation: 100% on room air. Temp: 98.6 F (oral). Pain level now: 04/20. --07:30 08/21/19 Marisabel Sinha R.N.Locked/Released at 08/21/2019 07:30 by Marisabel Sinha R.N. 3 Clinical Report - Nurses [facility] Emergency Department [address] [place] [address] Phone #: ext- [phone] 08/21/2019 06:42 Patient: CRYS FRANK Sex: F : 1970 Age: 49y Name Value Range Interpretation Code Description Data Esthela rce(s) Supporting Document(s) ID Date Data Source [id number] 08/21/2019 06:42:00 AM EST [facility] 1 Clinical Report - Physicians/Mid Levels [facility] Emergency Department [address] [place] [address] Phone #: ext- [phone] 08/21/2019 06:42 Patient: CRYS FRANK Sex: F : 1970 Age: 49y Arrived- By private vehicle. Historian- patient.HISTORY OF PRESENT ILLNESS Chief Complaint: BACK PAIN. It is described as being moderate in degree and in the interscapular area. The quality is noted to be sharp and "pain". No radiation. Onset- about 10 days ago and it is still present. It was gradual in onset and has been constant and waxing/waning. Modifying factors. Not worsened by anything. Not relieved by anything. No bladder dysfunction or bowel dysfunction. Sensory loss (paresthesia right thumb and left thumb and 5th finger chronically). 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 Additional history - Pt has hx of cervical spondylosis and has had fusion surgery. She is seeing orthopedics and has a nerve conduction test tomorrow in [place]. The interscapular pain is new. She is taking Aleve without improvement. Review of [facility] registry shows no controlled med prescriptions. She has been getting chiropractic manipulation therapy as well. Patient denies an injury. No injury to the head or chest or other injury. Similar symptoms previously. None. Recent medical care: The patient was seen recently by a health care provider. ( Ortho and chiro).REVIEW OF SYSTEMSThe patient is post-menopausal. No fever, chills, eye discomfort, headache or depression. No sorethroat, cough, difficulty breathing, chest pain or skin rash. No abdominal pain, nausea, vomiting, diarrheaor black stools. No difficulty with urination, urinary frequency, hematuria, vaginal discharge or irregularperiods. No bloody stools.PAST HISTORYSee nurses notes. Problems: Carpal Tunnel Syndrome. Myofascial Strain. Additional Surgeries: Neck Surgery. Parotidectomy. Tubal Ligation. Wrist surgery LEFT. Medications: 2 Clinical Report - Physicians/Mid Levels [facility] Emergency Department [address] [place] [address] Phone #: ext- [phone] 08/21/2019 06:42 Patient: CRYS FRANK Sex: F : 1970 Age: 49y Multivitamin Adults Oral, daily. Aleve Oral (Tablet 220 mg) 1 tablet, as needed, last dose 0500. Allergies: Cipro.(rash).SOCIAL HISTORYHeavy tobacco smoker- less than 1 pack per day. Occasional alcohol use. No drug use. No recenttravel.ADDITIONAL NOTESThe nursing notes have been reviewed.PHYSICAL EXAMVital Signs: 08/21/2019 06:43 BP: 165/70. MAP: 101. HR: 78. RR: 16. O2 saturation: 100%. Temp: 98.7F. Have been reviewed.Appearance: Alert. No acute distress.HEENT: Normal external inspection.Eyes: Pupils equal, round and reactive to light.ENT: Ears normal. Pharynx normal.Neck: Normal inspection. Neck nontender. Painless ROM.CVS: Normal heart rate and rhythm. Heart sounds normal. No cardiac murmur or extra heart sounds.Respiratory: No respiratory distress. Breath sounds normal. No rales, rhonchi or wheezes.Back: Normal inspection. Soft tissue tenderness (thoracic PVM medial to both scapulas). Muscle spasmpresent. No vertebral point tenderness or limitation in ROM.Skin: Skin warm and dry. Normal skin color. No rash. Normal skin turgor.Neuro: Oriented X 3. No alteration in mental status. Mood/affect normal. No motor deficit. No sensorydeficit.PROGRESS AND PROCEDURESDisposition: Discharged home in good condition. Condition: good.CLINICAL IMPRESSION Muscle strain of the upper back.INSTRUCTIONS Do not work today, tomorrow. (Heat and stretches. Massage. Take Aleve 2 tabs by mouth twice a day with food. Continue care with orthopedics, chiropractor and your primary care provider.). Prescription Medications: 3 Clinical Report - Physicians/Mid Levels [facility] Emergency Department [address] [place] [address] Phone #: ext- [phone] 08/21/2019 06:42 Patient: CRYS FRANK Sex: F : 1970 Age: 49y prednisone 50 mg tablet Take 1 tablet once a day -- Dispense 5 tablet. Refills: 0. Substitution permitted. Pharmacy - [id number] - [phone] [facility] ; [place], [place] [id number]. .(Electronically signed by Lee Ibrahim M.D. 08/21/2019 08:05) Name Value Range Interpretation Code Description Data Esthela rce(s) Supporting Document(s) Procedure Social History Code Duration Value Status Description Data Source(s ) Alcohol intake 11/05/2019 12:00:00 AM EST Current drinker of al cohol (finding) completed Current drinker of alcohol (finding) [facility] Cigarette pack-years 11/05/2019 12:00:00 AM EST UNK completed [facility] Cigarettes smoked current (pack per day) - Reported 11/05/19 12:00:00 AM EST UNK completed [facility] Smoking 11/05/2019 12:00:00 AM EST Current every day smoker co mpleted Current every day smoker [facility] Alcohol intake 10/21/2019 12:00:00 AM EST Current drinker of al cohol (finding) completed Current drinker of alcohol (finding) [facility] Cigarette pack-years 10/21/2019 12:00:00 AM EST UNK completed [facility] Cigarettes smoked current (pack per day) - Reported 10/21/19 12:00:00 AM EST UNK completed [facility] Smoking 10/21/2019 12:00:00 AM EST Current every day smoker co mpleted Current every day smoker [facility] Alcohol intake 10/02/2019 12:00:00 AM EST Current drinker of al cohol (finding) completed Current drinker of alcohol (finding) [facility] Cigarette pack-years 10/02/2019 12:00:00 AM EST UNK completed [facility] Cigarettes smoked current (pack per day) - Reported 10/02/19 12:00:00 AM EST UNK completed [facility] Smoking 10/02/2019 12:00:00 AM EST Current every day smoker co mpleted Current every day smoker [facility] Alcohol intake 08/22/2019 12:00:00 AM EST Current drinker of al cohol (finding) completed Current drinker of alcohol (finding) [facility] Cigarette pack-years 08/22/2019 12:00:00 AM EST UNK completed [facility] Cigarettes smoked current (pack per day) - Reported 08/22/20 19 12:00:00 AM EST UNK completed [facility] Smoking 08/22/2019 12:00:00 AM EST Current every day smoker co mpleted Current every day smoker [facility] Vital Signs ID Date Data Source UNK Name Value Range Interpretation Code Description Data Source(s) Body surface area Derived from formula 1.92 m2 1.92 m2 [facility] ([facility]) Body mass index (BMI) [Ratio] 27.9 kg/m2 27.9 k g/m2 [facility] ([facility]) Body height 67 [in_i] 67 [in_i] [facility] ([facility]) 5'7" Body weight 80.741 kg 80.741 kg [facility] ([facility]) Body weight 178.00 [lb_av] 178.00 [lb_av] [facility] ([facility]) Oxygen saturation in Arterial blood by Pulse oximetry 97 % 97 % [facility] ([facility]) Respiratory rate 18 /min 18 /min [facility] ( [facility]) Body temperature 97.4 [degF] 97.4 [degF] [facility] ([facility]) Heart rate 76 /min 76 /min [facility] ([facility]) Diastolic blood pressure 76 mm[Hg] 76 mm[Hg] [facility] ([facility]) Systolic blood pressure 116 mm[Hg] 116 mm[Hg] [facility] ([facility]) Systolic blood pressure 136 mm[Hg] 136 mm[Hg] [facility] ([facility]) Body surface area Derived from formula 1.89 m2 1.89 m2 [facility] ([facility]) Body mass index (BMI) [Ratio] 26.8 kg/m2 26.8 k g/m2 [facility] ([facility]) Body height 67 [in_i] 67 [in_i] [facility] ([facility]) 5'7" Body weight 77.566 kg 77.566 kg [facility] ([facility]) Body weight 171.00 [lb_av] 171.00 [lb_av] [facility] ([facility]) Oxygen saturation in Arterial blood by Pulse oximetry 18 % 18 % [facility]) Respiratory rate 18 /min 18 /min [facility] ( [facility]) Body temperature 97.6 [degF] 97.6 [degF] [facility] ([facility]) Diastolic blood pressure 76 mm[Hg] 76 mm[Hg] [facility] ([facility]) Oxygen saturation in Arterial blood by Pulse oximetry 96 % 96 % [facility] ([facility]) Body temperature 97.4 [degF] 97.4 [degF] [facility] ([facility]) Heart rate 96 /min 96 /min [facility] ([facility]) Body surface area 1.89 m2 1.89 m2 [facility] ([facility]) Body mass index (BMI) [Ratio] 26.6 kg/m2 26.6 k g/m2 [facility] ([facility]) Body height 67 [in_i] 67 [in_i] [facility] ([facility]) 5'7" Body weight 77.112 kg 77.112 kg [facility] ([facility]) Body weight 170.00 [lb_av] 170.00 [lb_av] [facility] ([facility]) Oxygen saturation in Arterial blood by Pulse oximetry 100 % 100 % [facility] ([facility]) Body temperature 98.4 [degF] 98.4 [degF] [facility] ([facility]) Heart rate 93 /min 93 /min [facility] ([facility]) Diastolic blood pressure 81 mm[Hg] 81 mm[Hg] [facility] Systolic blood pressure 161 mm[Hg] 161 mm[Hg] [facility] ([facility]) Body surface area 1.92 m2 1.92 m2 [facility] ([facility]) Body mass index (BMI) [Ratio] 27.7 kg/m2 27.7 k g/m2 [facility] ([facility]) Body height 67 [in_i] 67 [in_i] [facility] ([facility]) 5'7" Body weight 80.287 kg 80.287 kg [facility] ([facility]) Body weight 177.00 [lb_av] 177.00 [lb_av] [facility] ([facility]) Oxygen saturation in Arterial blood by Pulse oximetry 98 % 98 % [facility] ([facility]) Respiratory rate 18 /min 18 /min [facility] ( [facility]) Body temperature 98.1 [degF] 98.1 [degF] [facility] ([facility]) Heart rate 84 /min 84 /min [facility] ([facility]) Diastolic blood pressure 78 mm[Hg] 78 mm[Hg] [facility] Systolic blood pressure 122 mm[Hg] 122 mm[Hg] [facility] ([facility]) Body surface area 1.92 m2 1.92 m2 [facility] ([facility]) Body mass index (BMI) [Ratio] 27.6 kg/m2 27.6 k g/m2 [facility] ([facility]) Body height 67 [in_i] 67 [in_i] [facility] ([facility]) 5'7" Body weight 79.834 kg 79.834 kg [facility] ([facility]) Body weight 176.00 [lb_av] 176.00 [lb_av] [facility] ([facility]) Oxygen saturation in Arterial blood by Pulse oximetry 97 % 97 % [facility] ([facility]) Respiratory rate 16 /min 16 /min [facility] ( [facility]) Body temperature 99.8 [degF] 99.8 [degF] [facility] ([facility]) Heart rate 110 /min 110 /min [facility] ([facility]) Diastolic blood pressure 70 mm[Hg] 70 mm[Hg] [facility] ([facility]) Systolic blood pressure 122 mm[Hg] 122 mm[Hg] [facility] ([facility]) Body surface area 1.89 m2 1.89 m2 [facility] ([facility]) Body mass index (BMI) [Ratio] 26.8 kg/m2 26.8 k g/m2 [facility] ([facility]) Body height 67 [in_i] 67 [in_i] [facility] ([facility]) 5'7" Body weight 77.566 kg 77.566 kg [facility] ([facility]) Body weight 171.00 [lb_av] 171.00 [lb_av] [facility] ([facility]) Oxygen saturation in Arterial blood by Pulse oximetry 97 % 97 % [facility] ([facility]) Respiratory rate 18 /min 18 /min [facility] ( [facility]) Body temperature 97.7 [degF] 97.7 [degF] [facility] ([facility]) Heart rate 97 /min 97 /min [facility] ([facility]) Diastolic blood pressure 78 mm[Hg] 78 mm[Hg] [facility] ([facility]) Systolic blood pressure 140 mm[Hg] 140 mm[Hg] [facility] Body surface area 1.93 m2 1.93 m2 [facility] ([facility]) Body mass index (BMI) [Ratio] 28.0 kg/m2 28.0 k g/m2 [facility] ([facility]) Body height 67 [in_i] 67 [in_i] [facility] ([facility]) 5'7" Body weight 81.194 kg 81.194 kg [facility] ([facility]) Body weight 179.00 [lb_av] 179.00 [lb_av] [facility] ([facility]) Oxygen saturation in Arterial blood by Pulse oximetry 98 % 98 % [facility] ([facility]) Respiratory rate 18 /min 18 /min [facility] ( [facility]) Body temperature 97.2 [degF] 97.2 [degF] [facility] ([facility]) Heart rate 88 /min 88 /min [facility] ([facility]) Diastolic blood pressure 80 mm[Hg] 80 mm[Hg] [facility] ([facility]) Systolic blood pressure 146 mm[Hg] 146 mm[Hg] [facility] ([facility]) ID Date Data Source [id number] 05/25/2020 12:33:04 PM EDT [facility] Name Value Range Interpretation Code Description Data Source(s) WEIGHT RECORDED 170.00 pounds 170.00 pounds [facility] Height 67 Inches 067 Inches [facility] ID Date Data Source [id number] 05/19/2020 10:22:24 AM [facility] Name Value Range Interpretation Code Description Data Source(s) WEIGHT RECORDED 170.00 pounds 170.00 pounds [facility] Height 67 Inches 067 Inches [facility] Hospital ID Date Data Source [id number] 10/22/2019 08:03:52 AM [facility] Name Value Range Interpretation Code Description Data Source(s) WEIGHT RECORDED 160 lb 160 lb [facility] Body height Measured 67 in 67 in [facility] Patient Treatment Plan of Care Planned Activity Planned Date Details Description Data Source (s) fentaNYL (SUBLIMAZE) (PF) injection 25 mcg 10/21/2019 11:11:11 AM [facility] HYDROmorphone (DILAUDID) injection 0.5 mg 10/21/2019 11:11:11 AM [facility] ondansetron (ZOFRAN) injection 4 mg 10/21/2019 11:11:11 AM [facility] oxyCODONE (ROXICODONE) immediate release tablet 5 mg 020 10:09:12 AM [facility] lidocaine (XYLOCAINE) 1 % injection 1 mL 10/21/2019 08:11:37 AM [facility] Ondansetron 8 MG Oral Tablet 10/21/2019 12:00:00 AM [facility] 8 HR Acetaminophen 650 MG Extended Release Oral Tablet 10/21/2019 12:00:00 AM [facility] Ibuprofen 600 MG Oral Tablet 10/21/2019 12:00:00 AM [facility] Oxycodone Hydrochloride 5 MG Oral Tablet 10/21/2019 12:00:00 AM [facility] methylPREDNISolone acetate (DEPO-MEDROL) injection 40 mg 08/22/2019 01:00:00 PM [facility]
[2020-10-12 07:33] LABS: BASO # 0.1 10^3/uL (0.0-0.2); BASO % 0.8 % (0.0-1.0); EOS # 0.3 10^3/uL (0.0-0.5); EOS % 3.4 % (0.0-3.0); HEMATOCRIT 41.5 % (36.0-47.0); HEMOGLOBIN 13.5 g/dl (12.0-15.5); LYMPH # 2.8 10^3/uL (1.5-5.0); LYMPH % 31.2 % (24.0-44.0); MEAN CORPUSCULAR HGB CONC 32.5 g/dl (32.0-36.5); MEAN CORPUSCULAR VOLUME 95.2 fl (80.0-96.0); MONO # 0.6 10^3/uL (0.0-0.8); MONO % 6.1 % (0.0-5.0); NEUTROPHILS # 5.3 10^3/uL (1.5-8.5); NEUTROPHILS % 58.2 % (36.0-66.0); PLATELET COUNT, AUTOMATED 299 10^3/uL (150-450); RED BLOOD COUNT 4.36 10^6/uL (4.00-5.40); WHITE BLOOD COUNT 9.1 10^3/uL (4.0-10.0)
[2020-10-12 07:35] LABS: APPEARANCE, URINE CLEAR (CLEAR); BACTERIA, URINE AUTO NEGATIVE (NEGATIVE); BILIRUBIN, URINE AUTO NEGATIVE (NEGATIVE); BLOOD, URINE BLOOD NEGATIVE (NEGATIVE); COLOR, URINE COLORLESS (YELLOW); GLUCOSE, URINE (UA) AUTO NEGATIVE (NEGATIVE); KETONE, URINE AUTO NEGATIVE (NEGATIVE); LEUKOCYTE ESTERASE, URINE AUTO NEGATIVE (NEGATIVE); MUCUS, URINE SMALL (NEGATIVE); NITRITE, URINE AUTO NEGATIVE (NEGATIVE); PROTEIN, URINE AUTO NEGATIVE (NEGATIVE); RBC, URINE AUTO 1 /HPF (0-3); SPECIFIC GRAVITY URINE AUTO 1.001 (1.002-1.035); SQUAMOUS EPITHELIAL CELL UR AU 2 /HPF (0-6); UROBILINOGEN, URINE AUTO 0.2 mg/dL (0.0-2.0); WBC, URINE AUTO 0 /HPF (0-3)
--- NOTE | 2020-10-12 07:51 | REPVR ---
PROCEDURE INFORMATION: Exam: US Abdomen, Limited; Right Upper Quadrant Exam date and time: 10/12/2020 7:34 AM Age: 50 years old Clinical indication: Abdominal pain; Additional info: Ruq pain TECHNIQUE: Imaging protocol: US abdomen. Real time ultrasound with image documentation. Limited exam focused on the right upper quadrant. COMPARISON: No relevant prior studies available. FINDINGS: Liver: The liver is increased in echotexture, suggesting fatty infiltration. There is no demonstrated mass or intrahepatic biliary ductal dilatation, evaluation for which is somewhat limited due to the increased echotexture. Gallbladder: The gallbladder is without demonstrated stones, sludge or wall thickening, and there is no pericholecystic fluid. Common bile duct: The common bile duct appears slightly large for a patient of this age, measuring 6.5 mm. Pancreas: Visualized portions of the pancreas, not fully including the tail, are without demonstrated abnormality. Right kidney: The right kidney measures 11.4 x 4.8 x 4.4 cm. Normal appearing echotexture. There is no hydronephrosis or demonstrated renal stone, cyst or mass. IMPRESSION: 1. No cholelithiasis. 2. Slight dilatation of the common bile duct at 6.5 mm. Correlate as to possible biliary obstruction and consider dedicated evaluation, such as MRCP. 3. Fatty liver. Electronically signed by: Gerard Barrientos On 10/12/2020 07:51:29 AM
--- OUTSIDE RECORDS SUMMARY | 2020-10-12 07:51 | CCD ---
Author Author [facility] Organization [facility] Address Unknown Phone Unavailable Care Team Providers Care Cupola Patcher Name Role Phone Rick HOBBS MD Unavailable [...] CHACORTA MD Unavailable Unavailable CARPENTER, R ABBY FORCE ADJUSTMENT SUPERVISOR Unavailable Unavailable CARPENTER, R ABBY FORCE ADJUSTMENT SUPERVISOR Unavailable Unavailable CARPENTER, R ABBY FORCE ADJUSTMENT SUPERVISOR Unavailable Unavailable CARPENTER, R ABBY FORCE ADJUSTMENT SUPERVISOR Unavailable Unavailable CARPENTER, R ABBY FORCE ADJUSTMENT SUPERVISOR Unavailable Unavailable CARPENTER, R ABBY FORCE ADJUSTMENT SUPERVISOR Unavailable Unavailable CARPENTER, R ABBY FORCE ADJUSTMENT SUPERVISOR Unavailable Unavailable CARPENTER, R ABBY FORCE ADJUSTMENT SUPERVISOR Unavailable Unavailable CARPENTER, R ABBY FORCE ADJUSTMENT SUPERVISOR Unavailable Unavailable CARPENTER, R ABBY FORCE ADJUSTMENT SUPERVISOR Unavailable Unavailable CARPENTER, R ABBY FORCE ADJUSTMENT SUPERVISOR Unavailable Unavailable CARPENTER, R ABBY FORCE ADJUSTMENT SUPERVISOR Unavailable Unavailable CARPENTER, R ABBY FORCE ADJUSTMENT SUPERVISOR Unavailable Unavailable CARPENTER, R ABBY FORCE ADJUSTMENT SUPERVISOR Unavailable Unavailable CARPENTER, R ABBY FORCE ADJUSTMENT SUPERVISOR Unavailable Unavailable CARPENTER, R ABBY FORCE ADJUSTMENT SUPERVISOR Unavailable Unavailable CARPENTER, R ABBY FORCE ADJUSTMENT SUPERVISOR Unavailable Unavailable CARPENTER, R ABBY FORCE ADJUSTMENT SUPERVISOR Unavailable Unavailable CARPENTER, R ABBY FORCE ADJUSTMENT SUPERVISOR Unavailable Unavailable CARPENTER, R ABBY FORCE ADJUSTMENT SUPERVISOR Unavailable Unavailable CARPENTER, R ABBY FORCE ADJUSTMENT SUPERVISOR Unavailable Unavailable CARPENTER, R ABBY FORCE ADJUSTMENT SUPERVISOR Unavailable Unavailable CARPENTER, R ABBY FORCE ADJUSTMENT SUPERVISOR Unavailable Unavailable CARPENTER, R ABBY FORCE ADJUSTMENT SUPERVISOR Unavailable Unavailable CARPENTER, R ABBY FORCE ADJUSTMENT SUPERVISOR Unavailable Unavailable CARPENTER, R ABBY FORCE ADJUSTMENT SUPERVISOR Unavailable Unavailable CARPENTER, R ABBY FORCE ADJUSTMENT SUPERVISOR Unavailable Unavailable CARPENTER, R ABBY FORCE ADJUSTMENT SUPERVISOR Unavailable Unavailable CARPENTER, R ABBY FORCE ADJUSTMENT SUPERVISOR Unavailable Unavailable CARPENTER, R ABBY FORCE ADJUSTMENT SUPERVISOR Unavailable Unavailable CARPENTER, R ABBY FORCE ADJUSTMENT SUPERVISOR Unavailable Unavailable CARPENTER, R ABBY FORCE ADJUSTMENT SUPERVISOR Unavailable Unavailable CARPENTER, R ABBY FORCE ADJUSTMENT SUPERVISOR Unavailable Unavailable CARPENTER, R ABBY FORCE ADJUSTMENT SUPERVISOR Unavailable Unavailable CARPENTER, R ABBY FORCE ADJUSTMENT SUPERVISOR Unavailable Unavailable CARPENTER, R ABBY FORCE ADJUSTMENT SUPERVISOR Unavailable Unavailable CARPENTER, R ABBY FORCE ADJUSTMENT SUPERVISOR Unavailable Unavailable CARPENTER, R ABBY FORCE ADJUSTMENT SUPERVISOR Unavailable Unavailable CARPENTER, R ABBY FORCE ADJUSTMENT SUPERVISOR Unavailable Unavailable CARPENTER, R ABBY FORCE ADJUSTMENT SUPERVISOR Unavailable Unavailable CARPENTER, R ABBY FORCE ADJUSTMENT SUPERVISOR Unavailable Unavailable Shen Galindo MD Unavailable Unavailable Shen Galindo MD Unavailable Unavailable Shen Galindo MD Unavailable Unavailable Shen Gailndo MD Unavailable Unavailable Shen Galindo MD Unavailable [...] Unavailable Shen Galindo MD Unavailable Unavailable Mateo, Shen Modi MD Unavailable Unavailable Mateo, Shen Modi MD Unavailable Unavailable Mateo, A Ly GORDON Unavailable Unavailable Mateo, A Ly GORDON Unavailable Unavailable Mateo, A Ly GORDON Unavailable Unavailable Mateo, A Ly GORDON Unavailable Unavailable Mateo, Shen Modi MD Unavailable Unavailable Mateo, Shen Modi MD Unavailable Unavailable Mateo, Shen Modi MD Unavailable Unavailable Mateo, Shen Modi MD Unavailable Unavailable Mateo, Shen Modi MD Unavailable Unavailable Mateo, Shen Modi MD Unavailable Unavailable Mateo, A Ly GORDON Unavailable Unavailable Mateo, Shen Modi MD Unavailable Unavailable Mateo, Shen Modi MD Unavailable Unavailable Mateo, Shen Modi MD Unavailable Unavailable Mateo, Shen Modi MD Unavailable Unavailable Mateo, A Ly GORDON [...] Mateo, A Ly GORDON Unavailable Unavailable Mateo, Shen Modi MD Unavailable Unavailable Mateo, Shen Modi MD Unavailable Unavailable Mateo, A Ly GORDON Unavailable Unavailable Mateo, A Ly GORDON Unavailable Unavailable Mateo, A Ly GORDON Unavailable Unavailable Mateo, A Ly GORDON Unavailable Unavailable Mateo, A Ly GORDON Unavailable Unavailable Mateo, A Ly GORDON Unavailable Unavailable Mateo, Shen Modi MD Unavailable Unavailable Mateo, Shen Modi MD Unavailable Unavailable Mateo, Shen Modi MD Unavailable Unavailable Mateo, Shen Modi MD Unavailable Unavailable Mateo, Shen Modi MD Unavailable Unavailable Mateo, Shen Modi MD Unavailable Unavailable Mateo, Shen Modi MD Unavailable Unavailable Mateo, Shen Modi MD Unavailable Unavailable Mateo, Shen Modi MD Unavailable Unavailable Mateo, Shen Modi MD Unavailable Unavailable Mateo, Shen Modi MD Unavailable Unavailable Mateo, Shen Modi MD Unavailable Unavailable Mateo, Shen Modi MD Unavailable Unavailable Mateo, A Ly GORDON Unavailable Unavailable Mateo, A Ly GORDON Unavailable Unavailable Mateo, A Ly GORDON Unavailable Unavailable Mateo, Shen Modi MD Unavailable Unavailable Mateo, Shen Modi MD Unavailable Unavailable Mateo, Shen Modi MD Unavailable Unavailable Mateo, Shen Modi MD Unavailable Unavailable DANNIE, ANJA HARD METALS ENGRAVER HAND-C Unavailable Unavailable DANNIE, ANJA HARD METALS ENGRAVER HAND-C Unavailable Unavailable DANNIE, ANJA HARD METALS ENGRAVER HAND-C Unavailable Unavailable DANNIE, ANJA HARD METALS ENGRAVER HAND-C Unavailable Unavailable DANNIE, ANJA HARD METALS ENGRAVER HAND-C Unavailable Unavailable DANNIE, ANJA HARD METALS ENGRAVER HAND-C Unavailable Unavailable DANNIE, ANJA HARD METALS ENGRAVER HAND-C Unavailable Unavailable DANNIE, ANJA HARD METALS ENGRAVER HAND-C Unavailable Unavailable DANNIE, ANJA HARD METALS ENGRAVER HAND-C Unavailable Unavailable DANNIE, ANJA HARD METALS ENGRAVER HAND-C Unavailable Unavailable DANNIE, ANJA HARD METALS ENGRAVER HAND-C Unavailable Unavailable Devin, Kincheloe HARD METALS ENGRAVER HAND Unavailable Unavailable Devin, Kincheloe HARD METALS ENGRAVER HAND Unavailable Unavailable Devin, Kincheloe HARD METALS ENGRAVER HAND Unavailable Unavailable Devin, Kincheloe HARD METALS ENGRAVER HAND Unavailable Unavailable Devin, Kincheloe HARD METALS ENGRAVER HAND Unavailable Unavailable ARBENMisFELIPE Unavailable Unavailable ARBENMisFELIPE Unavailable Unavailable ARBENMisFELIPE Unavailable Unavailable ARBEN, FELIPE Unavailable Unavailable KIRSCHMAN, L NACHO FORCE ADJUSTMENT SUPERVISOR Unavailable Unavailable KIRSCHMAN, L NACHO FORCE ADJUSTMENT SUPERVISOR Unavailable Unavailable KIRSCHMAN, L NACHO FORCE ADJUSTMENT SUPERVISOR Unavailable Unavailable KIRSCHMAN, L NACHO FORCE ADJUSTMENT SUPERVISOR Unavailable Unavailable KIRSCHMAN, L NACHO FORCE ADJUSTMENT SUPERVISOR Unavailable Unavailable KIRSCHMAN, L NACHO FORCE ADJUSTMENT SUPERVISOR Unavailable Unavailable KIRSCHMAN, L NACHO FORCE ADJUSTMENT SUPERVISOR Unavailable Unavailable KIRSCHMAN, L NACHO FORCE ADJUSTMENT SUPERVISOR Unavailable Unavailable KIRSCHMAN, L NACHO FORCE ADJUSTMENT SUPERVISOR Unavailable Unavailable KIRSCHMAN, L NACHO FORCE ADJUSTMENT SUPERVISOR Unavailable Unavailable KIRSCHMAN, L NACHO FORCE ADJUSTMENT SUPERVISOR Unavailable Unavailable KIRSCHMAN, L NACHO FORCE ADJUSTMENT SUPERVISOR Unavailable Unavailable KIRSCHMAN, L NACHO FORCE ADJUSTMENT SUPERVISOR Unavailable Unavailable KIRSCHMAN, L NACHO FORCE ADJUSTMENT SUPERVISOR Unavailable Unavailable KIRSCHMAN, L NACHO FORCE ADJUSTMENT SUPERVISOR Unavailable Unavailable KIRSCHMAN, L NACHO FORCE ADJUSTMENT SUPERVISOR Unavailable Unavailable KIRSCHMAN, L NACHO FORCE ADJUSTMENT SUPERVISOR Unavailable Unavailable KIRSCHMAN, L NACHO FORCE ADJUSTMENT SUPERVISOR Unavailable Unavailable KIRSCHMAN, L NACHO FORCE ADJUSTMENT SUPERVISOR Unavailable Unavailable KIRSCHMAN, L NACHO FORCE ADJUSTMENT SUPERVISOR Unavailable Unavailable KIRSCHMAN, L NACHO FORCE ADJUSTMENT SUPERVISOR Unavailable Unavailable KIRSCHMAN, L NACHO FORCE ADJUSTMENT SUPERVISOR Unavailable Unavailable KIRSCHMAN, L NACHO FORCE ADJUSTMENT SUPERVISOR Unavailable Unavailable KIRSCHMAN, L NACHO FORCE ADJUSTMENT SUPERVISOR Unavailable Unavailable KIRSCHMAN, L NACHO FORCE ADJUSTMENT SUPERVISOR Unavailable Unavailable KIRSCHMAN, L NACHO FORCE ADJUSTMENT SUPERVISOR Unavailable Unavailable KIRSCHMAN, L NACHO FORCE ADJUSTMENT SUPERVISOR Unavailable Unavailable KIRSCHMAN, L NACHO FORCE ADJUSTMENT SUPERVISOR Unavailable Unavailable KIRSCHMAN, L NACHO FORCE ADJUSTMENT SUPERVISOR Unavailable Unavailable KIRSCHMAN, L NACHO FORCE ADJUSTMENT SUPERVISOR Unavailable Unavailable KIRSCHMAN, L NACHO FORCE ADJUSTMENT SUPERVISOR Unavailable Unavailable KIRSCHMAN, L NACHO FORCE ADJUSTMENT SUPERVISOR Unavailable Unavailable KIRSCHMAN, L NACHO FORCE ADJUSTMENT SUPERVISOR Unavailable Unavailable KIRSCHMAN, L NACHO FORCE ADJUSTMENT SUPERVISOR Unavailable Unavailable KIRSCHMAN, L NACHO FORCE ADJUSTMENT SUPERVISOR Unavailable Unavailable KIRSCHMAN, L NACHO FORCE ADJUSTMENT SUPERVISOR Unavailable Unavailable KIRSCHMAN, L NACHO FORCE ADJUSTMENT SUPERVISOR Unavailable Unavailable KIRSCHMAN, L NACHO FORCE ADJUSTMENT SUPERVISOR Unavailable Unavailable KIRSCHMAN, L NACHO FORCE ADJUSTMENT SUPERVISOR Unavailable Unavailable KIRSCHMAN, L NACHO FORCE ADJUSTMENT SUPERVISOR Unavailable Unavailable KIRSCHMAN, L NACHO FORCE ADJUSTMENT SUPERVISOR Unavailable Unavailable KIRSCHMAN, L NACHO FORCE ADJUSTMENT SUPERVISOR Unavailable Unavailable KIRSCHMAN, L NACHO FORCE ADJUSTMENT SUPERVISOR Unavailable Unavailable KIRSCHMAN, L NACHO FORCE ADJUSTMENT SUPERVISOR Unavailable Unavailable KIRSCHMAN, L NACHO FORCE ADJUSTMENT SUPERVISOR Unavailable Unavailable KIRSCHMAN, L NACHO FORCE ADJUSTMENT SUPERVISOR Unavailable Unavailable KIRSCHMAN, L NACHO FORCE ADJUSTMENT SUPERVISOR Unavailable Unavailable KIRSCHMAN, L NACHO FORCE ADJUSTMENT SUPERVISOR Unavailable Unavailable KIRSCHMAN, L NACHO FORCE ADJUSTMENT SUPERVISOR Unavailable Unavailable KIRSCHMAN, L NACHO FORCE ADJUSTMENT SUPERVISOR Unavailable Unavailable KIRSCHMAN, L NACHO FORCE ADJUSTMENT SUPERVISOR Unavailable Unavailable Mis THEODORE [id number] Unavailable Unavailable TURRIN, WALTER Unavailable Unavailable TURRIN, [...] Kristen, J Luis PA-C Unavailable Unavailable MYESHA MENDOZA MD Unavailable Unavailable MYESHA MENDOZA MD Unavailable Unavailable MYESHA MENDOZA MD Unavailable Unavailable MYESHA MENDOZA MD Unavailable Unavailable MYESHA MENDOZA MD Unavailable Unavailable MYESHA MENDOZA MD Unavailable Unavailable MYESHA MENDOZA MD Unavailable Unavailable MYESHA MENDOZA MD Unavailable Unavailable MYESHA MENDOZA MD Unavailable Unavailable MYESHA MENDOZA MD Unavailable Unavailable MYESHA MENDOZA MD Unavailable Unavailable MYESHA MENDOZA MD Unavailable Unavailable MYESHA MENDOZA MD Unavailable Unavailable MYESHA MENDOZA MD Unavailable Unavailable MYESHA MENDOZA MD Unavailable Unavailable MYESHA MENDOZA MD Unavailable Unavailable MENDOZA, MYESHA MD Unavailable Unavailable MENDOZA, MYESHA MD Unavailable Unavailable MENDOZA, MYESHA MD Unavailable Unavailable MENDOZA, MYESHA MD Unavailable Unavailable MENDOZA, MYESHA MD Unavailable Unavailable MENDOZA, MYESHA MD Unavailable Unavailable MENDOZA, MYESHA MD Unavailable Unavailable MENDOZA, MYESHA MD Unavailable Unavailable MENDOZA, MYESHA MD Unavailable Unavailable MENDOZA, MYESHA MD Unavailable Unavailable MENDOZA, MYESHA MD Unavailable Unavailable MENDOZA, MYESHA MD Unavailable Unavailable MENDOZA, MYESHA MD Unavailable Unavailable MENDOZA, MYESHA MD Unavailable Unavailable MENDOZA, MYESHA MD Unavailable Unavailable MENDOZA, MYESHA MD Unavailable Unavailable MENDOZA, MYESHA MD Unavailable Unavailable MENDOZA, MYESHA MD Unavailable Unavailable MENDOZA, MYESHA MD Unavailable Unavailable MENDOZA, MYESHA MD Unavailable Unavailable MENDOZA, MYESHA MD Unavailable Unavailable MENDOZA, MYESHA MD Unavailable Unavailable MENDOZA, MYESHA MD Unavailable Unavailable MENDOZA, MYESHA MD Unavailable Unavailable MENDOZA, MYESHA MD Unavailable Unavailable MENDOZA, MYESHA MD Unavailable Unavailable MENDOZA, MYESHA MD Unavailable Unavailable MENDOZA, MYESHA MD Unavailable Unavailable MENDOZA, MYESHA MD Unavailable Unavailable MENDOZA, MYESHA MD Unavailable Unavailable MENDOZA, MYESHA MD Unavailable Unavailable MENDOZA, MYESHA MD Unavailable Unavailable MENDOZA, MYESHA MD Unavailable Unavailable MENDOZA, MYESHA MD Unavailable Unavailable MENDOZA, MYESHA MD Unavailable Unavailable MENDOZA, MYESHA MD Unavailable Unavailable MENDOZA, MYESHA MD Unavailable Unavailable MENDOZA, MYESHA MD Unavailable Unavailable MENDOZA, MYESHA MD Unavailable Unavailable MENDOZA, MYESHA MD Unavailable Unavailable MENDOZA, MYESHA MD Unavailable Unavailable MENDOZA, MYESHA MD Unavailable Unavailable MENDOZA, MYESHA MD Unavailable Unavailable MENDOZA, MYESHA MD Unavailable Unavailable MENDOZA, MYESHA MD Unavailable Unavailable MENDOZA, MYESHA MD Unavailable Unavailable MENDOZA, MYESHA MD Unavailable Unavailable MENDOZA, MYESHA MD Unavailable Unavailable MENDOZA, MYESHA MD Unavailable Unavailable MENDOZA, MYESHA MD Unavailable Unavailable MENDOZA, MYESHA MD Unavailable Unavailable MENDOZA, MYESHA MD Unavailable Unavailable MENDOZA, MYESHA MD Unavailable Unavailable Paz, M Alesia PA-C Unavailable Unavailable Paz, M Alesia PA-C Unavailable Unavailable Paz, M Alesia PA-C Unavailable Unavailable Apz, M Alesia PA-C Unavailable Unavailable Paz, M [...] Unavailable DYLAN, Nader TENORIO MD Unavailable Unavailable Nader SANTANA MD Unavailable Unavailable DYLAN, Nader TENORIO MD Unavailable Unavailable DYLANNader ANDERSON MD Unavailable Unavailable Nader SANTANA MD Unavailable Unavailable Nader SANTANA MD Unavailable Unavailable Nader SANTANA MD Unavailable Unavailable DYLANNader ANDERSON MD Unavailable Unavailable Nader SANTANA MD Unavailable Unavailable Nader SANTANA MD Unavailable Unavailable Nader SANTANA MD Unavailable Unavailable Nader SANTANA MD Unavailable Unavailable Nader SANTANA MD Unavailable Unavailable Nader SANTANA MD Unavailable Unavailable Nader SANTANA MD Unavailable Unavailable Nader SANTANA MD Unavailable Unavailable DYLAN, Nader TENORIO MD Unavailable Unavailable Nader SANTANA MD Unavailable Unavailable DYLANNader ANDERSON MD Unavailable [...] TENORIO MD Unavailable Unavailable DYLAN, E ROB MD Unavailable Unavailable DYLANNader ANDERSON MD Unavailable Unavailable DYLANNader ANDERSON MD Unavailable Unavailable Nader SANTANA MD Unavailable Unavailable DYLANNader ANDERSON MD Unavailable Unavailable Nader SANTANA MD Unavailable Unavailable Nader SANTANA MD Unavailable Unavailable Nader SANTANA MD Unavailable Unavailable DYLANNader ANDERSON MD Unavailable Unavailable Nader SANTANA MD Unavailable Unavailable DYLANNader ANDERSON MD Unavailable Unavailable DYLANNader ANDERSON MD Unavailable Unavailable DYLANNader ANDERSON MD Unavailable Unavailable DYLANNader ANDERSON MD Unavailable Unavailable DYLAN, Nader TENORIO MD Unavailable Unavailable DYLANNader ANDERSON MD Unavailable Unavailable DYLANNader ANDERSON MD Unavailable Unavailable DYLANNader ANDERSON MD Unavailable Unavailable DYLANNader ANDEROSN MD Unavailable Unavailable DYLANNader ANDERSON MD Unavailable Unavailable Nader SANTANA MD Unavailable Unavailable Nader SANTANA MD Unavailable Unavailable Michell FRANKLIN MD Unavailable Unavailable Michell FRANKLIN MD Unavailable Unavailable Michell FRANKLIN MD Unavailable Unavailable Michell FRANKLIN MD Unavailable Unavailable Michell FRANKLIN MD Unavailable Unavailable Michell FRANKLIN MD Unavailable Unavailable Michell FRANKLIN MD Unavailable Unavailable Michell FRANKLIN MD Unavailable Unavailable Michell FRANKLIN MD Unavailable Unavailable Michell FRANKLIN MD Unavailable Unavailable CHRISTIANEMichell LIMA MD Unavailable Unavailable Michell FRANKLIN MD Unavailable Unavailable Michell FRANKLIN MD Unavailable Unavailable Michell FRANKLIN MD Unavailable Unavailable Michell FRANKLIN MD Unavailable Unavailable Michell FRANKLIN MD Unavailable Unavailable Michell FRANKLIN MD Unavailable Unavailable CHRISTIANEMichell LIMA MD Unavailable Unavailable Michell FRANKLIN MD Unavailable Unavailable Michell FRANKLIN MD Unavailable Unavailable Michell FRANKLIN MD Unavailable Unavailable Michell FRANKLIN MD Unavailable Unavailable Michell FRANKLIN MD Unavailable Unavailable Michelle Camacho MD Unavailable Unavailable Michelle Camacho MD Unavailable Unavailable Michelle Camacho MD Unavailable Unavailable Michelle Camacho MD Unavailable Unavailable Michelle Camacho MD Unavailable Unavailable Michelle Camacho MD Unavailable Unavailable Michelle Camacho MD Unavailable Unavailable Camacho, Michelle GORDON Unavailable Unavailable Camacho, Michelle GORDON Unavailable Unavailable Camacho, Mcihelle GORDON Unavailable Unavailable Camacho, Michelle GORDON Unavailable [...] Unavailable Unavailable Camacho, Michelle GORDON Unavailable Unavailable VENERUS, Mis SANCHEZ MD Unavailable Unavailable VENERUS, Mis SANCHEZ MD Unavailable Unavailable VENERUS, Mis SANCHEZ MD Unavailable Unavailable VENERUS, Mis SANCHEZ MD Unavailable Unavailable VENERUS, Mis SANCHEZ MD Unavailable Unavailable VENERUS, Mis SANCHEZ MD Unavailable Unavailable VENERUS, Mis SANCHEZ MD Unavailable Unavailable VENERUS, Mis SANCHEZ MD Unavailable Unavailable VENERUS, Mis WIN GORDON Unavailable Unavailable Re-disclosure Warning The records that [...] is protected by Article 27-F of the [place] [facility] Public Health law. If you continue you may have access to information: Regarding HIV / AIDS; Provided by facilities licensed or operated by the [facility] Office of Mental Health; or Provided by the [facility] Office for People With Developmental Disabilities. If such information is present, then the following [facility] mandated warning applies: This information has been [...] law may result in a fine or detention sentence or both. A general authorization for the release of medical or other information is NOT sufficient authorization for further disc losure. Allergies and Adverse Reactions Type Description Substance Reaction Status Data Source(s ) No Known Environmental Allergies No Known Environmental Al lergies [facility] No Known Food Allergies No Known Food Allergies [facility] BRANDNAME [facility] ANAPHYLAXIS [facility] CLASS SULFA (sulfonamide) SULFA (sulfonamide) DYSPNEA [facility] Drug Class NO KNOWN ALLERGIES NO KNOWN ALLERGIES [facility] Family History Family Member Name Family Member Gender Family Member Status Date o f Status Description Data Source(s) Unknown Unknown Problem [facility] ([facility] Unknown Unknown Problem [facility] ([facility]) Unknown Male Problem [facility] ([facility]) Unknown Female Encounters Encounter Providers Location Date Indications Data Source(s ) Emergency Attender: Luis Peterson PA-CConsultant: MYESHA HERNANDEZ MD 10/08/2020 02:18:00 PM EST - 10/08/2020 03:28:00 PM EST [facility] Patient discharged. Outpatient Attender: MYESHA MENDOZA MDConsultant: MYESHA Galarza MD 10/02/2020 10:59:00 AM EST - 10/02/2020 11:59:00 AM EST [facility] Patient discharged. Outpatient Attender: MYESHA MENDOZA MDConsultant: MYESHA Galarza MD 09/28/2020 01:05:00 PM EST - 09/28/2020 01:05:00 PM [facility] Outpatient Attender: MYESHA MENDOZA MD Family Practice 09/28/2020 1 2:20:00 PM EST [facility] ([facility]) Outpatient Attender: MYESHA MENDOZA MDConsultant: MYESHA Galarza MD 08/28/2020 12:24:00 PM EST - 08/28/2020 01:24:00 PM [facility] Patient discharged. Unknown [id number] [facility] [address] 08/25/2020 12:00:00 AM EST eCW1 ([facility]) Outpatient Attender: MYESHA MENDOZA MDConsultant: MYESHA Galarza MD 08/18/2020 02:12:00 PM EST - 08/18/2020 03:12:00 PM [facility] Patient discharged. Outpatient Attender: MYESHA MENDOZA MDConsultant: MYESHA Galarza MD 08/05/2020 01:00:00 PM EST - 08/05/2020 01:00:00 PM [facility] Outpatient Attender: MYESHA MENDOZA MD Family Practice 08/05/2020 1 2:20:00 PM EST [facility] ([facility]) Emergency Attender: GABRIELLA FRANKLIN MDConsultant: MYESHA Galarza MD 07/25/2020 02:23:00 PM EST - 07/25/2020 04:23:00 PM [facility] Patient discharged. Outpatient Attender: Kun Beltran FNPConsultant: MYESHA MENDOZA MD 07/23/2020 10:09:00 AM EST - 07/23/2020 10:09:00 AM [facility] Outpatient Attender: SOPHIE HOBBS MDConsultant: MYESHA Galarza MD 05/15/2020 09:15:00 AM EDT - 05/15/2020 09:25:00 AM EDT [facility] Outpatient Attender: SOPHIE HOBBS MDConsultant: MYESHA Galarza MD 05/15/2020 07:54:02 AM EDT - 05/19/2020 12:18:00 PM EDT [facility] Patient discharged. Outpatient Attender: SOPHIE HOBBS MDConsultant: MYESHA Galarza MD 05/04/2020 07:22:43 AM EDT - 05/05/2020 08:24:00 AM EDT [facility] Patient discharged. Outpatient Attender: SOPHIE HOBBS MDConsultant: MYESHA Galarza MD 05/01/2020 11:57:00 AM EDT - 05/01/2020 12:57:00 PM EDT [facility] Patient discharged. Outpatient Attender: SOPHIE HOBBS MDConsultant: MYESHA Galarza MD 04/28/2020 07:35:10 AM EDT - 04/29/2020 04:00:00 PM EDT [facility] Patient discharged. Outpatient Attender: SOPHIE HOBBS MDConsultant: MYESHA Galarza MD 04/23/2020 10:06:00 AM EDT - 04/23/2020 10:06:00 AM EDT [facility] Emergency Attender: WIN SAM MDConsultant: MYESHA TORRES MD 04/16/2020 08:54:00 AM EDT - 04/16/2020 12:47:00 PM EDT [facility] Patient discharged. Outpatient Attender: MYESHA MENDOZA MD Family Practice 03/23/2020 1 1:00:00 AM EDT [facility] ([facility]) Outpatient Attender: MYESHA MENDOZA MDConsultant: MYESHA Galarza MD 03/23/2020 10:35:00 AM EDT - 03/23/2020 10:35:00 AM EDT [facility] Outpatient Attender: MYESHA MENDOZA MDConsultant: MYESHA Galarza MD 03/19/2020 06:42:00 AM EDT - 03/19/2020 07:42:00 AM EDT [facility] Outpatient Attender: Alesia STEELECConsultant: MYESHA BUTLER MD 03/16/2020 01:41:00 PM EDT - 03/16/2020 01:41:00 PM EDT [facility] Emergency Attender: GABRIELLA FRANKLIN MDConsultant: MYESHA Galarza MD 03/12/2020 07:30:00 AM EDT - 03/12/2020 08:31:00 AM EDT [facility] Patient discharged. Outpatient Attender: MYESHA MENDOZA MD Family Practice 03/10/2020 0 2:00:00 PM EDT [facility] ([facility]) Outpatient Attender: MYESHA MENDOZA MDConsultant: MYESHA Galarza MD 03/10/2020 01:34:00 PM EDT - 03/10/2020 01:34:00 PM EDT [facility] Outpatient Attender: MYESHA MENDOZA MDConsultant: MYESHA Galarza MD 02/26/2020 08:34:00 AM EDT - 02/26/2020 09:34:00 AM EDT [facility] [address] [place] [address] 02/10/2020 12:00:00 AM EDT eCW1 ([facility]) Emergency Attender: SUSANNA PANDEY HARD METALS ENGRAVER HAND-C Attender: Ly Galindo MDConsultant: NACHO GOLD NP 12/16/2019 04:32:00 PM EDT - 12/16/2019 05:55 :00 PM EDT [facility] Patient discharged. Outpatient Attender: MYESHA MENDOZA MD Family Practice 12/09/2019 0 2:00:00 PM EDT [facility] ([facility]) Outpatient Attender: MYESHA PECKonsultant: NACHO SOLORZANO NP 12/09/2019 01:32:00 PM EDT - 12/09/2019 01:32:00 PM EDT [facility] Outpatient Attender: SIRI THEODORE [id number] 11/05/2019 12:00:00 AM EST Radial styloid tenosynovitis (de quervain) [facility] Radial styloid tenosynovitis (de quervai n) Outpatient Attender: SIRI THEODORE [id number] : SIRI THEODORE [id number] 10/21/2019 12:00:00 AM EST - 10/21/2019 12:30:00 PM ES T De Quervain's tenosynovitis [M65.4] [facility] De Quervain's tenosynovitis [M65.4] Patient discharged. Outpatient Attender: SIRI STONEonsultant: NACHO SOLORZANO NP 10/07/2019 02:07:00 PM EST - 10/07/2019 03:07:00 PM EST [facility] Outpatient Attender: SIRI THEODORE [id number] : CHACORTA ORELLANA MD [id number] 10/02/2019 12:00:00 AM EST Radial styloid tenosynovitis (de quervain) [facility] Radial styloid tenosynovitis (de quervai n) Recurring Patient Attender: ROB SANTANA MDReferrer: ROB Thapa MD 09/13/2019 08:26:07 AM EST [facility] Outpatient Attender: ROB SANTANA MDReferrer: ROB SANTANA MD 08/27/2019 02:20:58 PM EST [facility] Recurring Patient Attender: ROB SANTANA MDReferrer: ROB Thapa MD 08/27/2019 01:53:18 PM EST [facility] Recurring Patient Attender: ROB SANTANA MDReferrer: ROB Thapa MD 08/27/2019 01:51:39 PM EST [facility] Recurring Patient Attender: ROB SANTANA MDReferrer: ROB Thapa MD 08/23/2019 12:18:03 PM EST [facility] Outpatient Attender: ABBY 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 [id number] 08/22/2019 1 2:00:00 AM EST Radial styloid tenosynovitis (de quervain) [facility] Radial styloid tenosynovitis (de quervai n) Outpatient Attender: Michelle Camacho MDReferrer: Naomy BURGESSRECK [id number] 08/22/2019 12:00:00 AM EST - 08/22/2019 09:19:17 AM ES T Anesthesia of skin [facility] Anesthesia of skin Outpatient 08/22/2019 12:00:00 AM EST [facility] Emergency Attender: WALTER MAIConsultant: NACHO SOLORZANO NP 08/21/2019 06:42:00 AM EST - 08/21/2019 07:28:00 AM EST [facility] Patient discharged. Medications Medication Brand Name Start Date Product Form Dose Route Admi nistrative Instructions Pharmacy Instructions Status Indications Reaction Description Data Source(s) atorvastatin 40 MG Oral Tablet Atorvastatin Calcium 09/28/2020 1 2:00:00 AM EST ORAL active [facility] ( [facility]) atorvastatin 10 MG Oral Tablet ATORVASTATIN CALCIUM 08/07/2020 1 2:00:00 AM EST tablet 90 TAKE ONE TABLET BY MOUTH EVERY D AY TAKE ONE TABLET BY MOUTH EVERY DAY SOLD: 08/11/2020 [facility] atorvastatin 10 MG Oral Tablet Atorvastatin Calcium 08/05/2020 1 2:00:00 AM EST ORAL completed [facility] ([facility]) No Active Medications 08/05/2020 12:00:00 AM EST completed [facility] ([facility]) 600 mg 07/25/2020 12:00:00 AM EST tablet extended release 12hr 14 TAKE ONE TABLET BY MOUTH TWICE A DAY TAKE ONE TABLET BY MOUTH TWICE A DAY SOLD: 07/26/2020 [facility] 875-125 mg 07/25/2020 12:00:00 AM EST tablet 14 TAKE ONE TABLET BY MOUTH TWICE A DAY TAKE ONE TABLET BY MOUTH TWICE A DAY SOLD: 07/26/2020 [facility] Hydroxychloroquine Sulfate 200 MG Oral Tablet HYDROXYCHLOROQ UINE SULFATE 05/20/2020 12:00:00 AM EDT tablet 60 TAKE ONE TABLET BY MOUTH TWICE A DAY FOR RHEUMATOID ARTHRITIS TAKE ONE TABLET BY MOUTH TWICE A DAY FOR RHEUMATOID ARTHRITIS SOLD: 05/23/2020 [facility] Bisacodyl 5 MG Delayed Release Oral Tablet [Dulcolax] Dulcol ax 04/23/2020 12:00:00 AM EDT completed [facility] ([facility]) POLYETHYLENE GLYCOL 3350 142 MG/ML Oral Solution [Miralax] M iralax 04/23/2020 12:00:00 AM EDT completed [facility] ([facility]) 5 mg 04/23/2020 12:00:00 AM EDT tablet,delayed release (DR/EC) 4 SEE PREPROCEDURE INSTRUCTIONS SEE PREPROCEDURE INSTRUCTIONS SOLD: 04/26/2020 [facility] 17 gram/dose 04/23/2020 12:00:00 AM EDT powder 238 SEE PRE PROCEDURE INSTRUCTIONS SEE PRE PROCEDURE INSTRUCTIONS SOLD: 04/26/2020 [facility] 100 mg 03/16/2020 12:00:00 AM EDT capsule 90 TAKE ONE CAPSULE BY MOUTH THREE TIMES A DAY NEEDED FOR PAIN TAKE ONE CAPSULE BY MOUTH THREE TIMES A DAY NEEDED FOR PAIN SOLD: 03/17/2020 [facility] gabapentin 100 MG Oral Capsule Gabapentin 03/16/2020 12:00:00 AM EDT ORAL completed [facility] ([facility]) 800 mg 03/12/2020 12:00:00 AM EDT tablet 50 TAKE ONE TABLET BY MOUTH FIVE TIMES DAILY FOR 10 DAYS TAKE ONE TABLET BY MOUTH FIVE TIMES DAILY FOR 10 DAYS SOLD: 03/12/2020 [facility] atorvastatin 10 MG Oral Tablet Atorvastatin Calcium 03/10/2020 1 2:00:00 AM EDT ORAL completed [facility] ([facility]) Lisinopril 10 MG Oral Tablet Lisinopril 03/10/2020 12:00:00 AM EDT ORAL completed [facility] ([facility]) 10 mg 03/10/2020 12:00:00 AM EDT tablet 90 TAKE ONE TABLET BY MOUTH EVERY DAY TAKE ONE TABLET BY MOUTH EVERY DAY SOLD: 03/12/2020 [facility] 10 mg 03/10/2020 12:00:00 AM EDT [...] Stopping 12/09/2019 12:00:00 AM EDT completed [facility] ([facility]) Mupirocin 0.02 MG/MG Topical Ointment Mupirocin 12/09/2019 12:00:00 AM EDT completed [facility] ([facility]) 2 % 12/09/2019 12:00:00 AM EDT ointment 22 APPLY A THIN LAYER TWO TIMES A DAY FOR 4 WEEKS APPLY A THIN LAYER TWO TIMES A DAY FOR 4 WEEKS SOLD: 020 [facility] HYDROmorphone (DILAUDID) injection 0.5 mg 1826-1041-87 10/21/2019 11:11:11 AM EST 0.5 mg Intravenous active 0.5 mg, Intravenous, Every 5 min PRN, Severe Pain (Pain Scale Score 7-10), Starting 10/21/19 at 1111, For 4 doses, [facility] Medication administered onsite ondansetron (ZOFRAN) injection 4 mg [id number] 10/21/2019 11:11:1 1 AM EST 4 mg Intravenous active 4 mg, In travenous, Once PRN, Nausea, Vomiting, Starting Mon10/21/19 at 1111, For 1 dose, Recovery [facility] Medication administered onsite fentaNYL (SUBLIMAZE) (PF) injection 25 mcg [id number] 10/21/2019 11:11:11 AM EST 25 ug Intravenous active 25 m cg, Intravenous, Every 5 min PRN, Moderate Pain (Pain Scale Score 4-6), Starting Mon10/21/19 at 1111, For 10 doses, Recovery [facility] Medication administered onsite oxyCODONE (ROXICODONE) immediate [...] to 10 mg per dose. Higher doses ( only) require Pain Service consultation and approval.
[...] Service consultation and approval.
[Order 2 End] [facility] Medication administered onsite Calcium Chloride 0.0014 MEQ/ML / Potassi um Chloride 0.004 MEQ/ML / Sodium Chloride 0.103 MEQ/ML / Sodium Lactate 0.028 MEQ/ML Injectable Solution lactated ringers infusion lactated ringers infusion 10/21/2019 08:15:00 AM EST Intravenous active at 100 mL/hr, Intravenous, Continuous, Starting Mon10/21/19 at 0815, For 30 days
Keep Vein Open. Use Wide Tubing.
Pre-op [facility] Medication administered onsite lidocaine (XYLOCAINE) 1 % injection 1 mL [id number] 10/21/2019 08:11:37 AM EST 1 mL Infiltration active 1 m L, Infiltration, Once PRN, Patient request, Starting 10/21/19 at 0811, For 1 dose, Pre-op
For IV Insertion.
[facility] Medication administered onsite Ondansetron 8 MG Oral Tablet Ondansetron HCl 8 MG Oral Tablet (ZOFRAN) Ondansetron HCl 8 MG Oral Tablet (ZOFRAN) 10/21/2019 12:00:00 AM EST 8 mg Oral active Take 1 tablet by mouth every 8 (eight) hours as needed for Nausea or Vomiting for up to 7 days [facility] Ibuprofen 600 MG Oral Tablet Ibuprofen 600 MG Oral Tab let (ADVIL,MOTRIN) Ibuprofen 600 MG Oral Tablet (ADVIL,MOTRIN) 10/21/2019 12:00:00 AM EST 600 mg Oral active Take 1 tablet by mouth every 6 (six) hours as needed for Pain for up to 10 days [facility] 8 HR Acetaminophen 650 MG Extended Relea se Oral Tablet Acetaminophen ER 650 MG Oral Tablet Extended Release (TYLENOL 8 HOUR) Acetaminophen ER 650 MG Oral Tablet Extended Release (TYLENOL 8 HOUR) 10/21/2019 12:00:00 AM EST 650 mg Oral active Take 1 tablet by mouth every 8 (eight) hours as needed for Pain for up to 10 days [facility] Oxycodone Hydrochloride 5 MG Oral Tablet oxyCODONE HCl 5 MG Oral Tablet (ROXICODONE) oxyCODONE HCl 5 MG Oral Tablet (ROXICODONE) 10/21/2019 12:00:00 AM EST 5 mg Oral active Take 1 t ablet by mouth every 4 (four) hours as needed for up to 3 days, Max Daily Dose: 30 mg [facility] 5 mg/gram (0.5 %) 09/13/2019 12:00:00 AM EST ointment 3 APPLY SMALL AMOUNT TOPICALLY TO EYELID TWO TIMES A DAY DIRECTED FOR 14 DAYS APPLY SMALL AMOUNT TOPICALLY TO EYELID TWO TIMES A DAY DIRECTED FOR 14 DAYS SOLD: 09/14/2019 [facility] methylPREDNISolone acetate (DEPO-MEDROL) injection 40 mg [id number] 08/22/2019 01:00:00 PM EST 40 mg Intra-articular completed 40 mg, Intra- articular, Once, Tiffanie 08/22/19 at 1300, For 1 dose
Depo-medrol 1 cc - J1030
[facility] Medication administered onsite 50 mg 08/21/2019 12:00:00 [...] Medications 06/22/2019 12:00:00 AM EDT completed [facility] ([facility]) Insurance Providers Payer name Policy type / Coverage type Policy ID Covered green party ID Covered green party's relationship to guzman Policy [place] Plan Information [facility] [id number] HU2 [id number] [facility]MR [facility] [id number] HU2 [id number] UMR -O/P [id number] 01 [id number] UMR CO [id number] 01 [id number] UMR CO [id number] 01 [id number] UMR -PHYSICIAN [id number] 1 [id number] UMR CO [id number] 01 [id number] UMR CO [id number] 01 [id number] UMR U [id number] Spouse [id number] UMR F [id number] SPOUSE [id number] UMR F [id number] SPOUSE [id number] UMR F [id number] SPOUSE [id number] UMR F [id number] SPOUSE [id number] UMR O [id number] S [id number] POMCO [id number] HU2 [id number] [place] Medigap Part B [id number] Family Dependent [id number] [place] Medigap Part B [id number] Family Dependent [id number] Umr Commercial [id number] Family Dependent [id number] UMR -O/P [id number] 01 [id number] POMCO U [id number] Self [id number] POMCO-RECURRING [id number] 01 [id number] POMCO U [id number] Self [id number] POMCO BC [id number] 01 [id number] [employer] Commercial [id number] Family Dependent [id number] [employer] Commercial [id number] Family Dependent 89 [id number] POMCO-O/P [id number] 01 [id number] [employer] (pr) Commercial [id number] Family Dependent 8 [id number] [employer] (pr) Commercial [id number] Family Dependent 8 [id number] [employer] (pr) Commercial [id number] Family Dependent 8 [id number] POMCO [id number] SP [id number] POMCO [id number] SP [id number] Pomco F [id number] SPOUSE [id number] Pom[employer] Pos Commercial Family Dependent Pom[employer] Pos Commercial Family Dependent POMCO [id number] Spo [id number] POMCO-CLINIC [id number] 01 [id number] POMCO PPO P [id number] P [id number] Problems, Conditions, and Diagnoses Code Display Name Description Problem Type Effective Dates Data Source(s) 47796893 Essential hypertension Essential hypertension Problem 04/23/2020 12:00:00 AM EDT [facility] ([facility]) Z5321 Procedure and treatment not carried out due to patient leaving prior to being seen by health care provider Procedure and treatment not carried out due to patient leaving prior to being seen by health care provider Diagnosis 10/08/2020 02:18:00 PM [facility] R1010 Upper abdominal pain, unspecified Upper abdomina l pain, unspecified Diagnosis 10/02/2020 10:59:00 AM [facility] E785 Hyperlipidemia, unspecified Hyperlipidemia, unspecifie d Diagnosis 09/28/2020 01:05:00 PM [facility] R911 Solitary pulmonary nodule Solitary pulmonary nodule Di agnosis 08/28/2020 12:24:00 PM [facility] R0789 Other chest pain Other chest pain Diagnosis 08/18/2020 02 :12:00 PM [facility] R05 Cough Cough Diagnosis 08/18/2020 02:12:00 PM ES T [facility] 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 Benign neopla sm of ascending colon Diagnosis 08/05/2020 01:00:00 PM [facility] B31921 Contact with and (suspected) exposure to other viral communicable diseases Contact with and (suspected) exposure to other viral communicable diseases Diagnosis 07/25/2020 02:23:00 PM [facility] J19895 Nicotine dependence, cigarettes, uncompl icated Nicotine dependence, cigarettes, uncomplicated Diagnosis 07/25/2020 02:23:00 PM [facility] I10 Essential (primary) hypertension Essential (primary) h ypertension Diagnosis 07/25/2020 02:23:00 PM [facility] J0110 Acute frontal sinusitis, unspecified Acute front al sinusitis, unspecified Diagnosis 07/25/2020 02:23:00 PM [facility] J0100 Acute maxillary sinusitis, unspecified A cute maxillary sinusitis, unspecified Diagnosis 07/25/2020 02:23:00 PM [facility] R509 Fever, unspecified Fever, unspecified Diagnosis 0 02:23:00 PM [facility] Z1159 Encounter for screening for other viral diseases Encounter for screening for other viral diseases Diagnosis 07/23/2020 10:09:00 AM [facility] A630 Anogenital (venereal) warts Anogenital (venereal) wart s Diagnosis 05/19/2020 10:00:00 AM EDT [facility] C20657 Encounter for other preprocedural examin ation Encounter for other preprocedural examination Diagnosis 05/15/2020 09:15:00 AM EDT [facility] 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 Diagnosis 05/05/2020 06:30:00 AM EDT [facility] R194 Change in bowel habit Change in bowel habit Diagnosis 05/05/2020 06:30:00 AM [facility] Z1211 Encounter for screening for malignant ne oplasm of colon Encounter for screening for malignant neoplasm of colon Diagnosis 04/23/2020 10:06:0 0 AM EDT [facility] R072 Precordial pain Precordial pain Diagnosis 04/16/2020 08:5 4:00 AM EDT [facility] B029 Zoster without complications Zoster without complicati ons Diagnosis 03/23/2020 10:35:00 AM EDT [facility] M130 Polyarthritis, unspecified Polyarthritis, unspecified Diagnosis 03/23/2020 10:35:00 AM EDT [facility] R936 Abnormal findings on diagnostic imaging of limbs Abnormal findings on diagnostic imaging of limbs Diagnosis 03/19/2020 06:42:00 AM EDT [facility] R51 Headache Headache Diagnosis 03/16/2020 01:41:00 PM ED T [facility] R21 Rash and other nonspecific skin eruption Rash and other nonspecific skin eruption Diagnosis 03/12/2020 07:30:00 AM EDT [facility] G4733 Obstructive sleep apnea (adult) (pediatr ic) Obstructive sleep apnea (adult) (pediatric) Diagnosis 03/10/2020 01:34:00 PM EDT [facility] R030 Elevated blood-pressure reading, without diagnosis of hypertension Elevated blood-pressure reading, without diagnosis of hypertension Diagnosis 02/26/2020 08:34:00 AM EDT [facility] B349 Viral infection, unspecified Viral infection, unspecif ied Diagnosis 12/16/2019 04:32:00 PM EDT [facility] J069 Acute upper respiratory infection, unspe cified Acute upper respiratory infection, unspecified Diagnosis 12/16/2019 04:32:[address] [facility] Z1331 Encounter for screening for depression E ncounter for screening for depression Diagnosis 12/09/2019 01:32:00 PM EDT [facility] R300 Dysuria Dysuria Diagnosis 12/09/2019 01:32:00 PM ED T [facility] M65.4 Radial styloid tenosynovitis [de Quervai n] Radial styloid tenosynovitis (de quervain) Diagnosis 10/21/2019 10:02:59 AM [facility] De Quervain's tenosynovitis [M65.4] De Quervain' s tenosynovitis [M65.4] Diagnosis 10/21/2019 07:44:00 AM [facility] M654 Radial styloid tenosynovitis [de Quervai n] Radial styloid tenosynovitis [de Quervain] Diagnosis 10/07/2019 02:07:00 PM [facility] R20.2 Paresthesia of skin Paresthesia of skin Diagnosis 1 10/23/2018 09:39:40 AM [facility] R20.0 Anesthesia of skin Anesthesia of skin Diagnosis 08/2019 09:39:40 AM [facility] Surgeries/Procedures Procedure Description Date Indications Data Source(s) Brief Emotional/Behav Assessment W/ Scoring Doc Per Standard Inst 12/09/2019 12:00:00 AM EDT [facility] ([facility] BETA HCG, QUANT BETA HCG, QUANT STAT 10/21/2019 8:12 AM EST 10/21/2019 01:12:00 PM [facility] SURGERY CASE REQUEST OUTSIDE FACILITY ONLY SURGERY CA SE REQUEST OUTSIDE FACILITY ONLY Routine 10/02/2019 10:59 AM EST De Quervain's Disease (Radial Styloid Tenosynovitis) 0 10/02/2019 03:59:55 PM EST De Quervain's Disease (Radial Styloid Tenosynovitis) [facility] De Quervain's Disease (Radial Styloid Te nosynovitis) Results ID Date Data Source [id number] 10/08/2020 02:18:00 PM [facility] 1 Medication Reconciliation Report [facility] Emergency Department [address] [place] [address] Phone #: ext- [phone] 10/08/2020 13:19 Patient: [...] rce(s) Supporting Document(s) ID Date Data Source [id number] 10/08/2020 02:18:00 PM [facility] 1 Medication Administration Record [facility] Emergency Department [address] [place] [address] Phone #: ext [phone] 10/08/2020 13:19 Patient: CRYS FRANK Sex: F : 1970 Age: 50yWeight: 77.5 kgHeight/Length: 67 inBMI: 26.8ALLERGIES: Cipro, predniSONEDate/Time Medication Administered Medication Ordered Name Value Range Interpretation Code Description Data [facility](s) Supporting Document(s) ID Date Data Source [id number] 10/08/2020 02:18:00 PM [facility] 1 Clinical Report - Nurses [facility] Emergency Department [address] [place] [address] Phone #: ext [phone] 10/08/2020 13:19 Patient: CRYS FRANK Sex: F : 1970 Age: 50yTRIAGEArrived by private vehicle. Historian: patient. ( presents with lower right abdominal pain).Triage time: 14:09 10/08/2020. Acuity: LEVEL 3.Chief Complaint: ABDOMINAL PAIN.Alert. No acute distress.Onset. (2.5 months). The patient has had abdominal pain. 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 2 Clinical Report - Nurses [facility] Emergency Department [address] [place] [address] Phone #: ext- [phone] 10/08/2020 13:19 Patient: CRYS FRANK Sex: F : 1970 Age: 50ySinusitis.Hypertension.Myofascial Strain. [...] / DISCHARGE 3 Clinical Report - Nurses [facility] Emergency Department [address] [place] [address] Phone #: ext- [phone] 10/08/2020 13:19 Patient: [...] rce(s) Supporting Document(s) ID Date Data Source [id number] 10/05/2020 12:47:00 [place] [address] PHONE: [phone] FAX: [phone] Name .................. : HAVEN Galarza Acct Number.................. : [id number] ROOM. ................. : MR Number ................... : [id number] Stay type ............. : O/P Discharge Date......... ... : 10/02/20 Admit Date .... ..... : 10/02/20 Admit Phys .................... : MENDOZA HARD Date of ....... : 1970 Family Phys ................... : Miralupa HARD Phone .................. : [phone] Age ................................ : 50 Film# .................. .:[id number] Sex ................................. : F Unsigned transcriptions are preliminary reports and do not represent a medical or legal document CT ABD & PELV W/O ORAL W/[place] [address] COMPLETE:10/02/20 14:55 RLB 2718 (REASON FOR ABDOMEN: [...] or free fluid. Page 1 of 2 [place] [address] PHONE: [phone] FAX: [phone] Name .................. : HAVEN Galarza Acct Number.................. : [id number] ROOM. ................. : MR Number ................... : [id number] Stay type ............. : O/P Discharge Date......... ... : 10/02/20 Admit Date ......... : 10/02/20 Admit Phys .................... : MENDOZA HARD Date of ....... : 1970 Family Phys ................... : MENDOZA HARD Phone .................. : [phone] Age ................................ : 50 Film# .................. .:[id number] Sex ................................. : F Unsigned transcriptions are preliminary reports and do not represent a medical or legal document CT ABD & PELV W/O ORAL W/[place] [address] COMPLETE:10/02/20 14:55 RLB 2827 (REASON FOR ABDOMEN: ABDOMINAL PAIN While performing the above CT examination, radiation dose reduction was accomplished utilizing automated exposure control, adjusting of the mA and kV based on the patient's body size and/or the use of imperative reconstructive techniques. CT dose: 730 mGycm Electronically Reviewed and Signed By Ralf Fleming MD , 10/05/20 12:47, FROY Transcribe Initials: HERMES , Transcribe Date: 10/03/20 01:34, Dictation Date: Copy for: [address] [place] [address] REC Page 2 of 2 Name Value Range Interpretation Code Description Data Esthela rce(s) Supporting Document(s) ID Date Data Source [id number] 08/31/2020 10:07:00 AM EST [facility] [address] [place] [address] PHONE: [phone] FAX: [phone] Name .................. : HAVEN Galarza Acct Number.................. : [id number] ROOM. ................. : MR Number ................... : [id number] Stay type ............. : O/P Discharge Date......... ... : 08/28/20 Admit Date .... ..... : 08/28/20 Admit Phys .................... : MENDOZA HARD Date of ....... : 1970 Family Phys ................... : Miralupa HARD Phone .................. : [phone] Age ................................ : 50 Film# .................. .:[id number] Sex ................................. : F Unsigned transcriptions are preliminary reports and do not represent a medical or legal document CT THORAX W/CONTRAST 28526 COMPLETE:08/28/20 13:53 FRANKLIN 488 (REASON FOR CHEST: [...] of this dictation. Page 1 of 2 [facility] [address] [place] [address] [place] [address] PHONE: [phone] FAX: [phone] Name .................. : HAVEN Galarza Acct Number.................. : [id number] ROOM. ................. : Number ................... : [id number] Stay type ............. : O/P Discharge Date......... ... : 08/28/20 Admit Date ......... : 08/28/20 Admit Phys .................... : Postify Date of ....... : 1970 Family Phys ................... : [employer] Phone .................. : [phone] Age ................................ : 50 Film# .................. .:[id number] Sex ................................. : F Unsigned transcriptions are preliminary reports and do not represent a medical or legal document CT THORAX W/CONTRAST 50347 COMPLETE:08/28/20 13:53 FRANKLIN 488 (REASON FOR CHEST: SINGLE PULMONARY NODULE Electronically Reviewed and Signed By Bartolome Escalante MD , 08/31/20 10:07, EDGARDO Transcribe Initials: HERMES , Transcribe Date: 08/29/20 02:46, Dictation Date: Copy for: 710 MED REC Page 2 of 2 Name Value Range Interpretation Code Description Data Esthela rce(s) Supporting Document(s) ID Date Data Source [id number] 08/28/2020 11:44:00 AM EST [facility] ([facility]) Name Value Range Interpretation Code Description Data Esthela rce(s) Supporting Document(s) Hemoglobin A1c/Hemoglobin.total in Blood 5.5 % 4.4-6.1 [facility] ([facility]) FASTING~.~.~<DG1.3.1>R03.0</DG1.3.1><DG1.3.1>R21</DG1.3.1><DG1.3.1>R21</DG1.3.1> <DG1.3.1>R21 ID Date Data Source [id number] 08/28/2020 11:44:00 AM EST [facility] ([facility]) Name Value Range Interpretation Code Description Data Esthela rce(s) Supporting Document(s) Urinalysis Laboratory test result [facility] ([facility]) FASTING~.~.~<DG1.3.1>R03.0</DG1.3.1><DG1.3.1>R21</DG1.3.1><DG1.3.1>R21</DG1.3.1> <DG1.3.1>R21 Source Laboratory test result [facility] ([facility]) FASTING~.~.~<DG1.3.1>R03.0</DG1.3.1><DG1.3.1>R21</DG1.3.1><DG1.3.1>R21</DG1.3.1> <DG1.3.1>R21 Color Laboratory test result [facility] ([facility]) FASTING~.~.~<DG1.3.1>R03.0</DG1.3.1><DG1.3.1>R21</DG1.3.1><DG1.3.1>R21</DG1.3.1> <DG1.3.1>R21 Clarity Laboratory test result [facility] ([facility]) FASTING~.~.~<DG1.3.1>R03.0</DG1.3.1><DG1.3.1>R21</DG1.3.1><DG1.3.1>R21</DG1.3.1> <DG1.3.1>R21 Spec [place] 1.030 1.001-1.030 [facility] ([facility]) FASTING~.~.~<DG1.3.1>R03.0</DG1.3.1><DG1.3.1>R21</DG1.3.1><DG1.3.1>R21</DG1.3.1> <DG1.3.1>R21 pH 5 5-9 [facility] ([facility]) FASTING~.~.~<DG1.3.1>R03.0</DG1.3.1><DG1.3.1>R21</DG1.3.1><DG1.3.1>R21</DG1.3.1> <DG1.3.1>R21 Bilirubin Laboratory test result [facility] ([facility]) FASTING~.~.~<DG1.3.1>R03.0</DG1.3.1><DG1.3.1>R21</DG1.3.1><DG1.3.1>R21</DG1.3.1> <DG1.3.1>R21 Glucose Laboratory test result [facility] ([facility]) FASTING~.~.~<DG1.3.1>R03.0</DG1.3.1><DG1.3.1>R21</DG1.3.1><DG1.3.1>R21</DG1.3.1> <DG1.3.1>R21 Ketone Laboratory test result [facility] ([facility]) FASTING~.~.~<DG1.3.1>R03.0</DG1.3.1><DG1.3.1>R21</DG1.3.1><DG1.3.1>R21</DG1.3.1> <DG1.3.1>R21 Protein Laboratory test result [facility] ([facility]) FASTING~.~.~<DG1.3.1>R03.0</DG1.3.1><DG1.3.1>R21</DG1.3.1><DG1.3.1>R21</DG1.3.1> <DG1.3.1>R21 Nitrite Laboratory test result [facility] ([facility]) FASTING~.~.~<DG1.3.1>R03.0</DG1.3.1><DG1.3.1>R21</DG1.3.1><DG1.3.1>R21</DG1.3.1> <DG1.3.1>R21 Blood Laboratory test result [facility] ([facility]) FASTING~.~.~<DG1.3.1>R03.0</DG1.3.1><DG1.3.1>R21</DG1.3.1><DG1.3.1>R21</DG1.3.1> <DG1.3.1>R21 Leuk Est Laboratory test result [facility] ([facility]) FASTING~.~.~<DG1.3.1>R03.0</DG1.3.1><DG1.3.1>R21</DG1.3.1><DG1.3.1>R21</DG1.3.1> <DG1.3.1>R21 Microscopic Laboratory [facility]~.~<DG1.3.1>R03.0</DG1.3.1><DG1.3.1>R21</DG1.3.1><DG1.3.1>R21</DG1.3.1> <DG1.3.1>R21 Urobilinogen Laboratory test result [facility] ([facility]) FASTING~.~.~<DG1.3.1>R03.0</DG1.3.1><DG1.3.1>R21</DG1.3.1><DG1.3.1>R21</DG1.3.1> <DG1.3.1>R21 ID Date Data Source [id number] 08/28/2020 11:44:00 AM EST [facility] ([facility]) Name Value Range Interpretation Code Description Data Esthela rce(s) Supporting Document(s) Cve Panel Laboratory test result [facility] ([facility]) FASTING~.~.~<DG1.3.1>R03.0</DG1.3.1><DG1.3.1>R21</DG1.3.1><DG1.3.1>R21</DG1.3.1> <DG1.3.1>R21 Triglycerides 362 mg/dL 35-160 Above high normal [facility] ([facility]) FASTING~.~.~<DG1.3.1>R03.0</DG1.3.1><DG1.3.1>R21</DG1.3.1><DG1.3.1>R21</DG1.3.1> <DG1.3.1>R21 Cholesterol 262 mg/dL 131-200 Above high normal [facility] ([facility]) FASTING~.~.~<DG1.3.1>R03.0</DG1.3.1><DG1.3.1>R21</DG1.3.1><DG1.3.1>R21</DG1.3.1> <DG1.3.1>R21 Risk Factor 6.1 3.2-4.4 Above high normal [facility] ([facility]) FASTING~.~.~<DG1.3.1>R03.0</DG1.3.1><DG1.3.1>R21</DG1.3.1><DG1.3.1>R21</DG1.3.1> <DG1.3.1>R21 LDL 173 mg/dL 65-175 [facility] ([facility]) FASTING~.~.~<DG1.3.1>R03.0</DG1.3.1><DG1.3.1>R21</DG1.3.1><DG1.3.1>R21</DG1.3.1> <DG1.3.1>R21 HDL 43 mg/dL 29-86 [facility] ([facility]) FASTING~.~.~<DG1.3.1>R03.0</DG1.3.1><DG1.3.1>R21</DG1.3.1><DG1.3.1>R21</DG1.3.1> <DG1.3.1>R21 LDL/HDL 4.02 1.47-3.22 Above high normal [facility] ([facility]) FASTING~.~.~<DG1.3.1>R03.0</DG1.3.1><DG1.3.1>R21</DG1.3.1><DG1.3.1>R21</DG1.3.1> <DG1.3.1>R21 ID Date Data Source [id number] 08/28/2020 11:44:00 AM EST [facility] ([facility]) Name Value Range Interpretation Code Description Data Esthela rce(s) Supporting Document(s) CBC W/Automated Diff Laboratory test result [facility] ([facility]) FASTING~.~.~<DG1.3.1>R03.0</DG1.3.1><DG1.3.1>R21</DG1.3.1><DG1.3.1>R21</DG1.3.1> <DG1.3.1>R21 RBC 4.10 10^6/uL 4.20-5.40 Below low normal [facility] ([facility]) FASTING~.~.~<DG1.3.1>R03.0</DG1.3.1><DG1.3.1>R21</DG1.3.1><DG1.3.1>R21</DG1.3.1> <DG1.3.1>R21 WBC 8.2 10^3/uL 4.2-11.0 [facility] ([facility]) FASTING~.~.~<DG1.3.1>R03.0</DG1.3.1><DG1.3.1>R21</DG1.3.1><DG1.3.1>R21</DG1.3.1> <DG1.3.1>R21 Hematocrit 38.7 % 37.0-47.0 [facility] ([facility]) FASTING~.~.~<DG1.3.1>R03.0</DG1.3.1><DG1.3.1>R21</DG1.3.1><DG1.3.1>R21</DG1.3.1> <DG1.3.1>R21 Hemoglobin 13.0 g/dL 12.0-16.0 [facility] ([facility]) FASTING~.~.~<DG1.3.1>R03.0</DG1.3.1><DG1.3.1>R21</DG1.3.1><DG1.3.1>R21</DG1.3.1> <DG1.3.1>R21 MCV 94.4 fL 81.0-101 [facility] ([facility]) FASTING~.~.~<DG1.3.1>R03.0</DG1.3.1><DG1.3.1>R21</DG1.3.1><DG1.3.1>R21</DG1.3.1> <DG1.3.1>R21 MCHC 33.6 g/dL 31.0-36.0 [facility] ([facility]) FASTING~.~.~<DG1.3.1>R03.0</DG1.3.1><DG1.3.1>R21</DG1.3.1><DG1.3.1>R21</DG1.3.1> <DG1.3.1>R21 MCH 31.7 pg 27.0-34.0 [facility] ([facility]) FASTING~.~.~<DG1.3.1>R03.0</DG1.3.1><DG1.3.1>R21</DG1.3.1><DG1.3.1>R21</DG1.3.1> <DG1.3.1>R21 RDW 12.3 % 11.5-14.5 [facility] ([facility]) FASTING~.~.~<DG1.3.1>R03.0</DG1.3.1><DG1.3.1>R21</DG1.3.1><DG1.3.1>R21</DG1.3.1> <DG1.3.1>R21 Platelets 296 10^3/uL 150-450 [facility] ([facility]) FASTING~.~.~<DG1.3.1>R03.0</DG1.3.1><DG1.3.1>R21</DG1.3.1><DG1.3.1>R21</DG1.3.1> <DG1.3.1>R21 MPV 9.8 fL 7.4-10.4 [facility] ([facility]) FASTING~.~.~<DG1.3.1>R03.0</DG1.3.1><DG1.3.1>R21</DG1.3.1><DG1.3.1>R21</DG1.3.1> <DG1.3.1>R21 Neut 51.3 % 37.0-80.0 [facility] ([facility]) FASTING~.~.~<DG1.3.1>R03.0</DG1.3.1><DG1.3.1>R21</DG1.3.1><DG1.3.1>R21</DG1.3.1> <DG1.3.1>R21 Ray 6.6 % 3.0-8.0 [facility] ([facility]) FASTING~.~.~<DG1.3.1>R03.0</DG1.3.1><DG1.3.1>R21</DG1.3.1><DG1.3.1>R21</DG1.3.1> <DG1.3.1>R21 Lymph 37.8 % 25.0-40.0 [facility] ([facility]) FASTING~.~.~<DG1.3.1>R03.0</DG1.3.1><DG1.3.1>R21</DG1.3.1><DG1.3.1>R21</DG1.3.1> <DG1.3.1>R21 Eos 3.3 % 0.0-7.0 [facility] ([facility]) FASTING~.~.~<DG1.3.1>R03.0</DG1.3.1><DG1.3.1>R21</DG1.3.1><DG1.3.1>R21</DG1.3.1> <DG1.3.1>R21 Baso 0.6 % 0.0-2.5 [facility] ([facility]) FASTING~.~.~<DG1.3.1>R03.0</DG1.3.1><DG1.3.1>R21</DG1.3.1><DG1.3.1>R21</DG1.3.1> <DG1.3.1>R21 %Ig 0.4 % 0.0-0.0 Above high normal [facility] ([facility]) FASTING~.~.~<DG1.3.1>R03.0</DG1.3.1><DG1.3.1>R21</DG1.3.1><DG1.3.1>R21</DG1.3.1> <DG1.3.1>R21 %NRBC 0.0 % 0.0-0.0 [facility] ([facility]) FASTING~.~.~<DG1.3.1>R03.0</DG1.3.1><DG1.3.1>R21</DG1.3.1><DG1.3.1>R21</DG1.3.1> <DG1.3.1>R21 #Neut 4.18 10^3/uL 2.00-6.90 [facility] ([facility]) FASTING~.~.~<DG1.3.1>R03.0</DG1.3.1><DG1.3.1>R21</DG1.3.1><DG1.3.1>R21</DG1.3.1> <DG1.3.1>R21 #Lymph 3.08 10^3/uL 0.60-3.40 [facility] ([facility]) FASTING~.~.~<DG1.3.1>R03.0</DG1.3.1><DG1.3.1>R21</DG1.3.1><DG1.3.1>R21</DG1.3.1> <DG1.3.1>R21 #Eos 0.27 10^3/uL 0.00-0.70 [facility] ([facility]) FASTING~.~.~<DG1.3.1>R03.0</DG1.3.1><DG1.3.1>R21</DG1.3.1><DG1.3.1>R21</DG1.3.1> <DG1.3.1>R21 #Ray 0.54 10^3/uL 0.00-0.90 [facility] ([facility]) FASTING~.~.~<DG1.3.1>R03.0</DG1.3.1><DG1.3.1>R21</DG1.3.1><DG1.3.1>R21</DG1.3.1> <DG1.3.1>R21 #Baso 0.05 10^3/uL 0.00-0.20 [facility] ([facility]) FASTING~.~.~<DG1.3.1>R03.0</DG1.3.1><DG1.3.1>R21</DG1.3.1><DG1.3.1>R21</DG1.3.1> <DG1.3.1>R21 #Ig 0.03 10^3/uL 0.00-0.10 [facility] ([facility]) FASTING~.~.~<DG1.3.1>R03.0</DG1.3.1><DG1.3.1>R21</DG1.3.1><DG1.3.1>R21</DG1.3.1> <DG1.3.1>R21 RBC Morph Laboratory test result [facility] ([facility]) FASTING~.~.~<DG1.3.1>R03.0</DG1.3.1><DG1.3.1>R21</DG1.3.1><DG1.3.1>R21</DG1.3.1> <DG1.3.1>R21 #NRBC 0.00 10^3/uL 0.00-0.00 [facility] ([facility]) FASTING~.~.~<DG1.3.1>R03.0</DG1.3.1><DG1.3.1>R21</DG1.3.1><DG1.3.1>R21</DG1.3.1> <DG1.3.1>R21 Manual Diff Laboratory test result [facility] ([facility]) FASTING~.~.~<DG1.3.1>R03.0</DG1.3.1><DG1.3.1>R21</DG1.3.1><DG1.3.1>R21</DG1.3.1> <DG1.3.1>R21 ID Date Data Source [id number] 08/28/2020 11:44:00 AM EST [facility] ([facility]) Name Value Range Interpretation Code Description Data Esthela rce(s) Supporting Document(s) Thyroxine (T4) free [Mass/volume] in Serum or Plasma 0.91 ng/dL 0.93-1.70 Below low normal [facility] ([facility]) FASTING~.~.~<DG1.3.1>R03.0</DG1.3.1><DG1.3.1>R21</DG1.3.1><DG1.3.1>R21</DG1.3.1> <DG1.3.1>R21 Thyrotropin [Units/volume] in Serum or Plasma 1.77 uIU/mL 0.47-5.01 [facility] ([facility]) FASTING~.~.~<DG1.3.1>R03.0</DG1.3.1><DG1.3.1>R21</DG1.3.1><DG1.3.1>R21</DG1.3.1> <DG1.3.1>R21 ID Date Data Source [id number] 08/28/2020 11:44:00 AM EST [facility] ([facility]) Name Value Range Interpretation Code Description Data Esthela rce(s) Supporting Document(s) Sed Rate 17 mm/hr 0-30 [facility] ([facility]) FASTING~.~.~<DG1.3.1>R03.0</DG1.3.1><DG1.3.1>R21</DG1.3.1><DG1.3.1>R21</DG1.3.1> <DG1.3.1>R21 Sed Rate Reenter 17 [facility] ([facility]) FASTING~.~.~<DG1.3.1>R03.0</DG1.3.1><DG1.3.1>R21</DG1.3.1><DG1.3.1>R21</DG1.3.1> <DG1.3.1>R21 ID Date Data Source [id number] 08/28/2020 11:44:00 AM EST [facility] ([facility]) Name Value Range Interpretation Code Description Data Esthela rce(s) Supporting Document(s) C reactive protein [Mass/volume] in Serum or Plasma by High sensitivity method 10.57 mg/L 1.00-3.00 Above high normal [facility] ([facility]) FASTING~.~.~<DG1.3.1>R03.0</DG1.3.1><DG1.3.1>R21</DG1.3.1><DG1.3.1>R21</DG1.3.1> <DG1.3.1>R21 ID Date Data Source [id number] 08/28/2020 11:44:00 AM EST [facility] ([facility]) Name Value Range Interpretation Code Description Data Esthela rce(s) Supporting Document(s) Sodium 137 meq/L 134-153 [facility] ([facility]) FASTING~.~.~<DG1.3.1>R03.0</DG1.3.1><DG1.3.1>R21</DG1.3.1><DG1.3.1>R21</DG1.3.1> <DG1.3.1>R21 [employer] Laboratory test result [facility] ([facility]) FASTING~.~.~<DG1.3.1>R03.0</DG1.3.1><DG1.3.1>R21</DG1.3.1><DG1.3.1>R21</DG1.3.1> <DG1.3.1>R21 Co2 27 meq/L 22-30 [facility] ([facility]) FASTING~.~.~<DG1.3.1>R03.0</DG1.3.1><DG1.3.1>R21</DG1.3.1><DG1.3.1>R21</DG1.3.1> <DG1.3.1>R21 Chloride 101 meq/L 98-107 [facility] ([facility]) FASTING~.~.~<DG1.3.1>R03.0</DG1.3.1><DG1.3.1>R21</DG1.3.1><DG1.3.1>R21</DG1.3.1> <DG1.3.1>R21 Potassium 3.9 meq/L 3.6-5.0 [facility] ([facility]) FASTING~.~.~<DG1.3.1>R03.0</DG1.3.1><DG1.3.1>R21</DG1.3.1><DG1.3.1>R21</DG1.3.1> <DG1.3.1>R21 Glucose 94 mg/dL 65-110 [facility] ([facility]) FASTING~.~.~<DG1.3.1>R03.0</DG1.3.1><DG1.3.1>R21</DG1.3.1><DG1.3.1>R21</DG1.3.1> <DG1.3.1>R21 BUN 7 mg/dL 7-21 [facility] ([facility]) FASTING~.~.~<DG1.3.1>R03.0</DG1.3.1><DG1.3.1>R21</DG1.3.1><DG1.3.1>R21</DG1.3.1> <DG1.3.1>R21 Creatinine 0.7 mg/dL 0.7-1.5 [facility] ([facility]) FASTING~.~.~<DG1.3.1>R03.0</DG1.3.1><DG1.3.1>R21</DG1.3.1><DG1.3.1>R21</DG1.3.1> <DG1.3.1>R21 BUN/Creat 10 8-27 [facility] ([facility]) FASTING~.~.~<DG1.3.1>R03.0</DG1.3.1><DG1.3.1>R21</DG1.3.1><DG1.3.1>R21</DG1.3.1> <DG1.3.1>R21 Total Protein 7.0 g/dL 6.3-8.2 [facility] ([facility]) FASTING~.~.~<DG1.3.1>R03.0</DG1.3.1><DG1.3.1>R21</DG1.3.1><DG1.3.1>R21</DG1.3.1> <DG1.3.1>R21 Globulin 2.5 GM/DL 2.4-3.2 [facility] ([facility]) FASTING~.~.~<DG1.3.1>R03.0</DG1.3.1><DG1.3.1>R21</DG1.3.1><DG1.3.1>R21</DG1.3.1> <DG1.3.1>R21 Albumin 4.5 g/dL 3.9-5.0 [facility] ([facility]) FASTING~.~.~<DG1.3.1>R03.0</DG1.3.1><DG1.3.1>R21</DG1.3.1><DG1.3.1>R21</DG1.3.1> <DG1.3.1>R21 A/G Ratio 1.8 0.8-2.0 [facility] ([facility]) FASTING~.~.~<DG1.3.1>R03.0</DG1.3.1><DG1.3.1>R21</DG1.3.1><DG1.3.1>R21</DG1.3.1> <DG1.3.1>R21 Calcium 9.8 mg/dL 8.4-10.2 [facility] ([facility]) FASTING~.~.~<DG1.3.1>R03.0</DG1.3.1><DG1.3.1>R21</DG1.3.1><DG1.3.1>R21</DG1.3.1> <DG1.3.1>R21 Total Bili Laboratory test result 0.2-1.3 [facility] ([facility]) FASTING~.~.~<DG1.3.1>R03.0</DG1.3.1><DG1.3.1>R21</DG1.3.1><DG1.3.1>R21</DG1.3.1> <DG1.3.1>R21 Alkaline Phos 93 U/L 38-126 [facility] ([facility]) FASTING~.~.~<DG1.3.1>R03.0</DG1.3.1><DG1.3.1>R21</DG1.3.1><DG1.3.1>R21</DG1.3.1> <DG1.3.1>R21 Sgot/Ast 19 U/L 5-40 [facility] ([facility]) FASTING~.~.~<DG1.3.1>R03.0</DG1.3.1><DG1.3.1>R21</DG1.3.1><DG1.3.1>R21</DG1.3.1> <DG1.3.1>R21 SGPT/Alt 22 U/L 7-56 [facility] ([facility]) FASTING~.~.~<DG1.3.1>R03.0</DG1.3.1><DG1.3.1>R21</DG1.3.1><DG1.3.1>R21</DG1.3.1> <DG1.3.1>R21 Anion Gap 9.0 mmol/L 8.0-16.0 [facility] ([facility]) FASTING~.~.~<DG1.3.1>R03.0</DG1.3.1><DG1.3.1>R21</DG1.3.1><DG1.3.1>R21</DG1.3.1> <DG1.3.1>R21 Age 50 yrs [facility] ([facility]) FASTING~.~.~<DG1.3.1>R03.0</DG1.3.1><DG1.3.1>R21</DG1.3.1><DG1.3.1>R21</DG1.3.1> <DG1.3.1>R21 Non-Aa GFR Laboratory test result [facility] ([facility]) FASTING~.~.~<DG1.3.1>R03.0</DG1.3.1><DG1.3.1>R21</DG1.3.1><DG1.3.1>R21</DG1.3.1> <DG1.3.1>R21 Afr Amer GFR Laboratory test result [facility] ([facility]) FASTING~.~.~<DG1.3.1>R03.0</DG1.3.1><DG1.3.1>R21</DG1.3.1><DG1.3.1>R21</DG1.3.1> <DG1.3.1>R21 ID Date Data Source [id number] 08/28/2020 03:49:00 PM EST [facility] Name Value Range Interpretation Code Description Data Esthela rce(s) Supporting Document(s) Thyrotropin [Units/volume] in Serum or Plasma by Detec tion limit <= 0.05 mIU/L 1.77 uIU/mL 0.47 - 5.01 [facility] ID Date Data Source [id number] 08/28/2020 03:49:00 PM [facility] Name Value Range Interpretation Code Description Data Esthela rce(s) Supporting Document(s) Thyroxine (T4) free index in Serum or Plasma by calculation 0.91 NG/DL 0.93 - 1.70 L [facility] ID Date Data Source [id number] 08/28/2020 03:38:00 PM [facility] Name Value Range Interpretation Code Description Data Esthela rce(s) Supporting Document(s) [facility] Cholesterol [Mass/volume] in Serum or Plasma 262 MG/DL 131 - 200 H [facility] Deprecated Triglyceride [Mass/volume] in Serum or Plasma 362 MG/DL 3 5 - 160 H [facility] HDL 43 MG/DL 29 - 86 [facility] Cholesterol in LDL [Mass/volume] in Serum or Plasma by Direc t assay 173 mg/dL 65 - 175 [facility] Cholesterol.total/Cholesterol in HDL [Mass Ratio] in Serum o r Plasma 6.1 3.2 - 4.4 H [facility] LDL/HDL 4.02 1.47 - 3.22 H [facility] CVE RISK CHOL/HDL LDL/HDLMEN: 1/2 AVERAGE 3.43 1.00 AVERAGE 4.97 3.55 2X AVERAGE 9.55 6.25 3X AVERAGE 23.99 7.99WOMEN: 1/2 AVERAGE 3.27 1.47 AVERAGE 4.44 3.22 2X AVERAGE 7.05 5.03 3X AVERAGE 11.04 6.14 ID Date Data Source [id number] 08/28/2020 03:38:00 PM [facility] Name Value Range Interpretation Code Description Data Esthela rce(s) Supporting Document(s) C reactive protein [Mass/volume] in Serum or Plasma by High sensitivity method 10.57 MG/L 1.00 - 3.00 H [facility] CDC/AHS HS-CRP CUT-OFF: RELATIVE RISK: <1.0 mg/L Low 1.0 - 3.0 mg/L Average >3.0 mg/L High Optimally, the average of HS-CRP results repeated two weeks apart should be used for risk assessment. ID Date Data Source [id number] 08/28/2020 01:49:00 PM EST [facility] Name Value Range Interpretation Code Description Data Esthela rce(s) Supporting Document(s) COMPREHENSIVE METABOLIC PANEL [facility] COMPREHENSIVE METABOLIC PANEL Sodium [Moles/volume] in Serum or Plasma 137 mEq/L 134 - 153 [facility] Potassium [Moles/volume] in Serum or Plasma 3.9 mEq/L 3.6 - 5.0 [facility] Chloride [Moles/volume] in Serum or Plasma 101 mEq/L 98 - 107 [facility] Carbon dioxide, total [Moles/volume] in Serum or Plasma 27 MEQ/L 22 - 30 [facility] Glucose [Mass/volume] in Serum or Plasma 94 MG/DL 65 - 110 [facility] BUN 7 MG/DL 7 - 21 [facility] Creatinine [Mass/volume] in Serum or Plasma 0.7 MG/DL 0.7 - 1.5 [facility] BUN/CREAT 10 8 - 27 [facility] Protein [Mass/volume] in Serum or Plasma 7.0 G/DL 6.3 - 8.2 [facility] Albumin [Mass/volume] in Serum or Plasma 4.5 G/DL 3.9 - 5.0 [facility] Globulin [Mass/volume] in Serum by calculation 2.5 GM/DL 2.4 - 3.2 [facility] A/G RATIO 1.8 0.8 - 2.0 [facility] Calcium [Mass/volume] in Serum or Plasma 9.8 MG/DL 8.4 - 10.2 [facility] Bilirubin.total [Mass/volume] in Serum or Plasma <0.7 MG/DL 0.2 - 1.3 [facility] Alkaline phosphatase [Enzymatic activity/volume] in Serum or Plasma 93 U/L 38 - 126 [facility] Aspartate aminotransferase [Enzymatic activity/volume] in Serum or Plasma 19 U/L 5 - 40 [facility] Alanine aminotransferase [Enzymatic activity/volume] in Seru m or Plasma 22 U/L 7 - 56 [facility] Anion gap 3 in Serum or Plasma 9.0 mmol/L 8.0 - 16.0 [facility] AGE 50 yrs [facility] NON-AA GFR >60 mL/min [facility] AFR AMER GFR >60 mL/min [facility] Male GFR In terprentation [...] >32 mL/min Normal ID Date Data Source [id number] 08/28/2020 12:58:00 PM [facility] Name Value Range Interpretation Code Description Data Esthela rce(s) Supporting Document(s) Hemoglobin A1c/Hemoglobin.total in Blood 5.5 % 4.4 - 6.1 [facility] {A1]{HB] ID Date Data Source [id number] 08/28/2020 12:25:00 PM [facility] Name Value Range Interpretation Code Description Data Esthela rce(s) Supporting Document(s) Erythrocyte sedimentation rate by Westergren method 17 mm/hr 0 - 30 [facility] SED RATE REENTER 17 [facility] ID Date Data Source [id number] 08/28/2020 12:20:00 PM [facility] Name Value Range Interpretation Code Description Data Esthela rce(s) Supporting Document(s) [facility] COLOR yellow NORMAL: Yellow [facility] CLARITY clear NORMAL: Clear [facility] Specific gravity of Urine by Test strip 1.030 1.001 - 1.030 [facility] pH 5 5 - 9 [facility] Glucose [Mass/volume] in Urine by Test strip NORM NORMAL: [facility] Bilirubin.total [Presence] in Urine by Test strip NEG NORMAL: Negative [facility] Ketones [Presence] in Urine by Test strip NEG NORMAL: Negative [facility] Protein [Mass/volume] in Urine by Test strip NEG NORMAL: Negat [facility] Nitrite [Presence] in Urine by Test strip NEG NORMAL: Negative [facility] BLOOD NEG NORMAL: Negative [facility] Leukocyte esterase [Presence] in Urine by Test strip NEG GABRIELLA L: Negative [facility] Urobilinogen [Mass/volume] in Urine by Test strip NOR less fermín n 1.0 mg/dL [facility] MICROSCOPIC Not Indicate [facility] ospital ID Date Data Source [id number] 08/28/2020 12:09:00 PM EST [facility] Name Value Range Interpretation Code Description Data Esthela rce(s) Supporting Document(s) CBC W/AUTOMATED DIFF [facility] COMPLETE BLOOD COUNT Leukocytes [#/volume] in Blood by Automated count 8.2 10^3/uL 4.2 - 1 1.0 [facility] Erythrocytes [#/volume] in Blood by Automated count 4.10 10^6/uL 4. 20 - 5.40 L [facility] Hemoglobin [Mass/volume] in Blood 13.0 g/dL 12.0 - 16.0 [facility] Hematocrit [Volume Fraction] of Blood by Automated count 38.7 % 3 7.0 - 47.0 [facility] Erythrocyte mean corpuscular volume [Entitic volume] by Auto mated count 94.4 fL 81.0 - 101 [facility] Erythrocyte mean corpuscular hemoglobin [Entitic mass] by Automated count 31.7 pg 27.0 - 34.0 [facility] Erythrocyte mean corpuscular hemoglobin concentration [Mass/volume] by Automated count 33.6 g/dL 31.0 - 36.0 [facility] Erythrocyte distribution width [Ratio] by Automated count 12.3 % 11.5 - 14.5 [facility] Platelets [#/volume] in Blood by Automated count 296 10^3/uL 150 - 45 0 [facility] Platelet mean volume [Entitic volume] in Blood by Automated count 9.8 fL 7.4 - 10.4 [facility] Neutrophils/100 leukocytes in Blood by Automated count 51.3 % 37. 0 - 80.0 [facility] Lymphocytes/100 leukocytes in Blood by Manual count 37.8 % 25.0 - 40.0 [facility] Monocytes/100 leukocytes in Blood by Automated count 6.6 % 3.0 - 8.0 [facility] Eosinophils/100 leukocytes in Blood by Automated count 3.3 % 0.0 - 7.0 [facility] Basophils/100 leukocytes in Blood by Automated count 0.6 % 0.0 - 2.5 [facility] %IG 0.4 % 0.0 - 0.0 [facility] %NRBC 0.0 % 0.0 - 0.0 [facility] Neutrophils [#/volume] in Blood by Automated count 4.18 10^3/uL 2.00 - 6.90 [facility] Lymphocytes [#/volume] in Blood by Automated count 3.08 10^3/uL 0.60 - 3.40 [facility] Monocytes [#/volume] in Blood by Automated count 0.54 10^3/uL 0.00 - 0.90 [facility] Eosinophils [#/volume] in Blood by Automated count 0.27 10^3/uL 0.00 - 0.70 [facility] Basophils [#/volume] in Blood by Automated count 0.05 10^3/uL 0.00 - 0.20 [facility] #IG 0.03 10^3/uL 0.00 - 0.10 [facility] ospital #NRBC 0.00 10^3/uL 0.00 - 0.00 [facility] MANUAL DIFF NOT INDICATED [facility] RBC MORPH NOT INDICATED [facility] spital ID Date Data Source [id number] 08/19/2020 12:40:00 PM EST [facility] [address] [place] [address] PHONE: [phone] FAX: [phone] Name .................. : HAVEN Galarza Acct Number.................. : [id number] ROOM. ................. : MR Number ................... : [id number] Stay type ............. : O/P Discharge Date......... ... : 08/18/20 Admit Date ......... : 08/18/20 Admit Phys .................... : MENDOZA HARD Date of ....... : 1970 Family Phys ................... : Miralupa HARD Phone .................. : [phone] Age ................................ : 50 Film# .................. .:[id number] Sex ................................. : F Unsigned transcriptions are preliminary reports and do not represent a medical or legal document CHEST 2 VIEWS [id number] COMPLETE:08/18/20 14:17 [facility] [id number] (REASON F OR CHEST: cough CHEST X-RAY: [...] rce(s) Supporting Document(s) ID Date Data Source [id number] 08/05/2020 01:43:00 PM EST [facility] ([facility]) Name Value Range Interpretation Code Description Data Esthela rce(s) Supporting Document(s) Mammo Diagnostic CAD Bilateral Laboratory test result [facility] ([facility]) ID Date Data Source [id number] 07/25/2020 02:23:00 PM [facility] 1 OrderSheet [facility] Emergency Department [address] [place] [address] Phone #: ext- [phone] 07/25/2020 14:08 Patient: CRYS FRANK Sex: F : 1970 Age: 49yWEIGHT:77.1 kg (S)ALLERGIES: Cipro, predniSONECHIEF COMPLAINT: fever, sore throat, possible, COVID-19 exposure:DIAGNOSIS: Severe acute respiratory syndrome coronavirus, SinusitisLAB ORDERSOrder Description Priority Entered Acknowledged InitialedRapid Strep Screen STAT 15:08 07/25/2020 15:21 Lee Bello R.N. P.A.-C;Influenza Nasal A B STAT 15:08 07/25/2020 15:21 Lee Bello.N. P.A.-C;CORONAVIRUS STAT 15:08 07/25/2020 15:21 Eugenia,COVID-19 Lee Davidson.N. P.A.-C;DIAGNOSTIC STUDY ORDERSOrder Description Priority Entered Acknowledged InitialedChest 2 View STAT 15:08 07/25/2020 15:13 Eugenia,(Oxygen?(No)) Lee Davidson.N. P.A.-C; Reason for Study: cough congestionMEDICATION/IV/DRIP/FLUID ORDERSOrder Description Priority Entered Acknowledged InitialedGENERAL ORDERSOrder Description Priority Entered Acknowledged Initialed[Electronically signed by Reuben Bello R.N. (17:36 07/25/2020)][Electronically signed by Lee Machuca P.A.-C (21:42 07/25/2020)][Electronically locked by Reuben Bello R.N. (17:36 07/25/2020)] Name Value Range Interpretation Code Description Data Esthela rce(s) Supporting Document(s) ID Date Data Source [id number] 07/25/2020 02:23:00 PM EST [facility] 1 Medication Reconciliation Report [facility] Emergency Department [address] [place] [address] Phone #: ext- [phone] 07/25/2020 14:08 Patient: CRYS FRANK Sex: F [...] days -- Dispense 14 tablet. Refills: 0.Substitution permitted.Pharmacy - [id number] - [phone] [phone]. .Mucinex 600 mg tablet, extended release Take 1 tablet twice a day for 7 days -- Dispense 14 tablet.Refills: 0. Substitution permitted.Pharmacy - [facility] - [address] ; [place], [place] [phone]. . -- Lee Machuca P.A.-C Name Value Range Interpretation Code Description Data [facility](s) Supporting Document(s) ID Date Data Source [id number] 07/25/2020 02:23:00 PM [place] [address] Medication Administration Record [facility] Emergency Department [address] [place] [address] Phone #: ext- [phone] 07/25/2020 14:08 Patient: CRYS FRANK Sex: F : 1970 Age: 49yWeight: 77.1 kgHeight/Length: 67 inBMI: 26.6ALLERGIES: Cipro, predniSONEDate/Time Medication Administered Medication Ordered Name Value Range Interpretation Code Description Data [facility](s) Supporting Document(s) ID Date Data Source [id number] 07/25/2020 02:23:00 PM [place] [address] General Instructions [facility] Emergency Department [address] [place] [address] Phone #: ext [phone] 07/25/2020 14:08 Patient: CRYS FRANK Sex: F [...] Drink plenty of fluids. No dietary restrictions. ([facility]: [phone]. Please contact them in approx 3-4 days [...] Dispense 14 tablet. Refills: 0. Substitution permitted. [facility] [address] [place] [phone]. . Mucinex 600 mg tablet, extended release Take 1 tablet twice a day for 7 days -- Dispense 14 tablet. Refills: 0. Substitution permitted. [facility] [address] [place] [phone]. . Follow-up: Return to the emergency department as needed. Follow up with your healthcare provider in about two days if not better. Call for an appointment. Understanding of the discharge instructions verbalized by patient. 2 General Instructions [facility] Emergency Department [address] [place] [address] Phone #: ext- [phone] 07/25/2020 14:08 Patient: CRYS FRANK Sex: F [...] a towel soaked in hot water. Or, machine packaging technician the shower and direct the warm spray onto your face. Using a vaporizer along with a menthol rub at night may also help soothe symptoms. An expectorant with guaifenesin may help thin nasal mucus and help your sinuses drain fluids. 3 General Instructions [facility] Emergency Department [address] [place] [address] Phone #: ext- [phone] 07/25/2020 14:08 Patient: CRYS FRANK Sex: F : 1970 Age: 49y You can use an mwra-xpx-ujocstz decongestant, unless a similar medicine was prescribed [...] use decongestants. They can raise blood pressure.) Bpkk-nyi-layqbok antihistamines may help if allergies contributed to [...] away in 10 days 4 General Instructions [facility] Emergency Department [address] [place] [address] Phone #: ext- [phone] 07/25/2020 14:08 Patient: CRYS FRANK Sex: F : 1970 Age: 49yPreventionHere are steps you can take to help prevent an infection: Keep good hand washing habits. Don't have close contact with people who have sore throats, colds, or other upper respiratory infections. Don't smoke, and stay away from secondhand smoke. Stay up to date with of your vaccines. 9099-1513 [employer]. [address] [place] [address], [place] [address]. All rights reserved. This information is not [...] home, you will be monitored by staff [facility]. You should follow the prevention steps below until a healthcare provider [facility] says you can return to [...] with pets and wear a facemask. See https://www.cdc.gov/coronavirus/2019-ncov/faq.html#7650-aTtY-uvq-animals for more information. Call ahead before visiting your doctor If you have a medical appointment, call the healthcare provider and tell them that you have or may have COVID-19. This will helpthe healthcare provider's office take steps to keep other people from getting infected or exposed. Wear a facemask 5 General Instructions [facility] Emergency Department [address] [place] [address] Phone #: ext- [phone] 07/25/2020 14:08 Patient: CRYS FRANK Sex: F : 1970 Age: 49yYou should wear a facemask when you are around other people {e.g., sharing a room or vehicle} or pets and before you enter navos healththcare provider's office. If you are not able [...] available, clean your hands with analcohol-based hand cloth examiner hand that contains at least 60% alcohol.Clean your [...] ventilation during use of the product.Monitor your symptomshttps://www.[employer].cookdinner/index.php Seek prompt medical attention if your illness [...] isolation precautions should be made on a iebl-rg-dnyj basis, inconsultation with healthcareproviders and state and local health departments.Contacts 2020 [employer].Online informationhttps://www.cdc.gov/coronavirus/2019-ncov/about/index.html 6 General Instructions [facility] Emergency Department [address] [place] [address] Phone #: ext- [phone] 07/25/2020 14:08 Patient: [...] an opened window, weather 7 General Instructions [facility] Emergency Department [address] [place] [address] Phone #: ext- [phone] 07/25/2020 14:08 Patient: CRYS FRANK Sex: F : 1970 Age: 49y permitting. Perform hand hygiene frequently. Wash your hands often with soap and water for at least 20 seconds or use an alcohol-based hand cloth examiner hand that contains 60 to 95% alcohol, covering [...] with soap and water or alcohol-based hand cloth examiner hand. Next, remove and dispose of facemask, and immediately clean your hands again with soap and water or alcohol-based hand cloth examiner hand. Avoid sharing household items with the patient. [...] soap and water or an alcohol-based hand cloth examiner hand} immediately after removing your gloves. https://www.[employer]/index.php Read and follow directions on labels of [...] soap and water or an alcohol-based hand cloth examiner hand} immediately after babcock ndling these items. Soap and water should be used preferentially if hands are visibly dirty. Discuss any additional questions with your state or local health department or healthcare provider. Check available hours when contacting your local health department.Contacts 2020 [employer].Online informationhttps://www.cdc.gov/coronavirus/2019-ncov/about/index.html 8 General Instructions [facility] Emergency Department [address] [place] [address] Phone #: ext- [phone] 07/25/2020 14:08 Patient: CRYS FRANK Sex: F : 1970 Age: 49yContent source: National Center for Immunization and Respiratory Diseases (NCIRD), Division of Viral DiseasesFootnotes 1Home healthcare personnel should refer to Tammy carson Infection Prevention and Control Recommendations for Patients [...] rce(s) Supporting Document(s) ID Date Data Source [id number] 07/25/2020 02:23:00 PM EST [facility] 1 Clinical Report - Nurses [facility] Emergency Department [address] [place] [address] Phone #: ext- [phone] 07/25/2020 14:08 Patient: CRYS FRANK Sex: F : 1970 Age: 49yTRIAGEArrived by private vehicle. Historian: patient. ( c/o cough sore throat).Triage time: 14:11 07/25/2020. Acuity: LEVEL 4.Chief Complaint: COUGH and SORE THROAT.14:11 07/25/20. Alert. No acute distress.Onset. (6 days ago). ( fever at first, now has gone away). 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 No [...] Lee Machuca P.A.-C.AllergiesCipro.predniSONE. (breathing problem) --15:42 07/25/20 MIKE Levinehe following entry was struck by Lee Machuca P.A.-C, 15:42 (07/25/20) Reason - other. No Known Drug Allergy. --14:12 07/25/20 Reuben Bello R.N. .PROBLEMS:Carpal Tunnel Syndrome.Anxiety Reaction.Arthritis.Chest Pain.Other Disease.Myofascial Strain.Hypertension. --16:40 07/25/20 Reuben Bello R.N.Herpes Zoster: Resolved. --16:40 07/25/20 Reuben Bello R.N. 2 Clinical Report - Nurses [facility] Emergency Department [address] [place] [address] Phone #: ext- [phone] 07/25/2020 14:08 [id number] Sex: F : 1970 Age: 49y 14:11 07/25/20. Medication/allergy information source: the patient. --14:16 07/25/20 Reuben Bello R.N. ADDITIONAL SURGERIES: Neck Surgery. Parotidectomy. Tubal Ligation. Wrist surgery LEFT. --16:40 07/25/20 Reuben Belol R.N. His tory 14:11 07/25/20. PAST MEDICAL [...] treatment room. --14:16 07/25/20 Reuben Bello R.N.PHYSICAL JEQLGMVZFT49:16 07/25/20. Ambulatory to room.GENERAL / NEURO / PSYCH: Alert. Oriented X 4. Appears in no acute distress.HEENT: Pharynx within normal limits. Voice within normal limits. Mucous membranes are pink.RESPIRATORY: Respirations not labored. Breath sounds within normal limits.CVS: Capillary refill less than 2 seconds.SKIN: Skin is warm and dry. Normal skin turgor. --14:17 07/25/20 Reuben Bello R.N. 3 Clinical Report - Nurses [facility] Emergency Department [address] [place] [address] Phone #: ext- [phone] 07/25/2020 14:08 Patient: [...] Patient verbalized understanding. Written instructions provided in [place]inean. 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 She was discharged home. She left [...] rce(s) Supporting Document(s) ID Date Data Source [id number] 07/25/2020 02:23:00 PM EST [facility] 1 Clinical Report - Physicians/Mid Levels [facility] Emergency Department [address] [place] [address] Phone #: ext- [phone] 07/25/2020 14:08 Patient: CRYS FRANK [facility]#: [id number] Sex: F : 1970 Age: 49y Time [...] LEFT. 2 Clinical Report - Physicians/Mid Levels [facility] Emergency Department [address] [place] [address] Phone #: ext- [phone] 07/25/2020 14:08 Patient: CRYS FRANK [id number] Sex: F : 1970 Age: 49y Immunizations: [...] normal. 3 Clinical Report - Physicians/Mid Levels [facility] [place] [address] Phone #: ext- [phone] 07/25/2020 14:08 Patient: CRYS FRANK Sex: F : 1970 Age: 49yLABS, X-RAYS, AND EKGChest X-ray: (Isabela collins Kirwin - 07/25/2020 3:29:32 PM No acute disease). The X-rays were interpreted by the radiologist. Laboratory Tests: Rapid Strep Screen: (PRASANTH: 07/25/2020 15:15) ( MsgRcvd 07/25/2020 15:47) Final results Test Result Flag Units (Reference) RAPID STREP NEGATIVE (NORMAL: NEGAT RAPID STREP REENTER NEGATIVE (NORMAL: NEGAT { PROCEDURAL CONTROL VALID ){ KIT LOT # [id number] ){ KIT EXP DATE 12.13.21 )The Strep [...] basis for treatment. Influenza Nasal A B: (PRASATNH: 07/25/2020 15:15) ( MsgRcvd 07/25/2020 15:48) Final results Test Result Flag [...] Chest 2 View: (PRASANTH: 07/25/2020 15:08) ( MsgRcvd 07/25/2020 16:01) In Progress Exam CHEST [place] [address] PHONE: [phone] FAX: [phone] Name .................. : HAVEN Galarza Acct Number.................. : [id number] ROOM. ................. : TR-04 MR Number ................... : [id number] Stay type ............. : E/R Discharge Date......... ... : Admit Date ......... : 07/25/20 Admit Phys .................... : COONEYNORM Date of ....... : 1970 Family Phys ................... : [employer] Phone .................. : [phone] Age ................................ : 49 Film# .................. .:[id number] Sex ................................. : F Unsigned transcriptions are preliminary reports and do not represent a medical or legal document CHEST 2 VIEWS 89729 COMPLETE:07/25/20 15:08 19037 Reason(s): cough congestion CHEST X-RAY: 2-VIEWS COMPARISON: 04/16/20 4 Clinical Report - Physicians/Mid Levels [facility] Emergency Department [address] [place] [address] Phone #: ext- [phone] 07/25/2020 14:08 Patient: CRYS FRANK Sex: F : 1970 Age: 49y FINDINGS: The cardiac and mediastinal silhouettes appear normal and the lungs are clear. The bones and soft tissues are normal. The upper abdomen is unremarkable. IMPRESSION: No acute disease identifiable. Electronically Reviewed and Signed By DCTNAME , SIGNDATE, KGG Transcribe Initials: HERMES , Transcribe Date: [...] weight. 5 Clinical Report - Physicians/Mid Levels [facility] Emergency Department [address] [place], [place] [address] Phone #: ext- [phone] 07/25/2020 14:08 Patient: CRYS FRANK Sex: F : 1970 Age: 49y Disposition: [...] may be ex tended or decreased by [facility].). Drink plenty of fluids. No dietary restrictions. ([facility]: [phone]. Please contact them in approx 3-4 days [...] Dispense 14 tablet. Refills: 0. Substitution permitted. Pharmacy - [facility] [address] ; [place], [place] [phone]. FaxNumber: . Mucinex 600 mg tablet, extended release Take 1 tablet twice a day for 7 days -- Dispense 14 tablet. Refills: 0. Substitution permitted. Pharmacy - [facility] [address] [place], [place] [phone]. . Follow-up: Return to the emergency department as needed. Follow up with your healthcare provider in about two days if not better. Call for an appointment. Understanding of the discharge instructions verbalized by patient. 6 Clinical Report - Physicians/Mid Levels [facility] Emergency Department [address] [place] [address] Phone #: ext- [phone] 07/25/2020 14:08 Patient: CRYS FRANK Sex: F : 1970 Age: 49y(Electronically signed by Lee Machuca P.A.-C 07/25/2020 21:42) Name Value Range Interpretation Code Description Data Esthela rce(s) Supporting Document(s) ID Date Data Source [id number] 07/25/2020 02:23:00 PM [facility] Addenda for CRYS FRANK VisitID: [id number] Date: 10:34Pt COVID test negtiave, called and made pt aware at 0949(Electronically signed by Marisabel Sinha R.N. 07/29/2020 10:34) Name Value Range Interpretation Code Description Data Esthela rce(s) Supporting Document(s) ID Date Data Source [id number] 07/27/2020 10:54:00 [place] [address] PHONE: [phone] FAX: [phone] Name .................. : HAVEN Galarza Acct Number.................. : [id number] ROOM. ................. : TR-04 MR Number ................... : [id number] Stay type ............. : E/R Discharge Date......... ... : Admit Date ......... : 07/25/20 Admit Phys .................... : COONEYNORM Date of ....... : 1970 Family Phys ................... : Miralupa HARD Phone .................. : [phone] Age ................................ : 49 Film# .................. .:[id number] Sex ................................. : F Unsigned transcriptions are preliminary reports and do not represent a medical or legal document CHEST 2 VIEWS 91424 COMPLETE:07/25/20 15:08 26881 Reason (s): cough congestion CHEST X-RAY: 2-VIEWS COMPARISON: 04/16/20 FINDINGS: The cardiac and mediastinal silhouettes appear normal and the lungs are clear. The bones and soft tissues are normal. The upper abdomen is unremarkable. IMPRESSION: No acute disease identifiable. Electronically Reviewed and Signed By Gwyn Mar MD , 07/27/20 10:54, KGCarlos Transcribe Initials: HERMES , Transcribe Date: 07/25/20 16:00, Dictation Date: Copy for: YASMEEN MUÑOZ via fax Copy for: EMERGENCY DEPT via modem Copy for: 710 MED REC DISCHARGED Page 1 of 1 Name Value Range Interpretation Code Description Data [facility] rce(s) Supporting Document(s) ID Date Data Source [id number] 07/25/2020 03:15:00 PM EST [facility] ([facility]) Name Value Range Interpretation Code Description Data [facility] rce(s) Supporting Document(s) Rapid Strep Reenter Laboratory test result [facility] ([facility]) { PROCEDURAL CONTROL VALID ) { KIT LOT # [id number] ) { KIT EXP DATE 12.13.21 ) [...] for treatment. [facility] Strep [facility] ID Date Data Source [id number] 07/25/2020 03:15:00 PM EST [facility] ([facility]) Name Value Range Interpretation Code Description Data [facility](s) Supporting Document(s) Coronavirus Covid-19 Laboratory test result [facility] ([facility]) This nucleic acid amplification test was developed and its performance characteristics determined by [employer]. Nucleic acid amplification tests include PCR and [...] in this assay. ID Date Data Source [id number] 07/25/2020 03:15:00 PM EST [facility] ([facility]) Name Value Range Interpretation Code Description Data Esthela rce(s) Supporting Document(s) Influenza A Reenter Laboratory test result [facility] ([facility]) Influenza B Laboratory test result [facility] ([facility]) Influenza A Laboratory test result [facility] ([facility]) Influenza B Reenter Laboratory test result [facility] ([facility]) <content>PROCEDURAL CONTROL VALID</con tent>
<content>KIT LOT # [...]
<content>d ecisions.</content>
<content></content> ID Date Data Source [id number] 07/25/2020 03:15:00 PM EST [facility] Name Value Range Interpretation Code Description Data Esthela rce(s) Supporting Document(s) SARS coronavirus 2 RNA [facility] This lab was ordered by [facility] agustina and reported by [facility]. ID Date Data Source [id number] 07/29/2020 06:13:00 AM EST [facility] Name Value Range Interpretation Code Description Data Esthela rce(s) Supporting Document(s) SARS-CoV-2, DARWIN Not Detected Not Detected [facility] This nucleic acid amplification test was developed and its performancecharacteristics determined by [employer]. Nucleic acidamplification tests include PCR and TMA. [...] in this assay. ID Date Data Source [id number] 07/25/2020 03:48:00 PM EST [facility] Name Value Range Interpretation Code Description Data Esthela rce(s) Supporting Document(s) Influenza virus A Ag [Presence] in Nasopharynx by [facility] y NEGATIVE NORMAL: NEGATIVE [facility] Influenza virus B Ag [Presence] in Nasopharynx by [facility] y NEGATIVE NORMAL: NEGATIVE [facility] NEGATIVENEGATIVE PROCEDURAL CO NTROL VALID KIT LOT # [id number] 07/25/201548. . KIT EXP DATE _11.27.20 07/25/201548. .The Influenza A & B assay is a rapid molecular in vitro diagnostic testutilizing an isothermal nucleic acid amplification technology for thequalitative detection of influenza A and B viral RNA.Negative results do not preclude influenza virus infection and should not beused as the sole basis for diagnosis, treatment or other patient managementdecisions. ID Date Data Source [id number] 07/25/2020 03:47:00 PM EST [facility] Name Value Range Interpretation Code Description Data Esthela rce(s) Supporting Document(s) RAPID STREP NEGATIVE NORMAL: NEGATIVE [facility] RAPID STREP REENTER NEGATIVE NORMAL: NEGATIVE [facility] { PROCEDURAL CONTROL VALID ){ KIT LOT # [id number] ){ KIT EXP DATE 12.13.21 )The Strep [...] basis for treatment. ID Date Data Source [id number] 07/23/2020 10:22:00 AM EST [facility] ([facility]) Name Value Range Interpretation Code Description [facility]s) Coronavirus Covid-19 Laboratory test result [facility] ([facility]) .~.~Z11.59 ID Date Data Source [id number] 07/23/2020 10:14:00 AM EST [facility] Name Value Range Interpretation Code Description Data [facility] Supporting Document(s) SARS coronavirus 2 RNA [facility] This lab was ordered by [facility] agustina and reported by [facility]. ID Date Data Source [id number] 07/24/2020 09:06:00 PM EST [facility] Name Value Range Interpretation Code Description Data [facility] rce(s) Supporting Document(s) SARS-CoV-2, DARWIN Not Detected Not Detected [facility] This nucleic acid amplification test was developed and its performancecharacteristics determined by [facility]. Nucleic acidamplification tests include PCR and [...] in this assay. ID Date Data Source [id number] 05/15/2020 09:10:00 AM EDT [facility] ([facility]) Name Value Range Interpretation Code Description Data Esthela rce(s) Supporting Document(s) Coronavirus Covid-19 Laboratory test result [facility] ([facility]) This nucleic acid amplification test was developed and its performance characteristics determined by [employer]. Nucleic acid amplification tests include PCR and [...] in this assay. ID Date Data Source [id number] 05/15/2020 09:10:00 AM EDT [facility] Name Value Range Interpretation Code Description Data Esthela rce(s) Supporting Document(s) SARS coronavirus 2 RNA [facility] This lab was ordered by [facility] García berrios and reported by [facility]. ID Date Data Source [id number] 05/17/2020 06:25:00 AM EDT [facility] Name Value Range Interpretation Code Description Data Esthela rce(s) Supporting Document(s) SARS-CoV-2, DARWIN Not Detected Not Detected [facility] This nucleic acid amplification test was developed and its performancecharacteristics determined by [employer]. Nucleic acidamplification tests include PCR and TMA. [...] in this assay. ID Date Data Source [id number] 05/01/2020 09:45:00 AM EDT [facility] ([facility]) Name Value Range Interpretation Code Description Data Esthela rce(s) Supporting Document(s) Coronavirus Covid-19 Laboratory test result [facility] ([facility]) This test was developed and its performa nce characteristics determined by [employer]. This test has not been FDA cleared [...] in this assay. ID Date Data Source [id number] 05/01/2020 09:45:00 AM EDT [facility] Name Value Range Interpretation Code Description Data Esthela rce(s) Supporting Document(s) SARS coronavirus 2 RNA [facility] This lab was ordered by [facility] agustina and reported by [facility]. ID Date Data Source [id number] 05/02/2020 03:42:00 PM EDT [facility] Name Value Range Interpretation Code Description Data Esthela rce(s) Supporting Document(s) SARS-CoV-2, DARWIN Not Detected Not Detected [facility] This test was developed and its performa nce characteristics determinedby [employer]. This test has not been FDA cleared [...] in this assay. ID Date Data Source [id number] 04/17/2020 09:11:00 AM EDT [address] [place] [address] RESPIRATORY CARE REPORT ==== ---------NAME------- NUMBER SEX AGE ADMIT DISC. XRAY# F/[facility] Galarza [id number] F 49 04/16/20 04/16/20 [id number] KBO E/R DATE OF : 1970 M/R# [id number] #: [phone] TR-07 LOCATION: EMERGENCY DEPT EKG 80445 COMP LETE:04/16/20 13:33 EWW 07094 PHYSICIAN: [facility] Name Value Range Interpretation Code Description Data Esthela rce(s) Supporting Document(s) ID Date Data Source [id number] 04/16/2020 08:54:00 AM EDT [facility] 1 OrderSheet [facility] Emergency Department [address] [place] [address] Phone #: ext- [phone] 04/16/2020 08:46 Patient: CRYS FRANK Sex: F : 1970 Age: 49yWEIGHT:77.1 kg (S) HEIGHT:67 inches (S) BMI:26.6ALLERGIES: Cipro, predniSONECHIEF COMPLAINT: chest painDIAGNOSIS: Chest painLAB ORDERSOrder Description Priority Entered Acknowledged InitialedUrinalysis (Clean STAT 09:04/16/2020 Ack'd: 09:47 09:52 Aly Banda) Marisabel He R.N. Physician; R.N.Troponin-T STAT 09:04/16/2020 09:19 Win Banda R.N. Physician;TSH STAT 09:17 04/16/2020 09:19 Win Banda R.N. Physician;T4 (Thyroxine) STAT 09:17 04/16/2020 09:19 Win Banda R.N. Physician;Lipase STAT 09:17 04/16/2020 09:19 Win Banda R.N. Physician;BNP STAT 09:17 04/16/2020 09:19 Win Banda R.N. Physician;CBC w Diff STAT 09:17 04/16/2020 09:19 Win Banda R.N. Physician;CMP STAT 09:17 04/16/2020 09:19 Win Banda R.N. Physician;D-Dimer STAT 09:17 04/16/2020 09:19 Win Banda R.N. Physician;Troponin-T STAT 11:44 04/16/2020 11:45 Anastacio Hall RN Physician; 2 OrderSheet [facility] Emergency Department [address] [place] [address] Phone #: ext- [phone] 04/16/2020 08:46 Patient: CRYS FRANK Sex: F : 1970 Age: 49yDIAGNOSTIC STUDY ORDERSOrder Description Priority Entered Acknowledged InitialedChest 2 View STAT 09:17 04/16/2020 Ack'd: 09:19 09:24 Henna(Oxygen?(No)) Misa Herman RN Physician; R.N. Reason for Study: Chest PainMEDICATION/IV/DRIP/FLUID ORDERSOrder Description Priority Entered Acknowledged InitialedNitroGLYCERIN 09:17 04/16/2020 09:23 DorisTopical Ointment Win Lopez RN1 in. Physician;Aspirin PO 09:43 04/16/2020 Ack'd: 09:47 09:52 SoloChewable 81 mg Marisabel He R.N.162 mg (NOW) Physician; RSriramNSriramGI Cocktail PO 50 10:12 04/16/2020 10:20 PetermL with Lidocaine Win Hall RNViscous Physician;Mouth/Throat 10mL, Maalox Oral 30mL, Oral10 mL Reason for ordering with alerts: Benefits outweigh risks -- 10:12 04/16/2020 Win Sam PhysicianGENERAL ORDERSOrder Description Priority Entered Acknowledged InitialedCardiac Monitor 09:17 04/16/2020 09:18 Solo(continuous) Win Bynum R.N. Physician;EKG 09:17 04/16/2020 09:19 Win Banda R.N. Physician;Pulse oximeter 09:17 04/16/2020 09:19 Solo(Continuous) Win Bynum R.N. Physician;Saline Lock 09:17 04/16/2020 09:19 Win Banda R.N. Physician; 3 OrderSheet [facility] Emergency Department [address] [place] [address] Phone #: ext- [phone] 04/16/2020 08:46 -- Patient: CRYS FRANK Sex: F : 1970 Age: 49y[Electronically signed by Anastacio Hall RN (12:43 04/16/2020)][Electronically signed by Win Sam Physician (00:53 04/17/2020)][Electronically locked by Anastacio Hall RN (12:43 04/16/2020)] Name Value Range Interpretation Code Description Data Esthela rce(s) Supporting Document(s) ID Date Data Source [id number] 04/16/2020 08:54:00 AM EDT [facility] 1 Medication Reconciliation Report [facility] Emergency Department [address] [place] [address] Phone #: ext- [phone] 04/16/2020 08:46 Patient: [...] rce(s) Supporting Document(s) ID Date Data Source [id number] 04/16/2020 08:54:00 AM EDT [facility] 1 Medication Administration Record [facility] Emergency Department [address] [place] [address] Phone #: rzz- [phone] 04/16/2020 08:46 Patient: CRYS FRANK Sex: F : 1970 Age: 49yWeight: 77.1 kgHeight/Length: 67 inBMI: 26.6ALLERGIES: Cipro, predniSONE Date/Time Medication Administered Medication OrderedGiven NITROGLYCERIN [TOPICAL OINTMENT] NitroGLYCERIN Soncvdv15:22 04/16/2020 Dose: 1 in. Ointment Topical Ointment 1 in.Henna Lopez RNGiven ASPIRIN CHEWABLE 81 MG [PO] Aspirin PO Chewable 81 mg 92937:[id number] 04/16/2020 Dose: 162 mg Tablets PO mg (NOW)Misa Banda RIvyGiven GI COCKTAIL [PO] (CALCIUM GI Cocktail PO 50 mL with10:20 04/16/2020 CARBONATE ANTACID) Li docaine Viscous Mouth/ThroatPeter JOSE ALBERTO Hall Dose: 50 mL Oral Suspension PO 10 mL, Maalox Oral 30 mL, Oral 10 mL Name Value Range Interpretation Code Description Data Esthela rce(s) Supporting Document(s) ID Date Data Source [id number] 04/16/2020 08:54:00 AM EDT [facility] 1 General Instructions [facility] Emergency Department [address] [place] [address] Phone #: ext- [phone] 04/16/2020 08:46 Patient: [...] patient.Follow-up with: Chacorta Orellana MD, Cardiology, , [address] [place] [address], [facility] Follow up even if well. Call for the next available appointment. Reason for referral: evaluation, treatmentand Chest pain - Need ECHO / stress test - Need to call for apptmt. today. ADDITIONAL INFORMATIONUncertain Causes of Chest Pain 2 General Instructions [facility] Emergency Department [address] [place] [address] Phone #: ext- [phone] 04/16/2020 08:46 Patient: [...] and avoid strenuous activity. 3 General Instructions [facility] Emergency Department [address] [place] [address] Phone #: ext- [phone] 04/16/2020 08:46 Patient: CRYS FRANK Sex: F : 1970 Age: 49y Take any prescribed medicine as directed. Be aware of any recurrent chest pain and notice any changesFollow-up careFollow up with your healthcare provider if you do not start to feel better within 24 hours, or as advised.Call [phone] if any of these occur: A change [...] Swelling, pain or redness in one leg [phone] [employer]. [address] [place] [address]. All rights reserved. This information is not intended as asubstitute for professional medical care. Always follow your healthcare professional's instructions.Chest Wall Pain: Costochondritis 4 General Instructions [facility] Emergency Department [address] [place] [address] Phone #: ext- [phone] 04/16/2020 08:46 [id number] Sex: F : 1970 Age: 49yThe chest [...] prescribed medicines as directed. 5 General Instructions [facility] Emergency Department [address] [place] [address] Phone #: ext- [phone] 04/16/2020 08:46 Patient: [...] or as directed by your healthcare provider [phone] [employer] [address] [place] [address], [place] [address]. All rights reserved. This information is not intended as asubstitute for professional medical care. Always follow your healthcare professional's instructions. You have been given the following additional information: Chest Pain, Uncertain Cause Chest Wall Pain, Costochondritis Do not work today.(Electronically signed by Win Sam, Physician 04/17/2020 00:53) Name Value Range Interpretation Code Description Data Esthela rce(s) Supporting Document(s) ID Date Data Source [id number] 04/16/2020 08:54:00 AM EDT [facility] 1 Clinical Report - Nurses [facility] Emergency Department [address] [place] [address] Phone #: ext- [phone] 04/16/2020 08:46 Patient: [...] confirmed signs ofinfection present. --08:57 04/16/20 Henna Lopez, RN08:49 04/16/20. BP: 166/91. MAP: 116. HR: [...] Oral (Tablet 10 mg) 1 tablet, daily. --09:06 04/16/20 Henna Lopez RN.AllergiesCipro.predniSONE. (breathing problem) --09:04/16/20 Henna Lopez RN.PROBLEMS:Hypertension. --08:52 04/16/20 Henna Lopez, RNArthritis.Carpal Tunnel Syndrome.Anxiety Reaction.Myofascial Strain. --09:06 04/16/20 Henna Lopez RNHerpes Zoster: Resolved. --09:06 04/16/20 Henna Lopez RNThe following entry was modified by eHnna Lopez RN, 09:06 04/16/20 Reason - duplicateSleep Apnea. --07:33 03/12/20 Henna Lopez RN. 2 Clinical Report - Nurses [facility] Emergency Department [address] [place] [address] Phone #: ext- [phone] 02/2020 08:46 Patient: CRYS FRANK Sex: F : 1970 Age: 49y ADDITIONAL SURGERIES: Neck Surgery. Parotidectomy. Tubal Ligation. Wrist surgery LEFT. --09:07 04/16/20 Henna Lopez RN. History PAST MEDICAL HX: [...] Sinha R.N. 3 Clinical Report - Nurses [facility] Emergency Department [address] [place] [address] Phone #: ext- [phone] 04/16/2020 08:46 [facility]: CRYS FRANK [id number] Sex: F : 1970 Age: 49yNURSING PROGRESS NOTES08:55 04/16/2020 Site #1 started via IV in the left antecubital space with an 20g angiocath, with aseptictechnique and good blood return; one attempt. Blood drawn: rainbow set. Labeled in the presence of thepatient and sent to the lab. Saline lock flushed with 10 mL saline. --09:04 04/16/20 Marisabel Sinha R.N. 08:57 04/16/20. hospital monitor, NIBP monitor and pulse oximeter placed on patient; threat monitoring analyst- Lead II; monitor alarms on; see monitor [...] to radiology by wheelchair with mask and auto electrical technician. --09:41 04/16/20 Misa aBnda R.N. Patient returned from radiology by wheelchair with mask and auto electrical technician. --09:47 04/16/20 Misa Banda R.N. 09:52 04/16/2020 [...] reason for taking this medication. Verbalizes understanding. --10:04/16/20 Anastacio Hall RN 10:04/16/20. BP: 115/83. MAP: 93. HR: 77. RR: 16. O2 saturation: 100%. Pain level now: 0. --10:22 04/16/20 Anastacio Hall RN ( assumed [...] Manual pressure and bandaid applied. --12:43 04/16/20 [place] [email or web address], [employer] 4 Clinical Report - Nurses [facility] Emergency Department [address] [place] [address] Phone #: ext- [phone] 04/16/2020 08:46 Patient: CRYS FRANK Sex: F : 1970 Age: 49y 12:42 04/16/20. BP: 113/70. HR: 68. RR: 17. O2 saturation: 99%. Temp: 98.1 F. Pain level now 09/20. --12:43 04/16/20 [place] [email or web address], [employer] Condition at departure: improved and stable. Discharge instructions provided and reviewed with the patient. Reviewed referral to a stock counter. Patient verbalized understanding. Written instructions provided in [place]. The patient was discharged by the physician. She was discharged home. She left ambulatory and via private vehicle. Patient driving. --12:43 04/16/20 Anastacio Hall RN.Locked/Released at 04/16/2020 12:43 by Anastacio Hall RN Name Value Range Interpretation Code Description Data Esthela rce(s) Supporting Document(s) ID Date Data Source [id number] 04/16/2020 08:54:00 AM EDT [facility] 1 Clinical Report - Physicians/Mid Levels [facility] Emergency Department [address] [place] [address] Phone #: ext- [phone] 04/16/2020 08:46 Patient: [...] EXAM 2 Clinical Report - Physicians/Mid Levels [facility] Emergency Department [address] [place] [address] Phone #: ext- [phone] 04/16/2020 08:46 Patient: CRYS FRANK Sex: F : [birth year] Age: 49y Vital Signs: 04/16/2020 08:49 BP: 166/91. MAP: 116. HR: 93. RR: 20. O2 saturation: 100%. Temp: 97.8 F. Pain level now: 10. Have been reviewed and appear to be [...] making process. Troponin-T: (PRASANTH: 04/16/2020 12:04) ( [facility] 04/16/2020 12:34) Final results Test Result Flag Units (Reference) TROPONIN T <0.01 NG/ML (0.00 - 0.10) TROPONIN T0.1 ng/ml Recommended as the clinical threshold value forTroponin T. Urinalysis: (PRASANTH: 04/16/2020 09:45) ( [facility] 04/16/2020 09:59) Final results Test Result Flag [...] Not Indicate Troponin-T: (PRASANTH: 04/16/2020 08:55) ( [facility] 04/16/2020 09:58) Final results Test Result Flag Units (Reference) TROPONIN T <0.01 NG/ML (0.00 - 0.10) 3 Clinical Report - Physicians/Mid Levels [facility] Emergency Department [address] [place] [address] Phone #: ext- [phone] 04/16/2020 08:46 Patient: CRYS FRANK [id number] Sex: F : 1970 Age: 49y TROPONIN T0.1 ng/ml Recommended as the clinical threshold value forTroponin T.TSH: (PRASANTH: 04/16/2020 08:55) ( [facility] 04/16/[facility] 10:06) Final results Test Result Flag Units (Reference) TSH 1.26 uIU/mL (0.47 - 5.01)T4 (Thyroxine): (PRASANTH: 0 04/16/2020 08:55) ( [facility] 04/16/2020 15:01) Final results Test Result Flag Units (Reference) T4 TOTAL 5.7 UG/DL (4.5 - 12.5)Lipase: (PRASANTH: 04/16/2020 08:55) ( [facility] 04/16/2020 10:06) Final results Test Result Flag Units (Reference) LIPASE 37 U/L (13 - 60)BNP: (PRASANTH: 04/16/2020 08:55) ( [facility] 04/16/2020 10:06) Final results Test Result Flag Units (Reference) BNP 53 PG/ML (0 - 125)CBC w Diff: (PRASANTH: 04/16/2020 08:55) ( [facility] 04/16/2020 09:37) Final results Test Result Flag [...] PANEL 4 Clinical Report - Physicians/Mid Levels [facility] Emergency Department [address] [place] [address] Phone #: ext- [phone] 04/16/2020 08:46 Patient: [...] Male GFR Interprentation 20-49 yrs >60 mL/min Vqshkk05-91 yrs >56 mL/min Normal 60-69 yrs >49 mL/min Normal 70-79yrs>42 mL/min Normal 80 and above >35 mL/min Normal Female GFRInterpretation 20-39 yrs >60 mL/min Normal 40-49 yrs >58 mL/minNormal 50-59 yrs >51 mL/min Normal 60-69 yrs >45 mL/min Eqsyur00-70 yrs >39 mL/min Normal 80 and above >32 mL/min NormalD-Dimer: (PRASANTH: 04/16/2020 08:55) ( [facility]cvd 04/16/2020 09:48) Final results Test Result Flag Units (Reference) D-DIMER QUANT <0.27 ug/mL (0.27 - 0.50)EKG: (PRASANTH: 04/16/2020 09:17) ( MsgRcvd 04/16/2020 13:46) In ProgressChest 2 View: (PRSAANTH: 04/16/2020 09:17) ( MsgRcvd 04/16/2020 14:00) Final results Exam [place]ST [place] [address] PHONE: FAX: [phone] Name .................. : HAVEN Galarza Acct Number.................. : [id number] ROOM. ................. : TR-07 MR Number ................... : [id number] Stay type ............. : E/R Discharge Date......... ... : Admit Date ......... : 04/16/20 Admit Phys .................... : VENERUS EMERY Date of ....... : 1970 Family Phys ................... : Miralupa HARD Phone .................. : [phone] Age ................................ : 49 Film# .................. .:[id number] Sex ................................. : F Unsigned transcriptions are preliminary reports and do not represent a medical or legal document CHEST 2 VIEWS [id number] COMPLETE:04/16/20 09:17 [id number] Reason(s): Chest Pain CHEST TWO VIEWS, 04/16/20: 5 Clinical Report - Physicians/Mid Levels [facility] Emergency Department [address] [place] [address] Phone #: ext- [phone] 04/16/2020 08:46 Patient: [...] MD , 04/16/20 13:59, AML Transcribe Initials: [facility], Transcribe Date: 04/16/20 10:37, Dictation Date: Copy for: EMERGENCY DEPT via [employer] Copy for: 710 MED REC DISCHARGED Page [...] "tightness". 6 Cli nical Report - Physicians/Mid [facility] Emergency Department [address] [place] [address] Phone #: ext- [phone] 04/16/2020 08:46 Patient: [...] Follow-up with: Chacorta Orellana MD, Cardiology, , [address] [place] [address], [facility] Follow up even if well. Call for the next available appointment. Reason for referral: evaluation, treatment and Chest pain - Need ECHO / stress test - Need to call for apptmt. today.(Electronically signed by Win Sam, Physician 04/17/2020 00:53) Name Value Range Interpretation Code Description Data Esthela rce(s) Supporting Document(s) ID Date Data Source [id number] 04/16/2020 01:59:00 PM EDT [address] [place] [address] PHONE: [phone] FAX: [phone] Name .................. : HAVEN Galarza Acct Number.................. : [id number] ROOM. ................. : TR-07 MR Number ................... : [id number] Stay type ............. : E/R Discharge Date......... ... : Admit Date ......... : 04/16/20 Admit Phys .................... : GLADYS LAND Date of ....... : 1970 Family Phys ................... : MENDOZA HARD Phone .................. : [phone] Age ................................ : 49 Film# .................. .:[id number] Sex ................................. : F Unsigned transcriptions are preliminary reports and do not represent a medical or legal document CHEST 2 VIEWS [id number] COMPLETE:04/16/20 09:17 [id number] Reason(s): Chest Pain CHEST TWO VIEWS, 04/16/20: [...] rce(s) Supporting Document(s) ID Date Data Source [id number] 04/16/2020 12:04:00 PM EDT [facility] ([facility]) Name Value Range Interpretation Code Description Data Esthela rce(s) Supporting Document(s) Troponin T.cardiac [Mass/volume] in Serum or Plasma Laborato ry test result 0.00-0.10 [facility] ([facility]) TROPONIN T 0.1 ng/ml Recommended as the clinical th reshold value for Troponin T. ID Date Data Source [id number] 04/16/2020 12:33:00 PM EDT [facility] Name Value Range Interpretation Code Description Data Esthela rce(s) Supporting Document(s) TROPONIN T <0.01 NG/ML 0.00 - 0.10 [facility] TROPONIN T0.1 ng/ml Recommended as the c linical threshold value forTroponin T. ID Date Data Source [id number] 04/16/2020 09:45:00 AM EDT [facility] ([facility]) Name Value Range Interpretation Code Description Data Esthela rce(s) Supporting Document(s) Urinalysis Laboratory test result [facility] ([facility]) SOURCE: Clean Catch Clarity Laboratory test result [facility] ([facility]) SOURCE: Clean Catch Color Laboratory test result [facility] ([facility]) SOURCE: Clean Catch Source Laboratory test result [facility] ([facility]) SOURCE: Clean Catch pH 5 5-9 [facility] ([facility]) SOURCE: Clean Catch Spec [place] 1.025 1.001-1.030 [facility] ([facility]) SOURCE: Clean Catch Bilirubin Laboratory test result [facility] ([facility]) SOURCE: Clean Catch Glucose Laboratory test result [facility] ([facility]) SOURCE: Clean Catch Protein Laboratory test result [facility] ([facility]) SOURCE: Clean Catch Ketone Laboratory test result [facility] ([facility]) SOURCE: Clean Catch Nitrite Laboratory test result [facility] ([facility]) SOURCE: Clean Catch Blood Laboratory test result [facility] ([facility]) SOURCE: Clean Catch Leuk Est Laboratory test result [facility] ([facility]) SOURCE: Clean Catch Urobilinogen Laboratory test result [facility] ([facility]) SOURCE: Clean Catch Microscopic Laboratory test result M [facility] ([facility]) SOURCE: Clean Catch ID Date Data Source [id number] 04/16/2020 09:59:00 AM EDT [facility] Name Value Range Interpretation Code Description Data Esthela rce(s) Supporting Document(s) [facility] S[facility] R [facility] COLOR yellow NORMAL: Yellow [facility] CLARITY clear NORMAL: Clear [facility] Specific gravity of Urine by Test strip 1.025 1.001 - 1.030 [facility] pH 5 5 - 9 [facility] Glucose [Mass/volume] in Urine by Test strip NORM NORMAL: Negat [facility] Bilirubin.total [Presence] in Urine by Test strip NEG NORMAL: Negative [facility] Ketones [Presence] in Urine by Test strip NEG NORMAL: Negative [facility] Protein [Mass/volume] in Urine by Test strip NEG NORMAL: Negat [facility] Nitrite [Presence] in Urine by Test strip NEG NORMAL: Negative [facility] BLOOD NEG NORMAL: Negative [facility] Leukocyte esterase [Presence] in Urine by Test strip NEG GABRIELLA L: Negative [facility] Urobilinogen [Mass/volume] in Urine by Test strip NOR less fermín n 1.0 mg/dL [facility] MICROSCOPIC Not Indicate [facility] ID Date Data Source [id number] 04/16/2020 08:55:00 AM EDT [facility] ([facility]) Name Value Range Interpretation Code Description Data Esthela rce(s) Supporting Document(s) Thyroxine (T4) [Mass/volume] in Serum or Plasma 5.7 ug/dL 4.5-12.5 [facility] ([facility]) ID Date Data Source [id number] 04/16/2020 08:55:00 AM EDT [facility] ([facility]) Name Value Range Interpretation Code Description Data Esthela rce(s) Supporting Document(s) Sodium 140 meq/L 134-153 [facility] ([facility]) Comprehensive Metabo Laboratory test result [facility] ([facility]) COMPREHENSIVE METABOLIC PANEL Potassium 4.3 meq/L 3.6-5.0 [facility] ([facility]) Glucose 102 mg/dL 65-110 [facility] ([facility]) Co2 26 meq/L 22-30 [facility] ([facility]) Chloride 107 meq/L 98-107 [facility] ([facility]) Creatinine 0.6 mg/dL 0.7-1.5 Below low normal [facility] ( [facility]) BUN 10 mg/dL 7-21 [facility] ([facility]) BUN/Creat 17 8-27 [facility] ([facility]) Albumin 4.5 g/dL 3.9-5.0 [facility] ([facility]) Total Protein 6.8 g/dL 6.3-8.2 [facility] ([facility]) A/G Ratio 2.0 0.8-2.0 [facility] ([facility]) Globulin 2.3 GM/DL 2.4-3.2 Below low normal [facility] ( [facility]) Calcium 9.5 mg/dL 8.4-10.2 [facility] ([facility]) Sgot/Ast 23 U/L 5-40 [facility] ([facility]) SGPT/Alt 25 U/L 7-56 [facility] ([facility]) Total Bili Laboratory test result 0.2-1.3 [facility] ([facility]) Alkaline Phos 83 U/L 38-126 [facility] ([facility]) Anion Gap 7.0 mmol/L 8.0-16.0 Below low normal [facility] ( [facility]) Age 49 yrs [facility] ([facility]) Non-Aa GFR Laboratory test result [facility] ([facility]) Afr Amer GFR Laboratory test result [facility] ([facility]) Male GFR Interprentation 20-49 yrs >60 mL/min [...] >32 mL/min Normal ID Date Data Source [id number] 04/16/2020 08:55:00 AM EDT [facility] ([facility]) Name Value Range Interpretation Code Description Data Esthela rce(s) Supporting Document(s) Fibrin D-dimer [Presence] in Platelet poor plasma Laboratory test result 0.27-0.50 [facility] ([facility]) Troponin T.cardiac [Mass/volume] in Serum or Plasma Laborato ry test result 0.00-0.10 [facility] ([facility]) TROPONIN T 0.1 ng/ml Recommended as the clinical th reshold value for Troponin T. Thyrotropin [Units/volume] in Serum or Plasma 1.26 uIU/mL 0.47-5.01 [facility] ([facility]) Lipase [Enzymatic activity/volume] in Serum or Plasma 37 U/L 13-6 0 [facility] ([facility]) Natriuretic peptide.B prohormone N-Terminal [Mass/volu me] in Serum or Plasma 53 pg/mL 0-125 [facility] ([facility]) ID Date Data Source [id number] 04/16/2020 08:55:00 AM EDT [facility] ([facility]) Name Value Range Interpretation Code Description Data Esthela rce(s) Supporting Document(s) WBC 8.2 10^3/uL 4.2-11.0 [facility] ([facility]) CBC W/Automated Diff Laboratory test result [facility] ([facility]) COMPLETE BLOOD COUNT Hematocrit 37.6 % 37.0-47.0 [facility] ([facility]) Hemoglobin 12.5 g/dL 12.0-16.0 [facility] ([facility]) MCV 94.7 fL 81.0-101 [facility] ([facility]) RBC 3.97 10^6/uL 4.20-5.40 Below low normal [facility] ([facility]) RDW 12.6 % 11.5-14.5 [facility] ([facility]) MCH 31.5 pg 27.0-34.0 [facility] ([facility]) MCHC 33.2 g/dL 31.0-36.0 [facility] ([facility]) Platelets 274 10^3/uL 150-450 [facility] ([facility]) MPV 10.2 fL 7.4-10.4 [facility] ([facility]) Neut 52.1 % 37.0-80.0 [facility] ([facility]) Ray 6.1 % 3.0-8.0 [facility] ([facility]) Lymph 37.6 % 25.0-40.0 [facility] ([facility]) Eos 3.3 % 0.0-7.0 [facility] ([facility]) Baso 0.5 % 0.0-2.5 [facility] ([facility]) %Ig 0.4 % 0.0-0.0 Above high normal [facility] ([facility]) %NRBC 0.0 % 0.0-0.0 [facility] ([facility]) #Ray 0.50 10^3/uL 0.00-0.90 [facility] ([facility]) #Lymph 3.07 10^3/uL 0.60-3.40 [facility] ([facility]) #Eos 0.27 10^3/uL 0.00-0.70 [facility] ([facility]) #Neut 4.25 10^3/uL 2.00-6.90 [facility] ([facility]) #Ig 0.03 10^3/uL 0.00-0.10 [facility] ([facility]) #NRBC 0.00 10^3/uL 0.00-0.00 [facility] ([facility]) #Baso 0.04 10^3/uL 0.00-0.20 [facility] ([facility]) Manual Diff Laboratory test result [facility] ([facility]) RBC Morph Laboratory test result [facility] ([facility]) ID Date Data Source [id number] 04/16/2020 03:01:00 PM EDT [facility] Name Value Range Interpretation Code Description Data Esthela rce(s) Supporting Document(s) Thyroxine (T4) [Mass/volume] in Serum or Plasma 5.7 UG/DL 4.5 - 12.5 [facility] ID Date Data Source [id number] 04/16/2020 10:06:00 AM EDT [facility] Name Value Range Interpretation Code Description Data Esthela rce(s) Supporting Document(s) COMPREHENSIVE METABOLIC PANEL [facility] COMPREHENSIVE METABOLIC PANEL Sodium [Moles/volume] in Serum or Plasma 140 mEq/L 134 - 153 [facility] Potassium [Moles/volume] in Serum or Plasma 4.3 mEq/L 3.6 - 5.0 [facility] Chloride [Moles/volume] in Serum or Plasma 107 mEq/L 98 - 107 [facility] Carbon dioxide, total [Moles/volume] in Serum or Plasma 26 MEQ/L 22 - 30 [facility] Glucose [Mass/volume] in Serum or Plasma 102 MG/DL 65 - 110 [facility] BUN 10 MG/DL 7 - 21 [facility] Creatinine [Mass/volume] in Serum or Plasma 0.6 MG/DL 0.7 - 1.5 L [facility] BUN/CREAT 17 8 - 27 [facility] Protein [Mass/volume] in Serum or Plasma 6.8 G/DL 6.3 - 8.2 [facility] Albumin [Mass/volume] in Serum or Plasma 4.5 G/DL 3.9 - 5.0 [facility] Globulin [Mass/volume] in Serum by calculation 2.3 GM/DL 2.4 - 3.2 L [facility] A/G RATIO 2.0 0.8 - 2.0 [facility] Calcium [Mass/volume] in Serum or Plasma 9.5 MG/DL 8.4 - 10.2 [facility] Bilirubin.total [Mass/volume] in Serum or Plasma <0.7 MG/DL 0.2 - 1.3 [facility] Alkaline phosphatase [Enzymatic activity/volume] in Serum or Plasma 83 U/L 38 - 126 [facility] Aspartate aminotransferase [Enzymatic activity/volume] in Serum or Plasma 23 U/L 5 - 40 [facility] Alanine aminotransferase [Enzymatic activity/volume] in Seru m or Plasma 25 U/L 7 - 56 [facility] Anion gap 3 in Serum or Plasma 7.0 mmol/L 8.0 - 16.0 L [facility] AGE 49 yrs [facility] NON-AA GFR >60 mL/min [facility] AFR AMER GFR >60 mL/min [facility] Male GFR In terprentation [...] >32 mL/min Normal ID Date Data Source [id number] 04/16/2020 10:06:00 AM EDT [facility] Name Value Range Interpretation Code Description Data Esthela rce(s) Supporting Document(s) BNP 53 PG/ML 0 - 125 [facility] ID Date Data Source [id number] 04/16/2020 10:06:00 AM EDT [facility] Value Range Interpretation Code Description Data Esthela rce(s) Supporting Document(s) Lipase [Enzymatic activity/volume] in Serum or Plasma 37 U/L 13 - 60 [facility] ID Date Data Source [id number] 04/16/2020 10:06:00 AM EDT [facility] Name Value Range Interpretation Code Description Data Esthela rce(s) Supporting Document(s) Thyrotropin [Units/volume] in Serum or Plasma by Detec tion limit <= 0.05 mIU/L 1.26 uIU/mL 0.47 - 5.01 [facility] ID Date Data Source [id number] 04/16/2020 09:58:00 AM EDT [facility] Value Range Interpretation Code Description Data Esthela rce(s) Supporting Document(s) TROPONIN T <0.01 NG/ML 0.00 - 0.10 [facility] ospital TROPONIN T0.1 ng/ml Recommended as the c linical threshold value forTroponin T. ID Date Data Source [id number] 04/16/2020 09:48:00 AM EDT [facility] Name Value Range Interpretation Code Description Data [facility](s) Supporting Document(s) Fibrin D-dimer FEU [Mass/volume] in Platelet poor plasma <0. 27 ug/mL 0.27 - 0.50 [facility] ID Date Data Source [id number] 04/16/2020 09:37:00 AM EDT [facility] Name Value Range Interpretation Code Description Data [facility](s) Supporting Document(s) CBC W/AUTOMATED DIFF [facility] COMPLETE BLOOD COUNT Leukocytes [#/volume] in Blood by Automated count 8.2 10^3/uL 4.2 - 1 1.0 [facility] Erythrocytes [#/volume] in Blood by Automated count 3.97 10^6/uL 4. 20 - 5.40 L [facility] Hemoglobin [Mass/volume] in Blood 12.5 g/dL 12.0 - 16.0 [facility] Hematocrit [Volume Fraction] of Blood by Automated count 37.6 % 3 7.0 - 47.0 [facility] Erythrocyte mean corpuscular volume [Entitic volume] by Auto mated count 94.7 fL 81.0 - 101 [facility] Erythrocyte mean corpuscular hemoglobin [Entitic mass] by Automated count 31.5 pg 27.0 - 34.0 [facility] Erythrocyte mean corpuscular hemoglobin concentration [Mass/volume] by Automated count 33.2 g/dL 31.0 - 36.0 [facility] Erythrocyte distribution width [Ratio] by Automated count 12.6 % 11.5 - 14.5 [facility] Platelets [#/volume] in Blood by Automated count 274 10^3/uL 150 - 45 0 [facility] Platelet mean volume [Entitic volume] in Blood by Automated count 10.2 fL 7.4 - 10.4 [facility] Neutrophils/100 leukocytes in Blood by Automated count 52.1 % 37. 0 - 80.0 [facility] Lymphocytes/100 leukocytes in Blood by Manual count 37.6 % 25.0 - 40.0 [facility] Monocytes/100 leukocytes in Blood by Automated count 6.1 % 3.0 - 8.0 [facility] Eosinophils/100 leukocytes in Blood by Automated count 3.3 % 0.0 - 7.0 [facility] Basophils/100 leukocytes in Blood by Automated count 0.5 % 0.0 - 2.5 [facility] %IG 0.4 % 0.0 - 0.0 H [facility] %NRBC 0.0 % 0.0 - 0.0 [facility] Neutrophils [#/volume] in Blood by Automated count 4.25 10^3/uL 2.00 - 6.90 [facility] Lymphocytes [#/volume] in Blood by Automated count 3.07 10^3/uL 0.60 - 3.40 [facility] Monocytes [#/volume] in Blood by Automated count 0.50 10^3/uL 0.00 - 0.90 [facility] Eosinophils [#/volume] in Blood by Automated count 0.27 10^3/uL 0.00 - 0.70 [facility] Basophils [#/volume] in Blood by Automated count 0.04 10^3/uL 0.00 - 0.20 [facility] #IG 0.03 10^3/uL 0.00 - 0.10 [facility] ospital #NRBC 0.00 10^3/uL 0.00 - 0.00 [facility] o[facility]ital MANUAL DIFF NOT INDICATED [facility] RBC MORPH NOT INDICATED [facility] spital ID Date Data Source [id number] 03/23/2020 11:18:00 AM EDT [facility] ([facility]) Name Value Range Interpretation Code Description Data Esthela rce(s) Supporting Document(s) Cyclic citrullinated peptide IgG Ab [Units/volume] in Serum or Plasma 21 units 0-19 Above high normal [facility] ([facility]) <content>Negative <20</con tent>
<content>Weak positive 20 - 39</content>
<content>Moderate positive 40 - 59</content>
<content>Strong positive >59</content>
<content></content> ID Date Data Source [id number] 03/26/2020 01:42:00 AM EDT [facility] Name Value Range Interpretation Code Description Data Esthela rce(s) Supporting Document(s) Cyclic citrullinated peptide IgA+IgG Ab [Units/volume] in Serum or Plasma by Immunoassay 21 units 0-19 H [facility] Negative <20 Weak positive 20 - 39 Moderate positive 40 - 59 Strong positive >59 ID Date Data Source [id number] 03/20/2020 09:38:00 AM EDT [facility] [address] [place] [address] PHONE: [phone] FAX: [phone] Name .................. : HAVEN Galarza Acct Number.................. : [id number] ROOM. ................. : MR Number ................... : [id number] Stay type ............. : O/P Discharge Date......... ... : 03/19/20 Admit Date ......... : 03/19/20 Admit Phys .................... : MENDOZA HARD Date of ....... : 1970 Family Phys ................... : Miralupa HARD Phone .................. : [phone] Age ................................ : 49 Film# .................. .:[id number] Sex ................................. : F Unsigned transcriptions are preliminary reports and do not represent a medical or legal document HAND COMP - BILATERAL [id number] COMPLETE:03/19/20 07:18 [place] [id number] (REASON FOR PROCESS: polyarthritis BILATERAL HAND X-RAY: [...] By Gwyn Mar MD , 03/20/20 09:38, KGG Transcribe Initials: HERMES , Transcribe Date: 03/19/20 15:51, Dictation Date: Copy for: [address] [place] [address] REC Page 1 of 1 Name Value Range Interpretation Code Description Data Esthela rce(s) Supporting Document(s) ID Date Data Source [id number] 03/12/2020 07:30:00 AM EDT [facility] 1 Medication Reconciliation Report [facility] Emergency Department [address] [place] [address] Phone #: ext- [phone] 03/12/2020 07:19 Patient: [...] for 10 days. No refill. -- Gabriella Franklin MD Name Value Range Interpretation Code Description Data Esthela rce(s) Supporting Document(s) ID Date Data Source [id number] 03/12/2020 07:30:00 AM EDT [facility] 1 Medication Administration Record [facility] Emergency Department [address] [place] [address] Phone #: ext- [phone] 03/12/2020 07:19 Patient: CRYS FRANK Sex: F : 1970 Age: 49yWeight: 77.5 kgHeight/Length: 67 inBMI: 26.8ALLERGIES: predniSONE, CiproDate/Time Medication Administered Medication Ordered Name Value Range Interpretation Code Description Data Esthela e(s) Supporting Document(s) ID Date Data Source [id number] 03/12/2020 07:30:00 AM EDT [facility] 1 General Instructions [facility] Emergency Department [address] [place] [address] Phone #: ext- [phone] 03/12/2020 07:19 Patient: [...] parts of the body. 2 General Instructions [facility] Emergency Department [address] [place] [address] Phone #: ext- [phone] 03/12/2020 07:19 Patient: [...] your healthcare provider or pharmacist before using [id number] medicines for helping treat pain and itching. [...] o Changes in vision 3 General Instructions [facility] Emergency Department [address] [place] [address] Phone #: ext- [phone] 03/12/2020 07:19 Patient: CRYS FRANK Sex: F : 1970 Age: 49y o Sores near the eye o Weakness of facial muscles Blisters occurring on new areas of the body Pain, redness, or swelling of a joint Signs of skin infection: colored drainage from the sores, warmth, increasing redness, fever, or increasing pain [id number] [employer]. [address] [place] [address], [place] [address]. All rights reserved. This information is not intended as asubstitute for professional medical care. Always follow your healthcare professional's instructions.Acyclovir tablets or capsulesWhat is this medicine?ACYCLOVIR (ay SYE kloe veer) is an antiviral medicine. It is used [...] or stop your medicine early.Talk to your banquet lead regarding the use of this medicine in children. While this drug may beprescribed for selected conditions, precautions do apply.What side effects may I notice from receiving this medicine?Side effects that you should report to your doctor or health animal caretaker supervisor as soon as possible: allergic reactions like skin rash, itching or hives, swelling of the face, lips, or tongue chest pain confusion, hallucinations, tremor dark urine increased sensitivity to the sun redness, blistering, peeling or loosening of the skin, including inside the mouth 4 General Instructions [facility] Emergency Department [address] [place] [address] Phone #: ext- [phone] 03/12/2020 07:19 Patient: [...] or trying to get 5 General Instructions [facility] Emergency Department [address] [place] [address] Phone #: ext- [phone] 03/12/2020 07:19 Patient: CRYS FRANK Sex: F : 1970 Age: 49y breast-feedingWhat should I watch for while using this medicine?Tell your doctor or health animal caretaker supervisor if your symptoms do not improve. This [...] doctor, pharmacist, orhealth care provider. Copyright 2019 [employer] You have been given the following additional information: Shingles (Herpes Zoster) Acyclovir tablets or capsules Do not work tomorrow.(Electronically signed by Gabriella Franklin MD 03/12/2020 23:57) Name Value Range Interpretation Code Description Data Esthela rce(s) Supporting Document(s) ID Date Data Source [id number] 03/12/2020 07:30:00 AM EDT [facility] 1 Clinical Report - Nurses [facility] Emergency Department [address] [place] [address] Phone #: ext- [phone] 03/12/2020 07:19 Patient: CRYS FRANK Sex: F : 1970 Age: 49yTRIAGEArrived by private vehicle. Historian: patient. Accompanied by family. ( woke up yesterday with pain inright arm pit, was seen at dr mnedoza 2 days ago for joint achiness tested for Lyme disease. had some swellingin right hand).Acuity: LEVEL 4.Chief Complaint: RIGHT UPPER EXTREMITY PAIN and SWELLING.Alert. No acute distress.No injury occurred. 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 Sepsis Screen [...] Cellulitis.Anxiety Reaction.Carpal Tunnel Syndrome.Tendonitis. --07:33 03/12/20 Mirna Erci R.N. 2 Clinical Report - Nurses [facility] Emergency Department [address] [place] [address] Phone #: ext- [phone] 03/12/2020 07:19 Patient: [...] treatment room. --07:35 03/12/20 Mirna Eric R.N.PHYSICAL OFWVAKERKA27:37 03/12/20. Ambulatory to room.GENERAL / NEURO / PSYCH: Oriented X 4. Alert. Appears in no acute distress.EXTREMITIES: Extremities exhibit normal ROM. Right arm: tenderness (right axilla slight lump anterior).SKIN: Skin is warm and dry. --07:37 03/12/20 Kyle Cano RN. 3 Clinical Report - Nurses [facility] Emergency Department [address] [place] [address] Phone #: ext- [phone] 03/12/2020 07:19 Patient: CRYS FRANK Sex: F [...] Patient verbalized understanding. Written instructions provided in [place]. The patient was discharged by the physician. She was discharged home. She left ambulatory and via private vehicle. Patient driving. --08:31 03/12/20 Kyle Cano RN.Locked/Released at 03/13/2020 07:41 by Kyle Cano RN Name Value Range Interpretation Code Description Data Esthela rce(s) Supporting Document(s) ID Date Data Source [id number] 03/12/2020 07:30:00 AM EDT [facility] 1 Clinical Report - Physicians/Mid Levels [facility] Emergency Department [address] [place] [address] Phone #: ext- [phone] 03/12/2020 07:19 Patient: CRYS FRANK Sex: F : 1970 Age: 49y Historian- [...] (breathing problem). 2 Clinical Report - Physicians/Mid Levels [facility] Emergency Department [address] [place] [address] Phone #: ext- [phone] 03/12/2020 07:19 Patient: CRYS FRANK Sex: F [...] neuralgia.INSTRUCTIONS 3 Clinical Report - Physicians/Mid Levels [facility] Emergency Department [address] [place] [address] Phone #: ext- [phone] 03/12/2020 07:19 Patient: [...] instructions verbalized by patient.(Electronically signed by Gabriella Franklin MD 03/12/2020 23:57) Name Value Range Interpretation Code Description Data Esthela rce(s) Supporting Document(s) ID Date Data Source [id number] 03/10/2020 02:25:00 PM EDT [facility] ([facility]) Name Value Range Interpretation Code Description Data Esthela rce(s) Supporting Document(s) Rheumatoid factor [Units/volume] in Serum or Plasma 12 IU/ml 0-14 [facility] ([facility]) Urate [Mass/volume] in Serum or Plasma 3.8 mg/dL 2.5-8.5 [facility] ([facility]) Calcidiol [Mass/volume] in Serum or Plasma 31 ng/mL [facility] ([facility]) <content>VITAMIN-D(25HYDROXY)</content>< br/><content>Deficiency: <=20 ng/ml</content>
<content>Insufficiency: 21-29 ng/ml</content>
<content>Preferred level: => 30 ng/ml</content>
<conten t></content> Thyrotropin [Units/volume] in Serum or Plasma 1.23 uIU/mL 0.47-5.01 [facility] ([facility]) Nuclear Ab [Titer] in Serum by Immunofluorescence Laboratory test res ult [facility] ([facility]) <content>Negative <1:80</content>
<content>Borderline 1:80</content>
<content>Positive >1:80</content>
<content></content> ID Date Data Source [id number] 03/10/2020 02:25:00 PM EDT [facility] ([facility]) Name Value Range Interpretation Code Description Data Esthela rce(s) Supporting Document(s) Sjogren's Anti-SS-A Laboratory test result 0.0-0.9 [facility] ([facility]) Sjogren's Anti-SS-B Laboratory test result 0.0-0.9 [facility] ([facility]) Anti-Dna (DS) Ab Qn 1 IU/ml 0-9 [facility] ([facility]) <content>Negative <5</content>
<content>Equivocal 5 - 9</content>
<content>Positive >9</content>
<content></content> Frank Antibodies Laboratory test result 0.0-0.9 [facility] ([facility]) CAMPAIGN CONSULTANT Antibodies 0.3 AI 0.0-0.9 [facility] ([facility]) ID Date Data Source [id number] 03/10/2020 02:25:00 PM EDT [facility] ([facility]) Name Value Range Interpretation Code Description Data Esthela rce(s) Supporting Document(s) Lyme IgG/IgM Ab Laboratory test result 0.00-0.90 [facility] ([facility]) <content>Negative <0.91</content >
<content>Equivocal 0.91 - 1.09</content>
<content>Positive >1.09</content>
<content></content> Lyme Disease Ab, Quant,IgM Laboratory test result 0.00-0.79 [facility] ([facility]) <content>Negative <0.80</content >
<content>Equivocal 0.80 - 1.19</content>
<content>Positive >1.19</content>
<content>IgM levels may peak at 3-6 weeks post infection, then</content>
<content>gradually decline.</content>
<content></content> ID Date Data Source [id number] 03/10/2020 02:25:00 PM EDT [facility] ([facility]) Name Value Range Interpretation Code Description Data Esthela rce(s) Supporting Document(s) Sed Rate 23 mm/hr 0-30 [facility] ([facility]) Sed Rate Reenter 23 [facility] ([facility]) ID Date Data Source [id number] 03/10/2020 02:25:00 PM EDT [facility] ([facility]) Name Value Range Interpretation Code Description Data Esthela rce(s) Supporting Document(s) C reactive protein [Mass/volume] in Serum or Plasma by High sensitivity method 12.51 mg/L 1.00-3.00 Above high normal [facility] ([facility]) <content>CDC/S HS-CRP CUT-OFF: RELATIVE RISK:</content>
<content><1.0 mg/L Low</content>
<content>1.0 - 3.0 mg/L Average</rolanda nt>
<content>>3.0 mg/L High</content>
<content>Optimally, the average of HS-CRP results repeated</content>
<content>two weeks apart should be used for risk assessment.</content>
<content></content> ID Date Data Source [id number] 03/12/2020 06:38:00 PM EDT [facility] Name Value Range Interpretation Code Description Data Esthela rce(s) Supporting Document(s) Nuclear Ab [Titer] in Serum by Immunofluorescence Negative [facility] Negative <1:80 Borderline 1:80 Positive >1:80 ID Date Data Source [id number] 03/12/2020 06:38:00 PM EDT [facility] Value Range Interpretation Code Description Data Esthela rce(s) Supporting Document(s) Borrelia burgdorferi IgG+IgM Ab [Units/volume] in Serum <0.91 ISR 0. 00-0.90 [facility] Negative <0.91 Equivocal 0.91 - 1.09 Positive >1.09 Borrelia burgdorferi IgM Ab [Units/volume] in Serum by Immun oassay <0.80 index 0.00-0.79 [facility] Negative <0.80 Equivocal 0.80 - 1.19 Positive >1.19 IgM levels may peak at 3-6 weeks post infection, then gradually decline. ID Date Data Source [id number] 03/12/2020 01:23:00 PM EDT [facility] Name Value Range Interpretation Code Description Data Esthela rce(s) Supporting Document(s) Sjogrens syndrome-A extractable nuclear Ab [Units/volume] in Serum <0.2 AI 0.0-0.9 [facility] Sjogrens syndrome-B extractable nuclear Ab [Units/volume] in Serum <0.2 AI 0.0-0.9 [facility] Ribonucleoprotein extractable nuclear Ab [Units/volume] in Serum 0.3 AI 0.0-0.9 [facility] Frank extractable nuclear Ab [Units/volume] in Serum <0.2 AI 0.0-0 .9 [facility] DNA double strand Ab [Units/volume] in Serum 1 IU/mL 0-9 [facility] Negative <5 Equivocal 5 - 9 Positive >9 ID Date Data Source [id number] 03/10/2020 08:40:00 PM EDT [facility] Name Value Range Interpretation Code Description Data Esthela rce(s) Supporting Document(s) C reactive protein [Mass/volume] in Serum or Plasma by High sensitivity method 12.51 MG/L 1.00 - 3.00 H [facility] CDC/S HS-CRP CUT-OFF: RELATIVE RISK: <1.0 mg/L Low 1.0 - 3.0 mg/L Average >3.0 mg/L High Optimally, the average of HS-CRP results repeated two weeks apart should be used for risk assessment. ID Date Data Source [id number] 03/10/2020 02:25:00 PM EDT [facility] ([facility]) Name Value Range Interpretation Code Description Data Esthela rce(s) Supporting Document(s) Erythrocyte sedimentation rate by Westergren method Laboratory test result [facility] ([facility]) Nuclear Ab [Presence] in Serum Laboratory test result [facility] ([facility]) C reactive protein [Mass/volume] in Serum or Plasma by High sensitivity method Laboratory test result [facility] ([facility]) ID Date Data Source [id number] 03/10/2020 08:32:00 PM EDT [facility] Name Value Range Interpretation Code Description Data Esthela rce(s) Supporting Document(s) Thyrotropin [Units/volume] in Serum or Plasma by Detec tion limit <= 0.05 mIU/L 1.23 uIU/mL 0.47 - 5.01 [facility] ID Date Data Source [id number] 03/10/2020 08:32:00 PM EDT [facility] Value Range Interpretation Code Description Data Esthela rce(s) Supporting Document(s) Calcidiol [Moles/volume] in Serum or Plasma 31 NG/ML [facility] VITAMIN-D(2 5HYDROXY) Deficiency: <=20 ng/ml Insufficiency: 21-29 ng/ml Preferred level: => 30 ng/ml ID Date Data Source [id number] 03/10/2020 08:29:00 PM EDT [facility] Value Range Interpretation Code Description Data Esthela rce(s) Supporting Document(s) Erythrocyte sedimentation rate by Westergren method 23 mm/hr 0 - 30 [facility] SED RATE REENTER 23 [facility] ID Date Data Source [id number] 03/10/2020 08:21:00 PM EDT [facility] Value Range Interpretation Code Description Data Esthela rce(s) Supporting Document(s) Urate [Mass/volume] in Serum or Plasma 3.8 MG/DL 2.5 - 8.5 [facility] ID Date Data Source [id number] 03/10/2020 08:21:00 PM EDT [facility] Value Range Interpretation Code Description Data Esthela rce(s) Supporting Document(s) RA QUANT 12 IU/mL 0 - 14 [facility] ID Date Data Source [id number] 03/10/2020 02:24:00 PM EDT [facility] ([facility]) Name Value Range Interpretation Code Description Data Esthela rce(s) Supporting Document(s) Hand Comp - Bilateral Laboratory test result [facility] ([facility]) ID Date Data Source [id number] 02/26/2020 08:38:00 AM EDT [facility] ([facility]) Name Value Range Interpretation Code Description Data Esthela rce(s) Supporting Document(s) Hemoglobin A1c/Hemoglobin.total in Blood Laboratory test result [facility] ([facility]) FASTING~.~.~<DG1.3.1>R03.0</DG1.3.1><DG1.3.1>R21</DG1.3.1><DG1.3.1>R21</DG1.3.1> <DG1.3.1>R21 ID Date Data Source [id number] 02/26/2020 08:38:00 AM EDT [facility] ([facility]) Name Value Range Interpretation Code Description Data Esthela rce(s) Supporting Document(s) Source Laboratory test result [facility] ([facility]) FASTING~.~.~<DG1.3.1>R03.0</DG1.3.1><DG1.3.1>R21</DG1.3.1><DG1.3.1>R21</DG1.3.1> <DG1.3.1>R21 Urinalysis Laboratory test result [facility] ([facility]) FASTING~.~.~<DG1.3.1>R03.0</DG1.3.1><DG1.3.1>R21</DG1.3.1><DG1.3.1>R21</DG1.3.1> <DG1.3.1>R21 Clarity Laboratory test result [facility] ([facility]) FASTING~.~.~<DG1.3.1>R03.0</DG1.3.1><DG1.3.1>R21</DG1.3.1><DG1.3.1>R21</DG1.3.1> <DG1.3.1>R21 Color Laboratory test result [facility] ([facility]) FASTING~.~.~<DG1.3.1>R03.0</DG1.3.1><DG1.3.1>R21</DG1.3.1><DG1.3.1>R21</DG1.3.1> <DG1.3.1>R21 Spec [place] 1.015 1.001-1.030 [facility] ([facility]) FASTING~.~.~<DG1.3.1>R03.0</DG1.3.1><DG1.3.1>R21</DG1.3.1><DG1.3.1>R21</DG1.3.1> <DG1.3.1>R21 Glucose Laboratory test result [facility] ([facility]) FASTING~.~.~<DG1.3.1>R03.0</DG1.3.1><DG1.3.1>R21</DG1.3.1><DG1.3.1>R21</DG1.3.1> <DG1.3.1>R21 Bilirubin Laboratory test result [facility] ([facility]) FASTING~.~.~<DG1.3.1>R03.0</DG1.3.1><DG1.3.1>R21</DG1.3.1><DG1.3.1>R21</DG1.3.1> <DG1.3.1>R21 pH 8 5-9 [facility] ([facility]) FASTING~.~.~<DG1.3.1>R03.0</DG1.3.1><DG1.3.1>R21</DG1.3.1><DG1.3.1>R21</DG1.3.1> <DG1.3.1>R21 Protein Laboratory test result [facility] ([facility]) FASTING~.~.~<DG1.3.1>R03.0</DG1.3.1><DG1.3.1>R21</DG1.3.1><DG1.3.1>R21</DG1.3.1> <DG1.3.1>R21 Nitrite Laboratory test result [facility] ([facility]) FASTING~.~.~<DG1.3.1>R03.0</DG1.3.1><DG1.3.1>R21</DG1.3.1><DG1.3.1>R21</DG1.3.1> <DG1.3.1>R21 [facility] test result [facility] ([facility]) FASTING~.~.~<DG1.3.1>R03.0</DG1.3.1><DG1.3.1>R21</DG1.3.1><DG1.3.1>R21</DG1.3.1> <DG1.3.1>R21 Urobilinogen Laboratory test result [facility] ([facility]) FASTING~.~.~<DG1.3.1>R03.0</DG1.3.1><DG1.3.1>R21</DG1.3.1><DG1.3.1>R21</DG1.3.1> <DG1.3.1>R21 Leuk Est [facility]~.~<DG1.3.1>R03.0</DG1.3.1><DG1.3.1>R21</DG1.3.1><DG1.3.1>R21</DG1.3.1> <DG1.3.1>R21 Blood Laboratory test result [facility] ([facility]) FASTING~.~.~<DG1.3.1>R03.0</DG1.3.1><DG1.3.1>R21</DG1.3.1><DG1.3.1>R21</DG1.3.1> <DG1.3.1>R21 Microscopic Laboratory test result [facility] ([facility]) FASTING~.~.~<DG1.3.1>R03.0</DG1.3.1><DG1.3.1>R21</DG1.3.1><DG1.3.1>R21</DG1.3.1> <DG1.3.1>R21 ID Date Data Source [id number] 02/26/2020 08:38:00 AM EDT [facility] ([facility]) Name Value Range Interpretation Code Description Data Esthela rce(s) Supporting Document(s) Cve Panel Laboratory test result [facility] ([facility]) FASTING~.~.~<DG1.3.1>R03.0</DG1.3.1><DG1.3.1>R21</DG1.3.1><DG1.3.1>R21</DG1.3.1> <DG1.3.1>R21 Cholesterol 266 mg/dL 131-200 Above high normal [facility] ([facility]) FASTING~.~.~<DG1.3.1>R03.0</DG1.3.1><DG1.3.1>R21</DG1.3.1><DG1.3.1>R21</DG1.3.1> <DG1.3.1>R21 HDL 41 mg/dL 29-86 [facility] ([facility]) FASTING~.~.~<DG1.3.1>R03.0</DG1.3.1><DG1.3.1>R21</DG1.3.1><DG1.3.1>R21</DG1.3.1> <DG1.3.1>R21 Triglycerides 525 mg/dL 35-160 Above high normal [facility] ([facility]) FASTING~.~.~<DG1.3.1>R03.0</DG1.3.1><DG1.3.1>R21</DG1.3.1><DG1.3.1>R21</DG1.3.1> <DG1.3.1>R21 LDL 168 mg/dL 65-175 [facility] ([facility]) FASTING~.~.~<DG1.3.1>R03.0</DG1.3.1><DG1.3.1>R21</DG1.3.1><DG1.3.1>R21</DG1.3.1> <DG1.3.1>R21 Risk Factor 6.5 3.2-4.4 Above high normal [facility] ([facility]) FASTING~.~.~<DG1.3.1>R03.0</DG1.3.1><DG1.3.1>R21</DG1.3.1><DG1.3.1>R21</DG1.3.1> <DG1.3.1>R21 LDL/HDL 4.10 1.47-3.22 Above high normal [facility] ([facility]) FASTING~.~.~<DG1.3.1>R03.0</DG1.3.1><DG1.3.1>R21</DG1.3.1><DG1.3.1>R21</DG1.3.1> <DG1.3.1>R21 ID Date Data Source [id number] 02/26/2020 08:38:00 AM EDT [facility] ([facility]) Name Value Range Interpretation Code Description Data Esthela rce(s) Supporting Document(s) WBC 8.6 10^3/uL 4.2-11.0 [facility] ([facility]) FASTING~.~.~<DG1.3.1>R03.0</DG1.3.1><DG1.3.1>R21</DG1.3.1><DG1.3.1>R21</DG1.3.1> <DG1.3.1>R21 CBC W/Automated Diff Laboratory test result [facility] ([facility]) FASTING~.~.~<DG1.3.1>R03.0</DG1.3.1><DG1.3.1>R21</DG1.3.1><DG1.3.1>R21</DG1.3.1> <DG1.3.1>R21 RBC 4.24 10^6/uL 4.20-5.40 [facility] ([facility]) FASTING~.~.~<DG1.3.1>R03.0</DG1.3.1><DG1.3.1>R21</DG1.3.1><DG1.3.1>R21</DG1.3.1> <DG1.3.1>R21 Hemoglobin 13.3 g/dL 12.0-16.0 [facility] ([facility]) FASTING~.~.~<DG1.3.1>R03.0</DG1.3.1><DG1.3.1>R21</DG1.3.1><DG1.3.1>R21</DG1.3.1> <DG1.3.1>R21 Hematocrit 39.6 % 37.0-47.0 [facility] ([facility]) FASTING~.~.~<DG1.3.1>R03.0</DG1.3.1><DG1.3.1>R21</DG1.3.1><DG1.3.1>R21</DG1.3.1> <DG1.3.1>R21 MCV 93.4 fL 81.0-101 [facility] ([facility]) FASTING~.~.~<DG1.3.1>R03.0</DG1.3.1><DG1.3.1>R21</DG1.3.1><DG1.3.1>R21</DG1.3.1> <DG1.3.1>R21 MCHC 33.6 g/dL 31.0-36.0 [facility] ([facility]) FASTING~.~.~<DG1.3.1>R03.0</DG1.3.1><DG1.3.1>R21</DG1.3.1><DG1.3.1>R21</DG1.3.1> <DG1.3.1>R21 RDW 12.4 % 11.5-14.5 [facility] ([facility]) FASTING~.~.~<DG1.3.1>R03.0</DG1.3.1><DG1.3.1>R21</DG1.3.1><DG1.3.1>R21</DG1.3.1> <DG1.3.1>R21 MCH 31.4 pg 27.0-34.0 [facility] ([facility]) FASTING~.~.~<DG1.3.1>R03.0</DG1.3.1><DG1.3.1>R21</DG1.3.1><DG1.3.1>R21</DG1.3.1> <DG1.3.1>R21 Neut 53.5 % 37.0-80.0 [facility] ([facility]) FASTING~.~.~<DG1.3.1>R03.0</DG1.3.1><DG1.3.1>R21</DG1.3.1><DG1.3.1>R21</DG1.3.1> <DG1.3.1>R21 Platelets 287 10^3/uL 150-450 [facility] ([facility]) FASTING~.~.~<DG1.3.1>R03.0</DG1.3.1><DG1.3.1>R21</DG1.3.1><DG1.3.1>R21</DG1.3.1> <DG1.3.1>R21 MPV 9.4 fL 7.4-10.4 [facility] ([facility]) FASTING~.~.~<DG1.3.1>R03.0</DG1.3.1><DG1.3.1>R21</DG1.3.1><DG1.3.1>R21</DG1.3.1> <DG1.3.1>R21 Lymph 33.7 % 25.0-40.0 [facility] ([facility]) FASTING~.~.~<DG1.3.1>R03.0</DG1.3.1><DG1.3.1>R21</DG1.3.1><DG1.3.1>R21</DG1.3.1> <DG1.3.1>R21 Ray 8.1 % 3.0-8.0 Above high normal [facility] ([facility]) FASTING~.~.~<DG1.3.1>R03.0</DG1.3.1><DG1.3.1>R21</DG1.3.1><DG1.3.1>R21</DG1.3.1> <DG1.3.1>R21 Eos 3.4 % 0.0-7.0 [facility] ([facility]) FASTING~.~.~<DG1.3.1>R03.0</DG1.3.1><DG1.3.1>R21</DG1.3.1><DG1.3.1>R21</DG1.3.1> <DG1.3.1>R21 %Ig 0.3 % 0.0-0.0 Above high normal [facility] ([facility]) FASTING~.~.~<DG1.3.1>R03.0</DG1.3.1><DG1.3.1>R21</DG1.3.1><DG1.3.1>R21</DG1.3.1> <DG1.3.1>R21 Baso 1.0 % 0.0-2.5 [facility] ([facility]) FASTING~.~.~<DG1.3.1>R03.0</DG1.3.1><DG1.3.1>R21</DG1.3.1><DG1.3.1>R21</DG1.3.1> <DG1.3.1>R21 %NRBC 0.0 % 0.0-0.0 [facility] ([facility]) FASTING~.~.~<DG1.3.1>R03.0</DG1.3.1><DG1.3.1>R21</DG1.3.1><DG1.3.1>R21</DG1.3.1> <DG1.3.1>R21 #Lymph 2.90 10^3/uL 0.60-3.40 [facility] ([facility]) FASTING~.~.~<DG1.3.1>R03.0</DG1.3.1><DG1.3.1>R21</DG1.3.1><DG1.3.1>R21</DG1.3.1> <DG1.3.1>R21 #Ray 0.70 10^3/uL 0.00-0.90 [facility] ([facility]) FASTING~.~.~<DG1.3.1>R03.0</DG1.3.1><DG1.3.1>R21</DG1.3.1><DG1.3.1>R21</DG1.3.1> <DG1.3.1>R21 #Neut 4.60 10^3/uL 2.00-6.90 [facility] ([facility]) FASTING~.~.~<DG1.3.1>R03.0</DG1.3.1><DG1.3.1>R21</DG1.3.1><DG1.3.1>R21</DG1.3.1> <DG1.3.1>R21 #Eos 0.29 10^3/uL 0.00-0.70 [facility] ([facility]) FASTING~.~.~<DG1.3.1>R03.0</DG1.3.1><DG1.3.1>R21</DG1.3.1><DG1.3.1>R21</DG1.3.1> <DG1.3.1>R21 #Baso 0.09 10^3/uL 0.00-0.20 [facility] ([facility]) FASTING~.~.~<DG1.3.1>R03.0</DG1.3.1><DG1.3.1>R21</DG1.3.1><DG1.3.1>R21</DG1.3.1> <DG1.3.1>R21 #Ig 0.03 10^3/uL 0.00-0.10 [facility] ([facility]) FASTING~.~.~<DG1.3.1>R03.0</DG1.3.1><DG1.3.1>R21</DG1.3.1><DG1.3.1>R21</DG1.3.1> <DG1.3.1>R21 RBC Morph Laboratory test result [facility] ([facility]) FASTING~.~.~<DG1.3.1>R03.0</DG1.3.1><DG1.3.1>R21</DG1.3.1><DG1.3.1>R21</DG1.3.1> <DG1.3.1>R21 Manual Diff Laboratory test result [facility] ([facility]) FASTING~.~.~<DG1.3.1>R03.0</DG1.3.1><DG1.3.1>R21</DG1.3.1><DG1.3.1>R21</DG1.3.1> <DG1.3.1>R21 #NRBC 0.00 10^3/uL 0.00-0.00 [facility] ([facility]) FASTING~.~.~<DG1.3.1>R03.0</DG1.3.1><DG1.3.1>R21</DG1.3.1><DG1.3.1>R21</DG1.3.1> <DG1.3.1>R21 ID Date Data Source [id number] 02/26/2020 08:38:00 AM EDT [facility] ([facility]) Name Value Range Interpretation Code Description Data Esthela rce(s) Supporting Document(s) Thyroxine (T4) free [Mass/volume] in Serum or Plasma 0.92 ng/dL 0.93-1.70 Below low normal [facility] ([facility]) FASTING~.~.~<DG1.3.1>R03.0</DG1.3.1><DG1.3.1>R21</DG1.3.1><DG1.3.1>R21</DG1.3.1> <DG1.3.1>R21 Thyrotropin [Units/volume] in Serum or Plasma 2.10 uIU/mL 0.47-5.01 [facility] ([facility]) FASTING~.~.~<DG1.3.1>R03.0</DG1.3.1><DG1.3.1>R21</DG1.3.1><DG1.3.1>R21</DG1.3.1> <DG1.3.1>R21 ID Date Data Source [id number] 02/26/2020 08:38:00 AM EDT [facility] ([facility]) Name Value Range Interpretation Code Description Data Esthela rce(s) Supporting Document(s) Sed Rate Reenter 22 [facility] ([facility]) FASTING~.~.~<DG1.3.1>R03.0</DG1.3.1><DG1.3.1>R21</DG1.3.1><DG1.3.1>R21</DG1.3.1> <DG1.3.1>R21 Sed Rate 22 mm/hr 0-30 [facility] ([facility]) FASTING~.~.~<DG1.3.1>R03.0</DG1.3.1><DG1.3.1>R21</DG1.3.1><DG1.3.1>R21</DG1.3.1> <DG1.3.1>R21 ID Date Data Source [id number] 02/26/2020 08:38:00 AM EDT [facility] ([facility]) Name Value Range Interpretation Code Description Data Esthela rce(s) Supporting Document(s) C reactive protein [Mass/volume] in Serum or Plasma by High sensitivity method 13.64 mg/L 1.00-3.00 Above high normal [facility] ([facility]) FASTING~.~.~<DG1.3.1>R03.0</DG1.3.1><DG1.3.1>R21</DG1.3.1><DG1.3.1>R21</DG1.3.1> <DG1.3.1>R21 ID Date Data Source [id number] 02/26/2020 08:38:00 AM EDT [facility] ([facility]) Name Value Range Interpretation Code Description Data Esthela rce(s) Supporting Document(s) Sodium 137 meq/L 134-153 [facility] ([facility]) FASTING~.~.~<DG1.3.1>R03.0</DG1.3.1><DG1.3.1>R21</DG1.3.1><DG1.3.1>R21</DG1.3.1> <DG1.3.1>R21 [employer] Laboratory test result [facility] ([facility]) FASTING~.~.~<DG1.3.1>R03.0</DG1.3.1><DG1.3.1>R21</DG1.3.1><DG1.3.1>R21</DG1.3.1> <DG1.3.1>R21 Potassium 4.5 meq/L 3.6-5.0 [facility] ([facility]) FASTING~.~.~<DG1.3.1>R03.0</DG1.3.1><DG1.3.1>R21</DG1.3.1><DG1.3.1>R21</DG1.3.1> <DG1.3.1>R21 Chloride 102 meq/L 98-107 [facility] ([facility]) FASTING~.~.~<DG1.3.1>R03.0</DG1.3.1><DG1.3.1>R21</DG1.3.1><DG1.3.1>R21</DG1.3.1> <DG1.3.1>R21 Co2 25 meq/L 22-30 [facility] ([facility]) FASTING~.~.~<DG1.3.1>R03.0</DG1.3.1><DG1.3.1>R21</DG1.3.1><DG1.3.1>R21</DG1.3.1> <DG1.3.1>R21 Creatinine 0.7 mg/dL 0.7-1.5 [facility] ([facility]) FASTING~.~.~<DG1.3.1>R03.0</DG1.3.1><DG1.3.1>R21</DG1.3.1><DG1.3.1>R21</DG1.3.1> <DG1.3.1>R21 Glucose 89 mg/dL 65-110 [facility] ([facility]) FASTING~.~.~<DG1.3.1>R03.0</DG1.3.1><DG1.3.1>R21</DG1.3.1><DG1.3.1>R21</DG1.3.1> <DG1.3.1>R21 BUN 12 mg/dL 7-21 [facility] ([facility]) FASTING~.~.~<DG1.3.1>R03.0</DG1.3.1><DG1.3.1>R21</DG1.3.1><DG1.3.1>R21</DG1.3.1> <DG1.3.1>R21 Total Protein 7.3 g/dL 6.3-8.2 [facility] ([facility]) FASTING~.~.~<DG1.3.1>R03.0</DG1.3.1><DG1.3.1>R21</DG1.3.1><DG1.3.1>R21</DG1.3.1> <DG1.3.1>R21 BUN/Creat 17 8-27 [facility] ([facility]) FASTING~.~.~<DG1.3.1>R03.0</DG1.3.1><DG1.3.1>R21</DG1.3.1><DG1.3.1>R21</DG1.3.1> <DG1.3.1>R21 Albumin 4.3 g/dL 3.9-5.0 [facility] ([facility]) FASTING~.~.~<DG1.3.1>R03.0</DG1.3.1><DG1.3.1>R21</DG1.3.1><DG1.3.1>R21</DG1.3.1> <DG1.3.1>R21 A/G Ratio 1.4 0.8-2.0 [facility] ([facility]) FASTING~.~.~<DG1.3.1>R03.0</DG1.3.1><DG1.3.1>R21</DG1.3.1><DG1.3.1>R21</DG1.3.1> <DG1.3.1>R21 Globulin 3.0 GM/DL 2.4-3.2 [facility] ([facility]) FASTING~.~.~<DG1.3.1>R03.0</DG1.3.1><DG1.3.1>R21</DG1.3.1><DG1.3.1>R21</DG1.3.1> <DG1.3.1>R21 Calcium 10.4 mg/dL 8.4-10.2 Above high normal [facility] ([facility]) FASTING~.~.~<DG1.3.1>R03.0</DG1.3.1><DG1.3.1>R21</DG1.3.1><DG1.3.1>R21</DG1.3.1> <DG1.3.1>R21 Alkaline Phos 98 U/L 38-126 [facility] ([facility]) FASTING~.~.~<DG1.3.1>R03.0</DG1.3.1><DG1.3.1>R21</DG1.3.1><DG1.3.1>R21</DG1.3.1> <DG1.3.1>R21 Sgot/Ast 26 U/L 5-40 [facility] ([facility]) FASTING~.~.~<DG1.3.1>R03.0</DG1.3.1><DG1.3.1>R21</DG1.3.1><DG1.3.1>R21</DG1.3.1> <DG1.3.1>R21 SGPT/Alt 31 U/L 7-56 [facility] ([facility]) FASTING~.~.~<DG1.3.1>R03.0</DG1.3.1><DG1.3.1>R21</DG1.3.1><DG1.3.1>R21</DG1.3.1> <DG1.3.1>R21 Total Bili Laboratory test result 0.2-1.3 [facility] ([facility]) FASTING~.~.~<DG1.3.1>R03.0</DG1.3.1><DG1.3.1>R21</DG1.3.1><DG1.3.1>R21</DG1.3.1> <DG1.3.1>R21 Age 49 yrs [facility] ([facility]) FASTING~.~.~<DG1.3.1>R03.0</DG1.3.1><DG1.3.1>R21</DG1.3.1><DG1.3.1>R21</DG1.3.1> <DG1.3.1>R21 Non-Aa GFR Laboratory test result [facility] ([facility]) FASTING~.~.~<DG1.3.1>R03.0</DG1.3.1><DG1.3.1>R21</DG1.3.1><DG1.3.1>R21</DG1.3.1> <DG1.3.1>R21 Anion Gap 10.0 mmol/L 8.0-16.0 [facility] ([facility]) FASTING~.~.~<DG1.3.1>R03.0</DG1.3.1><DG1.3.1>R21</DG1.3.1><DG1.3.1>R21</DG1.3.1> <DG1.3.1>R21 Afr Amer GFR Laboratory test result [facility] ([facility]) FASTING~.~.~<DG1.3.1>R03.0</DG1.3.1><DG1.3.1>R21</DG1.3.1><DG1.3.1>R21</DG1.3.1> <DG1.3.1>R21 ID Date Data Source [id number] 02/26/2020 01:57:00 PM EDT [facility] Name Value Range Interpretation Code Description Data Esthela rce(s) Supporting Document(s) URINALYSIS [facility] URINALYSIS SOURCE R [facility] COLOR Yellow NORMAL: Yellow [facility] CLARITY Clear NORMAL: Clear [facility] Specific gravity of Urine by Test strip 1.015 1.001 - 1.030 [facility] pH 8 5 - 9 [facility] Gl[facility] [Mass/volume] in Urine by Test strip [facility] Bilirubin.total [Presence] in Urine by Test strip Negative NORMAL: Negative [facility] Ketones [Presence] in Urine by Test strip Negative NORMAL: Negative [facility] Protein [Mass/volume] in Urine by Test strip Negative [facility] Nitrite [Presence] in Urine by Test strip Negative NORMAL: Negative [facility] BLOOD Negative NORMAL: Negative [facility] Leukocyte esterase [Presence] in Urine by Test strip Negative NORMAL: Negative [facility] Urobilinogen [Mass/volume] in Urine by Test strip NOR less fermín n 1.0 mg/dL [facility] MICROSCOPIC Not Indicate [facility] ID Date Data Source [id number] 02/26/2020 10:34:00 AM EDT [facility] Name Value Range Interpretation Code Description Data Esthela rce(s) Supporting Document(s) Thyroxine (T4) free index in Serum or Plasma by calculation 0.92 NG/DL 0.93 - 1.70 L [facility] ID Date Data Source [id number] 02/26/2020 10:33:00 AM EDT [facility] Name Value Range Interpretation Code Description Data Esthela rce(s) Supporting Document(s) Thyrotropin [Units/volume] in Serum or Plasma by Detec tion limit <= 0.05 mIU/L 2.10 uIU/mL 0.47 - 5.01 [facility] ID Date Data Source [id number] 02/26/2020 10:21:00 AM EDT [facility] Name Value Range Interpretation Code Description Data Esthela rce(s) Supporting Document(s) CVE PANEL [facility] LIPID PANEL Cholesterol [Mass/volume] in Serum or Plasma 266 MG/DL 131 - 200 H [facility] Deprecated Triglyceride [Mass/volume] in Serum or Plasma 525 MG/DL 3 5 - 160 H [facility] HDL 41 MG/DL 29 - 86 [facility] Cholesterol in LDL [Mass/volume] in Serum or Plasma by Direc t assay 168 mg/dL 65 - 175 [facility] Cholesterol.total/Cholesterol in HDL [Mass Ratio] in Serum o r Plasma 6.5 3.2 - 4.4 H [facility] LDL/HDL 4.10 1.47 - 3.22 H [facility] CVE RISK CHOL/HDL LDL/HDLMEN: 1/2 AVERAGE 3.43 1.00 AVERAGE 4.97 3.55 2X AVERAGE 9.55 6.25 3X AVERAGE 23.99 7.99WOMEN: 1/2 AVERAGE 3.27 1.47 AVERAGE 4.44 3.22 2X AVERAGE 7.05 5.03 3X AVERAGE 11.04 6.14 ID Date Data Source [id number] 02/26/2020 10:21:00 AM EDT [facility] Name Value Range Interpretation Code Description Data Esthela rce(s) Supporting Document(s) C reactive protein [Mass/volume] in Serum or Plasma by High sensitivity method 13.64 MG/L 1.00 - 3.00 H [facility] CDC/S HS-CRP CUT-OFF: RELATIVE RISK: <1.0 mg/L Low 1.0 - 3.0 mg/L Average >3.0 mg/L High Optimally, the average of HS-CRP results repeated two weeks apart should be used for risk assessment. ID Date Data Source [id number] 02/26/2020 10:21:00 AM EDT [facility] Name Value Range Interpretation Code Description Data Esthela rce(s) Supporting Document(s) COMPREHENSIVE METABOLIC PANEL [facility] COMPREHENSIVE METABOLIC PANEL Sodium [Moles/volume] in Serum or Plasma 137 mEq/L 134 - 153 [facility] Potassium [Moles/volume] in Serum or Plasma 4.5 mEq/L 3.6 - 5.0 [facility] Chloride [Moles/volume] in Serum or Plasma 102 mEq/L 98 - 107 [facility] Carbon dioxide, total [Moles/volume] in Serum or Plasma 25 MEQ/L 22 - 30 [facility] Glucose [Mass/volume] in Serum or Plasma 89 MG/DL 65 - 110 [facility] BUN 12 MG/DL 7 - 21 [facility] Creatinine [Mass/volume] in Serum or Plasma 0.7 MG/DL 0.7 - 1.5 [facility] BUN/CREAT 17 8 - 27 [facility] Protein [Mass/volume] in Serum or Plasma 7.3 G/DL 6.3 - 8.2 [facility] Albumin [Mass/volume] in Serum or Plasma 4.3 G/DL 3.9 - 5.0 [facility] Globulin [Mass/volume] in Serum by calculation 3.0 GM/DL 2.4 - 3.2 [facility] A/G RATIO 1.4 0.8 - 2.0 [facility] Calcium [Mass/volume] in Serum or Plasma 10.4 MG/DL 8.4 - 10.2 H [facility] Bilirubin.total [Mass/volume] in Serum or Plasma <0.7 MG/DL 0.2 - 1.3 [facility] Alkaline phosphatase [Enzymatic activity/volume] in Serum or Plasma 98 U/L 38 - 126 [facility] Aspartate aminotransferase [Enzymatic activity/volume] in Serum or Plasma 26 U/L 5 - 40 [facility] Alanine aminotransferase [Enzymatic activity/volume] in Seru m or Plasma 31 U/L 7 - 56 [facility] Anion gap 3 in Serum or Plasma 10.0 mmol/L 8.0 - 16.0 [facility] AGE 49 yrs [facility] NON-AA GFR >60 mL/min [facility] ital AFR AMER GFR >60 mL/min [facility] Male GFR In terprentation [...] >32 mL/min Normal ID Date Data Source [id number] 02/26/2020 09:26:00 AM EDT [facility] Name Value Range Interpretation Code Description Data Esthela rce(s) Supporting Document(s) Erythrocyte sedimentation rate by Westergren method 22 mm/hr 0 - 30 [facility] SED RATE REENTER 22 [facility] ID Date Data Source [id number] 02/26/2020 09:03:00 AM EDT [facility] Name Value Range Interpretation Code Description Data Esthela rce(s) Supporting Document(s) CBC W/AUTOMATED DIFF [facility] COMPLETE BLOOD COUNT Leukocytes [#/volume] in Blood by Automated count 8.6 10^3/uL 4.2 - 1 1.0 [facility] Erythrocytes [#/volume] in Blood by Automated count 4.24 10^6/uL 4. 20 - 5.40 [facility] Hemoglobin [Mass/volume] in Blood 13.3 g/dL 12.0 - 16.0 [facility] Hematocrit [Volume Fraction] of Blood by Automated count 39.6 % 3 7.0 - 47.0 [facility] Erythrocyte mean corpuscular volume [Entitic volume] by Auto mated count 93.4 fL 81.0 - 101 [facility] Erythrocyte mean corpuscular hemoglobin [Entitic mass] by Automated count 31.4 pg 27.0 - 34.0 [facility] Erythrocyte mean corpuscular hemoglobin concentration [Mass/volume] by Automated count 33.6 g/dL 31.0 - 36.0 [facility] Erythrocyte distribution width [Ratio] by Automated count 12.4 % 11.5 - 14.5 [facility] Platelets [#/volume] in Blood by Automated count 287 10^3/uL 150 - 45 0 [facility] Platelet mean volume [Entitic volume] in Blood by Automated count 9.4 fL 7.4 - 10.4 [facility] Neutrophils/100 leukocytes in Blood by Automated count 53.5 % 37. 0 - 80.0 [facility] Lymphocytes/100 leukocytes in Blood by Manual count 33.7 % 25.0 - 40.0 [facility] Monocytes/100 leukocytes in Blood by Automated count 8.1 % 3.0 - 8.0 H [facility] Eosinophils/100 leukocytes in Blood by Automated count 3.4 % 0.0 - 7.0 [facility] Basophils/100 leukocytes in Blood by Automated count 1.0 % 0.0 - 2.5 [facility] %IG 0.3 % 0.0 - 0.0 H [facility] %NRBC 0.0 % 0.0 - 0.0 [facility] Neutrophils [#/volume] in Blood by Automated count 4.60 10^3/uL 2.00 - 6.90 [facility] Lymphocytes [#/volume] in Blood by Automated count 2.90 10^3/uL 0.60 - 3.40 [facility] Monocytes [#/volume] in Blood by Automated count 0.70 10^3/uL 0.00 - 0.90 [facility] Eosinophils [#/volume] in Blood by Automated count 0.29 10^3/uL 0.00 - 0.70 [facility] Basophils [#/volume] in Blood by Automated count 0.09 10^3/uL 0.00 - 0.20 [facility] #IG 0.03 10^3/uL 0.00 - 0.10 [facility] #NRBC 0.00 10^3/uL 0.00 - 0.00 [facility] MANUAL DIFF NOT INDICATED [facility] RBC MORPH NOT INDICATED [facility] spital ID Date Data Source [id number] 02/26/2020 09:02:00 AM EDT [facility] Name Value Range Interpretation Code Description Data Esthela rce(s) Supporting Document(s) HGBA1C [facility] {A1]{HB] ID Date Data Source [id number] 12/16/2019 05:50:00 PM EDT [facility] Name Value Range Interpretation Code Description Data Esthela rce(s) Supporting Document(s) SARS CORONAVIRUS 2 RNA [facility] This lab was ordered by [facility] spital and reported by [facility]. ID Date Data Source [id number] 12/18/2019 04:16:00 PM EDT [facility] Name Value Range Interpretation Code Description Data Esthela rce(s) Supporting Document(s) SARS-CoV-2, DARWIN Not Detected Not Detected [facility] Testing was performed using the danilo(R) SARS-CoV-2 test.This test was developed and its performance characteristics determinedby [employer]. This test has not been FDA cleared [...] or revoked sooner. ID Date Data Source [id number] 12/16/2019 05:48:00 PM EDT [facility] Name Value Range Interpretation Code Description Data Esthela rce(s) Supporting Document(s) Influenza virus A Ag [Presence] in Nasopharynx by [facility] y NEGATIVE NORMAL: NEGATIVE [facility] Influenza virus B Ag [Presence] in Nasopharynx by [facility] y NEGATIVE NORMAL: NEGATIVE [facility] NEGATIVENEGATIVE PROCEDURAL CO NTROL VALID KIT LOT # _[id number] 12/16/19.1748.DC . . . KIT EXP DATE _10/30/20 12/16/19.1748.DC . . .The Influenza A & B assay is a rapid molecular in vitro diagnostic testutilizing an isothermal nucleic acid amplification technology for thequalitative detection of influenza A and B viral RNA.Negative results do not preclude influenza virus infection and should not beused as the sole basis for diagnosis, treatment or other patient managementdecisions. ID Date Data Source [id number] 12/16/2019 05:25:00 PM EDT [facility] Name Value Range Interpretation Code Description Data Esthela rce(s) Supporting Document(s) RAPID STREP NEGATIVE NORMAL: NEGATIVE [facility] RAPID STREP REENTER NEGATIVE NORMAL: NEGATIVE [facility] { PROCEDURAL CONTROL VALID ){ KIT LOT # [id number] ){ KIT EXP DATE 04/09/21 )The Strep [...] basis for treatment. ID Date Data Source [id number] 11/05/2019 12:37:04 PM [facility] Name Value Range Interpretation Code Description Data Esthela rce(s) Supporting Document(s) Progress Note [facility] ZEVIIh3pNxFZGuUv19/VNKqoRXEne5CbDFptWVu6ZIcgRBWkG7KfGQM0vE0fCDK2LLfHQsPrWoNbEoY8 m [file] M1cZIrSh6TEpTrMydWOgFgWD0MPEu= ID Date Data Source [id number] 10/22/2019 08:03:52 AM EST [facility] Name Value Range Interpretation Code Description Data Esthela rce(s) Supporting Document(s) Operative Note [facility] GURJHc9cXrWJCqCf80/CETzeMNRwx6XwZGwvNPo1MVhdCODuJ2GmMNK8qT9gEKJ8RMaCLzPvQmOpSmFj lbm [file] DQogICAgICAgICAgICAgICAgICAgICAgICAgICAgICAgICAgICAgICAgICAgICAgICAgICAgICAgICAg ICAgICAgICAgICAgICAgICAgICAgICAgICAgICAgIC AgICAgICAgICAgDQogICAgICAgICAgICAgICAgICAgICAgICAgICAgICAgICAgICAgICAgICAgICAgIC AgICAgICAgICAgICAgICAgICAgICAgICAgICAgICAgICAgICAgICAgICAgICAgICAgICAgDQogICAgIC AgICAgICAgICAgICAgICAgICAgICAgICAgICAgICAg ICAgICAgICAgICAgICAgICAgICAgICAgICAgICAgICAgICAgICAgICAgICAgICAgICAgICAgICAgICAg ICAgDQogICAgICAgICAgICAgICAgICAgICAgICAgICAgICAgICAgICAgICAgICAgICAgICAgICAgICAg ICAgICAgICAgICAgICAgICAgICAgICAgICAgICAgIC AgICAgICAgICAgICAgDQogICAgICAgICAgICAgICAgICAgICAgICAgICAgICAgICAgICAgICAgICAgIC AgICAgICAgICAgICAgICAgICAgICAgICAgICAgICAgICAgICAgICAgICAgICAgICAgICAgICAgDQogIC AgICAgICAgICAgICAgICAgICAgICAgICAgICAgICAg ICAgICAgICAgICAgICAgICAgICAgICAgICAgICAgICAgICAgICAgICAgICAgICAgICAgICAgICAgICAg ICAgICAgDQogICAgICAgICAgICAgICAgICAgICAgICAgICAgICAgICAgICAgICAgICAgICAgICAgICAg ICAgICAgICAgICAgICAgICAgICAgICAgICAgICAgIC AgICAgICAgICAgICAgICAgDQogICAgICAgICAgICAgICAgICAgICAgICAgICAgICAgICAgICAgICAgIC AgICAgICAgICAgICAgICAgICAgICAgICAgICAgICAgICAgICAgICAgICAgICAgICAgICAgICAgICAgDQ ogICAgICAgICAgICAgICAgICAgICAgICAgICAgICAg ICAgICAgICAgICAgICAgICAgICAgICAgICAgICAgICAgICAgICAgICAgICAgICAgICAgICAgICAgICAg ICAgICAgICAgDQogICAgICAgICAgICAgICAgICAgICAgICAgICAgICAgICAgICAgICAgICAgICAgICAg ICAgICAgICAgICAgICAgICAgICAgICAgICAgICAgIC MaJLAhZSBoPSBxJNSgXONpJHNvBEi7K6lhUIRhNGIyGP8oUMt9Zy3+LVkNBcInDFG1ywYrdB7HXL1cs2 YrFTiwHAQrc0WxULe1RF1BGYSwNBkdKF7BHBfxfy4BIRYzALJwsTOXx4eqNjJbAAO7EDOaSliiUX6GZI PmP6orafVgIHKiEFNYXEudOVZWXOlpCMHFYE1WLnQv T2YfyJ21AUNKUr4+DFeswvOdKujPIhTtVAMuj7JqHLg5FJ2VGENoYypsb7GjEuAzVGQRXMtoVC2RBZB4 WBXkFQMkHr4IIDVxN530exIdOJ6HKw1RXiSuVV1qgu8QHhObPXPiBfsTUms4ITjyTE4CvWYeLSeLpKWn BFOfgnAmOd37TNKaiOLXwQYwUQHiDMskY6BkjaRyaj osECFqJLGwYq8lFL8xKGUrRSWdWtOuWAEXTT9MJSUwLHCdpWTxIMAsPOVSHS1KLKbxUUH6FPMotnPzkU CwQXgfSA4PJRXpimUkXdHvFFFVQMu+Hh9SWH1tt6NlSTftJcAkEN5qoo0GHVwGByXiA0C6tXTwZ1Y1ST fnEi7PAWEdXGWsKXiaPDIZKMvjLL3PBA0guuI9PU6Y aIQbWCThNWWkaCRhDCa8S21fuYObJPpgSM5PYDD+Prosper+Ud6PFBKnFEVgHFFjKkIiUNSSWzUaA1HtC5AJ e9GaD4FfYG32qGuzpoGxUMyaTI0JFH3bMLJdHKSYUI2HfAWqtC9xfaGrKKOgWHMKXxGnL00zyGVcRUQa SCQeICYdYw1QTVViW5QortIlmLkrvyIfWWKlYYSVMZ 6AWUlndqFzmPGgsQqrYZ19oRjnYZ5FXx8TKxFmQP4zzu4EwMXvMm7EGMCsTS2QRXCxZRPjDTMqMTD2OF GsAkBwYLdwFJZuOXLwIMI5XBMnOUOvJK1VTnYcPPQsVENgVJJlJBEsDWKptp9ZVLPgPVDnCyViNuFhEB LrTJJfPUyzBVLcCGIvMBJ8QMJbPMJlJG0JXqQhZXAy KHEyAGbnEIHwUAGzdx6VVJAnGIEpBlEpUkExVKUvUAUtQEqlGACvKEU4QoGoSUEyOVTyFW8PMrUqSBNf SCX5WQRlHTEhJCRice1LQSCeVHZbMeIgQiYdMWEfIHQnFEmfAGIhSZU1IhE5AHPmICYwXT8AVvAqRBRi BWovUJsgGOErJEUlxn7ARRXeGXZxPaC3EWOsIZZkLP JjAUlbSTToHNA5NLP1SWCaVHTtBU3XBmScMNAcKRy1OnRsWDWoCAYlkt4RIEXsNHKyBShoYVCoPJWqLT FhRCmiTVWaXHI9SCZ7IWWjADQqKC3TYmWvUQGbTGp3ZdZjFJUpUHCzgt4GYHQtLGJwHLD3MGBcIESfWC QcQCzrWSEcPAIbBbG5UBYrXNEaTU4FNsKbYVDaQJN7 GYLhCWBbFMHsum7UAORfAJYvHtU9DoOiOMVoESBiCGabBIDmIKJjVdMkTCFdWIRmWH7LQtNuGDDdGRBk ZeRjIJOtSOVqua4RgTQveZthvx1GLKoJIz2NiYxrGCC6YDkhFv1vuKHzOfCbDNCOYi4HkzHhJCBtUHGD VYxuALMhZGNhDnU8QXT1KFOdRqC7F7WcUxVuF4V1VN ZoSNSmYjT5VwH1T4FoOwu5Zyn9SPHtNGeuNMDfWtKwJDV8XFA5SpMbZRZ+BF0sVOu+Xf8Fb8HokoR4pd YwSIbtFkEmKJ9MGDSPZ0QJBh== ID Date Data Source [id number] 10/21/2019 10:04:19 AM EST [facility] Name Value Range Interpretation Code Description Data Esthela rce(s) Supporting Document(s) History and Physical [facility] JIDTTm4yRnGBHxCm39/BZHqjXRRju9RuGGotYFc6PUasVISuW9GxEAC5tE4zBNO3HOfVBgRiUuEjKkHg lbm [file] PbJxt1IjPoXR2yAYWXRt2+KUzbjNRppNxiYTDOPcMjZhsrWJsqWFVDFk1L ID Date Data Source [id number] 10/21/2019 09:38:43 AM [facility] Name Value Range Interpretation Code Description Data Esthela rce(s) Supporting Document(s) Choriogonadotropin.beta subunit [Moles/volume] in Serum or Plasm a 2 m[IU]/mL <5 [facility] ID Date Data Source [id number] 10/08/2019 10:44:00 [place] [address] PHONE: [phone] FAX: [phone] Name ..............: HAVEN Galarza Acct Number ...........................: [id number] ROOM. ............: Number ............................: [id number] Stay type.........: O/P Discharge Date...............:10/07/19 Admit Date .....: 10/07/19 Admit Phys .............................: ARBEN WANG Date of ..: 1970 Family Phys ...........................: ALLA Phone..............: [phone] Age.................................:49 Film# ...............:[id number] Sex.................................:F Unsigned transcriptions are preliminary reports and do [id number] COMPLETE:10/07/19 14:20 [facility] [id number] Please See Scanned Results. Name Value Range Interpretation Code Description Data Esthela rce(s) Supporting Document(s) ID Date Data Source [id number] 10/02/2019 06:00:02 PM [facility] Name Value Range Interpretation Code Description Data Esthela rce(s) Supporting Document(s) Progress Note [facility] GNPUKf5wDiBKLnQe75/NOXzoIGJfq1RfIZkrLAr8DJalFMWrW8KfCWY2wZ5pTTX3SBbMFiFuXrEhFESd m [file] O8CNA0RwOoDyNnEO9RXt7YZqL6CDI5cJSoVq5JXcZ7NfLHAnCuYC7NQYy= ID Date Data Source [id number] 08/27/2019 02:20:58 PM EST [facility], PCName: Crys FrankB: 1970Provider: Tj Santana: 08/27/2019 History of Present IllnessShe is about [...] today inthe office. Indication: pain/dysfunction.); Status:Complete; Done: [id number] Perform:SOS14 (General); Due:65Epj0472; Last Updated By:Mason Houston; 08/27/2019 2:08:03 PM;Ordered; For:Neck pain; Ordered By:Rob Santana; X-Ray I Thoracic Spine - 2 views (XRays were ordered, obtained and interpreted today inthe office. Indication: pain/dysfunction.); Status:Complete; Done: [id number] Perform:SOS14 (General); Due:82Yhl8600; Last Updated By:Mason Houston; 08/27/2019 2:08:03 PM;Ordered; For:Neck pain; Ordered By:Rob Santana; Physical Therapy (SOS) - Spinal Physical Therapy Evaluation and Treatment Status:Complete Done: [id number] Ordered;For: Pain, upper back; Ordered By: Rob Santana Performed: Order Comments: Please fax results to [phone] Due: [id number]; Last Updated By: Dayanara Low; 08/27/2019 2:19:25 [...] drowsiness. Signatures Electronically signed by : Rob Santana M.D.; Aug 27 2019 2:20PM EST (Author) Name Value Range Interpretation Code Description Data Esthela rce(s) Supporting Document(s) ID Date Data Source [id number] 08/22/2019 12:47:51 PM EST [facility] Name Value Range Interpretation Code Description Data Esthela rce(s) Supporting Document(s) Progress Note [facility] YNGQCi3pQuTBFzGz53/TQNzeJOXrz6UeUKblZYb4MNeaUODtC3YuGDT4iO6kCMS0CQzCHjXbNEbiShTk [facility] [file] AgICAgICAgICAgICAgICAgICAgICAgICAgICAgICAgICAgICAgICAgICAgICAgICAgICAgICAgICAgIC ZpOYUyLPNoGBSpOOZhRCHyDBPlBNAmLK8XXEGxVOVtTHTuIFNbYEAuQWFzJYUzQCVxUAKsMVVaCHUqNC AgICAgICAgICAgICAgICAgICAgICAgICAgICAgICAg GISxLQMePFAaETPcQZZrXTGoSTWaQQEiJJOfQVPlRXStJE1YNRXmNKDnKUHsUVNsHUIbUDNeCDIfCANs ICAgICAgICAgICAgICAgICAgICAgICAgICAgICAgICAgICAgICAgICAgICAgICAgICAgICAgICAgICAg NYSvIMEwUEKnGMLuBSHqHI3PLPEoOXZsHNZeMCMdDE AgICAgICAgICAgICAgICAgICAgICAgICAgICAgICAgICAgICAgICAgICAgICAgICAgICAgICAgICAgIC YtFPXoKKTsVCWvLPThERZsAAVdLALfAAKsNR1ZNEYyOQNiHTSfOBKwLRHoEQAbMGXmSQKxDLGyBDPnLL AgICAgICAgICAgICAgICAgICAgICAgICAgICAgICAg LBIaASFlYEZhTINsENMhXXJuCQFhNVLiANMlVFMqKVVrCVLpFV5PUNJpHWWeOAGjIEGeETIdQNWlQVBn ICAgICAgICAgICAgICAgICAgICAgICAgICAgICAgICAgICAgICAgICAgICAgICAgICAgICAgICAgICAg YPYiBJXnAEGhFPYeWPTgKZAdXL7AUYBaLDCoWMHhNV AgICAgICAgICAgICAgICAgICAgICAgICAgICAgICAgICAgICAgICAgICAgICAgICAgICAgICAgICAgIC DiSSChDYTtVUAbYMNbZFRzXUDxNBQgBDRaWEEbAN1GKIEqIVEhYXZtLBUfHOPdSGBqQXIgQLEuRMNcTZ AgICAgICAgICAgICAgICAgICAgICAgICAgICAgICAg FPIkGUNpYQTpDVLyNUZxTJOpZMPlZYPhRAMiXJCrIXFkJNDbKCLmUU9TRJVkEELrUCTwKKZsAUGzPWZt ICAgICAgICAgICAgICAgICAgICAgICAgICAgICAgICAgICAgICAgICAgICAgICAgICAgICAgICAgICAg JEWxMCFvKADaBNJdCVFcRUSfHYDiAG3FCIOiHVUvBL AgICAgICAgICAgICAgICAgICAgICAgICAgICAgICAgICAgICAgICAgICAgICAgICAgICAgICAgICAgIC DxTCRaXCLkHUIwSBDuUJSmSDEeGXMpRDOxERFgXTKqBU8ECN55yWErg4M3QKHzTJ7xxff/Kd6NDGodnv KifRRxBL9XYwHjTE5fjx9MZuPiLW7drt9COHbOTlSk H6W9gIUnIMFgXPSQQsWyU27mIQlbCh08NEzdZESuVvGtGOy9Sd6JTgJhR5wdDELkWrJ5FVYgFlV9GQXn EmNeOLnoHM3Bb3YugHTfZCd+Hx3NJF8qj5SkOVpgCHSrBL7mhp4GANgSRtYpF2VqykW1EHN5JDAsUe1E NHDfTJCxrTLzMEVpLUFZSnMqU4WtxL16IFGPUn0+DQ isovShYqaHRuW3ZSLyb2NrNGy0ZH0XUVHyKEv5qSEjAGAxE1Wze4CaUo05NYKgPjcrD0BlyZUkuSIoKW vyr5QfVJTFSSPcxNGsWx2jIi3dZSR1FWIkLjV4BCSHZU1WIYRhEQAczNSqFTYjVYCUKJ1SMDcrMQH8VF KmykJheDOsSJtkOQ3JQCRgdzKkHqAzZDTNAPj+Pg0K NO9kc8KjDYxxEgZoHI7xob5BENwGTgShV4Y5fZQtD4R6JZuyQg2OUHYtDOAxCsSgSKEWMSfzRC2MWC5n npG1YD3RcKQzZJMmCXUtxTElWAp7L53fiOAgRGuzPX2CDYI+Prosper+Ni2YGBLjITRlSFYhDuLiTZQNUqDt M8ViM4IEc4TfQ2FiNP72pYhvgmBgIXsyNA5RIM8zDI LwMZNOQR9OeFWnwM9ioqOvXZUqKMDYGiIaR40ghWMeLIRjLCXlVXEbOo0RCJSfV3UcomDtnDuxdwHjZB EzVPSGBN2XXVkytpIruLWdfTjnWR70eXpmBB1XQh4ZAjKfSD8sqg3EdDPsSy0NBNTzYi5YEOWiZGXnEJ XcEHS3MRDiIhAdECgwMXVgOACiWID6AQZpFPNbAG8Q HhRnLGPyIgD7SDHkGKLqJELcwu7DGYIcBQAlPKStFLJzLYGiAYOfPBchFDDzOVHiCWP2JQUcVFEzFC4L OxRwKVJfVPH0NeXmIYYtGBGixo1HJCMlBYPtYNmoSEKsGAPlGHQzBUbxWBJnIPH4JUN7DRCrBYZpED3D AfCnCADmCCNzQnTgERDdDTRsxy3YDOPgGPEeCnG6BZ YzJMQqPEQiYHhvXJBlVOM1Cco4TXAhNAMeMU9ASmXxUVQrLYz2PFntWIQaSIVsdb9BBXSyGSYsZIUeIn FkILKaKRTsGXngTTMyIRH9NtC3XMNgVFOxWN7FCdVgWXVuQMt0AOMtZRAjOKCcdc5ASCYjFRJkJUX6ND KzOVBoZBGbHMnjGUIvKHZeRPf0TXOkDNRvEU5QZoGu RWPiSwS2PYQoWDIfSPIxvg9EYZGfLQQqLAAgTzObCNMpFKVzUJzjRUWnSFIeCDaqNDZpSFXiZW2GWfEy DMKiJfOqJMDtWBFsUASoyo5DZWRtSWXtEnS5YeQrWZJeRRQqGWkxQQUcYRTpJRE1APYvGYZiOX5SAvYi EQNiHeG8XLXpMXXjUXSjdk6RYPNkWXFdNRZzLUXpQP IxXFNbIUtpBHXkJPQ5SZFkMTIkEYThXB8YIlWnLPHqHnK0WUJwYBEaUFKzxm4IaUKilKyegv9ACNbEZx 5DiDzjGDZ3YJemSl6owWJgRuCwCPXXBm3RtvKsSXPnBWHVAMryCCAnLSN1Q5QgG8VgCpY9Pfm8WeX9Pj SnEVZfYxWqDiZ0BfqtQfY4RcG3I0F2M0SbVBYiHMic AakdXLZ5HMY9XIAbMRUsQ4A+YJ3yQDx+Ht5Nr1TkwqL1dvYfPKwkUGq7FN3SJIHGT9EBLf== ID Date Data Source [id number] 08/22/2019 09:33:59 AM EST [facility] Name Value Range Interpretation Code Description Data Esthela rce(s) Supporting Document(s) Progress Note [facility] AOKWFs5fEaAZKuCi07/OBFzvSPJgt3IgORdtVVb3TFgrWDOqK9PpVJF0kD8aFNR3QUmVFaSeMBmbHwCp lbm [file] ID Date Data Source [id number] 08/21/2019 06:42:00 AM EST [facility] 1 Medication Reconciliation Report [facility] Emergency Department [address] [place] [address] Phone #: [phone] qvd- [phone] 08/21/2019 06:42 Patient: CRYS FRANK Sex: F [...] Dispense 5 tablet. Refills: 0. Substitutionpermitted.Pharmacy - [facility] [address] - [address] [place], [place] [phone]. . -- Lee Ibrahim M.D. Name Value Range Interpretation Code Description Data [facility](s) Supporting Document(s) ID Date Data Source [id number] 08/21/2019 06:42:00 AM [place] [address] Medication Administration Record [facility] Emergency Department [address] [place] [address] Phone #: ext- [phone] 08/21/2019 06:42 Patient: CRYS FRANK Sex: F : 1970 Age: 49yWeight: 70.3 kgHeight/Length: 67 inBMI: 24.3ALLERGIES: CiproDate/Time Medication Administered Medication Ordered Name Value Range Interpretation Code Description Data [facility](s) Supporting Document(s) ID Date Data Source [id number] 08/21/2019 06:42:00 AM [facility] 1 General Instructions [facility] Emergency Department [address] [place] [address] Phone #: [phone] qqp- [phone] 08/21/2019 06:42 Patient: CRYS FRANK Sex: F : 1970 Age: 49yMuscle strain of the upper back.INSTRUCTIONSDo not work today, tomorrow.(Heat and stretches. Massage. Take Aleve 2 tabs by mouth twice a day with food. Continue care withorthopedics, chiropractor and your primary care provider.).Prescription Medications:prednisone 50 mg tablet Take 1 tablet once a day -- Dispense 5 tablet. Refills: 0. Substitutionpermitted.Pharmacy - [facility] [address] - [address] [facility] ; [place], [place] [id number]. . ADDITIONAL INFORMATIONBack Pain (Acute or Chronic) 2 General Instructions [facility] Emergency Department [address] [place] [address] Phone #: ext- [phone] 08/21/2019 06:42 Patient: [...] illness. Mechanical problems include: 3 General Instructions [facility] Emergency Department [address] [place] [address] Phone #: ext- [phone] 08/21/2019 06:42 Patient: CRYS FRANK Sex: F : 1970 Age: 49y Physical [...] painful area for 20 4 General Instructions [facility] Emergency Department [address] [place] [address] Phone #: ext- [phone] 08/21/2019 06:42 Patient: [...] or are takingother medicines. You may use qhms-kzh-alltxwj medicine as directed on the bottle to [...] judgement. Do not drive or operate heavy Adype.Follow-up careFollow up with your healthcare provider, or as advised.A radiologist will review any X-rays that were taken. Your provide will notify you of any new findingsthat may affect your care.Call [phone] if any of the following occur: Trouble breathing Confusion Very drowsy or trouble awakening Fainting or loss of consciousness Rapid or very slow heart rate Loss of bowel or bladder control 5 General Instructions [facility] Emergency Department [address] [place] [address] Phone #: ext- [phone] 08/21/2019 06:42 Patient: CRYS FRANK Sex: F : 1970 Age: 49yWhen to seek medical adviceCall your healthcare provider right away if any of these occur: Pain becomes worse or spreads to your legs Weakness or numbness in one or both legs Numbness in the groin or genital area [id number] [employer]. [address] [place] [address]. All rights reserved. This information is not intended as asubstitute for professional medical care. Always follow your healthcare professional's instructions. You have been given the following additional information: Back Pain (Acute or Chronic) Do not work today, tomorrow.(Electronically signed by Lee Ibrahim M.D. 08/21/2019 08:05) Name Value Range Interpretation Code Description Data Esthela rce(s) Supporting Document(s) ID Date Data Source [id number] 08/21/2019 06:42:00 AM EST [facility] 1 Clinical Report - Nurses [facility] Emergency Department [address] [place] [address] Phone #: ext- [phone] 08/21/2019 06:42 Patient: [...] impairments noted. 2 Clinical Report - Nurses [facility] Emergency Department [address] [place] [address] Phone #: ext- [phone] 08/21/2019 06:42 Patient: CRYS FRANK Sex: F : 1970 Age: 49y LEARNING [...] Patient verbalized understanding. Written instructions provided in [place]. The patient was discharged by the physician. [...] Sinha R.N. 3 Clinical Report - Nurses [facility] Emergency Department [address] [place] [address] Phone #: ext- [phone] 08/21/2019 06:42 Patient: CRYS FRANK Sex: F : 1970 Age: 49y Name Value Range Interpretation Code Description Data Esthela rce(s) Supporting Document(s) ID Date Data Source [id number] 08/21/2019 06:42:00 AM EST [facility] 1 Clinical Report - Physicians/Mid Levels [facility] Emergency Department [address] [place] [address] Phone #: ext- [phone] 08/21/2019 06:42 Patient: [...] thumb and 5th finger chronically). 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 Additional history - Pt has hx of cervical spondylosis and has had fusion surgery. She is seeing orthopedics and has a nerve conduction test tomorrow in [place]. The interscapular pain is new. She is taking Aleve without improvement. Review of [facility] registry shows no controlled med prescriptions. She [...] Medications: 2 Clinical Report - Physicians/Mid Levels [facility] Emergency Department [address] [place] [address] Phone #: ext- [phone] 08/21/2019 06:42 Patient: [...] Medications: 3 Clinical Report - Physicians/Mid Levels [facility] Emergency Department [address] [place] [address] Phone #: ext- [phone] 08/21/2019 06:42 Patient: CRYS FRANK Sex: F : 1970 Age: 49y prednisone 50 mg tablet Take 1 tablet once a day -- Dispense 5 tablet. Refills: 0. Substitution permitted. Pharmacy - [facility] [address] [place], [place] [phone]. .(Electronically signed by Lee Ibrahim M.D. 08/21/2019 08:05) Name Value Range Interpretation Code Description Data Esthela rce(s) Supporting Document(s) Procedure Social History Code Duration Value Status Description Data Source(s ) Alcohol intake 11/05/2019 12:00:00 AM EST Current drinker of al cohol (finding) completed Current drinker of alcohol (finding) [facility] Cigarette pack-years 11/05/2019 12:00:00 AM EST UNK completed [facility] Cigarettes smoked current (pack per day) - Reported 11/05/19 12:00:00 AM EST UNK completed [facility] Smoking 11/05/2019 12:00:00 AM EST Current every day smoker co mpleted Current every day smoker [facility] Alcohol intake 10/21/2019 12:00:00 AM EST Current drinker of al cohol (finding) completed Current drinker of alcohol (finding) [facility] Cigarette pack-years 10/21/2019 12:00:00 AM EST UNK completed [facility] Cigarettes smoked current (pack per day) - Reported 10/21/19 12:00:00 AM EST UNK completed [facility] Smoking 10/21/2019 12:00:00 AM EST Current every day smoker co mpleted Current every day smoker [facility] Alcohol intake 10/02/2019 12:00:00 AM EST Current drinker of al cohol (finding) completed Current drinker of alcohol (finding) [facility] Cigarette pack-years 10/02/2019 12:00:00 AM EST UNK [facility] Cigarettes smoked current (pack per day) - Reported 10/02/19 12:00:00 AM EST UNK completed [facility] Smoking 10/02/2019 12:00:00 AM EST Current every day smoker co mpleted Current every day smoker [facility] Alcohol intake 08/22/2019 12:00:00 AM EST Current drinker of al cohol (finding) completed Current drinker of alcohol (finding) [facility] Cigarette pack-years 08/22/2019 12:00:00 AM EST UNK completed [facility] Cigarettes smoked current (pack per day) - Reported 08/22/20 12:00:00 AM EST UNK completed [facility] Smoking 08/22/2019 12:00:00 AM EST Current every day smoker co mpleted Current every day smoker [facility] Vital Signs ID Date Data Source UNK Name Value Range Interpretation Code Description Data Source(s) Body surface area Derived from formula 1.92 m2 1.92 m2 [facility] ([facility]) Body mass index (BMI) [Ratio] 27.9 kg/m2 27.9 k g/m2 [facility] ([facility]) Body height 67 [in_i] 67 [in_i] [facility] ([facility]) 5'7" Body weight 80.741 kg 80.741 kg [facility] ([facility]) Body weight 178.00 [lb_av] 178.00 [lb_av] [facility] ([facility]) Oxygen saturation in Arterial blood by Pulse oximetry 97 % 97 % [facility] ([facility]) Respiratory rate 18 /min 18 /min [facility] ( [facility]) Body temperature 97.4 [degF] 97.4 [degF] [facility] ([facility]) Heart rate 76 /min 76 /min [facility] ([facility]) Diastolic blood pressure 76 mm[Hg] 76 mm[Hg] [facility] ([facility]) Systolic blood pressure 116 mm[Hg] 116 mm[Hg] [facility] Systolic blood pressure 136 mm[Hg] 136 mm[Hg] [facility] ([facility]) Body surface area Derived from formula 1.89 m2 1.89 m2 [facility] ([facility]) Body mass index (BMI) [Ratio] 26.8 kg/m2 26.8 k g/m2 [facility] ([facility]) Body height 67 [in_i] 67 [in_i] [facility] ([facility]) 5'7" Body weight 77.566 kg 77.566 kg [facility] ([facility]) Body weight 171.00 [lb_av] 171.00 [lb_av] [facility] ([facility]) Oxygen saturation in Arterial blood by Pulse oximetry 18 % 18 % [facility] ([facility]) Respiratory rate 18 /min 18 /min [facility] ( [facility]) Body temperature 97.6 [degF] 97.6 [degF] [facility] ([facility]) Diastolic blood pressure 76 mm[Hg] 76 mm[Hg] [facility] ([facility]) Oxygen saturation in Arterial blood by Pulse oximetry 96 % 96 % [facility] ([facility]) Body temperature 97.4 [degF] 97.4 [degF] [facility] ([facility]) Heart rate 96 /min 96 /min [facility] ([facility]) Body surface area 1.89 m2 1.89 m2 [facility] ([facility]) Body mass index (BMI) [Ratio] 26.6 kg/m2 26.6 k g/m2 [facility] ([facility]) Body height 67 [in_i] 67 [in_i] [facility] ([facility]) 5'7" Body weight 77.112 kg 77.112 kg [facility] ([facility]) Body weight 170.00 [lb_av] 170.00 [lb_av] [facility] ([facility]) Oxygen saturation in Arterial blood by Pulse oximetry 100 % 100 % [facility] ([facility]) Body temperature 98.4 [degF] 98.4 [degF] [facility] ([facility]) Heart rate 93 /min 93 /min [facility] ([facility]) Diastolic blood pressure 81 mm[Hg] 81 mm[Hg] [facility] ([facility]) Systolic blood pressure 161 mm[Hg] 161 mm[Hg] [facility] ([facility]) Body surface area 1.92 m2 1.92 m2 [facility] ([facility]) Body mass index (BMI) [Ratio] 27.7 kg/m2 27.7 k g/m2 [facility] ([facility]) Body height 67 [in_i] 67 [in_i] [facility] ([facility]) 5'7" Body weight 80.287 kg 80.287 kg [facility] ([facility]) Body weight 177.00 [lb_av] 177.00 [lb_av] [facility] ([facility]) Oxygen saturation in Arterial blood by Pulse oximetry 98 % 98 % [facility] ([facility]) Respiratory rate 18 /min 18 /min [facility] ( [facility]) Body temperature 98.1 [degF] 98.1 [degF] [facility] ([facility]) Heart rate 84 /min 84 /min [facility] ([facility]) Diastolic blood pressure 78 mm[Hg] 78 mm[Hg] [facility] ([facility]) Systolic blood pressure 122 mm[Hg] 122 mm[Hg] [facility] Body surface area 1.92 m2 1.92 m2 [facility] ([facility]) Body mass index (BMI) [Ratio] 27.6 kg/m2 27.6 k g/m2 [facility] ([facility]) Body height 67 [in_i] 67 [in_i] [facility] ([facility]) 5'7" Body weight 79.834 kg 79.834 kg [facility] ([facility]) Body weight 176.00 [lb_av] 176.00 [lb_av] [facility] ([facility]) Oxygen saturation in Arterial blood by Pulse oximetry 97 % 97 % [facility] ([facility]) Respiratory rate 16 /min 16 /min [facility] ( [facility]) Body temperature 99.8 [degF] 99.8 [degF] [facility] ([facility]) Heart rate 110 /min 110 /min [facility] ([facility]) Diastolic blood pressure 70 mm[Hg] 70 mm[Hg] [facility] ([facility]) Systolic blood pressure 122 mm[Hg] 122 mm[Hg] M [facility] ([facility]) Body surface area 1.89 m2 1.89 m2 [facility] ([facility]) Body mass index (BMI) [Ratio] 26.8 kg/m2 26.8 k g/m2 [facility] ([facility]) Body height 67 [in_i] 67 [in_i] [facility] ([facility]) 5'7" Body weight 77.566 kg 77.566 kg [facility] ([facility]) Body weight 171.00 [lb_av] 171.00 [lb_av] [facility] ([facility]) Oxygen saturation in Arterial blood by Pulse oximetry 97 % 97 % [facility] ([facility]) Respiratory rate 18 /min 18 /min [facility] ( [facility]) Body temperature 97.7 [degF] 97.7 [degF] [facility] ([facility]) Heart rate 97 /min 97 /min [facility] ([facility]) Diastolic blood pressure 78 mm[Hg] 78 mm[Hg] [facility] ([facility]) Systolic blood pressure 140 mm[Hg] 140 mm[Hg] M [facility] ([facility]) Body surface area 1.93 m2 1.93 m2 [facility] ([facility]) Body mass index (BMI) [Ratio] 28.0 kg/m2 28.0 k g/m2 [facility] ([facility]) Body height 67 [in_i] 67 [in_i] [facility] [facility] 5[facility]7" Body weight 81.194 kg 81.194 kg MED[facility] ([facility]) Body weight 179.00 [lb_av] 179.00 [lb_av] MEDEN T ([facility]) Oxygen saturation in Arterial blood by Pulse oximetry 98 % 98 % [facility] ([facility]) Respiratory rate 18 /min 18 /min [facility] ( [facility]) Body temperature 97.2 [degF] 97.2 [degF] [facility] ([facility]) Heart rate 88 /min 88 /min [facility] ([facility]) Diastolic blood pressure 80 mm[Hg] 80 mm[Hg] [facility] ([facility]) Systolic blood pressure 146 mm[Hg] 146 mm[Hg] M EDENT ([facility]) ID Date Data Source [id number] 05/25/2020 12:33:04 PM EDT [facility] Name Value Range Interpretation Code Description Data Source(s) WEIGHT RECORDED 170.00 pounds 170.00 pounds [facility] Height 67 Inches 067 Inches [facility] ID Date Data Source [id number] 05/19/2020 10:22:24 AM EDT [facility] Name Value Range Interpretation Code Description Data Source(s) WEIGHT RECORDED 170.00 pounds 170.00 pounds [facility] Height 67 Inches 067 Inches [facility] ID Date Data Source [id number] 10/22/2019 08:03:52 AM [facility] Name Value Range Interpretation Code Description Data Source(s) WEIGHT RECORDED 160 lb 160 lb [facility] Body height Measured 67 in 67 in [facility] Patient Treatment Plan of Care Planned Activity Planned Date Details Description Data Source (s) fentaNYL (SUBLIMAZE) (PF) injection 25 mcg 10/21/2019 11:11:11 AM [facility] HYDROmorphone (DILAUDID) injection 0.5 mg 10/21/2019 11:11:11 AM [facility] ondansetron (ZOFRAN) injection 4 mg 10/21/2019 11:11:11 AM [facility] oxyCODONE (ROXICODONE) immediate release tablet 5 mg 020 10:09:12 AM [facility] lidocaine (XYLOCAINE) 1 % injection 1 mL 10/21/2019 08:11:37 AM [facility] Ondansetron 8 MG Oral Tablet 10/21/2019 12:00:00 AM [facility] 8 HR Acetaminophen 650 MG Extended Release Oral Tablet 10/21/2019 12:00:00 AM [facility] Ibuprofen 600 MG Oral Tablet 10/21/2019 12:00:00 AM [facility] Oxycodone Hydrochloride 5 MG Oral Tablet 10/21/2019 12:00:00 AM [facility] methylPREDNISolone acetate (DEPO-MEDROL) injection 40 mg 08/22/2019 01:00:00 PM [facility]
[2020-10-12 07:54] LABS: ALBUMIN 3.7 GM/DL (3.2-5.2); ALT/SGPT 31 U/L (12-78); BILIRUBIN,DIRECT < 0.1 MG/DL (0.0-0.2); BILIRUBIN,TOTAL 0.2 MG/DL (0.2-1.0); BLOOD UREA NITROGEN 11 MG/DL (7-18); CALCIUM LEVEL 9.2 MG/DL (8.5-10.1); CARBON DIOXIDE LEVEL 27 MEQ/L (21-32); CHLORIDE LEVEL 109 MEQ/L (98-107); CREATININE FOR GFR 0.83 MG/DL (0.55-1.30); GLOMERULAR FILTRATION RATE > 60.0 (>51); GLUCOSE, FASTING 103 MG/DL (70-100); LIPASE 215 U/L (73-393); POTASSIUM SERUM 4.4 MEQ/L (3.5-5.1); SODIUM LEVEL 139 MEQ/L (136-145); TOTAL PROTEIN 7.5 GM/DL (6.4-8.2)
--- NOTE | 2020-10-12 13:22 | REP ---
INDICATION: dilated common bile duct. COMPARISON: Comparison sonography is from earlier this date. Borderline common bile duct, 6.5 mm.. TECHNIQUE: Axial and coronal T2 weighted scans are acquired. A 3D T2 weighted MRCP acquisition is acquired and maximum intensity projection images are provided and viewed in rotation format. FINDINGS: There is no focal liver lesion on T2 weighted scans. No filling defect is visible within the gallbladder lumen. There is no evidence of intrahepatic bile duct dilation. The pancreatic duct is unremarkable. The common bile duct measures 6.4 mm in greatest diameter which is near the upper range of normal. No choledocholithiasis or biliary stricture is apparent. IMPRESSION: CBD 6.4 mm in diameter on MRCP images. No biliary stricture or choledocholithiasis seen. Normal pancreatic duct. No intrahepatic ductal dilation seen. <Electronically signed by Florentino Herzog > 10/12/20 [id number]
[2020-10-12] MEDS ORDERED: PROT1TAB2 PO (13:49)
[2020-10-12 14:01] VITALS: BP 144/88
--- NOTE | 2020-10-12 15:39 | ED PDOC ---
Post-Departure Follow-Up adarsh choi and elida faxed formal report of us for fu Renee Milton MD Oct 12, 2020 15:39
== END 2020-10-12 14:04 | disposition home or self-care (01) ==
LOC: M ED 05:42
DX: K83.8 Other specified diseases of biliary tract (principal); G47.30 Sleep apnea, unspecified; Z88.8 Allergy status to other drugs, medicaments and biological substances; F17.210 Nicotine dependence, cigarettes, uncomplicated

== ENCOUNTER → 2020-12-09 | Outpatient (CLI) | payer OTHER ==
[~2020-12-09] MED LIST changes: +ATOR1TAB19; +PROT1TAB2 PO
== END ==
LOC: M LABSMTC 10:33
PROVIDERS: ATTEND Anesthesiology
DX: Z01.812 Encounter for preprocedural laboratory examination (principal); Z20.822 Contact with and (suspected) exposure to COVID-19

== ENCOUNTER 2020-12-14 12:55 | Day surgery (SDC) | payer OTHER ==
[~2020-12-14] VITALS: Ht 167.6 cm; Wt 81.8 kg
[~2020-12-14 12:55] MED LIST changes: +NS 1,000 ML IV ONE
[2020-12-14] MEDS ORDERED: LIDOCAINE 2% 100MG/5ML SDV (FOR ANES.) As Ordered ONE ×2 (13:32→15:45)
[2020-12-14] MEDS ORDERED: propofoL 200 MG/20 ML VIAL As Ordered ONE ×2 (13:32→15:41)
[2020-12-14] MEDS ORDERED: fentaNYL 100 MCG/2 ML INJECTION (J3010) As Ordered ONE (13:33)
--- NOTE | 2020-12-14 15:46 | ROOR ---
Patient Name: Crys Frank Procedure Date: 12/14/2020 3:20 PM Date of : 1970 Age: 50 Room: [facility] Gender: Female Note Status: Finalized Procedure: Upper GI endoscopy Indications: Abdominal pain Providers: Ash GALLAGHER MD Referring MD: MYESHA MENDOZA MD Requesting Provider: Medicines: Monitored Anesthesia Care Complications: No immediate complications. Procedure: Pre-Anesthesia Assessment: - The heart rate, respiratory rate, oxygen saturations, blood pressure, adequacy of pulmonary ventilation, and response to care were monitored throughout the procedure. The Endoscope was introduced through the mouth, and advanced to the second part of duodenum. The upper GI endoscopy was accomplished without difficulty. The patient tolerated the procedure well. Findings: Moderately severe esophagitis was found at the gastroesophageal junction. Biopsies were taken with a cold forceps for histology. The entire examined stomach was normal. A prominent mucosal fold between first and second portions of duodenum. Biopsies were taken with a cold forceps for histology. The exam of the duodenum was otherwise normal. Impression: - Reflux esophagitis. Biopsied. - Normal stomach. - Prominent mucosal fold in the duodenum. Biopsied. - The duodenum is otherwise normal. Recommendation: - Use Prilosec (omeprazole) 40 mg PO daily. - Follow an antireflux regimen. - Observe patient's clinical course. - Telephone endoscopist for pathology results in 2 weeks. Procedure Code(s): --- Professional --- 82608, Esophagogastroduodenoscopy, flexible, transoral; with biopsy, single or multiple Diagnosis Code(s): --- Professional --- R10.9, Unspecified abdominal pain K31.89, Other diseases of stomach and duodenum K21.0, Gastro-esophageal reflux disease with esophagitis CPT copyright 2019 [employer]. All rights reserved. The codes documented in this report are preliminary and upon fixed income analyst review may be revised to meet current compliance requirements. Ash Gallagher MD Ash GALLAGHER MD 12/14/2020 3:45:33 PM Electronically signed by Ash GALLAGHER MD Number of Addenda: 0 Note Initiated On: 12/14/2020 3:20 PM Estimated Blood Loss: Estimated blood loss: none.
[2020-12-14 16:04] VITALS: BP 132/98
[2020-12-16] MEDS ORDERED: MELA10CA2 PO (13:54)
== END 2020-12-14 16:07 | disposition home or self-care (01) ==
LOC: M OPP 12:55
PROVIDERS: ATTEND Internal Medicine Gastroenterology
DX: K21.00 Gastro-esophageal reflux disease with esophagitis, without bleeding (principal); K31.89 Other diseases of stomach and duodenum; R10.9 Unspecified abdominal pain; F17.210 Nicotine dependence, cigarettes, uncomplicated; Z88.8 Allergy status to other drugs, medicaments and biological substances
CPT/HCPCS: 43239; 88305; J3010

== ENCOUNTER → 2020-12-17 | Outpatient (CLI) | payer OTHER ==
[~2020-12-17] MED LIST changes: +MELA10CA2 PO; -NS 1,000 ML IV ONE
--- NOTE | 2020-12-17 17:06 | REP ---
INDICATION: RUQ PAIN. COMPARISON: None TECHNIQUE/RADIOTRACER AND DOSE: FOLLOWING THE INTRAVENOUS ADMINISTRATION OF 6.6 MCI TECHNETIUM 99 M-MEBROFENIN, MULTIPLE IMAGES OF THE RIGHT UPPER QUADRANT ARE PERFORMED FOR 60 MINUTES. NEXT 8 OZ OF ENSURE ENLIVE IS INGESTED AND FURTHER IMAGING IS PERFORMED FOR 65 MINUTES. FINDINGS: THE GALLBLADDER IS VISUALIZED AT 15 MINUTES POST INJECTION. THERE IS BILIARY TO BOWEL TRANSIT AT 35MINUTES POST INJECTION. THERE IS NO SCINTIGRAPHIC EVIDENCE OF CHOLECYSTITIS. GALLBLADDER EJECTION FRACTION IS CALCULATED TO BE 78% WHICH IS NORMAL. IMPRESSION: NORMAL GALLBLADDER EJECTION FRACTION. <Electronically signed by Jose Bergman > 12/17/20 1961
== END ==
LOC: M RAD 11:34
PROVIDERS: ATTEND Internal Medicine Gastroenterology
DX: K82.8 Other specified diseases of gallbladder (principal); R10.11 Right upper quadrant pain
CPT/HCPCS: 78227; A9537

== ENCOUNTER → 2022-07-13 | Outpatient (CLI) | payer OTHER | LOC: M RAD 15:33 | PROVIDERS: ATTEND Otolaryngology | DX: H92.01 Otalgia, right ear (principal); Z96.22 Myringotomy tube(s) status ==

== ENCOUNTER → 2023-05-22 | Outpatient (REF) | payer OTHER ==
[~2023-05-22] MED LIST changes: +CEFD300C41
[2023-05-22 18:30] LABS: AMORPHOUS SEDIMENT SMALL (NEGATIVE); APPEARANCE, URINE HAZY (CLEAR); BACTERIA, URINE AUTO 1+ (NEGATIVE); BILIRUBIN, URINE AUTO NEGATIVE (NEGATIVE); BLOOD, URINE BLOOD NEGATIVE (NEGATIVE); COLOR, URINE YELLOW (YELLOW); GLUCOSE, URINE (UA) AUTO NEGATIVE (NEGATIVE); KETONE, URINE AUTO NEGATIVE (NEGATIVE); LEUKOCYTE ESTERASE, URINE AUTO NEGATIVE (NEGATIVE); MUCUS, URINE SMALL (NEGATIVE); NITRITE, URINE AUTO NEGATIVE (NEGATIVE); PROTEIN, URINE AUTO NEGATIVE (NEGATIVE); RBC, URINE AUTO 1 /HPF (0-3); SPECIFIC GRAVITY URINE AUTO 1.018 (1.002-1.035); SQUAMOUS EPITHELIAL CELL UR AU 4 /HPF (0-6); UROBILINOGEN, URINE AUTO 0.2 mg/dL (0.0-2.0); WBC, URINE AUTO 4 /HPF (0-3)
== END ==
LOC: M SMT 17:19
PROVIDERS: ATTEND Urology
DX: R30.0 Dysuria (principal); R82.89 Other abnormal findings on cytological and histological examination of urine

== ENCOUNTER → 2023-07-03 | Outpatient (REF) | payer OTHER ==
[~2023-07-03] MED LIST changes: -CEFD300C41; +CEFD300C42
[2023-07-03 17:49] LABS: APPEARANCE, URINE CLEAR (CLEAR); BACTERIA, URINE AUTO NEGATIVE (NEGATIVE); BILIRUBIN, URINE AUTO NEGATIVE (NEGATIVE); BLOOD, URINE BLOOD NEGATIVE (NEGATIVE); COLOR, URINE YELLOW (YELLOW); GLUCOSE, URINE (UA) AUTO NEGATIVE (NEGATIVE); KETONE, URINE AUTO NEGATIVE (NEGATIVE); LEUKOCYTE ESTERASE, URINE AUTO NEGATIVE (NEGATIVE); MUCUS, URINE SMALL (NEGATIVE); NITRITE, URINE AUTO NEGATIVE (NEGATIVE); PROTEIN, URINE AUTO NEGATIVE (NEGATIVE); RBC, URINE AUTO 0 /HPF (0-3); SPECIFIC GRAVITY URINE AUTO 1.018 (1.002-1.035); SQUAMOUS EPITHELIAL CELL UR AU 7 /HPF (0-6); UROBILINOGEN, URINE AUTO 0.2 mg/dL (0.0-2.0); WBC, URINE AUTO 1 /HPF (0-3)
== END ==
LOC: M SMT 17:16
PROVIDERS: ATTEND Nurse Practitioner Family
DX: R30.0 Dysuria (principal)

== ENCOUNTER → 2023-07-26 | Outpatient (REF) | payer OTHER ==
[2023-07-26 11:30] LABS: APPEARANCE, URINE CLEAR (CLEAR); BACTERIA, URINE AUTO NEGATIVE (NEGATIVE); BILIRUBIN, URINE AUTO NEGATIVE (NEGATIVE); BLOOD, URINE BLOOD NEGATIVE (NEGATIVE); COLOR, URINE YELLOW (YELLOW); GLUCOSE, URINE (UA) AUTO NEGATIVE (NEGATIVE); KETONE, URINE AUTO NEGATIVE (NEGATIVE); LEUKOCYTE ESTERASE, URINE AUTO NEGATIVE (NEGATIVE); NITRITE, URINE AUTO NEGATIVE (NEGATIVE); PROTEIN, URINE AUTO NEGATIVE (NEGATIVE); RBC, URINE AUTO 0 /HPF (0-3); SPECIFIC GRAVITY URINE AUTO 1.017 (1.002-1.035); SQUAMOUS EPITHELIAL CELL UR AU 4 /HPF (0-6); UROBILINOGEN, URINE AUTO 0.2 mg/dL (0.0-2.0); WBC, URINE AUTO 0 /HPF (0-3)
== END ==
LOC: M SMT 10:01
PROVIDERS: ATTEND Urology
DX: N39.0 Urinary tract infection, site not specified (principal)

== ENCOUNTER 2023-11-30 08:45 | Emergency (ER) | payer OTHER ==
[~2023-11-30] VITALS: Ht 170.2 cm; Wt 84.2 kg
[~2023-11-30 08:45] MED LIST changes: +CEFD1CAP9; -CEFD300C42
[2023-11-30] MEDS ORDERED: ONDA-83 PO (08:51)
[2023-11-30] MEDS: NS 1,000 ML IV ONE (09:22)
[2023-11-30] MEDS: MORPHINE 2 MG/ML 1ML VIAL IV ONE (09:23)
[2023-11-30] MEDS: ONDANSETRON 4MG 2ML VIAL IV ONE (09:23)
[2023-11-30 09:49] LABS: BASO % 0.5 % (0.0-1.0); EOS # 0.3 10^3/uL (0.0-0.5); EOS % 3.8 % (0.0-3.0); HEMATOCRIT 40.7 % (36.0-47.0); HEMOGLOBIN 13.4 g/dl (12.0-15.5); LYMPH # 2.6 10^3/uL (1.5-5.0); LYMPH % 31.8 % (24.0-44.0); MEAN CORPUSCULAR HEMOGLOBIN 31.7 pg (27.0-33.0); MEAN CORPUSCULAR HGB CONC 32.9 g/dl (32.0-36.5); MEAN CORPUSCULAR VOLUME 96.2 fl (80.0-96.0); MONO # 0.5 10^3/uL (0.0-0.8); MONO % 5.6 % (2.0-8.0); NEUTROPHILS # 4.8 10^3/uL (1.5-8.5); NEUTROPHILS % 58.1 % (36.0-66.0); PLATELET COUNT, AUTOMATED 262 10^3/uL (150-450); RED BLOOD COUNT 4.23 10^6/uL (4.00-5.40); WHITE BLOOD COUNT 8.3 10^3/uL (4.0-10.0)
[2023-11-30 10:13] VITALS: BP 147/70; TEMP 97.6; O2SAT 100
[2023-11-30 10:16] LABS: LIPASE 39 U/L (12-53)
[2023-11-30 10:19] LABS: ALBUMIN 3.5 G/DL (3.2-5.2); ALKALINE PHOSPHATASE 100 U/L (46-116); ALT/SGPT 22 U/L (7.0-40); AST/SGOT 14 U/L (<34); BILIRUBIN,DIRECT < 0.1 MG/DL (<0.4); BILIRUBIN,TOTAL 0.2 MG/DL (0.3-1.2); BLOOD UREA NITROGEN 7 MG/DL (9-23); CALCIUM LEVEL 8.7 MG/DL (8.5-10.1); CARBON DIOXIDE LEVEL 26 MMOL/L (20-31); CHLORIDE LEVEL 112 MMOL/L (98-107); CREATININE FOR GFR 0.66 MG/DL (0.55-1.30); GLOMERULAR FILTRATION RATE > 60.0 (>51); GLUCOSE, FASTING 99 MG/DL (60-100); POTASSIUM SERUM 4.1 MMOL/L (3.5-5.1); SODIUM LEVEL 141 MMOL/L (136-145); TOTAL PROTEIN 6.6 G/DL (5.7-8.2)
== END 2023-11-30 10:51 | disposition home or self-care (01) ==
LOC: M ED 08:45
DX: R10.11 Right upper quadrant pain (principal); I10 Essential (primary) hypertension; F17.200 Nicotine dependence, unspecified, uncomplicated; F10.10 Alcohol abuse, uncomplicated; Z88.8 Allergy status to other drugs, medicaments and biological substances; Z79.83 Long term (current) use of bisphosphonates
CPT/HCPCS: 76705; 80048; 80076; 83605; 83690; 85025; 96361; 96374; 99284; J2405

== ENCOUNTER 2024-07-23 07:31 | Emergency (ER) | payer OTHER ==
[~2024-07-23] VITALS: Ht 162.6 cm; Wt 82.5 kg
[~2024-07-23 07:31] MED LIST changes: +OMEP1CAP71 PO; +ONDA-83 PO
[2024-07-23] MEDS ORDERED: MELO7.5T35 (08:11)
[2024-07-23] MEDS: GABAPENTIN 300 MG CAP PO ONE (10:44)
[2024-07-23] MEDS ORDERED: GABA-1172 PO (11:09)
[2024-07-23 11:21] VITALS: BP 152/94; TEMP 97.3; O2SAT 99
== END 2024-07-23 11:24 | disposition home or self-care (01) ==
LOC: M ED 07:31
DX: M79.604 Pain in right leg (principal); C50.919 Malignant neoplasm of unspecified site of unspecified female breast; F17.200 Nicotine dependence, unspecified, uncomplicated; Z88.8 Allergy status to other drugs, medicaments and biological substances; Z79.899 Other long term (current) drug therapy

== ENCOUNTER → 2024-11-27 | Outpatient (REF) ==
[~2024-11-27] MED LIST changes: +GABA-1172 PO; +MELO7.5T35
== END ==
LOC: M PLAIMG 09:24
PROVIDERS: ATTEND Internal Medicine
DX: R52 Pain, unspecified (principal)